=== PATIENT | female | born 1990 | race Caucasian/White ===

== ENCOUNTER → 2017-06-25 11:15 | Outpatient (CLI) | payer MEDICAID, SELFPAY ==
[2017-06-25 20:11] LABS: Chlamydia Trachomatis by PCR Negative (Negative); Neisserai gonorrhoeae by PCR Negative (Negative); Probe Check PASS; Sample Adequacy Control PASS; Specimen Processing Control PASS
[2017-06-26 20:08] LABS: HCV Quant. RNA PCR HCV Not Detected IU/mL (.)
[2017-06-27 08:38] LABS: HEPATITIS B SURFACE AG Negative (Negative); HSV 1 IgG 1.38 index (0.00-0.90)
[2017-06-28 01:09] LABS: Rapid Plasmin Reagin (RPR) NONREACTIVE (NONREACTIVE)
[2017-06-28 11:34] LABS: HPV APTIMA, High Risk Negative (Negative)
== END ==
PROVIDERS: Visit Provider Nurse Practitioner Women's Health
DX: Z12.4 Encounter for screening for malignant neoplasm of cervix (principal); Z11.3 Encounter for screening for infections with a predominantly sexual mode of transmission; N89.8 Other specified noninflammatory disorders of vagina
CPT/HCPCS: 36415; 86592; 86695; 86696; 87340; 87491; 87522; 87591; 88175; G0145

== ENCOUNTER 2017-08-26 00:37 | Emergency (ER) | payer SELFPAY ==
[2017-08-26 00:38] VITALS: BP 110/64; PULSE 86; RESP 16; TEMP 36.7; O2SAT 97; BMI 27.5
[2017-08-26 01:18] VITALS: BP 97/56; PULSE 78; O2SAT 95
--- NOTE | 2017-08-26 01:20 | ED.DCSUM_ITS ---
- ER Visit Summary Date of Service: 08/26/17 Chief Complaint: Abscess History of Present Illness: The patient is a 26 F with an abscess in her left gluteal region. No fever or systemic symptoms. Physical Examination: Superficial 1 cm abscess in the left gluteal region near the cleft. Does not involve the labia or deep structures. 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 Anesthetized with lidocaine. 1 cm linear incision made. Pus expressed. Will treat with clindamycin and naproxen. Follow-up with primary care for recheck. Soaks advised. Treatment Plan: As above Disposition: Discharged Impression: 1. Left gluteal abscess 1 cm This note was generated with [employer] dictation software. It may contain incorrect words, spelling, and punctuation that were not noted in review of the chart prior to signing ED Disposition - Plan for ED Patient: Chief Complaint: Abscess Referrals: Care Physician,No Primary [Primary Care Provider] -
--- NOTE | 2017-08-26 01:20 | ED.DEP ---
ED Disposition - Plan for ED Patient: Chief Complaint: Abscess Instructions: ED Abscess IandD Prescriptions: Naproxen [Naprosyn] 500 mg PO BID PRN #20 tab Clindamycin [Cleocin] 300 mg PO 4X/DAY #80 cap Referrals: Care Physician,No Primary [Primary Care Provider] -
== END 2017-08-26 01:34 | disposition home or self-care (01) ==
PROVIDERS: Emergency Provider Emergency Medicine
DX: L02.31 Cutaneous abscess of buttock (principal)
CPT/HCPCS: 10060; 99282

== ENCOUNTER 2017-08-29 06:13 | Emergency (ER) | payer SELFPAY ==
[2017-08-29] VITALS (33 sets, daily range): BP systolic 93–124; BP diastolic 51–85; PULSE 67–113; RESP 12–19; TEMP -17.7–0; O2SAT 90–99; BMI 27.3
--- NOTE | 2017-08-29 06:27 | EKG12_ITS ---
Test Reason : UNRESPONSIVE Blood Pressure : / mmHG Vent. Rate : 087 BPM Atrial Rate : 087 BPM P-R Int : 154 ms QRS Dur : 094 ms QT Int : 370 ms P-R-T Axes : 080 069 060 degrees QTc Int : 445 ms Normal sinus rhythm Normal ECG Confirmed by KUSHAL CHRISTIAN, ADDIS ([id number]), advertising editor DAR GAR ([id number]) on 09/06/2017 3:02:04 PM Referred By: SONU Confirmed By:ADDIS FATIMA MD
[2017-08-29 06:41] LABS: Absolute Lymphocyte Count 1.63 X10^3/ul (0.83-4.51); Absolute Neutrophil Count 3.9 X10^3/uL (2.0-7.7); Basophil# 0.02 X10^3/uL; Basophil% 0.3 % (0-1); Eosinophil# 0.09 X10^3/uL; Eosinophils% 1.4 % (0-5); Hemoglobin 15.6 g/dl (12.0-15.0); Lymphocyte # 1.63 X10^3/ul (4.0); Mean Corp Hgb Conc 33.2 g/gl (32-36); Mean Corpuscular Hgb 30.2 pg (27.0-32.0); Mean Corpuscular Volume 91.1 fL (81-99); Mean Platelet Vol. 11.9 fl (6.2-12.0); Monocyte% 9.6 % (0-10); Neutrophil # 3.91 X10^3/uL (2.7-7.7); Neutrophil % 62.5 % (47-70); Platelet Count 151 K/mm3 (150-450); RBC Distribution Width CV 13.6 % (11.6-14.6); RBC Distribution Width SD 45.2 fl (35.1-43.9); Red Blood Count 5.16 M/mm3 (4.2-5.4); White Blood Count 6.3 K/mm3 (4.4-11.0)
[2017-08-29 06:42] LABS: POSITIVE COUNT NO; POSITIVE DIFFERENTIAL NO; POSITIVE MORPHOLOGY NO
--- NOTE | 2017-08-29 06:47 | ED.RN ---
PT IN [facility], COMBATIVE, OUT OF CONTROL, SCREAMING. PULLED HER IV OUT W HER TEETH, MONITOR AND BP CUFF PULLED OFF W HER TEETH. VIKTORDON GIVEN IM.
--- NOTE | 2017-08-29 06:51 | ED.VISSUMM ---
- ER Visit Summary Date of Service: 08/29/17 Chief Complaint: Unresponsive History of Present Illness: The patient is a 26 F who was called out to EMS as a drug overdose. The person that called this in the left prior to their arrival. Upon their arrival the patient was unresponsive. They gave a dose of Narcan and she then vomited. Aniya reports that she stopped breathing on the way in and she arrives to the emergency department being bagged. Aniya brought the empty medicine bottles that were by her bed. These include: Seroquel 100 mg. 60 pills filled July 17. She is to take 2 nightly. This bottle is empty. Trend Telex 10 mg filled July 17, 1929 pills 1 daily. This is empty. Prazosin 1 mg. She was supposed to take 1 p.o. nightly. This was filled May 30 and July 17. There are 58 of these pills. Zoloft 100 mg. 30 pills filled July 17 1 p.o. daily. This is empty. BuSpar 10 mg. 90 pills filled July 17. 1 p.o. 3 times daily. There are 88 of these pills. Physical Examination: Vitals: 124/80, 88, 18, 100% on room air which is not hypoxic. General: Well-nourished and well-developed. Head: Normocephalic atraumatic. Neck: Supple, no lymphadenopathy. No JVD. Nontender. Cardiovascular: Regular rate and rhythm. No murmurs. Respiratory: No respiratory distress. Clear to auscultation bilaterally. Abdominal: Soft, nontender, nondistended, normal bowel sounds. No guarding, rebound, or peritoneal signs. Back: Nontender. Extremities: Nontender, no edema. Skin: Normal color, no rash. Neurologic: Alert and moves all extremities well.. Psych: Agitated and combative. Will not answer any questions. Test Results: CBC is remarkable for a hemoglobin of 15.6. test is negative. Chem-7 is remarkable for a chloride of 108, BUN of 5, and glucose of 108. LFTs are normal. Emergency Department Course and Treatment: Shortly after arrival in the emergency department the patient became very agitated and combative. She is awake and alert without receiving medications that would have done this. She was placed in restraints for her own and staff safety. She was given Geodon IM with little effect. She was then given Benadryl and Ativan IM. Treatment Plan: When the patient awakes and is more compliant she will require consultation from the counseling center to determine what happened this morning. Disposition: Pending Impression: 1. Depression. 2. Polysubstance overdose. This note was generated with [employer] dictation software. It may contain incorrect words, spelling, and punctuation that were not noted in review of the chart prior to signing ED Disposition - Plan for ED Patient: Chief Complaint: Overdose Referrals: Angela Chawla [Primary Care Provider] -
[2017-08-29] MEDS: Ziprasidone IM 20 MG/ML VIAL IM (06:52)
[2017-08-29 06:53] LABS: Pregnancy, Serum, hCG Quali. NEGATIVE Negative (0-9 Nonpreg)
[2017-08-29] MEDS: 0.9% Normal Saline 1,000 ML 1000 ML IV (06:53)
[2017-08-29 07:03] LABS: AST(SGOT) 21 U/L (15-37); Alanine Aminotransfer ALT/SGPT 24 U/L (13-56); Albumin, Serum 3.8 g/dL (3.2-5.0); Alkaline Phosphatase 81 U/L (45-117); Anion Gap 9 (5-15); BUN 5 mg/dL (7-18); Calcium,Total 8.9 mg/dL (8.5-10.1); Chloride 108 mmol/L (98-107); Creatinine, Serum 0.83 mg/dL (0.55-1.02); EST Glomerular Filtration Rate 87 mL/min (>60); Est Glom Filt Rate - Afr Amer 106 mL/min (>60); Globulin 3.7 g/dL (2.2-4.2); Glucose 108 mg/dL (74-106); Potassium 3.6 mmol/L (3.5-5.1); Protein, Total 7.5 g/dL (6.4-8.2); Sodium Level 140 mmol/L (136-145)
[2017-08-29] MEDS: LORazepam 2 MG/ML Syringe 1 MG IM (07:08)
[2017-08-29] MEDS: DiphenhydrAMINE 50 MG/ML Syringe 25 MG IM (07:09)
[2017-08-29 08:25] LABS: Acetaminophen (Tylenol) Level < 2.0 ug/mL (10.0-30.0)
[2017-08-29 08:30] LABS: Amphetamine Urine VISTA POSITIVE (<1000 ng/mL); Barbiturate Urine VISTA NEGATIVE (< 200 ng/mL); Benzodiazepine Urine VISTA NEGATIVE (< 200 ng/mL); Cocaine Urine VISTA NEGATIVE (< 300 ng/mL); Ecstacy Urine VISTA NEGATIVE (< 500 ng/mL); Methadone Urine VISTA NEGATIVE (< 300 ng/mL); PCP Urine VISTA NEGATIVE (< 25 ng/mL); THC Urine VISTA POSITIVE (< 50 ng/mL); Vista UDS pH Range 6
--- NOTE | 2017-08-29 08:47 | ED.RN ---
CONTACTED CRISIS; FARRAH WILL BE CALLING BACK SHORTLY
--- NOTE | 2017-08-29 08:50 | RAD_ITS ---
STUDY: X-RAY CHEST REASON FOR EXAM: Female, 26 years old. Overdose. TECHNIQUE: Single AP portable view of the chest. COMPARISON: None. FINDINGS: EKG electrodes are seen. The lungs are clear and expanded. There is no demonstrated pleural abnormality. Normal size heart. Normal mediastinum and ruben. Normal visualized pulmonary arteries. Normal visualized aortic arch and descending thoracic aorta. Normal visualized thoracic spine. Normal visualized ribs, clavicles, and shoulders. There is no demonstrated abnormality of the visualized soft tissue structures of the upper abdomen. RAD/Chest 1 View (Portable) IMPRESSION: Normal x-ray examination of the chest. Electronically Signed: Osmel Conde MD at 9:23 EDT Tel [phone], Service support ,
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
--- NOTE | 2017-08-29 08:54 | ED.RN ---
FARRAH FROM [facility] WILL BE IN TO EVALUATE PT
--- NOTE | 2017-08-29 09:07 | ED.RN ---
ATTEMPTED TO CALL PT FRIEND PAMELA. NO ANSWER. CALL GOES TO VOICEMAIL
--- NOTE | 2017-08-29 09:24 | ED.RN ---
PT FRIEND PAMELA AT BEDSIDE. PT SLEEPING
--- NOTE | 2017-08-29 11:18 | ED.RN ---
[facility]
--- NOTE | 2017-08-29 15:41 | ED.RN ---
PER AMANDA WITH [facility]; PT WILL HAVE TO GO TO [facility] BECAUSE OF NO INSURANCE; FAXED ALL INFORMATION TO THEM AND ARE WAITING ON A RESPONSE
[2017-08-29 19:04] LABS: Alcohol, Blood (Medical)-Serum < 3.0 mg/dL
--- NOTE | 2017-08-29 22:18 | ED.RN ---
night time medication ordered at this time
[2017-08-29] MEDS: QUEtiapine 100 MG Tablet PO (22:45)
[2017-08-29] MEDS: busPIRone 5 MG Tablet 10 MG PO (22:45)
[2017-08-30] VITALS (21 sets, daily range): BP systolic 99–122; BP diastolic 55–90; PULSE 64–106; RESP 14–20; TEMP 36.6; O2SAT 91–100
[2017-08-30] MEDS: busPIRone 5 MG Tablet 10 MG PO ×2 (06:42→14:36)
[2017-08-30] MEDS: Doxazosin 1 MG Tablet PO (06:48)
--- NOTE | 2017-08-30 09:17 | NURSING ---
NADIA, CRISIS, HERE FOR PATIENT
[2017-08-30] MEDS: Sertraline 100 MG Tablet 200 MG PO (10:25)
--- NOTE | 2017-08-30 13:47 | NURSING ---
COURTNEY SERVICES IN ROOM WITH PATIENT
--- NOTE | 2017-08-30 17:20 | NURSING ---
FAXED CURRENT VITALS TO [facility]
--- NOTE | 2017-08-30 17:50 | NURSING ---
at 1730 Kulwinder from [facility] called and spoke with this RN, Kulwinder asked questions regarding patients finger nails and if we knew the exact reason the patient was unresponsive on arrival and that narcan did not work. Explained that patient had broken acrylic nail broken off and we use that finger for pulse ox and it is normal at 98%. It was accidently taken on a finger with an acrylic nail on and did not give an accurate pulse ox. Kulwinder states he is going to talk to his physician and call back. at 173 Kulwinder from [facility] called back and stated he needed a written statement from our physician that states patient's diagnosis, that you followed guidelines for that diagnosis, that the patient is medically cleared to go to a free standing physiatric facility. Kulwinder states their physician needs this before accepting and getting a room. Dr. Ward notified of [facility]'s request. Dr. Ward chose to call [facility] specifically at 1740. Dr. Ward spoke with facilities charge nurse/supervisor bonding and then he spoke with their physician. Dr. Ward wrote the statement, we then faxed it to [facility] and are now awaiting their call back.
--- NOTE | 2017-08-30 18:29 | NURSING ---
John from [facility] called at 1810 to say they received the written statement and that they were ready to get nurse report. This RN was transferred to [facility] and gave nurse to nurse report, they state they are ready for pt.
--- NOTE | 2017-08-30 18:35 | NURSING ---
Called and spoke with Zac mejia at [facility]. Gave ETA for patient's arrival around [id number]
--- NOTE | 2017-08-30 20:46 | ED.RN ---
patients medications were left here during transport. Attempted to make contact with patient at this time. No phone number listed. No emergency contact listed either at this time. unable to make any contact at this time with anyone to mixing picker tender patients medications
== END 2017-08-30 20:09 ==
PROVIDERS: Emergency Medicine; Emergency Provider Emergency Medicine; PCP Psychiatry & Neurology Psychiatry
DX: T65.91XA Toxic effect of unspecified substance, accidental (unintentional), initial encounter (principal); R40.20 Unspecified coma; Y92.9 Unspecified place or not applicable; F32.9 Major depressive disorder, single episode, unspecified
CPT/HCPCS: 71045; 80053; 80307; 80320; 80329; 84703; 85025; 93005; 96360; 96372; 99285; J7030; A4216; G0480; J3486

== ENCOUNTER 2017-09-17 18:57 | Emergency (ER) | payer SELFPAY ==
[2017-09-17 18:58] VITALS: BP 127/86; PULSE 81; RESP 16; TEMP 37.1; O2SAT 99; BMI 27.6
--- NOTE | 2017-09-17 20:47 | ED.DCSUM_ITS ---
- ER Visit Summary Date of Service: 09/17/17 Chief Complaint: Depression History of Present Illness: The patient is a 26 F who saw a soda worker today and is an appointment with a counselor tomorrow. She told a friend that she was done, fed up, and can do it. The friend was concerned the patient was suicidal and called the police. Patient reports that she is upset because she has not seen her kids in the past 3-4 weeks. She was at [facility] earlier this month and was released just last week. She denies any suicidal ideation or plan. She denies any homicidal ideation or auditory hallucinations.. Physical Examination: Vitals: Stable. Afebrile. General: Well-nourished and well-developed. Head: Normocephalic atraumatic. Neck: Supple, no lymphadenopathy. No JVD. Nontender. Cardiovascular: Regular rate and rhythm. No murmurs. Respiratory: No respiratory distress. Clear to auscultation bilaterally. Abdominal: Soft, nontender, nondistended, normal bowel sounds. No guarding, rebound, or peritoneal signs. Back: Nontender. Extremities: Nontender, no edema. Skin: Normal color, no rash. Neurologic: Alert and oriented ?3. Cranial nerves II through XII are intact. Normal strength and sensation. Mental status exam: Patient appears their stated age. Good posture and grooming. Good eye contact. Normal rate, volume, and latency of speech. No suicidal or homicidal ideation. No auditory or visual hallucinations. Flow of thought is logical. Insight and judgment is fair. Emergency Department Course and Treatment: Patient was seen by the counseling center in the emergency department. She is able to contract for safety. She has an appointment to be seen tomorrow already. Treatment Plan: Patient discharged instructions to keep her appointment. Return to the emergency department for any thoughts of harming herself. Disposition: To home in improved and stable condition. Impression: 1. Depression. This note was generated with [employer] dictation software. It may contain incorrect words, spelling, and punctuation that were not noted in review of the chart prior to signing ED Disposition - Plan for ED Patient: Disposition: Home or Assisted Living Chief Complaint: Mental Health Instructions: ED Depression Referrals: Counseling,Center [GROUP OF PHYSICIANS] - 1 Day
[2017-09-17 20:53] VITALS: RESP 16
--- NOTE | 2017-09-17 20:54 | ED.RN ---
pt has information on scheduled appt tomorrow with crisis. pt denies questions at this time.
== END 2017-09-17 21:00 | disposition home or self-care (01) ==
PROVIDERS: Emergency Provider Emergency Medicine
DX: F31.9 Bipolar disorder, unspecified (principal); F43.10 Post-traumatic stress disorder, unspecified; Z72.0 Tobacco use
CPT/HCPCS: 99285

== ENCOUNTER 2017-11-27 16:57 | Emergency (ER) | payer MEDICAID, SELFPAY ==
[2017-11-27 17:01] VITALS: BP 118/85; PULSE 77; RESP 78; TEMP 37.2; O2SAT 98; BMI 26.5
[2017-11-27 17:51] LABS: Absolute Lymphocyte Count 1.64 X10^3/ul (0.83-4.51); Absolute Neutrophil Count 5.9 X10^3/uL (2.0-7.7); Eosinophil# 0.11 X10^3/uL; Eosinophils% 1.3 % (0-5); Hematocrit 41.8 % (37-47); Hemoglobin 13.7 g/dl (12.0-15.0); Lymphocyte # 1.64 X10^3/ul (4.0); Lymphocyte % 19.8 % (19-41); Mean Corp Hgb Conc 32.8 g/gl (32-36); Mean Corpuscular Hgb 29.6 pg (27.0-32.0); Mean Corpuscular Volume 90.3 fL (81-99); Mean Platelet Vol. 11.3 fl (6.2-12.0); Monocyte# 0.63 X10^3/uL; Monocyte% 7.6 % (0-10); Neutrophil # 5.89 X10^3/uL (2.7-7.7); Neutrophil % 71.3 % (47-70); Platelet Count 239 K/mm3 (150-450); RBC Distribution Width CV 13.8 % (11.6-14.6); RBC Distribution Width SD 45.5 fl (35.1-43.9); Red Blood Count 4.63 M/mm3 (4.2-5.4); White Blood Count 8.3 K/mm3 (4.4-11.0)
[2017-11-27 17:52] LABS: POSITIVE COUNT NO; POSITIVE DIFFERENTIAL NO; POSITIVE MORPHOLOGY NO
[2017-11-27 18:17] LABS: Alcohol, Blood (Medical)-Serum < 3.0 mg/dL
[2017-11-27 18:19] LABS: Anion Gap 7 (5-15); BUN 8 mg/dL (7-18); BUN/Creat Ratio 9.9 RATIO (10-20); Calcium,Total 9.1 mg/dL (8.5-10.1); Chloride 108 mmol/L (98-107); Creatinine, Serum 0.81 mg/dL (0.55-1.02); EST Glomerular Filtration Rate 90 mL/min (>60); Est Glom Filt Rate - Afr Amer 109 mL/min (>60); Estimated Creatinine Clearance 93.88 ml/min; Glucose 88 mg/dL (74-106); Potassium 3.9 mmol/L (3.5-5.1); Sodium Level 143 mmol/L (136-145)
[2017-11-27 18:25] LABS: Pregnancy, Serum, hCG Quali. NEGATIVE Negative (0-9 Nonpreg)
[2017-11-27 18:28] LABS: Amphetamine Urine VISTA NEGATIVE (<1000 ng/mL); Barbiturate Urine VISTA NEGATIVE (< 200 ng/mL); Benzodiazepine Urine VISTA NEGATIVE (< 200 ng/mL); Cocaine Urine VISTA NEGATIVE (< 300 ng/mL); Ecstacy Urine VISTA NEGATIVE (< 500 ng/mL); Methadone Urine VISTA NEGATIVE (< 300 ng/mL); PCP Urine VISTA NEGATIVE (< 25 ng/mL); THC Urine VISTA POSITIVE (< 50 ng/mL); Vista UDS pH Range 6
--- NOTE | 2017-11-27 21:09 | ED.DCSUM_ITS ---
- ER Visit Summary Date of Service: 11/27/17 Chief Complaint: Suicidal ideation History of Present Illness: The patient is a 26 F presents with suicidal ideation. She has a history of depression and significant prior suicide attempt. She has been increasingly depressed since her committed suicide in front of their children a proximally 1 year ago. She lost custody of her children and she has a 1 day a week supervised visit. She was having her visit today and apparently sent text messages and left voicemails to her friends stating that she was going to kill herself and her friend called police. She also called crisis recently and said that she is going to commit suicide. Physical Examination: Vitals within normal limits. She is not in distress. Neck is supple. Heart tones are regular and without murmur. Lungs are clear bilaterally. Diminished soft and nontender. Affect is flat. Thought content is normal. She admits to suicidal thoughts but denies a specific plan Test Results: Medical clearance labs are unremarkable Emergency Department Course and Treatment: Medical clearance labs are unremarkable. I consulted crisis. They have voicemails and audio recordings from her friend stating that she is going to complete suicide and apparently she became belligerent with the police today and said that she is going to give her children away so that she can commit suicide. The crisis mental health professional feel strongly that she would benefit from inpatient psychiatric treatment and that she is at high risk for completing suicide. She was medically cleared and she will be transferred to an inpatient psychiatric facility. Treatment Plan: Transfer to psychiatric facility Disposition: Transfer stable condition Impression: Initial encounter suicidal ideation and suicidal gesture This note was generated with [employer] dictation software. It may contain incorrect words, spelling, and punctuation that were not noted in review of the chart prior to signing ED Disposition - Plan for ED Patient: Chief Complaint: Suicidal Referrals: Care Physician,No Primary [Primary Care Provider] -
[2017-11-27] MEDS: Ziprasidone IM 20 MG/ML VIAL IM (22:01)
[2017-11-27 22:08] VITALS: BP 119/68; PULSE 62; RESP 18; O2SAT 98
[2017-11-27] MEDS: LORazepam 1 MG Tablet 2 MG PO (23:02)
[2017-11-28 00:15] LABS: AST(SGOT) 15 U/L (15-37); Alanine Aminotransfer ALT/SGPT 19 U/L (13-56); Albumin, Serum 3.9 g/dL (3.2-5.0); Alkaline Phosphatase 86 U/L (45-117); Bilirubin, Direct 0.11 mg/dL (0.00-0.30); Globulin 3.6 g/dL (2.2-4.2); Protein, Total 7.5 g/dL (6.4-8.2)
[2017-11-28 01:18] VITALS: BP 82/59; RESP 18
[2017-11-28 02:31] VITALS: PULSE 57; RESP 18; O2SAT 98
[2017-11-28 02:36] VITALS: PULSE 57; RESP 18
== END 2017-11-28 02:53 ==
PROVIDERS: Emergency Provider Emergency Medicine
DX: R45.851 Suicidal ideations (principal); F32.9 Major depressive disorder, single episode, unspecified; Z91.5 Personal history of self-harm; G40.909 Epilepsy, unspecified, not intractable, without status epilepticus; G43.909 Migraine, unspecified, not intractable, without status migrainosus; Z79.899 Other long term (current) drug therapy; Z72.0 Tobacco use
CPT/HCPCS: 80048; 80076; 80307; 80320; 84703; 85025; 93005; 96372; 99285; G0480; J3486

== ENCOUNTER → 2017-12-09 17:06 | Outpatient (CLI) | payer MEDICAID, SELFPAY ==
[2017-12-09 18:48] LABS: Chlamydia Trachomatis by PCR Negative (Negative); Neisserai gonorrhoeae by PCR Negative (Negative); Probe Check PASS; Sample Adequacy Control PASS; Specimen Processing Control PASS
== END ==
PROVIDERS: Visit Provider Nurse Practitioner Women's Health
DX: Z11.3 Encounter for screening for infections with a predominantly sexual mode of transmission (principal)
CPT/HCPCS: 87491; 87591

== ENCOUNTER → 2018-01-10 16:08 | Outpatient (CLI) | payer MEDICAID, SELFPAY ==
[2018-01-10 18:24] LABS: HIV - WCH Non-Reactive (Nonreactive); Progesterone Level 3.91 ng/mL (See Comment)
[2018-01-13 18:43] LABS: HCV Quant. RNA PCR HCV Not Detected IU/mL (.)
[2018-01-14 11:17] LABS: HEPATITIS B SURFACE AG Negative (Negative)
[2018-01-17 01:16] LABS: Rapid Plasmin Reagin (RPR) NONREACTIVE (NONREACTIVE)
== END ==
PROVIDERS: Nurse Practitioner Women's Health; Visit Provider Obstetrics & Gynecology
DX: Z11.3 Encounter for screening for infections with a predominantly sexual mode of transmission (principal); N92.6 Irregular menstruation, unspecified
CPT/HCPCS: 36415; 84144; 86592; 86703; 87340; 87522

== ENCOUNTER 2018-02-18 14:43 | Emergency (ER) | payer MEDICAID, SELFPAY ==
[2018-02-18 14:43] VITALS: BP 134/83; PULSE 89; RESP 16; TEMP 36.8; O2SAT 97; BMI 28.1
[2018-02-18 14:48] VITALS: BP 134/83; PULSE 90; RESP 16; O2SAT 98
--- NOTE | 2018-02-18 14:48 | CT_ITS ---
STUDY: CT BRAIN WITHOUT CONTRAST REASON FOR EXAM: Female, 27 years old. Severe headaches. Visual changes. RADIATION DOSAGE (If Supplied By Facility): CTDIvol = ( 44.99 ) mGy, DLP = ( 818.61 ) mGycm TECHNIQUE: Transaxial CT imaging of the brain was performed without administration of intravenous contrast material. Individualized dose optimization techniques were used for this CT. COMPARISON: Comparison is made with prior study dated August 08, 2015. FINDINGS: Normal soft tissue structures. Normal calvarium. Normal size ventricles and extra-axial spaces for the patient's age. Normal white matter tracts of the cerebral hemispheres. Normal basal ganglia and thalami. Normal brainstem. Normal cerebellum. There is no intracranial hemorrhage. There are no findings of an acute ischemic infarction. Normal visualized paranasal sinuses. CT/Brain/Head without Contrast IMPRESSION: Normal unenhanced CT scan of the brain. N.B. : The above information has been verbally conveyed by Osmel Conde MD to Dr Mamadou MD, on 02/18/2018 15:29:52 (ET). Electronically Signed: Osmel Conde MD at 15:18 EDT Tel [phone], Service support ,
--- NOTE | 2018-02-18 14:48 | CT_ITS ---
STUDY: CTA NECK WITH CONTRAST REASON FOR EXAM: Female, 27 years old. Severe headaches. Right orbital issues. RADIATION DOSAGE (If Supplied By Facility): CTDIvol = ( 29.34 ) mGy, DLP = ( 1504.17 ) mGycm TECHNIQUE: CT angiography with multi-detector data acquisition was performed from the aortic arch to the skull base following intravenous administration of 100 ml of Isovue 370 contrast. MIP images were reconstructed from the axial data set. Post-processing of the angiographic images was performed, with multiplanar reformation and 3D reconstruction. Individualized dose optimization techniques were used for this CT. COMPARISON: None. FINDINGS: AORTIC ARCH: Normal visualized aortic arch. Normal origins of the brachiocephalic, left common carotid, and left subclavian arteries. RIGHT CAROTID ARTERIES: Normal right common carotid artery (CCA). Normal right common carotid bulb. Normal origin of the right internal carotid (ICA) artery without a hemodynamically significant stenosis. Normal visualized cervical portion of the right internal carotid artery. Normal origin of the right external carotid artery (ECA). LEFT CAROTID ARTERIES: Normal left common carotid artery (CCA). Normal left common carotid bulb. Normal origin of the left internal carotid (ICA) artery without a hemodynamically significant stenosis. Normal visualized cervical portion of the left internal carotid artery. Normal origin of the left external carotid artery (ECA). VERTEBRAL ARTERIES: Normal bilateral vertebral arteries. CT/CTA Neck W/WO Contrast IMPRESSION: Normal bilateral cervical carotid and vertebral arteries. N.B. : The above information has been verbally conveyed by Osmel Conde MD to Clark Cedillo on 02/18/2018 15:29:08 (ET). Electronically Signed: Osmel Conde MD at 15:29 EDT Tel [phone], Service support ,
--- NOTE | 2018-02-18 14:48 | EKG12_ITS ---
Test Reason : NEURO S/SX Blood Pressure : / mmHG Vent. Rate : 086 BPM Atrial Rate : 086 BPM P-R Int : 150 ms QRS Dur : 094 ms QT Int : 360 ms P-R-T Axes : 077 066 061 degrees QTc Int : 430 ms Normal sinus rhythm Normal ECG Confirmed by KUSHAL CHRISTIAN, ADDIS ([id number]), news assignment editor DAR GAR ([id number]) on 02/26/2018 1:33:43 PM Referred By: KAYLIE Confirmed By:ADDIS FATIMA MD
--- NOTE | 2018-02-18 14:48 | CT_ITS ---
STUDY: CTA OF THE BRAIN REASON FOR EXAM: Female, 27 years old. Right-sided weakness. Severe headaches. RADIATION DOSAGE (If Supplied By Facility): CTDIvol = ( 29.34 ) mGy, DLP = ( 1504.17 ) mGycm TECHNIQUE: CT angiography was performed with a multi-detector CT scanner. Data acquisition was obtained from the skull base through the vertex following intravenous administration of 100 ml of Isovue-370. MIP images were reconstructed from the axial data set. Post-processing of the angiographic images was performed, with multiplanar reformation and 3D reconstruction. Individualized dose optimization techniques were used for this CT. COMPARISON: None. FINDINGS: Normal bilateral petrous carotid arteries. Normal right cavernous carotid artery with a normal supraclinoid bifurcation. Normal left cavernous carotid artery with a normal supraclinoid bifurcation. Normal right A1 segments of the anterior cerebral artery. Normal left A1 segments of the anterior cerebral artery. Normal intact anterior communicating artery (ACOM). Normal bilateral A2 segments of the anterior cerebral arteries. Normal right M1 and M2 segments of the middle cerebral arteries, with a normal M1 bifurcation. Normal left M1 and M2 segments of the middle cerebral arteries, with a normal M1 bifurcation. Normal right posterior communicating artery (PCOM). Normal left posterior communicating artery (PCOM). Normal bilateral vertebral arteries. Normal basilar artery with a normal basilar bifurcation. The visualized bilateral superior cerebellar (SCA) arteries are normal. Normal bilateral P1, P2 and visualized P3 segments of the posterior cerebral arteries. There is no demonstrated aneurysm of the [place]. There is no demonstrated abnormality of the visualized brain. CT/CTA Head W/WO Contrast IMPRESSION: Normal [place] without a demonstrated aneurysm or hemodynamically significant stenosis. N.B. : The above information has been verbally conveyed by Osmel Conde MD to Dr Mamadou MD, on 02/18/2018 15:26:53 (ET). Electronically Signed: Osmel Conde MD at 15:26 EDT Tel [phone], Service support ,
--- NOTE | 2018-02-18 14:52 | NURSING ---
STROKE ALERT CALLED.
[2018-02-18 14:54] VITALS: O2SAT 96
[2018-02-18 14:56] LABS: Bedside Glucose 104 mg/dL (70-110)
[2018-02-18 15:11] LABS: Absolute Neutrophil Count 6.5 X10^3/uL (2.0-7.7); Basophil# 0.01 X10^3/uL; Basophil% 0.1 % (0-1); Eosinophil# 0.07 X10^3/uL; Eosinophils% 0.8 % (0-5); Hemoglobin 14.2 g/dl (12.0-15.0); Lymphocyte % 18.1 % (19-41); Mean Corpuscular Hgb 29.9 pg (27.0-32.0); Mean Corpuscular Volume 90.5 fL (81-99); Mean Platelet Vol. 11.6 fl (6.2-12.0); Monocyte# 0.64 X10^3/uL; Monocyte% 7.3 % (0-10); Neutrophil # 6.48 X10^3/uL (2.7-7.7); Neutrophil % 73.5 % (47-70); Platelet Count 254 K/mm3 (150-450); RBC Distribution Width CV 14.8 % (11.6-14.6); RBC Distribution Width SD 48.3 fl (35.1-43.9); Red Blood Count 4.75 M/mm3 (4.2-5.4); White Blood Count 8.8 K/mm3 (4.4-11.0)
[2018-02-18 15:12] LABS: Prothrombin Time (Protime)PT. 13.5 SECONDS (11.7-14.9)
[2018-02-18 15:13] LABS: Anion Gap 8 (5-15); BUN 8 mg/dL (7-18); BUN/Creat Ratio 9.9 RATIO (10-20); Calcium,Total 8.9 mg/dL (8.5-10.1); Chloride 106 mmol/L (98-107); Creatinine, Serum 0.81 mg/dL (0.55-1.02); EST Glomerular Filtration Rate 90 mL/min (>60); Est Glom Filt Rate - Afr Amer 109 mL/min (>60); Estimated Creatinine Clearance 93.05 ml/min; Glucose 98 mg/dL (74-106); Partial Thromboplast Time 29.5 Seconds (24.1-36.2); Sodium Level 140 mmol/L (136-145)
[2018-02-18 15:14] LABS: POSITIVE COUNT NO; POSITIVE DIFFERENTIAL NO; POSITIVE MORPHOLOGY NO
[2018-02-18 16:02] VITALS: BP 135/85; PULSE 80; RESP 20; O2SAT 97
[2018-02-18 16:03] VITALS: BP 135/85; PULSE 80; RESP 15; O2SAT 99
[2018-02-18] MEDS: DiphenhydrAMINE 25 MG Capsule PO (16:11)
[2018-02-18] MEDS: Metoclopramide 10 MG/2 ML Vial IV (16:11)
[2018-02-18] MEDS: Ketorolac 30 MG/ML Syringe IV (16:11)
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
--- NOTE | 2018-02-18 16:28 | ED.DCSUM_ITS ---
- ER Visit Summary Date of Service: 02/18/18 Chief Complaint: Severe headache with blurred vision right eye and numbness right upper and lower extremity. History of Present Illness: The patient is a 27 F who was driving her vehicle when she developed blurred vision right eye with numbness tingling right upper and lower extremity. This was followed by headache and apparent weakness of the right lower leg. She does have history of traumatic brain injury and migraine headaches. There is no family history of subarachnoid hemorrhage or aneurysms of the brain. She denies photophobia, neck pain or neck stiffness. She denies cardiac or respiratory symptoms. She does report nausea without vomiting diar zari. She denies urologic or gynecologic symptoms. Physical Examination: Vital signs noted and blood pressure is elevated 135/85. Head is atraumatic normocephalic. Pupils are equal round reactive. Extraocular muscles are intact. Funduscopic exam reveals normal cup-to-disc ratio with no papilledema. TMs are pearly white with landmarks noted. Nares patent with no drainage. Posterior pharynx without erythema or exudate. Uvula is midline. There is no dysphonia or dysphasia. Trachea is midline. There is no stridor with auscultation of the neck. Neck is supple with no meningeal findings. Heart is regular without murmur, gallop or rub. S1 and S2 are normal. Lungs are clear to auscultation with good movement of air bilaterally. Abdomen soft nontender. Patient is alert and oriented ?3. Motor is 5 over 5. Sensory is intact. DTRs are symmetric with no clonus or Babinski sign. Cranial 2 through 12 are intact. Cerebellar testing is normal. Test Results: CT of the head and neck with contrast reveals no aneurysm, hemorrhage or stroke. EKG sinus rhythm rate 86 with normal ND interval and QRS duration. QT is normal. [place] is normal. CBC and basic metabolic panel unremarkable. Troponin is unremarkable. Emergency Department Course and Treatment: With severe headache this may represent a migraine versus subarachnoid hemorrhage versus intraparenchymal hemorrhage versus CVA. Treatment Plan: Since workup is negative she was treated for migraine headache with 25 mg of Benadryl p.o. since there is a hospital shortage of IV Benadryl and 10 mg of Reglan and 30 mg of Toradol IV push. Patient was assessed at 1630. Her vision is slightly blurred otherwise the paresthesia and weakness have resolved. Headache is improving. Disposition: Discharge to home and follow-up with her primary care doctor assigned to her by her insurance carrier care source. Impression: Ocular/left hemiparetic migraine This note was generated with [employer] dictation software. It may contain incorrect words, spelling, and punctuation that were not noted in review of the chart prior to signing ED Disposition - Plan for ED Patient: Chief Complaint: Neuro S/Sx Instructions: ED Headache Migraine Referrals: Care Physician,No Primary [Primary Care Provider] - Additional Instructions: Follow-up with your primary care provider assigned to you by your insurance carrier, [facility]
[2018-02-18 16:36] VITALS: BP 119/64; PULSE 81; RESP 12
--- NOTE | 2018-02-18 16:54 | PCM.CONS.GEN ---
Reason for Consult Date of Consultation: 02/18/18 Reason for Consultation: Stroke team History of Present Illness: The patient is a 27 year old F with a past medical history of apparently stroke, pseudoseizure, possible blood clots, was driving to work today at about 145 and noted the onset of abnormal vision on the right. She also has a headache. Stroke team was called and I met the patient in the CAT scanner and reviewed the CAT scan concurrently with its [place]'s. CTA was also performed all of which appeared normal to me. Patient denied any triggers. She was not clear about her medications she does believe that in the past she had been on a blood thinner. She said Coumadin sounded familiar. There is no history of blood clots but she has had 6 pregnancies and 3 live births. She says she is also been diagnosed with nonepileptic seizures in the past but does not appear to be on any anticonvulsants. She does admit to increased stress recently. Past Medical History Medical History: Medical History (Last Reviewed 02/18/18 @ 16:56 by Adilson Narvaez MD) Abnormal Pap smear of cervix R87.619 Depression F32.9 Allergies hydrocodone bitartrate [From Vicodin] Allergy (Verified 12/09/17 11:27) Unknown Penicillins Allergy (Verified 12/09/17 11:27) Rash Home Medications: Ambulatory Orders Medication Instructions Recorded Quetiapine Fumarate [Seroquel Xr] 400 mg PO QHS 08/29/17 Minipress 09/17/17 Lamotrigine [Lamictal] 50 mg PO DAILY 11/27/17 Sertraline HCl [Zoloft] 100 mg PO DAILY 11/27/17 Surgical History: Surgical History (Last Reviewed 02/18/18 @ 16:56 by Adilson Narvaez MD) delivery delivered O82 H/O LEEP Z98.890 H/O dilation and curettage Z98.890 Smoking Status: Current every day smoker Review of Systems Neurological: Reports: Blurred vision Psychiatric: Reports: Depression Objective: On physical examination, visual bradley are intact in the left eye but in the right eye only the right dual field is impaired. Cranial nerves are otherwise intact. Pupils are equal. Speech and language is normal. Strength is 5/5 There is no drift. There is increased muscle tone and physiologic tremor in her right upper and right lower extremity. Deep tendon reflexes are 2+ Toes are downgoing - Physical Exam Vital Signs Temp Pulse Resp BP Pulse Ox 36.8 C 81 12 119/64 99 02/18/18 14:43 02/18/18 16:36 02/18/18 16:36 02/18/18 16:36 02/18/18 16:03 Oxygen Delivery Method Room Air Weight: 76.8 kg Body Mass Index (BMI) 28.1 Finger Stick Blood Glucose 104 Laboratory Tests Past 24 Hrs 02/18/18 02/18/18 02/18/18 14:48 14:48 14:48 WBC 8.8 RBC 4.75 Hgb 14.2 Hct 43.0 MCV 90.5 MCH 29.9 MCHC 33.0 RDW 14.8 H RDW Differential 48.3 H Plt Count 254 MPV 11.6 Immature Gran % (Auto) 0.200 Neut % (Auto) 73.5 H Lymph % (Auto) 18.1 L [place] % (Auto) 7.3 Eos % (Auto) 0.8 Baso % (Auto) 0.1 Absolute Neuts (auto) 6.5 Absolute Lymphs (auto) 1.60 Total Counted Not Reportable PT 13.5 INR 1.0 APTT 29.5 Sodium 140 Potassium 4.0 Chloride 106 Carbon Dioxide 26.0 Anion Gap 8 BUN 8 Creatinine 0.81 Estim Creat Clear Calc 93.05 Est GFR (MDRD) Af Amer 109 Est GFR (MDRD) Non-Af 90 BUN/Creatinine Ratio 9.9 L Glucose 98 Calcium 8.9 Troponin I < 0.015 POC Glucose 02/18/18 14:[address] and CTA were reviewed both of which appeared normal. Current Home Med List Medication Instructions Recorded Confirmed Type Quetiapine Fumarate [Seroquel Xr] 400 mg PO QHS 08/29/17 12/09/17 History Minipress 09/17/17 12/09/17 History Lamotrigine [Lamictal] 50 mg PO DAILY 11/27/17 12/09/17 History Sertraline HCl [Zoloft] 100 mg PO DAILY 11/27/17 12/09/17 History Assessment/Plan Symptoms appear to be consistent with ocular migraine. This was discussed with the patient. Patient follow-up is reasonable with further assessment for potential migraine medicines if needed. Is also recommended that stress issues be managed more aggressively. Inpatient evaluation is not unreasonable if desired to complete the evaluation with MRI.
== END 2018-02-18 16:37 | disposition home or self-care (01) ==
PROVIDERS: Emergency Provider Emergency Medicine
DX: G43.909 Migraine, unspecified, not intractable, without status migrainosus (principal); F32.9 Major depressive disorder, single episode, unspecified; F17.200 Nicotine dependence, unspecified, uncomplicated; Z87.820 Personal history of traumatic brain injury
CPT/HCPCS: 70450; 70496; 70498; 80048; 82962; 84484; 85025; 85610; 85730; 93005; 96374; 96375; 99285; J7030; Q9967

== ENCOUNTER 2018-05-10 09:45 | Emergency (ER) | payer MEDICAID, SELFPAY ==
[2018-05-10 09:46] VITALS: BP 113/72; PULSE 76; RESP 16; TEMP 36.4; O2SAT 98; BMI 26.9
--- NOTE | 2018-05-10 09:56 | ED.VISSUMM ---
- ER Visit Summary Date of Service: 05/10/18 Chief Complaint: [] Left lower tooth pain for a few days History of Present Illness: The patient is a 27 F [] left lower tooth pain for a few days no fever no cough history of same has been able to see a dentist Physical Examination: [] Afebrile Wire dental extractions, the left lower tooth may be a second molar is obviously chronically decayed there is no gingival gumline swelling no discharge no airway compromise floor the mouth is soft neck is supple the rest exam is entirely unremarkable Test Results: [] Emergency Department Course and Treatment: [] Treatment Plan: [] Is allergic to penicillin she will be started on clindamycin Naprosyn follow-up with a dentist of her choice as of explained that tooth requires extraction Disposition: [] Impression: [] Dental decay with pain This note was generated with [employer] dictation software. It may contain incorrect words, spelling, and punctuation that were not noted in review of the chart prior to signing ED Disposition - Plan for ED Patient: Chief Complaint: Dental Referrals: Care Physician,No Primary [Primary Care Provider] -
--- NOTE | 2018-05-10 10:01 | ED.DEP ---
ED Disposition - Plan for ED Patient: Chief Complaint: Dental Instructions: ED Cavity Dental Prescriptions: Naproxen [Naprosyn] 500 mg PO BID PRN #20 tab Clindamycin HCl [Cleocin] 300 mg PO Q6H #40 cap Referrals: Care Physician,No Primary [Primary Care Provider] -
--- OUTSIDE RECORDS SUMMARY | 2018-07-14 09:58 | XMS RPT_ITS ---
:1990 Demographics Address [address] [place] [address] Work Phone . Preferred Language eng-US Marital Status Unknown Jainism Affiliation Unknown Race Ethnic Group Unknown Author Organization OH[facility] Care Team Providers Name Role Phone PHYSICIAN, NONE Primary Care Unavailable LIZZIE SANTOS MD Attending Unavailable MONSE BOWMAN (HOLLOW HANDLE KNIFE ASSEMBLER) Attending Unavailable Primay Care Physicia, No Primary Care Unavailable Karen Mcgraw Attending Unavailable Sutherlin, Deloris Attending Unavailable Primay Care Physicia, No Referring Unavailable Primay Care Physicia, No Primary Care Unavailable Luisito, Deloris Attending Unavailable Primay Care Physicia, No Primary Care Unavailable Luisito, Deloris Attending Unavailable Sutherlin, Deloris Referring Unavailable Primay Care Physicia, No Primary Care Unavailable Luisito, Deloris Attending Unavailable Primay Care Physicia, No Referring Unavailable Primay Care Physicia, No Primary Care Unavailable Primay Care Physicia, No Primary Care Unavailable Migue Grimaldo Attending Unavailable Jarad, Ben Attending Unavailable Jarad, Ben Attending Unavailable Primay Care Physicia, No Primary Care Unavailable Primay Care Physicia, No Primary Care Unavailable Dussel, Neftalyopher Attending Unavailable Luisito, Deloris Attending Unavailable Primay Care Physicia, No Referring Unavailable Primay Care Physicia, No Primary Care Unavailable Sutherlin, Deloris Attending Unavailable Primay Care Physicia, No Primary Care Unavailable Luisito, Deloris Referring Unavailable Marcanthony, Anjelica Attending Unavailable Marcanthony, Anjelica Referring Unavailable Cedillo, Clark Attending Unavailable Primay Care Physicia, No Primary Care Unavailable PROBLEMS PROBLEMS DATE TYPE CONDITION / CODE ATTENDING STATUS SOURCE 12/10/2017 Unknown Z11.3 - Encounter for Deloris Jorge Active [place] screening for Community infections with a Hospital predominantly sexual Repository mode of transmission / Z11.3(ICD-10) 09/30/2017 Unknown L02.31 - Cutaneous Migue Grimaldo Active [place] abscess of buttock / Community L02.31(ICD-10) Hospital Repository 06/25/2017 Unknown Z12.4 - Encounter for Luisito Deloris Active [place] screening for Community malignant neoplasm of Hospital cervix / Repository Z12.4(ICD-10) 06/25/2017 Unknown N89.8 - Other SutherlinDeloris spivey Active [place] specified Community noninflammatory Hospital disorders of vagina / Repository N89.8(ICD-10) 06/25/2017 Unknown Z01.411 - Encounter Luisito Deloris Active [place] for gynecological Community examination (general) Hospital (routine) with Repository abnormal findings / Z01.411(ICD-10) 06/25/2017 Unknown Z30.44 - Encounter LuisitoDeloris spivey Active [place] for surveillance of Community vaginal ring hormonal Hospital contraceptive device Repository / Z30.44(ICD-10) 06/25/2017 Unknown F41.9 - Anxiety Sutherlin, Deloris Active [place] disorder, unspecified Community / F41.9(ICD-10) Hospital Repository 06/25/2017 Unknown Z65.8 - Other Sutherlin, Deloris Active [place] specified problems Community related to Hospital psychosocial Repository circumstances / Z65.8(ICD-10) PROCEDURES PROCEDURES No Procedure Records FoundRESULTS RESULTS EMERGENCY DEPARTMENT Observed: 05/10/2018 Status: F Source: [place] SUMMARY 2:47 PM [facility] REPOSITORY [facility] Medical Records Department [address] [place] [address] Emergency Department Summary 05/10/18 0956 MR#: [id number] Acct: [id number] Name: TUAN DOLL Rep #: [id number] : 1990 27 From: Karen Mcgraw MD PCP: Care Physician, No Primary Status: DEP ER - ER Visit Summary Date of Service: 05/10/18 Chief Complaint: [] Left lower tooth pain for a few days History of Present Illness: The patient is a 27 F [] left lower tooth pain for a few days no fever no cough history of same has been able to see a dentist Physical Examination: [] Afebrile Wire dental extractions, the left lower tooth may be a second molar is obviously chronically decayed there is no gingival gumline swelling no discharge no airway compromise floor the mouth is soft neck is supple the rest exam is entirely unremarkable Test Results: [] Emergency Department Course and Treatment: [] Treatment Plan: [] Is allergic to penicillin she will be started on clindamycin Naprosyn follow-up with a dentist of her choice as of explained that tooth requires extraction Disposition: [] Impression: [] Dental decay with pain This note was generated with [employer]apter dictation software. It may contain incorrect words, spelling, and punctuation that were not noted in review of the chart prior to signing ED Disposition - Plan for ED Patient: Chief Complaint: Dental Referrals: Care Physician,No Primary [Primary Care Provider] - What to do if you have Problems For any increased pain, shortness of breath, bleeding, nausea or vomiting, chest pain, or any unexpected problems, contact your Primary Care Provider. Call [facility] ([phone]) or report to the closest Emergency Room. Call 911 if necessary. 05/10/18 1447 <Electronically signed by Karen Mcgraw MD> Date Karen Mcgraw MD Cosigner Signature (If Indicated): Date ____ CC: No Primary Care Physician DISCHARGE INSTRUCTION Observed: 05/10/2018 Status: F Source: [place] 10:03 AM [facility] REPOSITORY [facility] Medical Records Department [address] [place] [address] Discharge Instruction 05/10/18 1001 MR#: [id number] Acct: [id number] Name: TUAN DOLL Rep #: [id number] : 1990 27 From: Karen Mcgraw MD PCP: Care Physician, No Primary Status: PRE ER ED Disposition - Plan for ED Patient: Chief Complaint: Dental Instructions: ED Cavity Dental Prescriptions: Naproxen [Naprosyn] 500 mg PO BID PRN #20 tab Clindamycin HCl [Cleocin] 300 mg PO Q6H #40 cap Referrals: Care Physician,No Primary [Primary Care Provider] - What to do if you have Problems For any increased pain, shortness of breath, bleeding, nausea or vomiting, chest pain, or any unexpected problems, contact your Primary Care Provider. Call [facility] ([phone]) or report to the closest Emergency Room. Call 911 if necessary. 05/10/18 1003 <Electronically signed by Karen Mcgraw MD> Date Karen Mcgraw MD Cosigner Signature (If Indicated): Date CC: No Primary Care Physician SENIOR UI DESIGNER OFFICE VISIT Observed: 04/02/2018 Status: F Source: [place] REPORT 2:11 PM [facility] REPOSITORY [facility] [address] [place] [address] OFFICE VISIT Date of Service: 06/25/17 MR#: [id number] Acct: [id number] Name: TUAN DOLL Rep #: [id number] : 1990 Provider: KAMILA Jorge Age/Sex: 26/F Location: [facility] Status: Signed with Addenda ADDENDUM by KAMILA Jorge on 04/02/18 at 1411 Addendum entered and electronically signed by GLORY Houser 04/02/18 14:11: Rectal exam was deferred. No masses palpated Assessment AND Plan Problems 1. Encounter for gynecological examination with abnormal finding Z01.411 2. Pap smear for cervical cancer screening Z12.4 3. Encounter for surveillance of vaginal ring hormonal contraceptive device Z30.44 4. Screen for STD (sexually transmitted disease) Z11.3 5. Vaginal odor N89.8 6. Anxiety F41.9 7. Social discord Z65.8 Plan - GLORY Houser Completed breast and pelvic exam Reviewed diet and exercise Pap thin prep pap collected Contraception refill nuvaring. Insert today, condoms this cycle and always to decrease STD risks STD screen and call results Discussed counseling [facility], [facility], and [facility] health. She has seen counselor at [facility] in past and will call today. I offered to call for her and declines. [facility] will call her later today, written information on [facility] given. 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 PUBLICATIONS EDITOR) Chief Complaint: est annual Weatherization Technician Required: No Is patient in pain?: Yes Allergies hydrocodone bitartrate [From Vicodin] Allergy (Verified 06/25/17 10:24) Unknown Penicillins Allergy (Verified 06/25/17 10:24) Rash Medications etonogestrel-ethinyl estradiol 0.12 mg -0.015 mg/24 hr vaginal ring 1 vag ring VAGINAL Q3W #3 ea 06/25/17 [Rx Confirmed 06/25/17] Is last menstrual period known: Yes Last Menstral Period: 06/20/17 Post menopausal: No Patient : No : No PFSH Medical History Abnormal Pap smear of cervix (Acute) Depression (Acute) Surgical History delivery delivered (Acute) H/O LEEP (Acute) H/O dilation and curettage (Acute) Family History Grandmother Cancer pancreatic Grandfather Colon cancer Social History Smoking Status: Current every day smoker alcohol intake: current details: social substance use type: does not use caffeine: Yes what type of physical activity do you participate in: none seatbelt use: always do you feel safe at home: Yes additional social history: - Patient works at [employer] and [employer] Pregancy History 4 Elective abortions Hx Para 3 Spontaneous abortions Past Pregnancies Del. DateName GA/Weeks Outcome Route Bth WeighInfant GeLabor LgtAnesthesiDel LocatProvider FOB t n h a n HPI Annual (SCIENTIFIC PUBLICATIONS EDITOR): Details: TUAN MCDONNELL is a 26 year old who presents for annual exam. in October 2016 heroin overdose. States knows he was Hep C positive and she was never tested. She denies any drug use other then marijuana. She has 3 children, working 2 jobs and not much support from family or friends. States trying to be a good mom but feels overwhelmed. Having difficulty paying bills, heat, etc. Her mom was helping but hit one of the children and children services were called so she can't take them there. She admits making stupid choices with several men and wants STD testing. She is using Nuvaring for contraception and wishes to continue. She is having some lower pelvic pain with vaginal odor. Last PAP: 2 years History of abnormal PAP: yes Female Reproductive History Last Menstral Period: 06/20/17 Cycle Length: 21-35 Bleeding Duration: 5 Control Method: nuvaring Questions: Metorrhagia: No, Sexually active: Yes, Dyspareunia: No, PCB: No ROS Const Constitutional: Denies fatigue, weight gain or weight loss Cardio Card: Denies chest pain Resp Resp: Denies cough or shortness of breath with activity GI GI: Denies abdominal pain, constipation, change in stools, vomiting or bloating : Reports as per HPI and pelvic pain; denies urinary frequency, urinary urgency, vaginal discharge, vaginal itching, urinary incontinence or difficulty urinating Exam Const General: cooperative, healthy appearing, no acute distress, well developed Orientation: alert, oriented to person, oriented to place HENMT Head: normal to inspection Neck Neck: normal visual inspection Thyroid: thyroid normal Lymphatic: no lymphadenopathy noted Chest Breast inspection: normal inspection of the breasts, normal inspection of the axillae Breast palpation: normal palpation of the breasts, normal palpation of the axillae, no axillary lymphadenopathy Resp Effort AND Inspection: normal respiratory effort Auscultation: clear to auscultation bilaterally Cardio Rate: regular rate Rhythm: regular rhythm GI Palpation: soft, nontender, no masses Rectal Exam: mass, deferred External Female Exam: normal external appearance, normal appearance of the urethra Urethra: normal appearance of the urethra, normal palpation Speculum Exam - Vagina: normal appearance of the vagina, abnormal vaginal discharge malodorous and bloody, vaginal erythema Speculum Exam - Cervix: normal appearance of the cervix, other (pap, GCC, BV, trich and comp culture collected) Bimanual Exam- Vagina AND Uterus: uterine size normal, uterine shape normal, uterus tender Bimanual Exam- Adnexa, other: no adnexal masses, pelvic support normal, adnexae non-tender Pelvic Support: normal Neuro General: alert, oriented x3 Psych Affect: normal affect Assessment AND Plan Problems 1. Encounter for gynecological examination with abnormal finding Z01.411 2. Pap smear for cervical cancer screening Z12.4 3. Encounter for surveillance of vaginal ring hormonal contraceptive device Z30.44 4. Screen for STD (sexually transmitted disease) Z11.3 5. Vaginal odor N89.8 6. Anxiety F41.9 7. Social discord Z65.8 Plan Completed breast and pelvic exam Reviewed diet and exercise Pap thin prep pap collected Contraception refill nuvaring. Insert today, condoms this cycle and always to decrease STD risks STD screen and call results Discussed counseling [facility], [facility], and [facility]. She has seen counselor at [facility] in past and will call today. I offered to call for her and declines. [facility] will call her later today, written information on 180 given. RTO 1 year, prn with problems Deloris Jorge HOLLOW HANDLE KNIFE ASSEMBLER Orders Orders: Medications New: Coding Level of Care Code Off vis,est,prev 18-39yrs Diagnoses Encounter for gynecological examination with abnormal finding Z01.411 Gynecological examination findings: abnormal findings PRESENT Pap smear for cervical cancer screening Z12.4 Encounter for surveillance of vaginal ring hormonal contraceptive device Z30.44 Contraceptive encounter type: surveillance Contraceptive type: vaginal ring Screen for STD (sexually transmitted disease) Z11.3 Vaginal odor N89.8 Anxiety F41.9 Social discord Z65.8 03 1111 <Electronically signed by Deloris HOLDER> Date Deloris BAUMC Cosigner Signature: Date (if applicable) CC: GC/CHLAMYDIA AMPLIF Collected: 02/28/2018 Status: F Source: [place] 2:40 PM [facility] REPOS[facility] TYPE CODE TESTS RESULT OUT OF REFERENCE UNITS RANGE LAB GCCTSR GC/Chlam Amp Cervix Source LAB GCAMPL GC Negative Amplification for Neisseria gonorrhoeae by amplification. LAB CLAMPL Chlamydia Negative Amplif for Chlamydia trachomatis by amplification. Performed By: #### GCCT #### [facility] [address] [place] [address] CYTOLOGY Observed: 02/28/2018 Status: F Source: [place] 2:[address] [facility] [place] REPOSITORY ---Abnormal Pap Test - Epithelial Cell Abnormality--- Specimen originated from [facility] Specimen #: [id number] Submitting Physician: MONSE BOWMAN SPECIMEN SUBMITTED A: CERVICAL, SCREENING, FLUID FINAL DIAGNOSIS A. CERVICAL, SCREENING, FLUID Satisfactory for interpretation. Epithelial cell abnormality. Low grade squamous intraepithelial lesion (LSIL). Fungal organisms consistent with Anahi species. This specimen has been analyzed by the ThinPrep Imaging System, an automated imaging and review system, which assists the laboratory in evaluating cells on ThinPrep Pap tests. Following automated imaging, selected bradley from every slide are reviewed by a electrolog operator. Shaun Rebollar M.D. (Electronic Signature) CLINICAL DATA ROUTINE EXAM, HPV Testing: Yes, Reflex HPV for ASCUS Date of Last Menstrual Period: 12/23/2017 STAINS A: CERVICAL, SCREENING, FLUID THIN PREP SCIENTIFIC PUBLICATIONS EDITOR Date of Report: 03/11/2018 Date of Procedure: 02/28/2018 Date of Receipt: 03/03/2018 Submitted by: MONSE BOWMAN Location: [facility] Diagnostic interpretation performed at [facility], [address] [place] [address]. The Pap Smear is a screening test for cervical cancer. False negative results occur with all screening tests, emphasizing the need for rescreening at recommended intervals, and clinical correlation. PROGRESS Observed: 02/28/2018 Status: COMPLETED Source: [place] 2:26 PM [facility] REPOSITORY HNO ID: [id number] Author: Monse Bowman Service: (none) Author Type: Nurse Practitioner Type: Progress Notes Filed: 02/28/2018 2:52 PM Note Text: Customer Marketing Assistant offered: Patient declines. Tuan Doll is a 27 year old who presents for her annual gynecologic exam with complaints, irregular bleeding. Menses: cycles every irregular and 4-5 days of flow. 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 - Dysthymic disorder Depression (non-psychotic) - Migraine without aura, without mention of intractable migraine without mention of status migrainosus - PMH - PAST MEDICAL HISTORY OF ABCESSED TOOTH - Pyelonephritis, unspecified 1997 hospitalized - Seizure (HCC) - Trauma - Wheezing likely asthma PAST SURGICAL HISTORY Procedure Laterality Date - CERVIX UTERI CONIZA LP ELCTRO EXCI 02/03/08,2009 LEEP - DELIVERY ONLY - COLPOSCOPY (VAGINOSCOPY) 07/29/2006 Colposcopy - COLPOSCOPY (VAGINOSCOPY) 11/06/2007 - INSERT INTRAUTERINE DEVICE 04/16/07 Mirena - PAST SURGICAL HISTORY OF Bladder surgery at age 7 FAMILY HISTORY Problem Relation Age of Onset - other (lupus) Mother - Cancer Paternal Grandfather LUNG CANCER - Colon Cancer Paternal Grandfather age 50's - Arthritis Maternal Grandmother - Cancer Maternal Grandmother pancreatic CA - age 72 - Asthma Brother - Cancer Maternal Uncle SOCIAL HISTORY Social History Substance Use Topics - Smoking status: Current Every Day Smoker Packs/day: 0.50 Years: 12.00 Types: Cigarettes - Smokeless tobacco: Never Used - Alcohol use Yes Comment: only on occassion,NOT WHILE REVIEW OF SYSTEMS Abdomen: No abdominal pain, nausea, vomiting, diarrhea, or constipation. No bloating, early satiety, indigestion, or increased flatulence. Bladder: No dysuria, gross hematuria, urinary frequency, urinary urgency, or incontinence. Breast: No breast lumps, nipple d/c, overlying skin changes, redness or skin retraction. Allergies and current medication updated:Yes EXAM: Ht 5' 5 (1.65m) Wt 161 lb (73.0kg) LMP 12/23/2017 BMI 26.79 kg/(m2). GENERAL: pleasant, female in no apparent distress HEENT: Normocephalic, atraumatic, mucus membranes moist and no lesions NECK: Supple, full range of motion, no adenopathy and thyroid normal DERMATOLOGY: Normal, without lesions, non-icteric and non-hirsute BREAST: soft, non-tender, symmetric, no dominant mass, normal nipple-areolar complex, no lymphadenopathy and no nipple discharge CHEST: Normal inspiratory effort ABDOMEN: soft, non-tender and no masses PELVIC: external genitalia normal, normal Bartholin's glands, urethra, [place]'s glands, no vulvar lesions, no cervical lesions, good vaginal support, physiologic discharge present, normal appearing perineal body and perianal region, well estrogenized BIMANUAL: uterus normal size, shape and consistency, no adnexal masses, non-tender and no cervical motion tenderness RECTOVAGINAL: deferred. NEURO: alert and oriented x3,exam grossly non-focal EXTREMITIES: normal ASSESSMENT/PLAN: 1) Health maintenance: Pap done with reflex HPV. Mammogram starting age 40. Nutrition, exercise and routine health maintenance exams reviewed. Calcium/Vitamin D supplementation information provided. HPV vaccine: completed series 2) Contraception: Nuva Ring- Rx sent. Contraceptive options reviewed and information provided. 3) STD screening: Accepted STD check for Gonorrhea and Chlamydia. 4) Follow up one year or sooner as needed Monse Bowman APRN.MONA CNOV Observed: 02/28/2018 Status: COMPLETED Source: [place] 2:15 PM [facility] REPOSITORY Office Visit (WOOB) TUAN DOLL ([id number]) 1990 F Date Time Provider Department 02/28/18 2:15 PM MONSE BOWMAN (MONA) WOOB During your visit today, we recorded the following information about you: Blood pressure Weight Height Last Period 108/70 73 kg 1.651 m 12/23/17 Monse Bowman APRN.CNP 02/28/2018 2:52 PM Signed Customer Marketing Assistant offered: Patient declines. Tuan Doll is a 27 year old who presents for her annual gynecologic exam with complaints, irregular bleeding. Menses: cycles every irregular and 4-5 days of flow. 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 - Dysthymic disorder Depression (non-psychotic) - Migraine without aura, without mention of intractable migraine without mention of status migrainosus - PMH - PAST MEDICAL HISTORY OF ABCESSED TOOTH - Pyelonephritis, unspecified 1997 hospitalized - Seizure (HCC) - Trauma - Wheezing likely asthma PAST SURGICAL HISTORY Procedure Laterality Date - CERVIX UTERI CONIZA LP ELCTRO EXCI 02/03/08,2009 LEEP - DELIVERY ONLY - COLPOSCOPY (VAGINOSCOPY) 07/29/2006 Colposcopy - COLPOSCOPY (VAGINOSCOPY) 11/06/2007 - INSERT INTRAUTERINE DEVICE 04/16/07 Mirena - PAST SURGICAL HISTORY OF Bladder surgery at age 7 FAMILY HISTORY Problem Relation Age of Onset - other (lupus) Mother - Cancer Paternal Grandfather LUNG CANCER - Colon Cancer Paternal Grandfather age 50's - Arthritis Maternal Grandmother - Cancer Maternal Grandmother pancreatic CA - age 72 - Asthma Brother - Cancer Maternal Uncle SOCIAL HISTORY Social History Substance Use Topics - Smoking status: Current Every Day Smoker Packs/day: 0.50 Years: 12.00 Types: Cigarettes - Smokeless tobacco: Never Used - Alcohol use Yes Comment: only on occassion,NOT WHILE REVIEW OF SYSTEMS Abdomen: No abdominal pain, nausea, vomiting, diarrhea, or constipation. No bloating, early satiety, indigestion, or increased flatulence. Bladder: No dysuria, gross hematuria, urinary frequency, urinary urgency, or incontinence. Breast: No breast lumps, nipple d/c, overlying skin changes, redness or skin retraction. Allergies and current medication updated:Yes EXAM: Ht 5' 5 (1.65m) Wt 161 lb (73.0kg) LMP 12/23/2017 BMI 26.79 kg/(m2). GENERAL: pleasant, female in no apparent distress HEENT: Normocephalic, atraumatic, mucus membranes moist and no lesions NECK: Supple, full range of motion, no adenopathy and thyroid normal DERMATOLOGY: Normal, without lesions, non-icteric and non-hirsute BREAST: soft, non-tender, symmetric, no dominant mass, normal nipple-areolar complex, no lymphadenopathy and no nipple discharge CHEST: Normal inspiratory effort ABDOMEN: soft, non-tender and no masses PELVIC: external genitalia normal, normal Bartholin's glands, urethra, [place]'s glands, no vulvar lesions, no cervical lesions, good vaginal support, physiologic discharge present, normal appearing perineal body and perianal region, well estrogenized BIMANUAL: uterus normal size, shape and consistency, no adnexal masses, non-tender and no cervical motion tenderness RECTOVAGINAL: deferred. NEURO: alert and oriented x3,exam grossly non-focal EXTREMITIES: normal ASSESSMENT/PLAN: 1) Health maintenance: Pap done with reflex HPV. Mammogram starting age 40. Nutrition, exercise and routine health maintenance exams reviewed. Calcium/Vitamin D supplementation information provided. HPV vaccine: completed series 2) Contraception: Nuva Ring- Rx sent. Contraceptive options reviewed and information provided. 3) STD screening: Accepted STD check for Gonorrhea and Chlamydia. 4) Follow up one year or sooner as needed Monse Bowman APRN.MONA Bowman APRN.CNP 02/28/2018 2:56 PM Signed Addended by: MONSE BOWMAN on: 02/28/2018 02:56 PM Modules accepted: Orders, SmartSet Referring Provider: SELF [[id number]] Allergies As of Date: 02/28/2018 Noted Allergy Reaction NICOTINE 03/16/2008 Comments: patches caused myalgias PENICILLINS 09/07/2008 9 - Itching PINEAPPLE 12/22/2004 11 - Vomiting Comments: the food VICODIN (HYDROCODONE-ACETAMINOPHE*12/06/2008 9 - Itching Date Reviewed: 02/28/2018 Reviewed by: Monse Bowman - Fully Assessed Reason for Visit: Yearly Exam [187] Primary Visit Diagnosis:Encounter for gynecological examination (general) (routine) without abnormal findings [Z01.419] Other Visit Diagnoses:Encounter for screening for malignant neoplasm of cervix [Z12.4] Special screening examination for human papillomavirus (HPV) [Z11.51] Irregular periods [N92.6] Screen for sexually transmitted diseases [Z11.3] Order(s):HCG QUAL UR B/O [4181114] Order #: [id number] PAP FLUID CERVICAL SCREENING [[id number]] Order #: [id number] Etonogestrel-Ethinyl Estradiol (NUVARING) 0.12-0.015 mg/24 hr vaginal ringUse 1 Each vaginally as directed. INSERT ONE(1) RING VAGINALLY AND LEAVE IN PLACE FOR THREE WEEKS, THEN REMOVE FOR 1 WEEK.Disp: 3 EachRfl: 4 GC/CHLAMYDIA DNA DET [SQGCCAMP] Order #: [id number] Prescriptions as of 02/28/2018 Sig: ETONOGESTREL-ETHINYL ESTRADIO* Use 1 Each vaginally as direc* TRAMADOL 50 MG TABLET Take 1 tablet by mouth every * BUSPIRONE 10 MG TABLET CLONAZEPAM 1 MG TABLET Take 1 mg by mouth twice victoria* DICYCLOMINE 10 MG CAPSULE Take 1 capsule by mouth befor* LEVETIRACETAM 500 MG TABLET Take 500 mg by mouth twice da* Problem List As Of Date 02/28/2018 Noted Resolved SUPERVIS OTHER NORMAL PREG [Z34.80] INVALID FOR*01/29/2007 Other specified viral warts [B07.8] INVALID FOR*05/28/2011 PAP SMEAR OF CERVIX W ASCUS [R87.610] INVALID FOR*05/22/2007 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 Pyelonephritis, unspecified [N12] 05/28/2011 More... MIGRAINE [G43.009] Wheezing [R06.2] 05/28/2011 More... Tobacco use disorder [F17.200] INVALID FOR* More... Onychia and paronychia of toe [L03.039] INVALID FOR*05/28/2011 Other acne [L70.8] INVALID FOR*05/28/2011 Supervision of other high-risk [O09.8*INVALID FOR*05/28/2011 Abnormal RBC morphology [R71.8] INVALID FOR*05/28/2011 SUPRF HIGH RISK NEC [V23.89] [O09.899]INVALID FOR*08/02/2014 Previous delivery affecting *INVALID FOR*08/02/2014 Lumbago [M54.5] INVALID FOR* S/P LEEP of cervix [Z98.890] INVALID FOR* CINDI II (cervical intraepithelial neoplasia II) *INVALID FOR* Smoking addiction [F17.200] INVALID FOR* Syncopal episodes [R55] INVALID FOR* More... Seizure (HCC) [R56.9] INVALID FOR* More... Depression [F32.9] INVALID FOR* More... PTSD (post-traumatic stress disorder) [F43.10] INVALID FOR* More... Supervision of high risk in first tri*INVALID FOR*12/07/2014 Previous section complicating pregnanc*INVALID FOR*01/10/2015 More... H/O trichomonal vaginitis [Z86.19] INVALID FOR* H/O chlamydia infection [Z86.19] INVALID FOR* Missed [O02.1] INVALID FOR* Prescriptions ordered this encounter Disp Refills Start End ETONOGESTREL-ETHINYL ESTRADIOL 0.12 * 3 Ea* 4 02/28/2018 Route: VAGINAL Sig: Use 1 Each vaginally as directed. INSERT ONE(1) RING VAGINALLY AND LEAVE IN PLACE FOR THREE WEEKS, THEN REMOVE FOR 1 WEEK. Disposition: Return in 1 year (on 02/28/2019) for Annual Exam. Follow-up and Disposition History Recorded Encounter Status:Closed by MONSE BOWMAN on 02/28/18 12 LEAD ELECTROCARDIOGRAM Observed: 02/26/2018 Status: F Source: [place] 1:34 PM [facility] REPOSITORY [facility] Cardiovascular Services [address] [place] [address] 12 Lead EKG 02/18/18 1511 MR#: [id number] Acct: [id number] Name: TUAN DOLL Rep #: [id number] : 1990 27 From: Colin Rodríguez MD Attending Dr: Status: DEP ER Ordering Dr: Clark Cedillo MD Date: 02/18/18 Location: ED Sex: F C Admitted: Test Reason : NEURO S/SX Blood Pressure : / mmHG Vent. Rate : 086 BPM Atrial Rate : 086 BPM P-R Int : 150 ms QRS Dur : 094 ms QT Int : 360 ms P-R-T Axes : 077 066 061 degrees QTc Int : 430 ms Normal sinus rhythm Normal ECG Confirmed by KUSHAL CHRISTIAN, COLIN ([id number]), production editor DAR GAR ([id number]) on 02/26/2018 1:33:43 PM Referred By: KAYLIE Confirmed By:COLIN RODRÍGUEZ MD 02/26/18 1333 Date Colin Rodríguez MD CC: No Primary Care Physician; Clark Cedillo MD Signed CONSULTATION Observed: 02/19/2018 Status: F Source: [place] 9:28 AM [facility] Medical Records Department [address] [place] [id number] Consultation 02/18/18 1654 MR#: [id number] Acct: [id number] Name: TUAN DOLL Rep #: [id number] : 1990 27 From: Adilson Narvaez MD PCP: Care Physician, No Primary Status: DEP ER Y Location: ED Reason for Consult Date of Consultation: 02/18/18 Reason for Consultation: Stroke team History of Present Illness: The patient is a 27 year old F with a past medical history of apparently stroke, pseudoseizure, possible blood clots, was driving to work today at about 145 and noted the onset of abnormal vision on the right. She also has a headache. Stroke team was called and I met the patient in the CAT scanner and reviewed the CAT scan concurrently with its [place]'s. CTA was also performed all of which appeared normal to me. Patient denied any triggers. She was not clear about her medications she does believe that in the past she had been on a blood thinner. She said Coumadin sounded familiar. There is no history of blood clots but she has had 6 pregnancies and 3 live births. She says she is also been diagnosed with nonepileptic seizures in the past but does not appear to be on any anticonvulsants. She does admit to increased stress recently. Past Medical History Medical History: Medical History (Last Reviewed 02/18/18 @ 16:56 by Adilson Narvaez MD) Abnormal Pap smear of cervix R87.619 Depression F32.9 Allergies hydrocodone bitartrate [From Vicodin] Allergy (Verified 12/09/17 11:27) Unknown Penicillins Allergy (Verified 12/09/17 11:27) Rash Home Medications: Ambulatory Orders Medication Instructions Recorded Surgical History: Surgical History (Last Reviewed 02/18/18 @ 16:56 by Adilson Narvaez MD) delivery delivered O82 H/O LEEP Z98.890 H/O dilation and curettage Z98.890 Smoking Status: Current every day smoker Review of Systems Neurological: Reports: Blurred vision Psychiatric: Reports: Depression Objective: On physical examination, visual bradley are intact in the left eye but in the right eye only the right dual field is impaired. Cranial nerves are otherwise intact. Pupils are equal. Speech and language is normal. Strength is 5/5 There is no drift. There is increased muscle tone and physiologic tremor in her right upper and right lower extremity. Deep tendon reflexes are 2+ Toes are downgoing - Physical Exam Vital Signs Temp Pulse Resp BP Pulse Ox 36.8 C 81 12 119/64 99 02/18/18 14:43 02/18/18 16:36 02/18/18 16:36 02/18/18 16:36 02/18/18 16:03 Oxygen Delivery Method Room Air Weight: 76.8 kg Body Mass Index (BMI) 28.1 Finger Stick Blood Glucose 104 Laboratory Tests Past 24 Hrs POC Glucose POC Glucose 104 CT and CTA were reviewed both of which appeared normal. Current Home Med List Medication Instructions Recorded Confirmed Type Quetiapine Fumarate [Seroquel Xr] 400 mg PO QHS 08/29/17 12/09/17 History Assessment/Plan Symptoms appear to be consistent with ocular migraine. This was discussed with the patient. Patient follow-up is reasonable with further assessment for potential migraine medicines if needed. Is also recommended that stress issues be managed more aggressively. Inpatient evaluation is not unreasonable if desired to complete the evaluation with MRI. 02/19/18 0928 <Electronically signed by Adilson Narvaez MD> Date Adilson Narvaez MD Cosigner Signature (if applicable): Date CC: No Primary Care Physician Signed EMERGENCY DEPARTMENT Observed: 02/18/2018 Status: F Source: [place] SUMMARY 4:29 PM [facility] REPOSITORY [facility] Medical Records Department [address] [place] [address] Emergency Department Summary 02/18/18 1623 MR#: [id number] Acct: [id number] Name: TUAN DOLL Rep #: [id number] : 1990 27 From: Clark Cedillo MD PCP: Care Physician, No Primary Status: REG ER - ER Visit Summary Date of Service: 02/18/18 Chief Complaint: Severe headache with blurred vision right eye and numbness right upper and lower extremity. History of Present Illness: The patient is a 27 F who was driving her vehicle when she developed blurred vision right eye with numbness tingling right upper and lower extremity. This was followed by headache and apparent weakness of the right lower leg. She does have history of traumatic brain injury and migraine headaches. There is no family history of subarachnoid hemorrhage or aneurysms of the brain. She denies photophobia, neck pain or neck stiffness. She denies cardiac or respiratory symptoms. She does report nausea without vomiting diarrhea. She denies urologic or gynecologic symptoms. Physical Examination: Vital signs noted and blood pressure is elevated 135/85. Head is atraumatic normocephalic. Pupils are equal round reactive. Extraocular muscles are intact. Funduscopic exam reveals normal cup-to-disc ratio with no papilledema. TMs are pearly white with landmarks noted. Nares patent with no drainage. Posterior pharynx without erythema or exudate. Uvula is midline. There is no dysphonia or dysphasia. Trachea is midline. There is no stridor with auscultation of the neck. Neck is supple with no meningeal findings. Heart is regular without murmur, gallop or rub. S1 and S2 are normal. Lungs are clear to auscultation with good movement of air bilaterally. Abdomen soft nontender. Patient is alert and oriented 3. Motor is 5 over 5. Sensory is intact. DTRs are symmetric with no clonus or Babinski sign. Cranial 2 through 12 are intact. Cerebellar testing is normal. Test Results: CT of the head and neck with contrast reveals no aneurysm, hemorrhage or stroke. EKG sinus rhythm rate [address] interval and QRS duration. QT is normal. [place] is normal. CBC and basic metabolic panel unremarkable. Troponin is unremarkable. Emergency Department Course and Treatment: With severe headache this may represent a migraine versus subarachnoid hemorrhage versus intraparenchymal hemorrhage versus CVA. Treatment Plan: Since workup is negative she was treated for migraine headache with 25 mg of Benadryl p.o. since there is a hospital shortage of IV Benadryl and 10 mg of Reglan and 30 mg of Toradol IV push. Patient was assessed at 1630. Her vision is slightly blurred otherwise the paresthesia and weakness have resolved. Headache is improving. Disposition: Discharge to home and follow-up with her primary care doctor assigned to her by her insurance carrier care source. Impression: Ocular/left hemiparetic migraine This note was generated with Bio[employer] dictation software. It may contain incorrect words, spelling, and punctuation that were not noted in review of the chart prior to signing ED Disposition - Plan for ED Patient: Chief Complaint: Neuro S/Sx Instructions: ED Headache Migraine Referrals: Care Physician,No Primary [Primary Care Provider] - Additional Instructions: Follow-up with your primary care provider assigned to you by your insurance carrier, [email or web address] What to do if you have Problems For any increased pain, shortness of breath, bleeding, nausea or vomiting, chest pain, or any unexpected problems, contact your Primary Care Provider. Call [facility] ([phone]) or report to the closest Emergency Room. Call 911 if necessary. 02/18/18 3456 <Electronically signed by Clark Cedillo MD> Date Clark Cedillo MD Cosigner Signature (If Indicated): Date CC: No Primary Care Physician BEDSIDE GLUCOSE Collected: 02/18/2018 Status: F Source: [place] 2:51 PM [facility] REPOSITORY TYPE CODE TESTS RESULT OUT OF RANGE REFERENCE UNITS LAB L501.080 70-110 mg/dL Normal BEDSIDE GLU 104 Result Comment: MANAGEMENT OF PATIENT CARE PER NURSING PROTOCOL Performed By: #### L501.080 #### [facility] Point of Care [address] [place] [address] CTA HEAD W/WO Observed: 02/18/2018 Status: F Source: [place] CONTRAST 2:51 PM [facility] REPOSITORY [facility] Imaging Services [address] [place] [address] CTA Head W/WO Contrast MR#: [id number] Acct: [id number] Name: TUAN DOLL Ching Rep #: [id number] : 1990 F 27 From: Osmel Conde MD PCP: Care Physician, No Primary Status: REG ER Study: CTA Head W/WO Contrast Date of Exam: 02/18/18 Exam# [id number] Ordering Dr: Clark Cedillo MD STUDY: CTA OF THE BRAIN REASON FOR EXAM: Female, 27 years old. Right-sided weakness. Severe headaches. RADIATION DOSAGE (If Supplied By Facility): CTDIvol = ( 29.34 ) mGy, DLP = ( 1504.17 ) mGycm TECHNIQUE: CT angiography was performed with a multi-detector CT scanner. Data acquisition was obtained from the skull base through the vertex following intravenous administration of 100 ml of Isovue-370. MIP images were reconstructed from the axial data set. Post-processing of the angiographic images was performed, with multiplanar reformation and 3D reconstruction. Individualized dose optimization techniques were used for this CT. COMPARISON: None. FINDINGS: Normal bilateral petrous carotid arteries. Normal right cavernous carotid artery with a normal supraclinoid bifurcation. Normal left cavernous carotid artery with a normal supraclinoid bifurcation. Normal right A1 segments of the anterior cerebral artery. Normal left A1 segments of the anterior cerebral artery. Normal intact anterior communicating artery (ACOM). Normal bilateral A2 segments of the anterior cerebral arteries. Normal right M1 and M2 segments of the middle cerebral arteries, with a normal M1 bifurcation. Normal left M1 and M2 segments of the middle cerebral arteries, with a normal M1 bifurcation. Normal right posterior communicating artery (PCOM). Normal left posterior communicating artery (PCOM). Normal bilateral vertebral arteries. Normal basilar artery with a normal basilar bifurcation. The visualized bilateral superior cerebellar (SCA) arteries are normal. Normal bilateral P1, P2 and visualized P3 segments of the posterior cerebral arteries. There is no demonstrated aneurysm of the [place]. There is no demonstrated abnormality of the visualized brain. CT/CTA Head W/WO Contrast IMPRESSION: Normal [place] without a demonstrated aneurysm or hemodynamically significant stenosis. N.B. : The above information has been verbally conveyed by Osmel Conde MD to Dr Kaylie MD, on 02/18/2018 15:26:53 (ET). Electronically Signed: Osmel Conde MD at 15:26 EDT Tel [phone], Service support , CC: No Primary Care Physician; Clark Cedillo MD Cloth Mercerizing Supervisor: Signed CTA NECK W/WO Observed: 02/18/2018 Status: F Source: [place] CONTRAST 2:51 PM [facility] REPOSITORY [facility] Imaging Services [address] [place] [address] CTA Neck W/WO Contrast MR#: [id number] Acct: [id number] Name: TUAN DOLL Rep #: [id number] : 1990 F 27 From: Osmel Conde MD PCP: Care Physician, No Primary Status: REG ER Study: CTA Neck W/WO Contrast Date of Exam: 02/18/18 Exam# [id number] Ordering Dr: Clark Cedillo MD STUDY: CTA NECK WITH CONTRAST REASON FOR EXAM: Female, 27 years old. Severe headaches. Right orbital issues. RADIATION DOSAGE (If Supplied By Facility): CTDIvol = ( 29.34 ) mGy, DLP = ( 1504.17 ) mGycm TECHNIQUE: CT angiography with multi-detector data acquisition was performed from the aortic arch to the skull base following intravenous administration of 100 ml of Isovue 370 contrast. MIP images were reconstructed from the axial data set. Post-processing of the angiographic images was performed, with multiplanar reformation and 3D reconstruction. Individualized dose optimization techniques were used for this CT. COMPARISON: None. FINDINGS: AORTIC ARCH: Normal visualized aortic arch. Normal origins of the brachiocephalic, left common carotid, and left subclavian arteries. RIGHT CAROTID ARTERIES: Normal right common carotid artery (CCA). Normal right common carotid bulb. Normal origin of the right internal carotid (ICA) artery without a hemodynamically significant stenosis. Normal visualized cervical portion of the right internal carotid artery. Normal origin of the right external carotid artery (ECA). LEFT CAROTID ARTERIES: Normal left common carotid artery (CCA). Normal left common carotid bulb. Normal origin of the left internal carotid (ICA) artery without a hemodynamically significant stenosis. Normal visualized cervical portion of the left internal carotid artery. Normal origin of the left external carotid artery (ECA). VERTEBRAL ARTERIES: Normal bilateral vertebral arteries. CT/CTA Neck W/WO Contrast IMPRESSION: Normal bilateral cervical carotid and vertebral arteries. N.B. : The above information has been verbally conveyed by Osmel Conde MD to Clark Cedillo on 02/18/2018 15:29:08 (ET). Electronically Signed: Osmel Conde MD at 15:29 EDT Tel [phone], Service support , CC: No Primary Care Physician; Clark Cedillo MD Cloth Mercerizing Supervisor: Signed BRAIN/HEAD WITHOUT Observed: 02/18/2018 Status: F Source: [place] CONTRAST 2:51 PM [facility] REPOSITORY [facility] Imaging Services [address] [place] [address] Brain/Head without Contrast MR#: [id number] Acct: [id number] Name: TUAN DOLL Rep #: [id number] : 1990 F 27 From: Osmel Conde MD PCP: Care Physician, No Primary Status: REG ER Study: Brain/Head without Contrast Date of Exam: 02/18/18 Exam# [id number] Ordering Dr: Clark Cedillo MD STUDY: CT BRAIN WITHOUT CONTRAST REASON FOR EXAM: Female, 27 years old. Severe headaches. Visual changes. RADIATION DOSAGE (If Supplied By Facility): CTDIvol = ( 44.99 ) mGy, DLP = ( 818.61 ) mGycm TECHNIQUE: Transaxial CT imaging of the brain was performed without administration of intravenous contrast material. Individualized dose optimization techniques were used for this CT. COMPARISON: Comparison is made with prior study dated August 08, 2015. FINDINGS: Normal soft tissue structures. Normal calvarium. Normal size ventricles and extra-axial spaces for the patient's age. Normal white matter tracts of the cerebral hemispheres. Normal basal ganglia and thalami. Normal brainstem. Normal cerebellum. There is no intracranial hemorrhage. There are no findings of an acute ischemic infarction. Normal visualized paranasal sinuses. CT/Brain/Head without Contrast IMPRESSION: Normal unenhanced CT scan of the brain. N.B. : The above information has been verbally conveyed by Osmel Conde MD to Dr Kaylie MD, on 02/18/2018 15:29:52 (ET). Electronically Signed: Osmel Conde MD at 15:18 EDT Tel [phone], Service support , CC: No Primary Care Physician; Clark Cedillo MD Cloth Mercerizing Supervisor: Signed BASIC METABOLIC Collected: 02/18/2018 Status: F Source: [place] PROFILE (BMP) 2:48 PM [facility] REPOSITORY TYPE CODE TESTS RESULT OUT OF RANGE REFERENCE UNITS LAB L501.0100 74-106 mg/dL Normal GLU 98 Result Comment: Please note revised GLUCOSE reference range effective 2017. LAB L501.1000 7-18 mg/dL Normal BUN 8 LAB L501.1100 0.55-1.02 mg/dL Normal CREAT,SERUM 0.81 Result Comment: The validity of the calculated GFR AND GFRAA in patients over 70 years has not been determined. Clinical correlation is essential. LAB L501.1110 >60 mL/min Normal EST GFR 90 Result Comment: Non- GFR Calc LAB L501.1115 >60 mL/min Normal EST GFR - AA 109 Result Comment: GFR Calc LAB L501.1255 ml/min Normal Estimated CRCL 93.05 LAB L501.1300 10-20 RATIO Low BUN/CRE 9.9 LAB L501.2200 8.5-10 mg/dL Normal .1 CA 8.9 LAB L501.5300 136-14 mmol/L Normal 5 NA 140 LAB L501.5600 3.5-5. mmol/L Normal 1 K 4.0 LAB L501.5900 98-107 mmol/L Normal CL 106 LAB L501.6100 21.0-3 mmol/L Normal 2.0 CO2 26.0 LAB L501.6200 5-15 Normal GAP 8 Performed By: #### L500.2500, L501.4010 #### [facility] [address] [place], [address] TROPONIN-I Collected: 02/18/2018 Status: F Source: [place] 2:48 PM [facility] REPOSITORY TYPE CODE TESTS RESULT OUT OF RANGE REFERENCE UNITS LAB L501.4010 <0.045 ng/mL Normal < 0.015 TROPONIN-I Result Comment: TROPONIN-I EXPECTED VALUES <0.045 Negative 0.045 - 0.590 Consistent with Cardiac Damage > OR = 0.600 Critical Value Not every elevated troponin is indicative of WI. These values should be used with clinical judgement in examining the patient's clinical picture for diagnosis. To establish a diagnosis of WI versus myocardial injury, there must be a demonstrated rise and/or fall in the troponin values, in addition to ischemic symptoms, EKG changes, new regional wall motion abnormality, and/or angiographical evidence. PLEASE NOTE: REFERENCE RANGES EDITED 17 Performed By: #### L500.2500, L501.4010 #### [facility] [address] [place], [address] CBC W/DIFF, AUTOMATED Collected: 02/18/2018 Status: F Source: [place] 2:48 PM [facility] REPOSITORY TYPE CODE TESTS RESULT OUT OF RANGE REFERENCE UNITS LAB L100.1000 4.4-11.0 K/mm3 Normal WBC 8.8 LAB L100.1200 4.2-5.4 M/mm3 Normal RBC 4.75 LAB L100.1300 12.0-15.0 g/dl Normal HGB 14.2 LAB L100.1400 37-47 % Normal HCT 43.0 LAB L100.1500 81-99 fL Normal MCV 90.5 LAB L100.1600 27.0-32.0 pg Normal MCH 29.9 LAB L100.1700 32-36 g/gl Normal MCHC 33.0 LAB L100.1810 11.6-14.6 % High RDW CV 14.8 LAB L100.1820 35.1-43.9 fl High RDW SD 48.3 LAB L100.1900 150-450 K/mm3 Normal PLT 254 LAB L100.2000 6.2-12.0 fl Normal MPV 11.6 LAB L100.2100 47-70 % High NEUT% 73.5 LAB L100.2200 19-41 % Low LY% 18.1 LAB L100.2300 0-10 % Normal MONO% 7.3 LAB L100.2400 0-5 % Normal EO% 0.8 LAB L100.2500 0-1 % Normal BASO% 0.1 LAB L100.2550 0.0-0.9 % Normal IM GRAN % 0.200 Result Comment: IG% - Immature Granulocytes (promyelocytes, myelocytes and metamyelocytes) > 1% indicates that a LEFT SHIFT is Present. LAB L100.2620 2.0-7.7 X10 3/uL Normal Absolute Neut 6.5 LAB L100.2720 0.83-4.51 X10 3/ul Normal Absolute Lymph 1.60 Performed By: #### L100.0100 #### [facility] [address] [place], [address] PROTHROMBIN TIME W/INR Collected: 02/18/2018 Status: F Source: [place] 2:48 PM [facility] REPOSITORY TYPE CODE TESTS RESULT OUT OF RANGE REFERENCE UNITS LAB L300.4150 11.7-14.9 SECONDS Normal PROTIME 13.5 LAB L300.4200 Normal INR 1.0 Performed By: #### L300.3900, L300.4310 #### [facility] [address] [place], [address] PARTIAL THROMBOPLAST Collected: 02/18/2018 Status: F Source: [place] TIME 2:48 PM [facility] REPOSITORY TYPE CODE TESTS RESULT OUT OF RANGE REFERENCE UNITS LAB L300.4310 24.1-36.2 Seconds Normal PTT 29.5 Performed By: #### L300.3900, L300.4310 #### [facility] [address] [place], [address] PROGESTERONE LEVEL Collected: 01/10/2018 Status: F Source: [place] 4:12 PM [facility] REPOSITORY TYPE CODE TESTS RESULT OUT OF REFERENCE UNITS RANGE LAB L509.4001 See Comment ng/mL Progesterone Normal 3.91 Result Comment: Progesterone Reference Table: UNITS Female: Follicular 0.15 - 1.40 ng/mL Luteal 3.34 - 25.56 ng/mL Mid-luteal 4.44 - 28.03 ng/mL Postmenopausal 0.0 - 0.73 ng/mL : 1st Trimester 11.22 - 90.00 ng/mL 2nd Trimester 25.55 - 89.40 ng/mL 3rd Trimester 48.40 -422.50 ng/mL Performed By: #### L509.4001, L3890.6005, L700.5000 #### [facility] [address] [place], [place], [address] HIV - H Collected: 01/10/2018 Status: F Source: [place] 4:12 PM [facility] REPOSITORY TYPE CODE TESTS RESULT OUT OF RANGE REFERENCE UNITS LAB L3890.6005 Nonreactive Normal HIV - [facility] Non-Reactive Performed By: #### L509.4001, L3890.6005, L700.5000 #### [facility] [address] [place], [place], [address] RAPID PLASMIN REAGIN Collected: 01/10/2018 Status: F Source: [place] (RPR) 4:12 PM [facility] REPOSITORY TYPE CODE TESTS RESULT OUT OF REFERENCE UNITS RANGE LAB L700.5000 NONREACTIVE NONREACTIVE Normal RPR Performed By: #### L509.4001, L3890.6005, L700.5000 #### [facility] [facility] [place], [place], [address] HEPATITIS B SURFACE Collected: 01/10/2018 Status: F Source: DANDRE AG 4:12 PM [facility] REPOSITORY TYPE CODE TESTS RESULT OUT OF RANGE REFERENCE UNITS LAB L3100.0400 Negative Normal HB Negative SURF AG Result Comment: Performed at: [facility] Lab[address] [id number] Paleology Professor: Tanner Barry MD, Phone: [phone] Performed at: [address] [id number] Paleology Professor: Zia Mendez PhD, Phone: [phone] Performed By: #### L3100.0390, L7000.7000 #### [facility] (refer to report for specific site) refer to report for address and phone number HEPATITIS C,RNA PCR Collected: 01/10/2018 Status: F Source: DANDRE VIRAL LOAD 4:12 PM [facility] REPOSITORY TYPE CODE TESTS RESULT OUT OF RANGE REFERENCE UNITS LAB L7000.7100 . IU/mL HCV Normal HCV Not Detected QT PCR LAB L7000.7350 . Test Normal HCV not performed log 10 LAB L7000.7500 . Normal TEST Comment INFO: Result Comment: The quantitative range of this assay is 15 IU/mL to 100 million IU/mL. Performed By: #### L3100.0390, L7000.7000 #### [facility] (refer to report for specific site) refer to report for address and phone number CT/NG [facility] BY PCR Collected: 12/09/2017 Status: F Source: [place] 5:08 PM [facility] REPOSITORY TYPE CODE TESTS RESULT OUT OF RANGE REFERENCE UNITS LAB L8200.2100 Negative Normal Chlam Negative Trac PCR LAB L8200.2200 Negative Normal NG by Negative PCR Performed By: #### L8200.1999 #### [facility] [address] 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 [place] [address] OFFICE VISIT Date of Service: 12/09/17 MR#: [id number] Acct: [id number] Name: TUAN DOLL Ching Rep #: [id number] : 1990 Provider: KAMILA Jorge Age/Sex: 26/F Location: [facility] Status: Signed Intake Vital Signs12/09/17 Height 5 ft 5 in 12/09/17 Weight: 154 lb 12/09/17 Body Mass Index (BMI) 25.6 12/09/17 Blood Pressure 110/68 Intake Visit Reasons: VAGINAL LUMP Chief Complaint: Noticed a lump for about a month but got bigger Weatherization Technician Required: No Is patient in pain?: Yes Pain scale (1-10): 5 Allergies acetaminophen [From Vicodin] Allergy (Verified 12/09/17 11:27) Rash hydrocodone [From Vicodin] Allergy (Verified 12/09/17 11:27) Rash hydrocodone bitartrate [From Vicodin] Allergy (Verified 12/09/17 11:27) Unknown Penicillins Allergy (Verified 12/09/17 11:27) Rash Medications Quetiapine Fumarate [Seroquel Xr] 400 mg PO QHS 08/29/17 [History Confirmed 12/09/17] Minipress 09/17/17 [History Confirmed 12/09/17] Lamotrigine [Lamictal] 50 mg PO DAILY 11/27/17 [History Confirmed 12/09/17] Sertraline HCl [Zoloft] 100 mg PO DAILY 11/27/17 [History Confirmed 12/09/17] sulfamethoxazole 800 mg-trimethoprim 160 mg tablet 1 tab PO BID 5 Days #10 tab 12/09/17 [Rx Confirmed 12/09/17] Is last menstrual period known: Yes Last Menstral Period: 11/25/17 Post menopausal: No Patient : No : No PFSH Medical History Abnormal Pap smear of cervix (Acute) Depression (Acute) Surgical History delivery delivered (Acute) H/O LEEP (Acute) H/O dilation and curettage (Acute) Family History Grandmother Cancer pancreatic Grandfather Colon cancer Social History Smoking Status: Current every day smoker alcohol intake: current details: social substance use type: does not use caffeine: Yes what type of physical activity do you participate in: none seatbelt use: always do you feel safe at home: Yes additional social history: - Patient works at [employer] and [employer] HPI VAGINAL LUMP: Details: TUAN DOLL is a 26 year old who presents for painful lump near labia. Wants STD screen although denies symptoms. Has been hospitalized for depression twice in last 4 months. Wants with new partner. Was also seen in ER in [facility] 1 week ago for I AND D abscess near rectum. She did take all of antibiotic from that. Female Reproductive History Last Menstral Period: 11/25/17 Cycle Length: 21-35 Questions: Metorrhagia: No, Sexually active: Yes, Dyspareunia: No, PCB: No Pregancy History 4 Elective abortions Hx Para 3 Spontaneous abortions Past Pregnancies Del. DateName GA/Weeks Outcome Route Bth WeighInfant GeLabor LgtAnesthesiDel LocatProvider FOB t n h a n Exam Const General: cooperative Orientation: oriented x3 External Female Exam: other (1 X 1cm indurated mass outer right labia consistent with hydradenitis) Speculum Exam - Vagina: abnormal vaginal discharge clear and malodorous Speculum Exam - Cervix: normal appearance of the cervix Bimanual Exam- Vagina AND Uterus: normal bimanual exam, uterus non-tender, uterine shape normal Bimanual Exam- Adnexa, other: normal adnexae, adnexae non-tender Results POCTRICVAG Office Trichomonas vaginalis Negative Last Edit by Leslie Chan on 12/09/17 12:06 POCBVBLUE Office BVBlue Test Positive Last Edit by Leslie Chan on 12/09/17 12:06 Assessment AND Plan Problems 1. Hydradenitis L73.2 2. Irregular menstrual cycle N92.6 3. Screen for STD (sexually transmitted disease) Z11.3 Plan HANNAH BV, trich, GCC and serum STD labs Bactrim Rx, warm compresses etc Day 21 progesterone next cycle. Orders Orders: Medications New: Coding Level of Care Code Off vis,est,level 3 Diagnoses Hydradenitis L73.2 Irregular menstrual cycle N92.6 Screen for STD (sexually transmitted disease) Z11.3 12/09/17 1218 <Electronically signed by Deloris HOLDER> Date Deloris BAUMC Cosigner Signature: Date (if applicable) CC: 12 LEAD ELECTROCARDIOGRAM Observed: 12/02/2017 Status: F Source: [place] 3:03 PM [facility] REPOSITORY [facility] Cardiovascular Services [address] [place] [address] 12 Lead EKG 11/27/17 9108 MR#: [id number] Acct: [id number] Name: TUAN DOLL Rep #: [id number] : 1990 26 From: Colin Rodríguez MD Attending Dr: Status: DEP ER Ordering Dr: Chalino Mukherjee MD Date: 11/27/17 Location: ED Sex: F C Admitted: Test Reason : MHC Blood Pressure : / mmHG Vent. Rate : 056 BPM Atrial Rate : 056 BPM P-R Int : 168 ms QRS Dur : 096 ms QT Int : 394 ms P-R-T Axes : 070 081 066 degrees QTc Int : 380 ms Sinus bradycardia with sinus arrhythmia Otherwise normal ECG Confirmed by COLIN RODRÍGUEZ MD ([id number]), production editor DAR GAR ([id number]) on 12/02/2017 3:02:52 PM Referred By: FRANCO Confirmed By:COLIN RODRÍGUEZ MD 12/02/17 1502 Date Coiln Rodríguez MD CC: No Primary Care Physician; Karthik Mukherjee MD Signed Observed: 11/30/2017 Status: F Source: [place] [facility] 12:38 PM [facility] REPOSITORY . MICRO - Microbiology PROCEDURE: Blood Culture (bacterial) [*1] SOURCE: Blood BODY SITE: COLLECTED DATE/TIME: 11/30/2017 12:38 EDT RECEIVED DATE/TIME: 11/30/2017 13:00 EDT START DATE/TIME: 11/30/2017 13:01 EDT FREE TEXT SOURCE: FINAL REPORTS Final Report [] Verified Date/Time/Personnel: 12/05/2017 13:59 EDT Blood Culture: No Growth at 5 days. PRELIMINARY REPORTS Preliminary Report [] Verified Date/Time/Personnel: 11/30/2017 14:00 EDT Culture has been received in lab and is no growth to date. Routine cultures are held for 5 days. Performing Locations *1: This test was performed at: [facility], [address] [place] [address], [facility]- , [facility] Performed By: #### CBL #### [address] [address] Observed: 11/30/2017 Status: F Source: [facility] 12:38 [facility] REPOSITORY . MICRO - Microbiology PROCEDURE: Blood Culture (bacterial) [*1] SOURCE: Blood BODY SITE: COLLECTED DATE/TIME: 11/30/2017 12:38 EDT RECEIVED DATE/TIME: 11/30/2017 13:00 EDT START DATE/TIME: 11/30/2017 13:01 EDT FREE TEXT SOURCE: FINAL REPORTS Final Report [] Verified Date/Time/Personnel: 12/05/2017 13:59 EDT Blood Culture: No Growth at 5 days. PRELIMINARY REPORTS Preliminary Report [] Verified Date/Time/Personnel: 11/30/2017 14:00 EDT Culture has been received in lab and is no growth to date. Routine cultures are held for 5 days. Performing Locations *1: This test was performed at: [address] Performed By: #### CBL #### [place] [address] Observed: 11/30/2017 Status: F Source: [facility] 12:18 [facility] REPOSITORY . MICRO - Microbiology PROCEDURE: Culture Wound Aerobic with Gram Stain [*1] SOURCE: Abscess BODY SITE: Buttock COLLECTED DATE/TIME: 11/30/2017 12:18 EDT RECEIVED DATE/TIME: 11/30/2017 13:00 EDT START DATE/TIME: 11/30/2017 13:01 EDT FREE TEXT SOURCE: FINAL REPORTS Final Report [] Verified Date/Time/Personnel: 12/02/2017 07:33 EDT Few Normal amalia present PRELIMINARY REPORTS Preliminary Report [] Verified Date/Time/Personnel: 12/01/2017 10:20 EDT Culture results pending. STAINS GS [] Verified Date/Time/Personnel: 11/30/2017 15:15 EDT No organisms seen. Performing Locations *1: This test was performed at: [address] Performed By: #### CWD #### [place] [address] CBC Collected: 11/30/2017 Status: F Source: [facility] 12:08 PM [facility] REPOSITORY TYPE CODE TESTS RESULT OUT OF REFERENCE UNITS RANGE LAB WBC(LOINC) 4.50-10.80 10 3/mcL WBC 8.40 LAB RBCCT(LOINC 4.10-5.30 10 6/mcL ) RBC 4.68 LAB HGB(LOINC) 12.0-16.0 G/dL Hgb 14.1 LAB HCT(LOINC) 34.0-46.0 % Hct 42.1 LAB MCV(LOINC) 80.0-99.0 fL MCV 89.9 LAB MCH(LOINC) 27.0-33.0 pg MCH 30.1 LAB MCHC(LOINC) 32.0-36.0 G/dL MCHC 33.4 LAB RDW(LOINC) 11.5-15.5 % RDW 14.5 LAB PLT(LOINC) 150-450 10 3/mcL Platelet 191 LAB MPV(LOINC) 6.6-10.5 fL MPV 9.3 Performed By: #### CBC, ADIFF, ANEU, BMP, MG, GFR #### [place] [address] .AUTO DIFF Collected: 11/30/2017 Status: F Source: [facility] 12:08 [facility] REPOSITORY TYPE CODE TESTS RESULT OUT OF REFERENCE UNITS RANGE LAB BRIAN(LOINC) 50.0-75.0 % High Neutrophil % 85.4 LAB LYM(LOINC) 20.0-40.0 % Low Lymphocyte % 4.9 LAB MON(LOINC) 2.0-13.0 % Monocyte % 8.8 LAB EO(LOINC) 0.0-6.0 % Eosinophil % 0.8 LAB BAS(LOINC) 0.0-2.5 % Basophil % 0.1 LAB ABLYM(LOIN 0.90-4.32 10 3/mcL C) Low Lymphocyte, 0.40 Absolute LAB ANAID(LOINC 0.09-1.40 10 3/mcL ) Monocyte, 0.70 Absolute LAB AEOS(LOINC 0.00-0.65 10 3/mcL ) Eosinophil, 0.10 Absolute LAB ABAS(LOINC 0.00-0.27 10 3/mcL ) Basophil, 0.00 Absolute Performed By: #### CBC, ADIFF, ANEU, BMP, MG, GFR #### [address] [address] .NEUABS Collected: 11/30/2017 Status: F Source: [facility] 12:08 [facility] REPOSITORY TYPE CODE TESTS RESULT OUT OF REFERENCE UNITS RANGE LAB ANEU(LOINC) 2.25-8.10 10 3/mcL Neutrophil, 7.20 Absolute Performed By: #### CBC, ADIFF, ANEU, BMP, MG, GFR #### [place] [address] BMP Collected: 11/30/2017 Status: F Source: [facility] 12:08 [facility] REPOSITORY TYPE CODE TESTS RESULT OUT OF REFERENCE UNITS RANGE LAB GLU(LOINC) 70-110 mg/dL Glucose Level 101 LAB NA(LOINC) 136-145 mEq/L Sodium Level 139 LAB K(LOINC) 3.5-5.0 mEq/L Potassium Level 4.1 LAB CL(LOINC) 98-110 mEq/L Chloride 104 LAB CO2(LOINC) 22-32 mEq/L CO2 28 LAB EBAL(LOINC 4.0-15.0 mEq/L ) Electrolyte Balance 7.0 LAB BUN(LOINC) 8.0-22.0 mg/dL BUN 13.0 LAB CRE(LOINC) 0.50-1.20 mg/dL Creatinine Lvl (s) 0.90 LAB BC(LOINC) 10.0-22.0 ratio BUN/Creatinine 14.4 Ratio LAB CA(LOINC) 8.4-10.1 mg/dL Calcium Lvl 8.7 Performed By: #### CBC, ADIFF, ANEU, BMP, MG, GFR #### [place] [address] MG Collected: 11/30/2017 Status: F Source: [facility] 12:08 [facility] REPOSITORY TYPE CODE TESTS RESULT OUT OF REFERENCE UNITS RANGE LAB MG(LOINC) 1.6-2.4 mg/dL Magnesium Lvl 2.0 Performed By: #### CBC, ADIFF, ANEU, BMP, MG, GFR #### [place] [address] .GFR Collected: 11/30/2017 Status: F Source: [facility] 12:08 [facility] REPOSITORY TYPE CODE TESTS RESULT OUT OF REFERENCE UNITS RANGE LAB GFRAA(LOINC ml/min/1.73 ) sqm GFR >60 Icelandic Result Comment: GFR Population mean for , Non- Americans Ages 20-29 = 116 mL/min/1.73 sq.m. Ages 30-39 = 107 mL/min/1.73 sq.m. Ages 40-49 = 99 mL/min/1.73 sq.m. Ages 50-59 = 93 mL/min/1.73 sq.m. Ages 60-69 = 85 mL/min/1.73 sq.m. Ages 70+ = 75 mL/min/1.73 sq.m. Chronic Kidney Disease: Less than 60 mL/min/1.73 square meters End Stage Renal Disease: Less than 15 mL/min/1.73 square meters LAB GFRNO(LOINC) ml/min/1.73sqm GFR Non- >60 Result Comment: GFR Population mean for , Non- Americans Ages 20-29 = 116 mL/min/1.73 sq.m. Ages 30-39 = 107 mL/min/1.73 sq.m. Ages 40-49 = 99 mL/min/1.73 sq.m. Ages 50-59 = 93 mL/min/1.73 sq.m. Ages 60-69 = 85 mL/min/1.73 sq.m. Ages 70+ = 75 mL/min/1.73 sq.m. Chronic Kidney Disease: Less than 60 mL/min/1.73 square meters End Stage Renal Disease: Less than 15 mL/min/1.73 square meters Performed By: #### CBC, ADIFF, ANEU, BMP, MG, GFR #### [place] [address] EMERGENCY DEPARTMENT Observed: 11/27/2017 Status: F Source: [place] SUMMARY 9:10 PM [facility] REPOSITORY [facility] Medical Records Department [address] [place] [address] Emergency Department Summary 11/27/17 2105 MR#: [id number] Acct: [id number] Name: TUAN DOLL Ching Rep #: [id number] : 1990 26 From: Chalino Mukherjee MD PCP: Care Physician, No Primary Status: REG ER - ER Visit Summary Date of Service: 11/27/17 Chief Complaint: Suicidal ideation History of Present Illness: The patient is a 26 F presents with suicidal ideation. She has a history of depression and significant prior suicide attempt. She has been increasingly depressed since her committed suicide in front of their children a proximally 1 year ago. She lost custody of her children and she has a 1 day a week supervised visit. She was having her visit today and apparently sent text messages and left voicemails to her friends stating that she was going to kill herself and her friend called police. She also called crisis recently and said that she is going to commit suicide. Physical Examination: Vitals within normal limits. She is not in distress. Neck is supple. Heart tones are regular and without murmur. Lungs are clear bilaterally. Diminished soft and nontender. Affect is flat. Thought content is normal. She admits to suicidal thoughts but denies a specific plan Test Results: Medical clearance labs are unremarkable Emergency Department Course and Treatment: Medical clearance labs are unremarkable. I consulted crisis. They have voicemails and audio recordings from her friend stating that she is going to complete suicide and apparently she became belligerent with the police today and said that she is going to give her children away so that she can commit suicide. The crisis mental health professional feel strongly that she would benefit from inpatient psychiatric treatment and that she is at high risk for completing suicide. She was medically cleared and she will be transferred to an inpatient psychiatric facility. Treatment Plan: Transfer to psychiatric facility Disposition: Transfer stable condition Impression: Initial encounter suicidal ideation and suicidal gesture This note was generated with Bioapter dictation software. It may contain incorrect words, spelling, and punctuation that were not noted in review of the chart prior to signing ED Disposition - Plan for ED Patient: Chief Complaint: Suicidal Referrals: Care Physician,No Primary [Primary Care Provider] - What to do if you have Problems For any increased pain, shortness of breath, bleeding, nausea or vomiting, chest pain, or any unexpected problems, contact your Primary Care Provider. Call [facility] ([phone]) or report to the closest Emergency Room. Call 911 if necessary. 11/27/172109 <Electronically signed by Chalino Mukherjee MD> Date Chalino Hernandez Signature (If Indicated): Date CC: No Primary Care Physician URINE DRUG SCREEN Collected: 11/27/2017 Status: F Source: DANDRE (VISTA) 5:50 PM [facility] REPOSITORY TYPE CODE TESTS RESULT OUT OF RANGE REFERENCE UNITS LAB L505.0075 TO BE Normal CONFIRMED Result Comment: CONFIRMATORY TESTING FOR ALL POSITIVE URINE DRUG SCREEN RESULTS WILL ONLY BE SENT OUT UPON PHYSICIAN ORDER. VISTA Urine Drug Screen methods provide only preliminary analytical test results. A more specific alternate chemical method must be used in order to obtain a confirmed analytical result. Gas chromatography/mass spectrometery (GC/MS) is the preferred confirmatory method. Clinical consideration and professional judgement should be applied to any drug of abuse test result, particularly when preliminary positive results are used. URINE TCA TESTING MUST BE ORDERED SEPARATELY. USE TEST MNEMONIC: [facility] LAB L505.5005 VISTA UDS PH 6 Normal LAB L505.5015 <1000 ng/mL AMPHETAMINES Normal NEGATIVE LAB L505.5025 < 200 ng/mL BARBITIURATES Normal NEGATIVE LAB L505.5035 < 200 ng/mL BENZODIAZIPINE Normal NEGATIVE LAB L505.5045 < 300 ng/mL COCAINE Normal NEGATIVE LAB L505.5055 < 500 ng/mL ECSTACY Normal NEGATIVE LAB L505.5065 < 300 ng/mL METHADONE Normal NEGATIVE LAB L505.5075 < 300 ng/mL OPIATES Normal NEGATIVE LAB L505.5085 < 25 ng/mL PCP Normal NEGATIVE LAB L505.5095 < 50 High ng/mL THC POSITIVE Performed By: #### L505.5000 #### [facility] [address] [place], [address] LIVER PROFILE Collected: 11/27/2017 Status: F Source: [place] 5:45 PM [facility] REPOSITORY TYPE CODE TESTS RESULT OUT OF RANGE REFERENCE UNITS LAB L501.1500 6.4-8.2 g/dL Normal T PROT 7.5 LAB L501.1800 3.2-5.0 g/dL Normal ALB 3.9 LAB L501.1950 2.2-4.2 g/dL Normal GLOB 3.6 LAB L501.4100 15-37 U/L Normal AST 15 LAB L501.4305 45-117 U/L Normal ALK P 86 LAB L501.4405 13-56 U/L Normal ALT 19 LAB L501.4600 0.20-1.00 mg/dL Normal T BILI 0.40 LAB L501.4700 0.00-0.30 mg/dL Normal D BILI 0.11 Performed By: #### L500.3400 #### [facility] [address] [place], [place], [id number] CBC W/DIFF, AUTOMATED Collected: 11/27/2017 Status: F Source: [place] 5:40 PM [facility] REPOSITORY TYPE CODE TESTS RESULT OUT OF RANGE REFERENCE UNITS LAB L100.1000 4.4-11.0 K/mm3 Normal WBC 8.3 LAB L100.1200 4.2-5.4 M/mm3 Normal RBC 4.63 LAB L100.1300 12.0-15.0 g/dl Normal HGB 13.7 LAB L100.1400 37-47 % Normal HCT 41.8 LAB L100.1500 81-99 fL Normal MCV 90.3 LAB L100.1600 27.0-32.0 pg Normal MCH 29.6 LAB L100.1700 32-36 g/gl Normal MCHC 32.8 LAB L100.1810 11.6-14.6 % Normal RDW CV 13.8 LAB L100.1820 35.1-43.9 fl High RDW SD 45.5 LAB L100.1900 150-450 K/mm3 Normal PLT 239 LAB L100.2000 6.2-12.0 fl Normal MPV 11.3 LAB L100.2100 47-70 % High NEUT% 71.3 LAB L100.2200 19-41 % Normal LY% 19.8 LAB L100.2300 0-10 % Normal MONO% 7.6 LAB L100.2400 0-5 % Normal EO% 1.3 LAB L100.2500 0-1 % Normal BASO% 0.0 LAB L100.2550 0.0-0.9 % Normal IM GRAN % 0.000 Result Comment: IG% - Immature Granulocytes (promyelocytes, myelocytes and metamyelocytes) > 1% indicates that a LEFT SHIFT is Present. LAB L100.2620 2.0-7.7 X10 3/uL Normal Absolute Neut 5.9 LAB L100.2720 0.83-4.51 X10 3/ul Normal Absolute Lymph 1.64 Performed By: #### L100.0100 #### [facility] [address] [place], [place], [address] ALCOHOL, BLOOD Collected: 11/27/2017 Status: F Source: [place] (MEDICAL)-SERUM 5:40 PM [facility] REPOSITORY TYPE CODE TESTS RESULT OUT OF RANGE REFERENCE UNITS LAB L501.9100 mg/dL Normal SERUM < 3.0 ETOH Result Comment: The serum:whole blood ethanol ratio is approximately 1.14 and varies slightly with hematocrit. Medical Alcohol reference interval and critical value in non-tolerant individuals; 50 - 100 Impairment 100 Intoxication 100 - 250 Severe Poisoning 250 - 400 Deep/possible fatal coma Performed By: #### L501.9100 #### [facility] [address] [place], [place], [address] BASIC METABOLIC Collected: 11/27/2017 Status: F Source: [place] PROFILE (BMP) 5:40 PM [facility] REPOSITORY TYPE CODE TESTS RESULT OUT OF RANGE REFERENCE UNITS LAB L501.0100 74-106 mg/dL Normal GLU 88 Result Comment: Please note revised GLUCOSE reference range effective 2017. LAB L501.1000 7-18 mg/dL Normal BUN 8 LAB L501.1100 0.55-1.02 mg/dL Normal CREAT,SERUM 0.81 Result Comment: The validity of the calculated GFR AND GFRAA in patients over 70 years has not been determined. Clinical correlation is essential. LAB L501.1110 >60 mL/min Normal EST GFR 90 Result Comment: Non- GFR Calc LAB L501.1115 >60 mL/min Normal EST GFR - AA 109 Result Comment: GFR Calc LAB L501.1255 ml/min Normal Estimated CRCL 93.88 LAB L501.1300 10-20 RATIO Low BUN/CRE 9.9 LAB L501.2200 8.5-10 mg/dL Normal .1 CA 9.1 LAB L501.5300 136-14 mmol/L Normal 5 NA 143 LAB L501.5600 3.5-5. mmol/L Normal 1 K 3.9 LAB L501.5900 98-107 mmol/L High CL 108 LAB L501.6100 21.0-3 mmol/L Normal 2.0 CO2 28.0 LAB L501.6200 5-15 Normal GAP 7 Performed By: #### L500.2500 #### [facility] [address] [facility] [place], [address] ,SERUM,HCG QUALI. Collected: Status: F Source: [place] 11/27/2017 5:40 PM [facility] REPOSITORY TYPE CODE TESTS RESULT OUT OF REFERENCE UNITS RANGE LAB L700.6700 =>Qualitative mIU/mL Normal HCG Qual < 1 triggr LAB L700.7000 0-9 Nonpreg Negative Normal HCGSQUAL NEGATIVE Performed By: #### L700.6800 #### [facility] [address] [place], [address] EMERGENCY DEPARTMENT Observed: 09/18/2017 Status: F Source: [place] SUMMARY 12:59 AM [facility] REPOSITORY [facility] Medical Records Department [address] [place] [address] Emergency Department Summary 09/17/176 MR#: [id number] Acct: [id number] Name: TUAN DOLL Rep #: [id number] : 1990 26 From: Ben Abraham MD PCP: Care Physician, No Primary Status: DEP ER - ER Visit Summary Date of Service: 09/17/17 Chief Complaint: Depression History of Present Illness: The patient is a 26 F who saw a plant operations worker today and is an appointment with a counselor tomorrow. She told a friend that she was done, fed up, and can do it. The friend was concerned the patient was suicidal and called the police. Patient reports that she is upset because she has not seen her kids in the past 3-4 weeks. She was at [facility] earlier this month and was released just last week. She denies any suicidal ideation or plan. She denies any homicidal ideation or auditory hallucinations.. Physical Examination: Vitals: Stable. Afebrile. General: Well-nourished and well-developed. Head: Normocephalic atraumatic. Neck: Supple, no lymphadenopathy. No JVD. Nontender. Cardiovascular: Regular rate and rhythm. No murmurs. Respiratory: No respiratory distress. Clear to auscultation bilaterally. Abdominal: Soft, nontender, nondistended, normal bowel sounds. No guarding, rebound, or peritoneal signs. Back: Nontender. Extremities: Nontender, no edema. Skin: Normal color, no rash. Neurologic: Alert and oriented 3. Cranial nerves II through XII are intact. Normal strength and sensation. Mental status exam: Patient appears their stated age. Good posture and grooming. Good eye contact. Normal rate, volume, and latency of speech. No suicidal or homicidal ideation. No auditory or visual hallucinations. Flow of thought is logical. Insight and judgment is fair. Emergency Department Course and Treatment: Patient was seen by the counseling center in the emergency department. She is able to contract for safety. She has an appointment to be seen tomorrow already. Treatment Plan: Patient discharged instructions to keep her appointment. Return to the emergency department for any thoughts of harming herself. Disposition: To home in improved and stable condition. Impression: 1. Depression. This note was generated with Bioapter dictation software. It may contain incorrect words, spelling, and punctuation that were not noted in review of the chart prior to signing ED Disposition - Plan for ED Patient: Disposition: Home or Assisted Living Chief Complaint: Mental Health Instructions: ED Depression Referrals: Counseling,Center [GROUP OF PHYSICIANS] - 1 Day What to do if you have Problems For any increased pain, shortness of breath, bleeding, nausea or vomiting, chest pain, or any unexpected problems, contact your Primary Care Provider. Call [facility] ([phone]) or report to the closest Emergency Room. Call 911 if necessary. 09/18/17 0059 <Electronically signed by Ben Abraham MD> Date Ben Abraham MD Cosigner Signature (If Indicated): Date CC: No Primary Care Physician 12 LEAD ELECTROCARDIOGRAM Observed: 09/06/2017 Status: F Source: DANDRE 3:02 PM [facility] Cardiovascular Services [address] [place] [address] 12 Lead EKG 08/29/1715 MR#: [id number] Acct: [id number] Name: TUAN DOLL Rep #: [id number] : 1990 From: Colin Rodríguez MD Attending Dr: Status: DEP ER Ordering Dr: Ben Abraham MD Date: 08/29/17 Location: ED Sex: F C Admitted: Test Reason : UNRESPONSIVE Blood Pressure : / mmHG Vent. Rate : 087 BPM Atrial Rate : 087 BPM P-R Int : 154 ms QRS Dur : 094 ms QT Int : 370 ms P-R-T Axes : 080 069 060 degrees QTc Int : 445 ms Normal sinus rhythm Normal ECG Confirmed by KUSHAL CHRISTIAN, COLIN ([id number]), production editor DAR GAR ([id number]) on 09/06/2017 3:02:04 PM Referred By: JARAD Confirmed By:COLIN RODRÍGUEZ MD 09/06/17 1502 Date Colin Rodríguez MD CC: Angela Chawla; Ben Abraham MD Signed EMERGENCY DEPARTMENT Observed: 08/30/2017 Status: F Source: DANDRE SUMMARY 12:43 AM [facility] Medical Records Department [address] [place] [address] Emergency Department Summary 08/29/17 0651 MR#: [id number] Acct: [id number] Name: TUAN DOLL Rep #: [id number] : 1990 From: Ben Abraham MD PCP: Angela Chawla Status: REG ER - ER Visit Summary Date of Service: 08/29/17 Chief Complaint: Unresponsive History of Present Illness: The patient is a 26 F who was called out to EMS as a drug overdose. The person that called this in the left prior to their arrival. Upon their arrival the patient was unresponsive. They gave a dose of Narcan and she then vomited. Aniya reports that she stopped breathing on the way in and she arrives to the emergency department being bagged. Aniya brought the empty medicine bottles that were by her bed. These include: Seroquel 100 mg. 60 pills filled July 17. She is to take 2 nightly. This bottle is empty. Trend Telex 10 mg filled July 17, 1929 pills 1 daily. This is empty. Prazosin 1 mg. She was supposed to take 1 p.o. nightly. This was filled May 30 and July 17. There are 58 of these pills. Zoloft 100 mg. 30 pills filled July 17 1 p.o. daily. This is empty. BuSpar 10 mg. 90 pills filled July 17. 1 p.o. 3 times daily. There are 88 of these pills. Physical Examination: Vitals: 124/80, 88, 18, 100% on room air which is not hypoxic. General: Well-nourished and well-developed. Head: Normocephalic atraumatic. Neck: Supple, no lymphadenopathy. No JVD. Nontender. Cardiovascular: Regular rate and rhythm. No murmurs. Respiratory: No respiratory distress. Clear to auscultation bilaterally. Abdominal: Soft, nontender, nondistended, normal bowel sounds. No guarding, rebound, or peritoneal signs. Back: Nontender. Extremities: Nontender, no edema. Skin: Normal color, no rash. Neurologic: Alert and moves all extremities well.. Psych: Agitated and combative. Will not answer any questions. Test Results: CBC is remarkable for a hemoglobin of 15.6. test is negative. Chem-7 is remarkable for a chloride of 108, BUN of 5, and glucose of 108. LFTs are normal. Emergency Department Course and Treatment: Shortly after arrival in the emergency department the patient became very agitated and combative. She is awake and alert without receiving medications that would have done this. She was placed in restraints for her own and staff safety. She was given Geodon IM with little effect. She was then given Benadryl and Ativan IM. Treatment Plan: When the patient awakes and is more compliant she will require consultation from the counseling center to determine what happened this morning. Disposition: Pending Impression: 1. Depression. 2. Polysubstance overdose. This note was generated with Zimoryation software. It may contain incorrect words, spelling, and punctuation that were not noted in review of the chart prior to signing ED Disposition - Plan for ED Patient: Chief Complaint: Overdose Referrals: Angela Chawla [Primary Care Provider] - What to do if you have Problems For any increased pain, shortness of breath, bleeding, nausea or vomiting, chest pain, or any unexpected problems, contact your Primary Care Provider. Call [facility] ([phone]) or report to the closest Emergency Room. Call 911 if necessary. 08/30/17 0043 <Electronically signed by Ben Abraham MD> Date Ben Abraham MD Cosigner Signature (If Indicated): Date CC: Angela Chawla ALCOHOL, BLOOD Collected: 08/29/2017 Status: F Source: DANDRE (MEDICAL)-SERUM 6:33 PM [facility] REPOSITORY Order Comment: Order Date: 08/29/17 TYPE CODE TESTS RESULT OUT OF RANGE REFERENCE UNITS LAB L501.9100 mg/dL Normal SERUM < 3.0 ETOH Result Comment: The serum:whole blood ethanol ratio is approximately 1.14 and varies slightly with hematocrit. Medical Alcohol reference interval and critical value in non-tolerant individuals; 50 - 100 Impairment 100 Intoxication 100 - 250 Severe Poisoning 250 - 400 Deep/possible fatal coma Performed By: #### L501.9100 #### [facility] [address] [place], [address] URINE DRUG SCREEN Collected: 08/29/2017 Status: F Source: DANDRE (VISTA) 8:10 AM [facility] REPOSITORY TYPE CODE TESTS RESULT OUT OF RANGE REFERENCE UNITS LAB L505.0075 TO BE Normal CONFIRMED Result Comment: CONFIRMATORY TESTING FOR ALL POSITIVE URINE DRUG SCREEN RESULTS WILL ONLY BE SENT OUT UPON PHYSICIAN ORDER. VISTA Urine Drug Screen methods provide only preliminary analytical test results. A more specific alternate chemical method must be used in order to obtain a confirmed analytical result. Gas chromatography/mass spectrometery (GC/MS) is the preferred confirmatory method. Clinical consideration and professional judgement should be applied to any drug of abuse test result, particularly when preliminary positive results are used. URINE TCA TESTING MUST BE ORDERED SEPARATELY. USE TEST MNEMONIC: [facility] LAB L505.5005 VISTA UDS PH 6 Normal LAB L505.5015 <1000 High ng/mL AMPHETAMINES POSITIVE LAB L505.5025 < 200 ng/mL BARBITIURATES Normal NEGATIVE LAB L505.5035 < 200 ng/mL BENZODIAZIPINE Normal NEGATIVE LAB L505.5045 < 300 ng/mL COCAINE Normal NEGATIVE LAB L505.5055 < 500 ng/mL ECSTACY Normal NEGATIVE LAB L505.5065 < 300 ng/mL METHADONE Normal NEGATIVE LAB L505.5075 < 300 ng/mL OPIATES Normal NEGATIVE LAB L505.5085 < 25 ng/mL PCP Normal NEGATIVE LAB L505.5095 < 50 High ng/mL THC POSITIVE Performed By: #### L505.5000 #### [facility] [address] [place], [place], [address] SALICYLATE Collected: 08/29/2017 Status: F Source: [place] 7:45 AM [facility] REPOSITORY TYPE CODE TESTS RESULT OUT OF RANGE REFERENCE UNITS LAB L501.8300 2.8-20.0 mg/dL Normal SALICYLATE 4.0 Performed By: #### L501.8300, L501.8400, L501.9100 #### [facility] [address] [place], [place], [address] ACETAMINOPHEN (TYLENOL) Collected: 08/29/2017 Status: F Source: [facility] 7:45 AM [facility] REPOSITORY TYPE CODE TESTS RESULT OUT OF REFERENCE UNITS RANGE LAB L501.8400 10.0-30.0 ug/mL ACETAMINOPHEN Low < 2.0 Performed By: #### L501.8300, L501.8400, L501.9100 #### [facility] [address] [place], [address] ALCOHOL, BLOOD Collected: 08/29/2017 Status: F Source: [place] (MEDICAL)-SERUM 7:45 AM [facility] REPOSITORY TYPE CODE TESTS RESULT OUT OF RANGE REFERENCE UNITS LAB L501.9100 mg/dL Normal SERUM 10.0 ETOH Result Comment: The serum:whole blood ethanol ratio is approximately 1.14 and varies slightly with hematocrit. Medical Alcohol reference interval and critical value in non-tolerant individuals; 50 - 100 Impairment 100 Intoxication 100 - 250 Severe Poisoning 250 - 400 Deep/possible fatal coma Performed By: #### L501.8300, L501.8400, L501.9100 #### [facility] [address] [facility] [place], [address] CHEST 1 VIEW Observed: 08/29/2017 Status: F Source: [place] (PORTABLE) 6:28 AM [facility] REPOSITORY [facility] Imaging Services [address] [place] [address] Chest 1 View (Portable) MR#: [id number] Acct: [id number] Name: TUAN DOLL Rep #: [id number] : 1990 F 26 From: Osmel Conde MD PCP: Angela Chawla Status: REG ER Study: Chest 1 View (Portable) Date of Exam: 08/29/17 Exam# [id number] Ordering Dr: Ben Abraham MD STUDY: X-RAY CHEST REASON FOR EXAM: Female, 26 years old. Overdose. TECHNIQUE: Single AP portable view of the chest. COMPARISON: None. FINDINGS: EKG electrodes are seen. The lungs are clear and expanded. There is no demonstrated pleural abnormality. Normal size heart. Normal mediastinum and ruben. Normal visualized pulmonary arteries. Normal visualized aortic arch and descending thoracic aorta. Normal visualized thoracic spine. Normal visualized ribs, clavicles, and shoulders. There is no demonstrated abnormality of the visualized soft tissue structures of the upper abdomen. RAD/Chest 1 View (Portable) IMPRESSION: Normal x-ray examination of the chest. Electronically Signed: Osmel Conde MD at 9:23 EDT Tel [phone], Service support , CC: Angela Chawla; Ben Abraham MD Cloth Mercerizing Supervisor: Signed CBC W/DIFF, AUTOMATED Collected: 08/29/2017 Status: F Source: [place] 6:20 AM [facility] REPOSITORY TYPE CODE TESTS RESULT OUT OF RANGE REFERENCE UNITS LAB L100.1000 4.4-11.0 K/mm3 Normal WBC 6.3 LAB L100.1200 4.2-5.4 M/mm3 Normal RBC 5.16 LAB L100.1300 12.0-15.0 g/dl High HGB 15.6 LAB L100.1400 37-47 % Normal HCT 47.0 LAB L100.1500 81-99 fL Normal MCV 91.1 LAB L100.1600 27.0-32.0 pg Normal MCH 30.2 LAB L100.1700 32-36 g/gl Normal MCHC 33.2 LAB L100.1810 11.6-14.6 % Normal RDW CV 13.6 LAB L100.1820 35.1-43.9 fl High RDW SD 45.2 LAB L100.1900 150-450 K/mm3 Normal PLT 151 LAB L100.2000 6.2-12.0 fl Normal MPV 11.9 LAB L100.2100 47-70 % Normal NEUT% 62.5 LAB L100.2200 19-41 % Normal LY% 26.0 LAB L100.2300 0-10 % Normal MONO% 9.6 LAB L100.2400 0-5 % Normal EO% 1.4 LAB L100.2500 0-1 % Normal BASO% 0.3 LAB L100.2550 0.0-0.9 % Normal IM GRAN % 0.200 Result Comment: IG% - Immature Granulocytes (promyelocytes, myelocytes and metamyelocytes) > 1% indicates that a LEFT SHIFT is Present. LAB L100.2620 2.0-7.7 X10 3/uL Normal Absolute Neut 3.9 LAB L100.2720 0.83-4.51 X10 3/ul Normal Absolute Lymph 1.63 Performed By: #### L100.0100 #### [facility] [address] [place], [address] ,SERUM,HCG QUALI. Collected: Status: F Source: [place] 08/29/2017 6:20 AM [facility] REPOSITORY TYPE CODE TESTS RESULT OUT OF REFERENCE UNITS RANGE LAB L700.6700 =>Qualitative mIU/mL Normal HCG Qual < 1 triggr LAB L700.7000 0-9 Nonpreg Negative Normal HCGSQUAL NEGATIVE Performed By: #### L700.6800 #### [facility] [address] [place], [address] COMPREHENSIVE METABOLIC Collected: 08/29/2017 Status: F Source: [facility] 6:20 AM [facility] REPOSITORY TYPE CODE TESTS RESULT OUT OF RANGE REFERENCE UNITS LAB L501.0100 74-106 mg/dL High GLU 108 Result Comment: Fasting Glucose result from 100 to 125 mg/dL suggests IMPAIRED HOMEOSTASIS per A.D.A. criteria. Please note revised GLUCOSE reference range effective 2017. LAB L501.1000 7-18 mg/dL Low BUN 5 LAB L501.1100 0.55-1.02 mg/dL Normal CREAT,SERUM 0.83 Result Comment: The validity of the calculated GFR AND GFRAA in patients over 70 years has not been determined. Clinical correlation is essential. LAB L501.1110 >60 mL/min Normal EST GFR 87 Result Comment: Non- GFR Calc LAB L501.1115 >60 mL/min Normal EST GFR - AA 106 Result Comment: GFR Calc LAB L501.1255 ml/min Normal Estimated CRCL 102.70 LAB L501.1300 10-20 RATIO Low BUN/CRE 6.0 LAB L501.1500 6.4-8. g/dL 2 T PROT Normal 7.5 LAB L501.1800 3.2-5. g/dL 0 ALB Normal 3.8 LAB L501.1950 2.2-4. g/dL 2 GLOB Normal 3.7 LAB L501.2000 0.9-2. RATIO 4 A/G Normal 1.0 LAB L501.2200 8.5-10 mg/dL .1 CA Normal 8.9 LAB L501.4100 15-37 U/L AST Normal 21 Result Comment: Slight Hemolysis, Result may be falsely increased. LAB L501.4305 45-117 U/L Normal ALK P 81 LAB L501.4405 13-56 U/L Normal ALT 24 LAB L501.4600 0.20-1.00 mg/dL Normal T BILI 0.40 LAB L501.5300 136-145 mmol/L Normal NA 140 LAB L501.5600 3.5-5.1 mmol/L Normal K 3.6 Result Comment: Slight Hemolysis, Result may be falsely increased. LAB L501.5900 98-107 mmol/L High CL 108 LAB L501.6100 21.0-32.0 mmol/L Normal CO2 23.0 LAB L501.6200 5-15 Normal 9 GAP Performed By: #### L500.4050 #### [facility] [address] [place], [address] EMERGENCY DEPARTMENT Observed: 08/26/2017 Status: F Source: [place] SUMMARY 7:32 AM [facility] REPOSITORY [facility] Medical Records Department [address] [place] [address] Emergency Department Summary 08/26/17 0119 MR#: [id number] Acct: [id number] Name: TUAN DOLL Rep #: [id number] : 1990 26 From: Migue Grimaldo MD PCP: Care Physician, No Primary Status: DEP ER - ER Visit Summary Date of Service: 08/26/17 Chief Complaint: Abscess History of Present Illness: The patient is a 26 F with an abscess in her left gluteal region. No fever or systemic symptoms. Physical Examination: Superficial 1 cm abscess in the left gluteal region near the cleft. Does not involve the labia or deep structures. Test Results: None indicated Emergency Department Course and Treatment: Nurse ultrasound sonographer exam and I and D. Anesthetized with lidocaine. 1 cm linear incision made. Pus expressed. Will treat with clindamycin and naproxen. Follow-up with primary care for recheck. Soaks advised. Treatment Plan: As above Disposition: Discharged Impression: 1. Left gluteal abscess 1 cm This note was generated with Bioapter dictation software. It may contain incorrect words, spelling, and punctuation that were not noted in review of the chart prior to signing ED Disposition - Plan for ED Patient: Chief Complaint: Abscess Referrals: Care Physician,No Primary [Primary Care Provider] - What to do if you have Problems For any increased pain, shortness of breath, bleeding, nausea or vomiting, chest pain, or any unexpected problems, contact your Primary Care Provider. Call [facility] ([phone]) or report to the closest Emergency Room. Call 911 if necessary. 08/26/17731 <Electronically signed by Migue Grimaldo MD> Date Migue Grimaldo MD Cosigner Signature (If Indicated): Date CC: No Primary Care Physician DISCHARGE INSTRUCTION Observed: 08/26/2017 Status: F Source: [place]RE 7:32 AM [facility] REPOSITORY [facility] Medical Records Department [address] [place] [address] Discharge Instruction 08/26/17 0120 MR#: [id number] Acct: [id number] Name: TUAN DOLL Rep #: [id number] : 1990 26 From: Migue Grimaldo MD PCP: Care Physician, No Primary Status: [facility] ER ED Disposition - Plan for ED Patient: Chief Complaint: Abscess Instructions: ED Abscess IandD Prescriptions: Naproxen [Naprosyn] 500 mg PO BID PRN #20 tab Clindamycin [Cleocin] 300 mg PO 4X/DAY #80 cap Referrals: Care Physician,No Primary [Primary Care Provider] - What to do if you have Problems For any increased pain, shortness of breath, bleeding, nausea or vomiting, chest pain, or any unexpected problems, contact your Primary Care Provider. Call [facility] ([phone]) or report to the closest Emergency Room. Call 911 if necessary. 08/26/17 0732 <Electronically signed by Migue Grimaldo MD> Date Migue Grimaldo MD Cosigner Signature (If Indicated): Date CC: No Primary Care Physician SENIOR UI DESIGNER OFFICE VISIT Observed: 07/11/2017 Status: F Source: DANDRE REPORT 4:38 PM [facility] [address] [place] [address]. [address] [place] [address] OFFICE VISIT Date of Service: 07/11/17 MR#: [id number] Acct: [id number] Name: TUAN DOLL Rep #: [id number] : 1990 Provider: KAMILA Jorge Age/Sex: 26/F Location: [facility] Status: Signed Intake Vital Signs07/11/17 Height 5 ft 5 in 07/11/17 Weight: 178 lb 07/11/17 Body Mass Index (BMI) 29.6 07/11/17 Blood Pressure 110/72 Intake Visit Reasons: ? herpes outbreak Allergies hydrocodone bitartrate [From Vicodin] Allergy (Verified 07/11/17 14:37) Unknown Penicillins Allergy (Verified 07/11/17 14:37) Rash Medications etonogestrel-ethinyl estradiol 0.12 mg -0.015 mg/24 hr vaginal ring 1 vag ring VAGINAL Q3W #3 ea 06/25/17 [Rx Confirmed 07/11/17] metronidazole 500 mg tablet 1 g PO Q12H #4 tab 06/25/17 [Rx Confirmed 07/11/17] doxycycline monohydrate 100 mg capsule 100 mg PO BID 10 Days #20 cap 07/11/17 [Rx Confirmed 07/11/17] Post menopausal: No Patient : No : No [facility] Medical History Abnormal Pap smear of cervix (Acute) Depression (Acute) Surgical History delivery delivered (Acute) H/O LEEP (Acute) H/O dilation and curettage (Acute) Family History Grandmother Cancer pancreatic Grandfather Colon cancer Social History Smoking Status: Current every day smoker alcohol intake: current details: social substance use type: does not use caffeine: Yes what type of physical activity do you participate in: none seatbelt use: always do you feel safe at home: Yes additional social history: - Patient works at [employer] and [employer] ? herpes outbreak: Details: TUAN DOLL is a 26 year old who presents for concern for herpes outbreak. She recently found out she was positive HSV IGG 1 and 2. Has never had an outbreak. She has at sore area on mons pubis X 2 weeks and wants to confirm not HSV lesion Pregancy History 4 Elective abortions Hx Para 3 Spontaneous abortions Past Pregnancies Del. DateName GA/Weeks Outcome Route Bth WeighInfant GeLabor LgtAnesthesiDel LocatProvider FOB t n h a n Exam External Female Exam: external lesions (1cm raised, erythematous area consistant with hidradenitis) mons pubis: nodule Speculum Exam - Vagina: normal appearance of the vagina Assessment AND Plan Problems 1. Hidradenitis L73.2 Plan Do not manipulate. Warm soaks. Rx antibiotic Discussed latency, outbreak symptoms and transmission of genital herpes RTO prn Medications New: Coding Level of Care Code Off vis,est,level 3 Diagnoses Hidradenitis L73.2 07/11/17 8418 <Electronically signed by Deloris HOLDER> Date Deloris HOLDER Cosigner Signature: Date (if applicable) CC: CT/NG W[facility] BY PCR Collected: 06/25/2017 Status: F Source: [place]ANDRE 2:00 PM [facility] REPOSITORY TYPE CODE TESTS RESULT OUT OF RANGE REFERENCE UNITS LAB L8200.2100 Negative Normal Chlam Negative Trac PCR LAB L8200.2200 Negative Normal NG by Negative PCR Performed By: #### L8200.1999 #### [facility] [address] [place], [address] CT/NG WCH BY PCR Collected: 06/25/2017 Status: F Source: DANDRE 2:00 PM [facility] REPOSITORY TYPE CODE TESTS RESULT OUT OF RANGE REFERENCE UNITS LAB L8200.2100 Negative Normal Chlam Negative Trac PCR LAB L8200.2200 Negative Normal NG by Negative PCR Performed By: #### L8200.1999 #### [facility] [address] [place], [address] PAP IG HPV HR Collected: 06/25/2017 Status: F Source: DANDRE APTIMA 2:00 PM [facility] REPOSITORY Order Comment: Specimen Comment: No. of containers..01 ThinPrep Vial TYPE CODE TESTS RESULT OUT OF RANGE REFERENCE UNITS LAB L7400.0800 . Normal DIAGN Comment Result Comment: NEGATIVE FOR INTRAEPITHELIAL LESION AND MALIGNANCY. LAB L7400.0900 . Normal ADEQ Comment Result Comment: Satisfactory for evaluation. Endocervical and/or squamous metaplastic cells (endocervical component) are present. LAB L7400.1400 . Normal PERFORM Comment Result Comment: Gretta Bazzi, Oceanic Sciences Professor (ASCP) LAB L7400.2575 . Normal TEST METHOD Comment Result Comment: This liquid based ThinPrep(R) pap test was screened with the use of an image guided system. LAB L7400.2600 . Normal . COMM LAB L7400.2700 . Normal PAPSMR Comment Result Comment: The Pap smear is a screening test designed to aid in the detection of premalignant and malignant conditions of the uterine cervix. It is not a diagnostic procedure and should not be used as the sole means of detecting cervical cancer. Both false-positive and false-negative reports do occur. LAB L7400.2760 Negative Normal HPV APTIMA, Negative HR Result Comment: This test detects fourteen high-risk HPV types (16/18/31/33/35/39/45/ 51/52/56/58/59/66/68) without differentiation. Performed at: - [facility] [id number] Paleology Professor: Amber Salinas MD, Phone: [phone] Performed at: G - [facility] [id number] Paleology Professor: Amber Salinas MD, Phone: [phone] Performed By: #### L7400.0377 #### [facility] (refer to report for specific site) refer to report for address and phone number HEPATITIS B SURFACE Collected: 06/25/2017 Status: F Source: DANDRE AG 11:18 AM [facility] REPOSITORY TYPE CODE TESTS RESULT OUT OF RANGE REFERENCE UNITS LAB L3100.0400 Negative Normal HB Negative SURF AG Result Comment: Performed at: - [facility] [id number] Paleology Professor: Tanner Barry MD, Phone: [phone] Performed at: - [facility] [id number] Paleology Professor: Zia Mendez PhD, Phone: [phone] Performed By: #### L3100.0390, L3400.1610, L7038.7740 #### [facility] (refer to report for specific site) refer to report for address and phone number HSV 1 AND 2 IGG Collected: 06/25/2017 Status: F Source: [place] 11:18 AM [facility] REPOSITORY TYPE CODE TESTS RESULT OUT OF RANGE REFERENCE UNITS LAB L3400.1620 0.00-0.90 index High HSV 1 IgG 1.38 Result Comment: Negative <0.91 Equivocal 0.91 - 1.09 Positive >1.09 Note: Negative indicates no antibodies detected to HSV-1. Equivocal may suggest early infection. If clinically appropriate, retest at later date. Positive indicates antibodies detected to HSV-1. LAB L3400.1630 0.00-0.90 index High 13.40 HSV 2 IgG Result Comment: Negative <0.91 Equivocal 0.91 - 1.09 Positive >1.09 Note: Negative indicates no antibodies detected to HSV-2. Equivocal may suggest early infection. If clinically appropriate, retest at later date. Positive indicates antibodies detected to HSV-2. Performed By: #### L3100.0390, L3400.1610, L7000.7000 #### [facility] (refer to report for specific site) refer to report for address and phone number HEPATITIS C,RNA PCR Collected: 06/25/2017 Status: F Source: DANDRE VIRAL LOAD 11:18 AM [facility] REPOSITORY TYPE CODE TESTS RESULT OUT OF RANGE REFERENCE UNITS LAB L7000.7100 . IU/mL HCV Normal HCV Not Detected QT PCR LAB L7000.7350 . Test Normal HCV not performed log 10 LAB L7000.7500 . Normal TEST Comment INFO: Result Comment: The quantitative range of this assay is 15 IU/mL to 100 million IU/mL. Performed By: #### L3100.0390, L3400.1610, L7000.7000 #### [facility] (refer to report for specific site) refer to report for address and phone number RAPID PLASMIN REAGIN Collected: 06/25/2017 Status: F Source: DANDRE (RPR) 11:18 AM [facility] REPOSITORY TYPE CODE TESTS RESULT OUT OF REFERENCE UNITS RANGE LAB L700.5000 NONREACTIVE NONREACTIVE Normal RPR Performed By: #### L700.5000 #### [facility] [address] [place], [address] ALLERGIES ALLERGIES DATE TYPE / CODE NAME / CODE REACTION SEVERITY SOURCE 05/10/2018 Drug hydrocodone Unknown Unknown [place] Allergy/416 bitartrate/[id number] [facility] [id number]([place] [address](RXNORM) [facility] ED CT) Repository 05/10/2018 Drug Penicillins/[id number] Rash Unknown [place] Allergy/416 0476(RXNORM) [facility] [id number]([facility] ED CT) Repository 12/09/2017 Drug hydrocodone/[id number] Rash Unknown [place] Allergy/416 1554(RXNORM) [facility] 358401([facility] ED CT) Repository 12/09/2017 Drug acetaminophen/F006 Rash Unknown [place] Allergy/416 461408(RXNORM) [facility] 740158([facility] ED CT) Repository 12/06/2008 DRUG/905201 HYDROCODONE-ACETAM ITCHING [facility] 003(SNOMED INOPHEN [place]) Repository 09/07/2008 Drug PENICILLINS ITCHING [facility] Class/24705 [place] 1003(SNOMED Repository CT) 03/16/2008 DRUG NICOTINE [facility] INGREDI/419 [facility] 125762(SNOM Repository ED CT) 12/22/2004 DRUG PINEAPPLE Vomiting [facility] INGREDI/419 [facility] 351353(SNOM Repository ED CT) ENCOUNTERS ENCOUNTERS ADMIT/DISCHARGE ACCOUNT NUMBER ADMITTING ENCOUNTER LOCATION SOURCE CLASS 05/10/2018/05/10/19 [id number] Emergency [address] ding:ED Repository 02/28/2018/03/24/20 [id number] Ambulatory [address] Repository 02/18/2018/02/19/20 [id number] Emergency [address] ding:ED Repository 01/10/2018 [id number] Ambulatory [facility] ding:LAB Repository 12/09/2017 [id number] Ambulatory [facility] ding:LABSPEC Repository 12/09/2017/12/10/19 [id number] Ambulatory BMSBuilding: [place] 18 BMS.[facility] Repository 11/30/2017/12/01/19 [id number] Emergency ABuilding:ER [address] Repository 11/27/2017/11/29/19 [id number] Emergency [address] ding:ED Repository 09/17/2017/09/18/19 [id number] Emergency [address] ding:ED Repository 08/29/2017/08/31/19 [id number] Emergency [address] ding:ED Repository 08/26/2017/08/27/19 [id number] Emergency [address] ding:ED Repository 07/11/2017/07/12/19 [id number] Ambulatory BMSBuilding: [place] 18 BMS.[facility] Repository 06/25/2017 [id number] Ambulatory [facility] ding:LABSPEC Repository 06/25/2017 [id number] Ambulatory Dandre [facility] ding:POLAB3 Repository 06/25/2017/06/26/19 [id number] Ambulatory BMSBuilding: [place] 18 BMS.[facility] Repository PAYERS PAYERS ENCOUNTER GUARANTOR PAYER SUBSCRIBER SOURCE 05/10/2018 TUAN Flower Primary TUAN Amos [id number] Insurance:CARESOURCEP LANDACREDOB: [facility] isma LOWERY Number: [id number] 295[address]Zeb: [id number] Repository Date:2018-05-10P O (HP) [address]ATTN: [place] [address]HY: 05/10/2018 Secondary NOT GIVENUNK [place] Insurance:SELF PAY [facility] Number: Effective Repository Date:2018-05-10 02/18/2018 TUAN Flower Primary TUAN Amos [id number] 12 Insurance:CARESOURCEP [facility]CREDOB[facility]ZALES Number: [id number] Medical [facility] [address]Ipw: [id number] Repository Date:2018-02-18P O () [address]ATTN: [place] [address]JO: 02/18/2018 Secondary NOT GIVENUNK [place] Insurance:SELF PAY [facility] Number: Effective Repository Date:2018-02-18 01/10/2018 TUAN Flower Primary TUAN Amos [id number] 1/2 Insurance:CARESOURCEP LANDACREDOB[facility] G[facility]ZAL[facility] Number: [id number] Medical Center [address]Yka: [id number] Repository Date:2018-01-10P O (HP) [address]ATTN: [place] [address]RF: 01/10/2018 Secondary NOT GIVENUNK [place] Insurance:SELF PAY [facility] Number: Effective Repository Date:2018-01-10 12/09/2017 TUAN Flower Primary TUAN Amos [id number] Insurance:CARESOURCEP LANDACREDOB: [facility]ZALES Number: [id number] Medical Center [address]Jdv: [id number] Repository Date:2017-12-09P O () [address]ATTN: [place] [address]ZV: 12/09/2017 Secondary NOT GIVENUNK [place] Insurance:SELF PAY [facility] Number: Effective Repository Date:2017-12-09 12/09/2017 TUAN Flower Primary TUAN Amos [id number] 12 Insurance:CARESOURCEP LANDACREDOB: [facility] Number: [id number] Medical Center [address]Dhr: [id number] Repository Date:2017-12-09P O () [address]ATTN: [place] [address]GY: 12/09/2017 Secondary NOT GIVENUNK [place] Insurance:SELF PAY [facility] Number: Effective Repository Date:2017-12-09 11/30/2017 TUAN Flower Primary TUAN Flower [facility] LANDACREDOB: Insurance:CARESOURCE LANDACREDOB: [facility] [id number] Repository [address] Number: [address], [place] [id number] [place] [address]Aos: ([phone]) Date:2017-11-30 99282Ole: () [id number] Name:CHRISTIANEO Carlita ()Tel: [phone] [place], [place] [phone] () [address]SD: 11/27/2017 TUAN [id number] Primary NOT GIVENUNK [place] [address] Insurance:SELF PAY [facility] [address]Rfw: ([phone]) Number: Effective Repository [phone] () Date:2017-11-27 09/17/2017 TUAN [id number] Primary NOT GIVENUNK [place] [address] Insurance:SELF PAY [facility] [address]Mfa: . () Number: Effective Repository Date:2017-09-17 08/29/2017 TUAN [id number] Primary NOT GIVENUNK [place] [address] Insurance:SELF PAY [place] [address]Tel: . () Number: Effective Repository Date:2017-08-29 08/26/2017 TUAN [id number] Primary NOT GIVENUNK [place] [address] Insurance:SELF PAY [place] [address]Tel: . () Number: Effective Repository Date:2017-08-26 07/11/2017 TUAN [id number] Primary TUAN [place] [address] Insurance:CARESOURCEP LANDACREDOB: [facility] Number: [id number] [facility] [address]Vua: 330 [id number] Repository [phone] () Date:2017-07-10 [address]ATTN: [place] [address]AN: 07/11/2017 Secondary NOT GIVENUNK [place] Insurance:SELF PAY [facility] Number: Effective Repository Date:2017-07-11 06/25/2017 TUAN [id number] Primary TUAN [place] [address] Insurance:CARESOURCEP LANDACREDOB: [facility] Number: [id number] Hospital [address]Fia: ([phone] [id number] Repository 6969 () Date:2017-06-25[address]ATTN: [place] [address]KE: 06/25/2017 Secondary NOT GIVENUNK [place] Insurance:SELF [facility]Y [facility] Number: Effective Repository Date:2017-06-25 06/25/2017 TUAN [id number] Primary TUAN [place] [address] Insurance:CARESOURCEP LANDACREDOB: [facility] Number: [id number] Hospital [address]Gvz: 330 [id number] Repository [phone] () Date:2017-06-25P [address]ATTN: [place] [address]WF: 06/25/2017 Secondary NOT GIVENUNK [place] Insurance:SELF PAY [facility] Number: Effective Repository Date:2017-06-25 06/25/2017 TUAN [id number] Primary TUAN [place] [address] Insurance:CARESOURCEP [facility] Number: [id number] Hospital [address]Byc: [phone] [id number] Repository [phone] () Date:2017-05-15P [address]ATTN: [place] [address]WS: 06/25/2017 Secondary NOT GIVENUNK D[place] Insurance:SELF PAY [facility] Number: Effective Repository Date:2017-05-15
== END 2018-05-10 10:07 | disposition home or self-care (01) ==
LOC: ED 10:06
PROVIDERS: Emergency Provider Emergency Medicine
DX: K02.9 Dental caries, unspecified (principal)
CPT/HCPCS: 99282

== ENCOUNTER → 2018-07-10 15:45 | Outpatient (CLI) | payer MEDICAID, SELFPAY ==
[2018-07-10 13:45] VITALS: BMI 26.9
[2018-07-10 18:04] LABS: Chlamydia Trachomatis by PCR Negative (Negative); Neisserai gonorrhoeae by PCR Negative (Negative); Probe Check PASS; Sample Adequacy Control PASS; Specimen Processing Control PASS
== END ==
PROVIDERS: Referring Provider Nurse Practitioner Women's Health; Visit Provider Nurse Practitioner Women's Health
DX: Z11.3 Encounter for screening for infections with a predominantly sexual mode of transmission (principal)
CPT/HCPCS: 87491; 87591

== ENCOUNTER → 2018-07-22 10:35 | Outpatient (CLI) | payer MEDICAID, SELFPAY ==
[2018-07-10 13:45] VITALS: BMI 26.9
== END ==
DX: Z79.899 Other long term (current) drug therapy (principal); F19.10 Other psychoactive substance abuse, uncomplicated; R53.83 Other fatigue
CPT/HCPCS: 36415; 80178

== ENCOUNTER → 2018-08-24 15:47 | Outpatient (CLI) | payer MEDICAID, SELFPAY ==
[2018-07-10 13:45] VITALS: BMI 26.9
[2018-08-25 09:45] LABS: Progesterone Level 10.96 ng/mL (See Comment)
== END ==
PROVIDERS: Visit Provider Obstetrics & Gynecology
DX: N97.9 Female infertility, unspecified (principal)
CPT/HCPCS: 36415; 84144

== ENCOUNTER 2018-08-24 16:15 | Emergency (ER) | payer MEDICAID, SELFPAY ==
[2018-07-10 13:45] VITALS: BMI 26.9
[2018-08-24 16:16] VITALS: BP 111/61; PULSE 73; RESP 39; TEMP 36.5; O2SAT 100; BMI 26.8
--- NOTE | 2018-08-24 16:27 | ED.DCSUM_ITS ---
- ER Visit Summary Date of Service: 08/24/18 Chief Complaint: [Syncope] History of Present Illness: The patient is a 27 F [presents to the emergency department after a syncopal episode. 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 Patient began feeling very hot and lightheaded and eventually passed out. Patient had short episode of twitching. Patient did not lose control of bowel or bladder. Patient has had remote history of seizures but has not had any seizures for years. Patient currently just feels somewhat hot and little bit tingly. She denies any chest pain or shortness of breath. Patient was feeling perfectly normal before the blood draw. She has not been ill recently.] Physical Examination: [HEENT-PERRLA, EOMI. Cranial nerves II through XII senia sly intact. TMs clear. Mucous membranes moist. No adenopathy. Cardiovascular-regular rate and rhythm without murmur or ectopy Lungs-clear to auscultation, chest wall stable without crepitus or subcu emphysema Abdomen-normoactive bowel sounds, soft, nontender, no rebound or rigidity, no peritoneal signs. Extremities-intact ?4, normal range of motion, normal pulses, atraumatic] Test Results: [None indicated] Emergency Department Course and Treatment: [I feel patient likely had a vasovagal episode related to the blood drawn I do not feel any further work-up is indicated. Patient is comfortable with this. Patient will be observed for short time in the emergency department.] Treatment Plan: [Patient to follow-up with primary care physician as needed] Disposition: [Discharged home in stable condition] Impression: [Vasovagal syncope] This note was generated with [employer] dictation software. It may contain incorrect words, spelling, and punctuation that were not noted in review of the chart prior to signing ED Disposition - Plan for ED Patient: Referrals: Care Physician,No Primary [Primary Care Provider] -
--- NOTE | 2018-08-24 16:27 | ED.DEP ---
ED Disposition - Plan for ED Patient: Instructions: ED Syncope Vasovagal Referrals: Care Physician,No Primary [Primary Care Provider] - Steve Horan DO [STAFF PHYSICIAN] - As Needed
[2018-08-24 17:16] VITALS: BP 103/63
== END 2018-08-24 17:16 | disposition home or self-care (01) ==
LOC: ED 16:43
PROVIDERS: Emergency Provider Emergency Medicine
DX: R55 Syncope and collapse (principal); N97.9 Female infertility, unspecified; G40.909 Epilepsy, unspecified, not intractable, without status epilepticus; F12.90 Cannabis use, unspecified, uncomplicated; Z72.0 Tobacco use
CPT/HCPCS: 36415; 84144; 99282

== ENCOUNTER 2019-01-13 04:15 | Emergency (ER) | payer MEDICAID, SELFPAY ==
[2019-01-13 04:16] VITALS: BP 118/76; PULSE 70; RESP 16; TEMP 35.6; O2SAT 100; BMI 29.1
--- NOTE | 2019-01-13 04:30 | EKG12_ITS ---
Test Reason : Blood Pressure : / mmHG Vent. Rate : 057 BPM Atrial Rate : 057 BPM P-R Int : 192 ms QRS Dur : 104 ms QT Int : 456 ms P-R-T Axes : 048 061 049 degrees QTc Int : 443 ms Sinus bradycardia with sinus arrhythmia Incomplete right bundle branch block Borderline ECG Confirmed by DOMINIC ALMENDAREZ ([id number]), electronic news gathering editor HILARY CHERRY ([id number]) on 01/20/2019 1:28:47 PM Referred By: ELBA Confirmed By:DOMINIC ALMENDAREZ
--- NOTE | 2019-01-13 04:30 | RAD_ITS ---
STUDY: X-RAY CHEST REASON FOR EXAM: Female, 28 years old. After vomiting, patient became short of breath with chest pain. 4.5 month . TECHNIQUE: PA and lateral views of the chest. COMPARISON: 01/04/2016. FINDINGS: There is no demonstrated pneumothorax. There is no focal parenchymal abnormality. There is no demonstrated pleural abnormality. Normal size heart. Normal mediastinum and ruben. Normal visualized pulmonary arteries. Normal visualized aortic arch and descending thoracic aorta. Normal visualized thoracic spine. Normal visualized ribs, clavicles, and shoulders. There is no demonstrated abnormality of the visualized soft tissue structures of the upper abdomen. RAD/Chest PA and Lateral IMPRESSION: No acute cardiopulmonary disease. No significant interval change. Electronically Signed: Josselyn Fermin MD at 5:18 EDT , Service support ,
--- NOTE | 2019-01-13 04:32 | ED.VIS.GEN ---
History of Present Illness Chief Complaint: Shortness of Breath Narrative: This patient is a 28-year-old female who presents with multiple complaints. She is 19 weeks . She was well yesterday. She woke up vomiting this morning. When asked how many episodes she states a lot. When asked about pain she states she has pain everywhere. She then specifically states chest pain and abdominal pain. Chest pain is the center of her chest. Abdominal pain is centered of the abdomen. She also complains of feeling short of breath. No fevers congestion rhinorrhea cough. No vaginal bleeding or loss of fluids. No urinary symptoms. She does have a history of PTSD. Although in prior records she had mentioned a possible history of clots patient denies any history of DVT or pulmonary embolism. Past Medical History - Allergies and Home Meds Allergies/Adverse Reactions: Allergies hydrocodone bitartrate [From Vicodin] Allergy (Verified 08/24/18 16:16) Unknown Penicillins Allergy (Verified 08/24/18 16:16) Rash Primary Care Physician: Care Physician,No Primary [Primary Care Provider] - Past Medical History: - - PTSD Smoking Status: Current every day smoker Review of Systems All systems negative except as indicated General: Denies: Fever ENT: Denies: Rhinorrhea Cardiovascular: Reports: Chest pain Respiratory: Reports: Dyspnea. Denies: Cough Gastrointestinal: Reports: Abdominal pain, Nausea, Vomiting. Denies: Diarrhea Physical Exam Vital Signs/Narrative: Vital Signs Temp Pulse Resp BP Pulse Ox 01/13/19 04:16 96.1 F L 70 16 118/76 100 Inital Vital Signs reviewed: Yes General: Well nourished, - - No acute distress, drowsy but answers all questions appropriately Head: Normocephalic Eyes: EOMI ENT: Moist mucous membranes Neck: Supple Cardiovascular: Regular rate, Regular rhythm Respiratory: No distress, CTA bilaterally Abdomen: Soft, Nontender, Nondistended Skin: Normal color Neurological: - - Drowsy but no focal or lateralizing neurological deficits, answers all questions appropriately Psychological: Normal affect Diagnostic/Tx/Re-eval Impressions Chest X-Ray 01/13/19 04:30 IMPRESSION: No acute cardiopulmonary disease. No significant interval change. Electronically Signed: Josselyn Fermin MD at 5:18 EDT , Service support , Chest CTA 01/13/19 05:27 IMPRESSION: Normal CTA chest examination, without a demonstrated pulmonary embolism or arterial dissection. Hiatal hernia and wall thickening of the esophagus which may be due to an inflammatory/infectious process and can be further assessed if needed with endoscopy/upper GI. Electronically Signed: Josselyn Fermin MD at 6:27 EDT , Service support , 01/13/19 04:30 Chest PA and Lateral [RAD] Stat 01/13/19 05:27 CTA Chest W/WO Contrast [CT] Stat Laboratory Results 01/13/19 01/13/19 01/13/19 04:20 04:20 04:20 WBC 12.3 H RBC 4.55 Hgb 13.9 Hct 40.9 MCV 89.9 MCH 30.5 MCHC 34.0 RDW Std Deviation 44.8 H RDW Coeff of Kelly 13.5 Plt Count 200 MPV 12.1 H Immature Gran % (Auto) 0.700 Neut % (Auto) 78.4 H Lymph % (Auto) 13.6 L Jasper % (Auto) 6.2 Eos % (Auto) 1.0 Baso % (Auto) 0.1 Absolute Neuts (auto) 9.7 H Absolute Lymphs (auto) 1.68 Nucleated RBC % 0 PT 12.2 INR 0.9 Sodium 140 Potassium 3.2 L Chloride 107 Carbon Dioxide 21.0 Anion Gap 12 BUN 6 L Creatinine 0.67 Estim Creat Clear Calc 111.48 Est GFR (MDRD) Af Amer 134 Est GFR (MDRD) Non-Af 111 BUN/Creatinine Ratio 9.0 L Glucose 109 H Calcium 8.8 Total Bilirubin 0.30 AST 13 L ALT 18 Alkaline Phosphatase 79 Troponin I < 0.015 Total Protein 7.2 Albumin 3.3 Globulin 3.9 Albumin/Globulin Ratio 0.8 L Lipase 84 Urine Color Urine Clarity Urine pH Ur Specific Benton Urine Protein Urine Glucose (UA) Urine Ketones Urine Occult Blood Urine Nitrite Urine Bilirubin Urine Urobilinogen Ur Leukocyte Esterase Urine RBC Urine WBC Ur Squamous Epith Cells Amorphous Sediment Urine Bacteria Fine Granular Casts Urine Mucus Urine Opiates Screen Urine Methadone Screen Ur Barbiturates Screen Ur Phencyclidine Scrn Ur Amphetamines Screen U Methamphetamin-MDMA U Benzodiazepines Scrn Urine Cocaine Screen U Cannabinoids Screen Ur Drug Screen Comment 01/13/19 01/13/19 06:15 06:15 WBC RBC Hgb Hct MCV MCH MCHC RDW Std Deviation RDW Coeff of Kelly Plt Count MPV Immature Gran % (Auto) Neut % (Auto) Lymph % (Auto) Jasper % (Auto) Eos % (Auto) Baso % (Auto) Absolute Neuts (auto) Absolute Lymphs (auto) Nucleated RBC % PT INR Sodium Potassium Chloride Carbon Dioxide Anion Gap BUN Creatinine Estim Creat Clear Calc Est GFR (MDRD) Af Amer Est GFR (MDRD) Non-Af BUN/Creatinine Ratio Glucose Calcium Total Bilirubin AST ALT Alkaline Phosphatase Troponin I Total Protein Albumin Globulin Albumin/Globulin Ratio Lipase Urine Color Yellow Urine Clarity Clear Urine pH 8.0 Ur Specific Benton 1.015 Urine Protein Negative Urine Glucose (UA) Normal Urine Ketones 50 H Urine Occult Blood Negative Urine Nitrite Negative Urine Bilirubin Negative Urine Urobilinogen Normal Ur Leukocyte Esterase Negative Urine RBC 0 SEEN Urine WBC 0 SEEN Ur Squamous Epith Cells 5-10 SEEN Amorphous Sediment 2+ Urine Bacteria 0 SEEN Fine Granular Casts 0-5 SEEN Urine Mucus 0 SEEN Urine Opiates Screen NEGATIVE Urine Methadone Screen NEGATIVE Ur Barbiturates Screen NEGATIVE Ur Phencyclidine Scrn NEGATIVE Ur Amphetamines Screen NEGATIVE U Methamphetamin-MDMA NEGATIVE U Benzodiazepines Scrn NEGATIVE Urine Cocaine Screen NEGATIVE U Cannabinoids Screen POSITIVE H Ur Drug Screen Comment - Medical Decision Making EKG shows sinus bradycardia at a rate of 57, no acute ischemic changes. Normal ST segments. Laboratory studies and imaging as above notable for slight leukocytosis. I initially just obtain chest x-ray and laboratory studies which were normal. Given no clear explanation for chest pain shortness of breath and a patient type was concern for pulmonary embolism. We discussed risks and benefits of obtaining CTA including radiation risk. She vocalized understanding and is agreeable to the CTA. CTA shows no pulmonary embolism but does show a hiatal hernia and distal esophageal thickening. Her symptoms are likely related to reflux and esophagitis. We will start her on Pepcid. She was also given a prescription for Phenergan for nausea. She was advised to contact her OB for follow-up and to call them today for an appointment. Patient understands to return for new or worsening symptoms and was discharged home. ED Disposition - Plan for ED Patient: Disposition: Home or Assisted Living Diagnosis: Hiatal hernia, Esophagitis Instructions: Esophagitis Prescriptions: Famotidine [Pepcid] 20 mg PO BID #60 tab Prescription Printed proMETHazine tablet [Phenergan] 25 mg PO Q6H PRN PRN #10 tab PRN Reason: Nausea Prescription Printed Referrals: Care Physician,No Primary [Primary Care Provider] - Additional Instructions: Follow-up with your director of spa and guest experience as soon as possible.
[2019-01-13] MEDS: 0.9% Normal Saline 1,000 ML 1000 ML IV (04:40)
[2019-01-13] MEDS: Ondansetron 4 MG/2 ML Vial IV (04:40)
[2019-01-13 04:46] LABS: Absolute Lymphocyte Count 1.68 X10^3/uL (0.83-4.51); Absolute Neutrophil Count 9.7 X10^3/uL (2.0-7.7); Basophil# 0.01 X10^3/uL; Basophil% 0.1 % (0-1); Eosinophil# 0.12 X10^3/uL; Hematocrit 40.9 % (37-47); Hemoglobin 13.9 g/dL (12.0-15.0); Lymphocyte # 1.68 X10^3/ul (4.0); Lymphocyte % 13.6 % (19-41); Mean Corpuscular Hgb 30.5 pg (27.0-32.0); Mean Corpuscular Volume 89.9 fL (81-99); Mean Platelet Vol. 12.1 fl (6.2-12.0); Monocyte# 0.77 X10^3/uL; Monocyte% 6.2 % (0-10); NRBC Flagged by Analyzer 0 % (0-5); Neutrophil # 9.67 X10^3/uL (2.7-7.7); Neutrophil % 78.4 % (47-70); Platelet Count 200 K/mm3 (150-450); RBC Distribution Width CV 13.5 % (11.6-14.6); RBC Distribution Width SD 44.8 fl (35.1-43.9); Red Blood Count 4.55 M/mm3 (4.2-5.4); White Blood Count 12.3 K/mm3 (4.4-11.0)
[2019-01-13 04:51] LABS: International Normalized Ratio 0.9; Prothrombin Time (Protime)PT. 12.2 SECONDS (11.7-14.9)
[2019-01-13 04:59] LABS: ALB/GLOB Ratio 0.8 RATIO (0.9-2.4); AST(SGOT) 13 U/L (15-37); Alanine Aminotransfer ALT/SGPT 18 U/L (13-56); Albumin, Serum 3.3 g/dL (3.2-5.0); Alkaline Phosphatase 79 U/L (45-117); Anion Gap 12 (5-15); BUN 6 mg/dL (7-18); Calcium,Total 8.8 mg/dL (8.5-10.1); Chloride 107 mmol/L (98-107); Creatinine, Serum 0.67 mg/dL (0.55-1.02); EST Glomerular Filtration Rate 111 mL/min (>60); Est Glom Filt Rate - Afr Amer 134 mL/min (>60); Estimated Creatinine Clearance 111.48 ml/min; Globulin 3.9 g/dL (2.2-4.2); Glucose 109 mg/dL (74-106); Lipase 84 U/L (73-393); Potassium 3.2 mmol/L (3.5-5.1); Protein, Total 7.2 g/dL (6.4-8.2); Sodium Level 140 mmol/L (136-145)
--- NOTE | 2019-01-13 05:27 | CT_ITS ---
STUDY: CTA CHEST REASON FOR EXAM: Female, 28 years old. Short of breath and vomiting this a.m., 19 weeks . History of TIA, seizure, asthma, GERD, smokes marijuana daily for PTSD. RADIATION DOSAGE (If Supplied By Facility): CTDIvol = ( 10.62 ) mGy, DLP = ( 761.39 ) mGycm TECHNIQUE: The examination was performed with the intravenous administration of IV 75mL Isovue-370 150ML. Post-processing of the angiographic images was performed, with multiplanar reformation and 3D reconstruction. Individualized dose optimization techniques were used for this CT. COMPARISON: Chest x-ray 01/13/2019. 01/04/2016. FINDINGS: Normal enhancement of the main pulmonary artery and right and left pulmonary arteries. Normal enhancement of the bilateral peripheral pulmonary arteries. There is no demonstrated pulmonary embolism. Normal thoracic aorta and visualized great vessels. There is no demonstrated aortic dissection. Normal heart and pericardium. Normal mediastinum. Normal hilar regions. Normal visualized trachea and bronchi. The lungs are well expanded. Normal pulmonary parenchyma. Normal pleura. Normal chest wall structures. Normal osseous structures. T12 vertebral body hemangioma as an incidental finding. There is a small hiatal hernia. Probably wall thickening of the esophagus. CT/CTA Chest W/WO Contrast IMPRESSION: Normal CTA chest examination, without a demonstrated pulmonary embolism or arterial dissection. Hiatal hernia and wall thickening of the esophagus which may be due to an inflammatory/infectious process and can be further assessed if needed with endoscopy/upper GI. Electronically Signed: Josselyn Fermin MD at 6:27 EDT , Service support ,
[2019-01-13] MEDS: proMETHazine 25 MG/ML Syringe 12.5 MG IV (06:20)
[2019-01-13 06:22] VITALS: BP 110/60; PULSE 61; RESP 18; O2SAT 100
[2019-01-13 06:27] LABS: Bacteria 0 SEEN /hpf (None Seen); Mucous, Urine 0 SEEN /hpf (<or=2+); Red Blood Cells-Urine 0 SEEN /hpf (0-5); White Blood Cells 0 SEEN /hpf (0-5)
[2019-01-13 06:30] LABS: Glucose, Dipstick Normal (Normal); Ketone-Dipstick 50 mg/dl (Negative); Leukocyte Esterase-Dipstick Negative /ul (Negative); Nitrite-Dipstick Negative (Negative); Occult Blood-Urine Negative /ul (Negative); Protein-Dipstick Negative (Negative); Specific Gravity, Urine 1.015 (1.002-1.030); Urine Bilirubin Dipstick Negative (Negative); Urine Urobilinogen Normal (Normal)
[2019-01-13 06:33] LABS: Color, Urine Yellow (Yellow); Urine Clarity Clear (Clear)
[2019-01-13 06:39] LABS: Amorphous Sediment 2+; Fine Granular Cast- Urine 0-5 SEEN /lpf (0-5); Squamous Epithelial Cells - UA 5-10 SEEN /hpf (5-10)
[2019-01-13 06:42] LABS: Amphetamine Urine VISTA NEGATIVE (<1000 ng/mL); Barbiturate Urine VISTA NEGATIVE (< 200 ng/mL); Benzodiazepine Urine VISTA NEGATIVE (< 200 ng/mL); Cocaine Urine VISTA NEGATIVE (< 300 ng/mL); Ecstacy Urine VISTA NEGATIVE (< 500 ng/mL); Methadone Urine VISTA NEGATIVE (< 300 ng/mL); PCP Urine VISTA NEGATIVE (< 25 ng/mL); THC Urine VISTA POSITIVE (< 50 ng/mL); Vista UDS pH Range 7
[2019-01-13 06:47] VITALS: BP 128/83; PULSE 76; RESP 21; O2SAT 99
== END 2019-01-13 07:41 | disposition home or self-care (01) ==
PROVIDERS: Emergency Provider Emergency Medicine
DX: O99.612 Diseases of the digestive system complicating pregnancy, second trimester (principal); K20.9 Esophagitis, unspecified; K44.9 Diaphragmatic hernia without obstruction or gangrene; O99.332 Smoking (tobacco) complicating pregnancy, second trimester; F17.200 Nicotine dependence, unspecified, uncomplicated; O99.342 Other mental disorders complicating pregnancy, second trimester; F43.10 Post-traumatic stress disorder, unspecified; Z3A.19 19 weeks gestation of pregnancy
CPT/HCPCS: 71046; 71275; 80053; 80307; 81001; 83690; 84484; 85025; 85610; 93005; 96361; 96374; 96375; 99285; Q9967; A4216; J2405

== ENCOUNTER 2019-03-17 09:30 | Outpatient (CLI) | payer MEDICAID, SELFPAY ==
[2019-03-17] MEDS: Lactated Ringers 1,000 ML 150 ML IV (09:45)
--- NOTE | 2019-03-17 09:56 | US_ITS ---
STUDY: SECOND AND THIRD TRIMESTER OBSTETRICAL ULTRASOUND - LIMITED REASON FOR EXAM: Female, 28 years old. growth LMP: Unknown. PRIOR ULTRASOUND: None. TECHNIQUE: Transabdominal ultrasound evaluation was performed. FINDINGS: There is a single intrauterine fetus. The fetus is in a breech presentation. There is demonstrated cardiac activity with a heart rate of 158 bpm. There is a normal amniotic fluid volume. The largest amniotic fluid pocket measures 5.43 cm. The placenta is posterior in location and is not low lying. There are Grade 1 placental changes. The cervix measures 3.34 cm in length. BIOMETRY: BPD: 7.02 cm: 28 weeks, 2 days HC: 26.37: 20 weeks, 5 days AC: 23.73 cm: 28 weeks, 1 days FL: 5.18 cm: 27 weeks, 5 days Age by LMP: 28 weeks, 0 days. PAULINE by LMP: 06/09/2019. age by current US: 28 weeks, 2 days. PAULINE by current US: 06/07/2019. Estimated weight: 1156 grams, +/- 169 grams, 36 percentile. US/OB Limited With Biometrics IMPRESSION: Single live intrauterine gestation at approximately 28 weeks and 2 days based on the current ultrasound. Electronically Signed: Ministerio Bennett, at 16:03 EST Tel , Service support ,
[2019-03-17 10:19] LABS: Hematocrit 35.3 % (37-47); Hemoglobin 11.8 g/dL (12.0-15.0); Mean Corp Hgb Conc 33.4 g/dL (32-36); Mean Corpuscular Volume 92.7 fL (81-99); Mean Platelet Vol. 11.7 fl (6.2-12.0); Platelet Count 219 K/mm3 (150-450); RBC Distribution Width CV 13.3 % (11.6-14.6); RBC Distribution Width SD 45.6 fl (35.1-43.9); Red Blood Count 3.81 M/mm3 (4.2-5.4)
[2019-03-17 10:20] LABS: Color, Urine Yellow (Yellow); Glucose, Dipstick Normal (Normal); Ketone-Dipstick 5 mg/dl (Negative); Leukocyte Esterase-Dipstick 500 /ul (Negative); Nitrite-Dipstick Negative (Negative); Occult Blood-Urine Negative /ul (Negative); Protein-Dipstick 30 mg/dl (Negative); Specific Gravity, Urine 1.015 (1.002-1.030); Urine Bilirubin Dipstick Negative (Negative); Urine Clarity Sl. Cloudy (Clear); Urine Urobilinogen 1 mg/dl (Normal)
[2019-03-17 10:27] VITALS: BMI 30.1
[2019-03-17 10:30] LABS: Prothrombin Time (Protime)PT. 13.2 SECONDS (11.7-14.9)
[2019-03-17 10:31] LABS: Partial Thromboplast Time 28.6 Seconds (24.1-36.2)
[2019-03-17 10:40] LABS: AST(SGOT) 13 U/L (15-37); Alanine Aminotransfer ALT/SGPT 17 U/L (13-56); Creatinine, Serum 0.57 mg/dL (0.55-1.02); EST Glomerular Filtration Rate 134 mL/min (>60); Est Glom Filt Rate - Afr Amer 162 mL/min (>60); Estimated Creatinine Clearance 131.04 ml/min; Uric Acid 4.2 mg/dL (2.6-6.0)
[2019-03-17 10:41] LABS: Amphetamine Urine VISTA NEGATIVE (<1000 ng/mL); Barbiturate Urine VISTA NEGATIVE (< 200 ng/mL); Benzodiazepine Urine VISTA NEGATIVE (< 200 ng/mL); Cocaine Urine VISTA NEGATIVE (< 300 ng/mL); Ecstacy Urine VISTA NEGATIVE (< 500 ng/mL); Methadone Urine VISTA NEGATIVE (< 300 ng/mL); PCP Urine VISTA NEGATIVE (< 25 ng/mL); THC Urine VISTA POSITIVE (< 50 ng/mL); Vista UDS pH Range 8
[2019-03-17 10:48] LABS: Protein, Urine (Random) 44.8 mg/dL (<11.9); Protein:Creat Ratio 267 mg/g CRE (0-200)
--- NOTE | 2019-03-17 12:16 | PCM.WORK.EX ---
Work/School Excuse Work/School Excuse for:: Caregiver/Parent/Family Please excuse this person from:: Work From: 03/17/19 - off work d/t hospital visit through: 03/17/19
[2019-03-17] MEDS: Famotidine 20 MG Tablet PO (13:07)
[2019-03-17] MEDS: Acetaminophen 500 MG Tablet 1000 MG PO (13:07)
--- NOTE | 2019-03-23 08:21 | OB.TRI.HP_ITS ---
History of Present Illness Date of Service: 03/17/19 Was patient seen by the physician?: Yes Reason For Visit: RULE OUT LABOR Date of Service: 03/17/19 Final PAULINE: 06/09/19 Final PAULINE Source: US <20 weeks Gestational age: 28 Weeks and 0 Days History of Present Illness: 28 yo female at 28 wk EA presents to with [facility] here for evaluation of abdominal and back pain described as 9/10 on pain scales starting at 2330 the day prior to her presentation. States pain is constatnt and lower abdommen radiating to her legs. She also noted some scant dark red spotting in the morning. Also states hx of severe nausea, heartburn and states Tums, Rolaids, milk not helping. PAST OB: all term deliveries. Frist baby by C section, then two VBACs. Children are 7,9, and 12 yr old. CARE: 13 wk care. Unable to read any of the outside faxed records due to font and blurring. 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 Denies STDs Family History: Unknown Social Smoke 1 ppd Using medical marijuana. (advised not recommended in , plans to continue this as on multiple psychiatric meds when not ) Denies any street drugs. Gets her marijuana only from a dispensary Denies Alcohol. MEDS: medical marijuana PNV Allergies hydrocodone bitartrate [From Vicodin] Allergy (Verified 03/17/19 10:25) Rash Penicillins Allergy (Verified 03/17/19 10:25) Rash - Pertinent Past Medical History Medical History: Past Medical History (Last Reviewed 07/10/18 @ 13:30 by Paty Weaver) Abnormal Pap smear of cervix Depression Surgical History: Past Surgical History (Last Reviewed 07/10/18 @ 13:30 by Paty Weaver) delivery delivered H/O LEEP H/O dilation and curettage Laboratory Studies: Laboratory Tests 03/17/19 03/17/19 03/17/19 Range/Units 10:05 10:05 10:05 WBC (4.4-11.0) K/mm3 RBC (4.2-5.4) M/mm3 Hgb (12.0-15.0) g/dL Hct (37-47) % MCV (81-99) fL MCH (27.0-32.0) pg MCHC (32-36) g/dL RDW Std Deviation (35.1-43.9) fl RDW Coeff of Kelly (11.6-14.6) % Plt Count (150-450) K/mm3 MPV (6.2-12.0) fl PT (11.7-14.9) SECONDS INR APTT (24.1-36.2) Seconds Creatinine (0.55-1.02) mg/dL Estim Creat Clear Calc ml/min Est GFR (MDRD) Af Amer (>60) mL/min Est GFR (MDRD) Non-Af (>60) mL/min Uric Acid (2.6-6.0) mg/dL AST (15-37) U/L ALT (13-56) U/L Urine Color Yellow (Yellow) Urine Clarity Sl. Cloudy (Clear) Urine pH 8.0 (5.0 - 8.0) Ur Specific [place] 1.015 (1.002-1.030) Urine Protein 30 H (Negative) mg/dl Urine Glucose (UA) Normal (Normal) mg/dl Urine Ketones 5 H (Negative) mg/dl Urine Occult Blood Negative (Negative) /ul Urine Nitrite Negative (Negative) Urine Bilirubin Negative (Negative) mg/dL Urine Urobilinogen 1 H (Normal) mg/dl Ur Leukocyte Esterase 500 H (Negative) /ul U Random Total Protein 44.8 H (<11.9) mg/dL Urine Creatinine 168.00 (NO RANGE EST.) mg/dL Protein/Creatinin Ratio 267 H (0-200) mg/g CRE Urine Opiates Screen NEGATIVE (< 300 ng/mL) Urine Methadone Screen NEGATIVE (< 300 ng/mL) Ur Barbiturates Screen NEGATIVE (< 200 ng/mL) Ur Phencyclidine Scrn NEGATIVE (< 25 ng/mL) Ur Amphetamines Screen NEGATIVE (<1000 ng/mL) U Methamphetamin-MDMA NEGATIVE (< 500 ng/mL) U Benzodiazepines Scrn NEGATIVE (< 200 ng/mL) Urine Cocaine Screen NEGATIVE (< 300 ng/mL) U Cannabinoids Screen POSITIVE H (< 50 ng/mL) Ur Drug Screen Comment 03/17/19 03/17/19 03/17/19 Range/Units 09:45 09:45 09:45 WBC 13.0 H (4.4-11.0) K/mm3 RBC 3.81 L (4.2-5.4) M/mm3 Hgb 11.8 L (12.0-15.0) g/dL Hct 35.3 L (37-47) % MCV 92.7 (81-99) fL MCH 31.0 (27.0-32.0) pg MCHC 33.4 (32-36) g/dL RDW Std Deviation 45.6 H (35.1-43.9) fl RDW Coeff of Kelly 13.3 (11.6-14.6) % Plt Count 219 (150-450) K/mm3 MPV 11.7 (6.2-12.0) fl PT 13.2 (11.7-14.9) SECONDS INR 1.0 APTT 28.6 (24.1-36.2) Seconds Creatinine 0.57 (0.55-1.02) mg/dL Estim Creat Clear Calc 131.04 ml/min Est GFR (MDRD) Af Amer 162 (>60) mL/min Est GFR (MDRD) Non-Af 134 (>60) mL/min Uric Acid 4.2 (2.6-6.0) mg/dL AST 13 L (15-37) U/L ALT 17 (13-56) U/L Urine Color (Yellow) Urine Clarity (Clear) Urine pH (5.0 - 8.0) Ur Specific [place] (1.002-1.030) Urine Protein (Negative) mg/dl Urine Glucose (UA) (Normal) mg/dl Urine Ketones (Negative) mg/dl Urine Occult Blood (Negative) /ul Urine Nitrite (Negative) Urine Bilirubin (Negative) mg/dL Urine Urobilinogen (Normal) mg/dl Ur Leukocyte Esterase (Negative) /ul U Random Total Protein (<11.9) mg/dL Urine Creatinine (NO RANGE EST.) mg/dL Protein/Creatinin Ratio (0-200) mg/g CRE Urine Opiates Screen (< 300 ng/mL) Urine Methadone Screen (< 300 ng/mL) Ur Barbiturates Screen (< 200 ng/mL) Ur Phencyclidine Scrn (< 25 ng/mL) Ur Amphetamines Screen (<1000 ng/mL) U Methamphetamin-MDMA (< 500 ng/mL) U Benzodiazepines Scrn (< 200 ng/mL) Urine Cocaine Screen (< 300 ng/mL) U Cannabinoids Screen (< 50 ng/mL) Ur Drug Screen Comment NST - FHR Rate Baby A Baseline: 140-150s avg accels to 170s Variability:: Moderate Accelerations:: 15 x 15 Decelerations:: Variable NST Reactive:: Yes, Appropriate for gestational age FHR Category:: Category I Uterine Activity:: rare UC noted. Impression/Plan 28 wk with hx of term deliveries. 1.) FALSE LABOR Musculoskeletal pain False labor Comfort measures reviewed. Maternity support belt Tylenol, Warm bath/ heating pad to back. rest more, stop lifting 2.) Pseudoseizure -- no fecal or urinary incontinence, short episode and no loss of memory. [facility] labs NEG. (clean catch pro/cr ratio is not accurate and explained this to pt and support persons in room) UA-- LE positive Nit NEG. on clean catch. PIH labs WNL. 3.) Nausea, heartburn Pepcid bid sent in for her to try 4.) POSITIVE TOX SCREEN pt regularly smoking marijuana States intent to continue his throughout . Recommend follow up with usual MD in 1-2 wks To hospital of delivery if suspects labor.
== END 2019-03-17 16:30 | disposition home or self-care (01) ==
LOC: WPOUT 09:47 → WP 09:48
PROVIDERS: Referring Provider Obstetrics & Gynecology; Visit Provider Obstetrics & Gynecology
DX: O47.03 False labor before 37 completed weeks of gestation, third trimester (principal); O21.9 Vomiting of pregnancy, unspecified; O26.893 Other specified pregnancy related conditions, third trimester; R12 Heartburn; O99.353 Diseases of the nervous system complicating pregnancy, third trimester; G40.909 Epilepsy, unspecified, not intractable, without status epilepticus; O99.323 Drug use complicating pregnancy, third trimester; F12.90 Cannabis use, unspecified, uncomplicated; Z3A.28 28 weeks gestation of pregnancy
CPT/HCPCS: 96360; 96361 ×2; 36415; 59025; 59050; 76816; 80307; 81002; 82565; 82570; 84156; 84450; 84460; 84550; 85027; 85610; 85730; 99218; J7120; G0378

== ENCOUNTER 2020-09-16 13:11 | Emergency (ER) | payer MEDICAID, SELFPAY ==
[2020-09-16 13:12] VITALS: BP 111/65; PULSE 87; RESP 16; TEMP 35.6; O2SAT 97; BMI 23.3
[2020-09-16] MEDS: Naproxen 500 MG Tablet PO (13:28)
--- NOTE | 2020-09-16 13:28 | EDS_ITS ---
HPI History of Present Illness Chief Complaint: Upper Extremity Injury Informant: patient and spouse/S.O. Onset/Context/Timing Onset: Yesterday Context: Sudden Onset Timing: Continuous Quality of Pain: Dull and Aching Current Severity: Mild Maximum Severity: Severe Worsened by: Movement of right upper extremity at the shoulder joint Relieved by: Rest Associated Symptoms Associated Symptoms: Positive for Loss of Funtion; Negative for Parasthesia and Weakness Narrative Narrative: Patient is a 29-year-old female whose last normal menstrual was 3 we eks ago without signs or symptoms who presents with atraumatic right shoulder pain. She localized pain to the shoulder joint. She states she is getting out of bed when she had abrupt onset of pain. Pain rated back to her scapula and down her right upper extremity to the elbow. She denies loss of grasp or use of digits. She denies paresthesia or anesthesia. She denies cardiac respiratory symptoms. There is no history of trauma. There is no constitutional symptoms. Prior similar symptoms: No Recent Illness/Hospitalization: No PFSH PFSH Medical History Abnormal Pap smear of cervix Depression Seizures Home Medications Medical Marijuana 1 inhaler INHALATION PRN PRN 08/24/18 [History Last Taken 03/16/19 08:00] famotidine 20 mg PO BID #60 tab 01/13/19 [Rx Last Taken Unknown] famotidine 20 mg PO BID #60 tab 03/17/19 [Rx Last Taken Unknown] vit [id number] 1 ea PO DAILY 03/17/19 [History Last Taken 03/15/19 08:00] naproxen 500 mg PO BID #14 tab 09/16/20 [Rx Last Taken Unknown] Allergy/AdvReac Type Severity Reaction Status Date / Time hydrocodone bitartrate Allergy Rash Verified 09/16/20 13:14 [From Vicodin] Penicillins Allergy Rash Verified 09/16/20 13:14 Family History Grandmother Cancer pancreatic Grandfather Colon cancer Surgical History delivery delivered H/O dilation and curettage H/O LEEP Social History household members: family number of children: 3 Smoking Status: Current every day smoker tobacco type: cigarettes second hand exposure: Yes alcohol intake: current details: social substance use type: marijuana caffeine: Yes what type of physical activity do you participate in: none seatbelt use: always do you feel safe at home: Yes additional social history: - Patient works at [employer] ROS ROS ED Constitutional Constitutional ED: Denies chills, frequent falls or subjective Eyes Eyes: Denies blurry vision, change in vision or diplopia ENT ENT ED: Denies ear pain, rhinorrhea or sore throat Cardiovascular Cardiovascular: Denies chest pain or palpitations Respiratory/Chest Respiratory/Chest: Denies cough, dyspnea or dyspnea on exertion Gastrointestinal Gastrointestinal: Denies nausea or vomiting Musculoskeletal Musculoskeletal: Denies back pain or neck pain Integumentary Denies rash Neurologic Neurologic: Denies paresthesias or weakness Hematologic/Lymphatic Hematologic/Lymphatic: Denies easy bleeding or easy bruising EXAM Physical Exam Const Vital Signs: 09/16/20 13:12 Temperature 96.1 F L Temperature Source Temporal Pulse Rate 87 Respiratory Rate 16 Blood Pressure 111/65 Blood Pressure Mean 80 Pulse Ox 97 Oxygen Delivery Method Room Air Positive well nourished and well developed General Appearance ED: well developed HEENT normocephalic and atraumatic Eyes PERRL and EOMs intact bilaterally Neck full ROM and supple General: Negative for tenderness Chest Wall inspection of chest normal Resp normal respiratory effort and clear to auscultation bilaterally Cardio regular rate, regular rhythm, S1 normal heart sound, S2 normal heart sound and no murmurs Extremity normal to inspection and full ROM Extremity Narrative: Axillary, median, radial and ulnar function intact. Radial pulses palpable. There is pedal patient over the bicipital groove. Having patient flex against resistance causes her discomfort. There is no pain to palpation over the clavicle or AC joint. There is no pain the patient of the trapezius region. General Extremety ED: Negative for edema General Extremity: Negative for edema Neuro oriented x3 and CN's II-XII intact bilaterally Sensorium / Orientation: alert Motor Exam: strength 5/5 throughout Psych mental status grossly normal Skin Lesions: no lesions Rashes: no rashes MDM MDM MDM Narrative Medical decision making narrative: Patient has findings suggestive of bicipital tendinitis. Will treat with NSAIDs since was no contraindication. X-ray was obtained to determine there is calcification of the bicipital tendon. Radiography Diagnostic Testin view x-ray of the right shoulder was interpreted by me at 1354 as normal. There is no calcification of the bicipital tendon or the supraspinatus tendon. There is no arthritic changes. There is no evidence of acute or healing fracture. Treatment and Re-Evaluation Comments:: Treatment is NSAID for bicipital tendinitis. Discharge Plan Triage Chief Complaint: Upper Extremity Injury ED Provider: Clark Cedillo Dx/Rx/DC Orders Clinical Impression: Biceps tendinitis of right shoulder Instructions: ED Tendonitis Prescriptions: New naproxen 500 MG tablet 500 mg PO BID Qty: 14 RF: 0 No Action Medical Marijuana 1 inhaler inhalation PRN PRN (Reason: Anxiety) RF: 0 famotidine 20 MG tablet 20 mg PO BID Qty: 60 RF: 0 vit no.[id number] 1 EACH tablet 1 ea PO DAILY RF: 0 famotidine 20 MG tablet 20 mg PO BID Qty: 60 RF: 2 Primary Care Provider: Care Physician,No Primary Referrals: Tracy Long [NON-STAFF] - 1 Week if not improving Care Physician,No Primary [Primary Care Provider] - Disposition Disposition: Home, self care
--- NOTE | 2020-09-16 13:30 | RAD_ITS ---
STUDY: X-RAY - RIGHT SHOULDER REASON FOR EXAM: Right shoulder pain, patient woke up with right shoulder pain. TECHNIQUE: 4 view(s) of the shoulder. COMPARISON: None. FINDINGS: Normal glenohumeral articulation. Normal acromioclavicular joint. Normal acromion. There is a remote healed fracture of the clavicular shaft. Normal humeral head and visualized proximal humerus. The soft tissue structures are unremarkable. Normal visualized pulmonary apex. RAD/Shoulder min 2 Views IMPRESSION: Remote healed clavicle fracture. Otherwise, unremarkable x-ray examination of the right shoulder. Electronically Signed: Ede Rosales MD at 13:57 EDT Tel , Service support ,
[2020-09-16 14:03] VITALS: RESP 18
== END 2020-09-16 14:05 | disposition home or self-care (01) ==
PROVIDERS: Emergency Provider Emergency Medicine
DX: M75.21 Bicipital tendinitis, right shoulder (principal); F17.210 Nicotine dependence, cigarettes, uncomplicated
CPT/HCPCS: 73030; 99283

== ENCOUNTER 2021-02-10 16:33 | Emergency (ER) | payer MEDICAID, SELFPAY ==
[2021-02-10 16:33] VITALS: BP 113/62; PULSE 102; RESP 16; TEMP 36.4; O2SAT 98; BMI 22.9
--- NOTE | 2021-02-10 16:50 | EDS_ITS ---
HPI HPI - Female History of Present Illness Chief Complaint: Vag Bld, Preg Informant: patient Narrative Narrative: G8, P4 6-week and 3-day gestation by ultrasound presents with bleeding when she used the restroom today. No clots. Denies pelvic cramping. Denies urinary symptoms. States found out with home 2 days ago, she went to care center yesterday had an ultrasound performed. Noted to 6 weeks 2 days by ultrasound with intrauterine gestation. She has an OB appointment on the fifth of next month. She called the office and was told to go to the ED. Tobacco history however states cutting down. Denies alcohol or any recreational drug use. Denies trauma. She thinks her blood type is O+. Reports had miscarriages previously at 8 weeks and another at 12 weeks. Prior similar symptoms: Yes PFSH PFSH Medical History Abnormal Pap smear of cervix Depression Seizures Home Medications Medical Marijuana 1 inhaler INHALATION PRN PRN 08/24/18 [History Last Taken 03/16/19 08:00] famotidine 20 mg PO BID #60 tab 01/13/19 [Rx Last Taken Unknown] vit [id number] 1 ea PO DAILY 03/17/19 [History Last Taken 03/15/19 08:00] naproxen 500 mg PO BID #14 tab 09/16/20 [Rx Last Taken Unknown] nitrofurantoin monohyd/m-cryst [Macrobid] 100 mg PO Q12H 5 Days #10 cap 02/10/21 [Rx Last Taken Unknown] Allergy/AdvReac Type Severity Reaction Status Date / Time hydrocodone bitartrate Allergy Rash Verified 09/16/20 13:14 [From Vicodin] Penicillins Allergy Rash Verified 09/16/20 13:14 Family History Grandmother Cancer pancreatic Grandfather Colon cancer Surgical History delivery delivered H/O dilation and curettage H/O LEEP Social History household members: family number of children: 3 Smoking Status: Current every day smoker tobacco type: cigarettes second hand exposure: Yes alcohol intake: current details: social substance use type: marijuana caffeine: Yes what type of physical activity do you participate in: none seatbelt use: always do you feel safe at home: Yes additional social history: - Patient works at [employer] ROS ROS ED Constitutional Constitutional ED: Denies chills, fever(s) or sweats Eyes Eyes: Denies change in vision ENT ENT ED: Denies dysphagia or sore throat Cardiovascular Cardiovascular: Denies chest pain, leg edema, palpitations or racing heartbeat Respiratory/Chest Respiratory/Chest: Denies cough, dyspnea or dyspnea on exertion Gastrointestinal Gastrointestinal: Denies abdominal pain, diarrhea, nausea or vomiting Genitourinary Genitourinary ED: Reports other Details: Vaginal bleeding ; Denies dysuria, hematuria or urinary frequency Musculoskeletal Musculoskeletal: Denies back pain, extremity pain or neck pain Integumentary Denies rash or wounds Neurologic Neurologic: Denies headache(s), paresthesias or weakness EXAM Physical Exam Const Vital Signs: 02/10/21 16:33 Temperature 97.5 F L Temperature Source Temporal Pulse Rate 102 H Respiratory Rate 16 Blood Pressure 113/62 Blood Pressure Mean 79 Pulse Ox 98 Oxygen Delivery Method Room Air Positive well nourished and well developed General Appearance ED: well developed and NAD HEENT Reports moist mucous membranes normocephalic and atraumatic Eyes PERRL, EOMs intact bilaterally and conjunctivae normal General Eye ED: Yes normal appearance of both eyes Neck no lymphadenopathy and supple General: Negative for tenderness Chest Wall Chest: Negative for tenderness Resp normal respiratory effort and normal air movement Effort and Inspection: symmetric chest movement; Negative for respiratory distress Cardio regular rate, regular rhythm and no murmurs Peripheral Pulses: pulses 2+ throughout GI normal to inspection, nondistended, normoactive bowel sounds and non-tender Palpation: Negative for guarding or rebound tenderness present Back/Spine no CVA tenderness and no thoracic nor lumbar tenderness Extremity normal to inspection General Extremety ED: Negative for edema or tenderness General Extremity: Negative for edema Neuro oriented x3 and no sensory deficits noted Sensorium / Orientation: awake and alert Skin no rashes or lesions noted and no wounds MDM MDM MDM Narrative Medical decision making narrative: Patient mild blood no clots no cramping. hCG obtained baseline today forty-five sixty-four. She is O+. Urine check noted nitrites leukocytes and bacteria. Culture sent. With her threatened miscarriage concerns will start antibiotics. First dose given in the ED. Patient will monitor her bleeding. She will follow-up with her OB. All questions were answered. Lab Data Attestation: I reviewed the patient's lab results. Labs: Laboratory Results - last 24 hr 02/10/21 02/10/21 02/10/21 16:54 16:54 16:54 HCG, Quant 4564 H Urine Color Urine Clarity Urine pH Ur Specific [place] Urine Protein Urine Glucose (UA) Urine Ketones Urine Occult Blood Urine Nitrite Urine Bilirubin Urine Urobilinogen Ur Leukocyte Esterase Urine RBC Urine WBC Ur Squamous Epith Cells Ur Transition Epith Cell Urine Bacteria Urine Mucus Blood Type TNP O POSITIVE 02/10/21 17:31 HCG, Quant Urine Color Yellow Urine Clarity Clear Urine pH 6.0 Ur Specific [place] 1.020 Urine Protein 15 H Urine Glucose (UA) Normal Urine Ketones Negative Urine Occult Blood 50 H Urine Nitrite Positive H Urine Bilirubin Negative Urine Urobilinogen Normal Ur Leukocyte Esterase 25 H Urine RBC 0 SEEN Urine WBC 5-10 SEEN Ur Squamous Epith Cells 0-5 SEEN Ur Transition Epith Cell 0 SEEN Urine Bacteria 2+ Urine Mucus 0 SEEN Blood Type Discharge Plan Triage Chief Complaint: Vag Bld, Preg ED Provider: Main Bautista Dx/Rx/DC Orders Clinical Impression: Threatened miscarriage, First trimester , UTI in Instructions: ED Possible Miscarriage ... Prescriptions: New nitrofurantoin monohyd/m-cryst [Macrobid] 100 mg capsule 100 mg PO Q12H 5 Days Qty: 10 RF: 0 No Action Medical Marijuana 1 inhaler inhalation PRN PRN (Reason: Anxiety) RF: 0 famotidine 20 MG tablet 20 mg PO BID Qty: 60 RF: 0 vit [id number] 1 EACH tablet 1 ea PO DAILY RF: 0 naproxen 500 MG tablet 500 mg PO BID Qty: 14 RF: 0 Primary Care Provider: Care Physician,No Primary Referrals: Care Physician,No Primary [Primary Care Provider] - Activity Restrictions/Additional Instructions: hCG today 4564, O+ blood type. Call your OB for close follow-up. Disposition Disposition: Home, Self Care
[2021-02-10 17:39] LABS: Mucous, Urine 0 SEEN /hpf (<or=2+); Red Blood Cells-Urine 0 SEEN /hpf (0-5)
[2021-02-10 17:48] LABS: Color, Urine Yellow (Yellow); Glucose, Dipstick Normal (Normal); Ketone-Dipstick Negative (Negative); Leukocyte Esterase-Dipstick 25 /ul (Negative); Nitrite-Dipstick Positive (Negative); Occult Blood-Urine 50 /ul (Negative); Protein-Dipstick 15 mg/dl (Negative); Urine Bilirubin Dipstick Negative (Negative); Urine Clarity Clear (Clear); Urine Urobilinogen Normal (Normal)
[2021-02-10 18:00] LABS: hCG Titer Quant., Serum 4564 mIU/mL (1-3)
[2021-02-10 18:17] LABS: Bacteria 2+ /hpf (None Seen); Squamous Epithelial Cells - UA 0-5 SEEN /hpf (5-10); Transitional Epithelial - Ur 0 SEEN /hpf (0-5); White Blood Cells 5-10 SEEN /hpf (0-5)
[2021-02-10] MEDS: Nitrofurantoin Macrocrystals 100 MG Capsule PO (18:24)
--- NOTE | 2021-02-10 18:28 | ED.RN ---
verified dr palumbo sent macrobid rx [facility]
== END 2021-02-10 18:29 | disposition home or self-care (01) ==
PROVIDERS: Emergency Provider Emergency Medicine
DX: O20.0 Threatened abortion (principal); O99.321 Drug use complicating pregnancy, first trimester; O99.331 Smoking (tobacco) complicating pregnancy, first trimester; O23.41 Unspecified infection of urinary tract in pregnancy, first trimester; F12.10 Cannabis abuse, uncomplicated; F17.210 Nicotine dependence, cigarettes, uncomplicated; N39.0 Urinary tract infection, site not specified; Z79.899 Other long term (current) drug therapy; Z3A.01 Less than 8 weeks gestation of pregnancy
CPT/HCPCS: 81001; 84702; 86900; 86901; 87077; 87086; 87088; 87186; 99283

== ENCOUNTER 2021-10-31 19:15 | Emergency (ER) | payer MEDICAID, SELFPAY ==
[2021-10-31 19:16] VITALS: BP 123/93; PULSE 107; RESP 12; TEMP 36.8; O2SAT 98; BMI 25.7
--- NOTE | 2021-10-31 19:36 | RAD_ITS ---
STUDY: X-RAY - RIGHT FOOT CLINICAL: Female, 30 years old. fall TECHNIQUE: 3 view(s) of the foot. COMPARISON: None. FINDINGS: Normal talus, calcaneus, and tarsal bones. Normal visualized subtalar, talonavicular, calcaneocuboid, tarsal and tarsometatarsal articulations. Normal metatarsi. Normal metatarsophalangeal joint of the great toe. Normal tibial and fibular sesamoid bones. Normal interphalangeal joint of the great toe. Normal phalanges of the great toe. Normal second through fifth metatarsophalangeal joints. Normal interphalangeal joints and phalanges of the lesser toes. The soft tissue structures are unremarkable. RAD/Foot min 3 Views IMPRESSION: Normal x-ray examination of the foot. Electronically Signed: Quinn Hannah MD at 21:03 EDT ,
--- NOTE | 2021-10-31 19:36 | RAD_ITS ---
STUDY: X-RAY - RIGHT KNEE REASON FOR EXAM: Female, 30 years old. trauma TECHNIQUE: 4 view(s) of the knee. COMPARISON: None. FINDINGS: Normal visualized distal femur. Normal visualized proximal tibia and fibula. Normal proximal tibiofibular articulation. Normal medial femorotibial compartment. Normal lateral femorotibial compartment. Normal patellofemoral articulation. The soft tissue structures are unremarkable. RAD/Knee 4 or More Views IMPRESSION: Normal x-ray examination of the knee. Electronically Signed: Quinn Hannah MD at 21:05 EDT ,
--- NOTE | 2021-10-31 19:37 | EDS_ITS ---
HPI History of Present Illness Chief Complaint: Lower Extremity Injury Detail of Chief Complaint: Fell down 5 steps Informant: patient Onset/Context/Timing Onset: Today and Hours Context: Sudden Onset Timing: Continuous Current Severity: Mild Maximum Severity: Moderate Narrative Narrative: 30-year-old female history of seizure disorder not on seizure medications. Was walking down her steps at home at 3 AM this morning tripped and missed a step and fell down about 5 steps. Complaining of pain to her right knee, right ankle and right foot. Also her left foot. Denies any LOC. No head or neck injury. No chest or abdominal pain. Prior similar symptoms: No Recent Illness/Hospitalization: No PFSH PFSH Medical History Abnormal Pap smear of cervix Depression Seizures Smoker Home Medications Medical Marijuana 1 inhaler inhalation PRN PRN Anxiety 08/24/18 [History Last Taken 03/16/19 08:00] Allergy/AdvReac Type Severity Reaction Status Date / Time hydrocodone bitartrate Allergy Rash Verified 10/31/21 19:19 [From Vicodin] Penicillins Allergy Rash Verified 10/31/21 19:19 Family History Grandmother Cancer pancreatic Grandfather Colon cancer Surgical History delivery delivered H/O dilation and curettage H/O LEEP Social History household members: family number of children: 3 Smoking Status: Current every day smoker tobacco type: cigarettes second hand exposure: Yes alcohol intake: current details: social substance use type: marijuana caffeine: Yes what type of physical activity do you participate in: none seatbelt use: always do you feel safe at home: Yes additional social history: - Patient works at [employer] ROS ROS ED ROS Narrative Denies recent illness. Review of Systems ROS Unobtainable: Denies due to encephalopathy Constitutional Constitutional ED: Denies chills Eyes Eyes: Denies blurry vision ENT ENT ED: Denies ear pain Cardiovascular Cardiovascular: Denies chest pain Respiratory/Chest Respiratory/Chest: Denies cough Gastrointestinal Gastrointestinal: Denies abdominal pain Genitourinary Genitourinary ED: Denies dysuria Musculoskeletal Musculoskeletal: Denies arthralgias Integumentary Denies abscess Neurologic Neurologic: Denies headache(s) Psychiatric Psychiatric: Denies anxiety Endocrine Endocrinology: Denies cold intolerance Hematologic/Lymphatic Hematologic/Lymphatic: Reports none Allergic/Immunologic Allergic/Immunologic ED: Denies mouth swelling EXAM Physical Exam Narrative Exam Narrative: 30-year-old female no distress. Vital signs stable afebrile. H EENT exam pupils are reactive light. No facial trauma. No scalp tenderness or trauma. C-spine nontender. Trachea midline. Lungs clear to auscultation. Heart regular rhythm no murmur. Rate about 100. Chest were nontender. Abdomen soft nontender. Pelvic girdle intact. Both upper extremities are nontender with 5-5 shellfish weigher strength and normal range of motion. No deformity. Hips are nontender. Right knee has a laceration is not actively bleeding. He has its not deep does not need to be sewn. She has tenderness to the knee. Is able do flexion extension. Ligaments appear to be intact. There is no effusion. Guarding deformity. Both hips and left knee nontender. Left ankle nontender. Left mattress filling machine tender primarily at the fourth toe. Right ankle and foot are tender right ankle is swollen on the lateral malleolus. Neurologically she is awake and alert with no focal motor deficits. Back no signs of trauma. No significant tenderness or bony deformity. No bruising. Const Vital Signs: 10/31/21 19:16 Temperature 98.2 F Temperature Source Temporal Pulse Rate 107 H Respiratory Rate 12 Blood Pressure 123/93 H Blood Pressure Mean 103 Pulse Ox 98 Oxygen Delivery Method Room Air Positive well nourished and well developed; Negative for obese, cachectic, contractures or unkempt General Appearance ED: well developed; Negative for unkempt, cachectic or contractures Nutritional Appearance: Negative for cachectic or obese HEENT Reports moist mucous membranes; Denies dry mucous membranes Negative for trauma or tenderness Mouth ED: No dry mucous membranes Mouth: No dry mucous membranes Eyes PERRL and EOMs intact bilaterally General Eye ED: Negative for pale conjunctiva or scleral icterus Neck no lymphadenopathy, supple and no JVD General: Negative for tenderness Chest Wall inspection of chest normal and palpation of chest normal Resp normal respiratory effort and clear to auscultation bilaterally Effort and Inspection: Negative for retractions Auscultation: Negative for rales, rhonchi or wheezes Cardio regular rate, regular rhythm, S1 normal heart sound, S2 normal heart sound and no murmurs GI normal to inspection, nondistended, normoactive bowel sounds, non-tender, non- distended and no masses Inspection: Negative for abdominal distention Auscultation: normoactive bowel sounds Palpation: soft; Negative for tender or guarding Back/Spine no CVA tenderness General Back: Negative for CVA tenderness Cervical Spine: Negative for cervical spine tenderness Thoracic Spine / Upper Back: Negative for thoracic spinal tenderness or paraspinal muscle tenderness Lumbar Spine / Lower Back: Negative for lumbar spinal tenderness Extremity Extremity Narrative: Tenderness, right knee with the laceration does not need to be sewn. No effusion. Ligaments intact. Tenderness right lateral ankle with swelling. Tenderness right foot and left foot. Mild no deformity. General Extremety ED: Yes edema and tenderness General Extremity: edema Neuro oriented x3 Sensorium / Orientation: alert; Negative for orientation impaired, lethargic or stuporous Motor Exam: strength 5/5 throughout Psych Appearance: Negative for unkempt Skin no rashes or lesions noted and No no wounds Wounds: wounds noted MDM MDM MDM Narrative Medical decision making narrative: 30-year-old fell down about 5 steps. X-rays being obtained of both lower extremities. Motrin for pain. Repeat exam patient is doing fine at 8:45 PM. We went over x-ray results all of which were read as negative. Treated his contusions. Right ankle sprain. Right knee sprain. Aircast of the right ankle. Crutches as needed. Ice and elevate. Motrin and Tylenol for pain. Follow-up if not improving. Radiography Diagnostic Testing: Right knee x-ray, interpreted by myself, shows no acute abnormality. 3 views. No fracture. No dislocation. Right ankle x-ray interpreted by myself, shows no acute abnormality. 3 views. Right foot x-ray, interpreted by myself, shows no acute abnormality. 3 views. No fracture. Left foot x-ray, interpreted by myself, shows no acute abnormality. No fracture dislocations. I discussed all x-ray results with patient. Discharge Plan Triage Chief Complaint: Lower Extremity Injury ED Provider: Emanuel Ward Dx/Rx/DC Orders Clinical Impression: Fall down steps, Right knee sprain, Moderate right ankle sprain, Contusion of foot Instructions: ED Foot Contusion, ED Knee Sprain, ED Ankle Sprain (Adult) Prescriptions: No Action Medical Marijuana 1 inhaler inhalation PRN PRN (Reason: Anxiety) Primary Care Provider: Care Physician,No Primary Referrals: Ernst Ruelas MD [STAFF PHYSICIAN] - 1 Week if not improving Care Physician,No Primary [Primary Care Provider] - Activity Restrictions/Additional Instructions: Ice all sore areas including your right knee, ankle and both feet. Motrin for pain and swelling Tylenol for pain. No broken bones or dislocations noted on the x-ray. Follow-up with your doctor if not improving. Disposition Disposition: Home, Self Care
--- NOTE | 2021-10-31 19:37 | RAD_ITS ---
STUDY: X-RAY - LEFT FOOT CLINICAL: Female, 30 years old. fall TECHNIQUE: 3 view(s) of the foot. COMPARISON: None. FINDINGS: Normal talus, calcaneus, and tarsal bones. Normal visualized subtalar, talonavicular, calcaneocuboid, tarsal and tarsometatarsal articulations. Normal metatarsi. Normal metatarsophalangeal joint of the great toe. Normal tibial and fibular sesamoid bones. Normal interphalangeal joint of the great toe. Normal phalanges of the great toe. Normal second through fifth metatarsophalangeal joints. Normal interphalangeal joints and phalanges of the lesser toes. The soft tissue structures are unremarkable. RAD/Foot min 3 Views IMPRESSION: Normal x-ray examination of the foot. Electronically Signed: Quinn Hannah MD at 21:02 EDT ,
[2021-10-31] MEDS: Ibuprofen 400 MG Tablet 800 MG PO (19:42)
--- NOTE | 2021-10-31 20:15 | RAD_ITS ---
STUDY: X-RAY - RIGHT ANKLE REASON FOR EXAM: Female, 30 years old. fall TECHNIQUE: 3 view(s) of the ankle. COMPARISON: None. FINDINGS: Normal visualized distal tibia and fibula. Normal medial and lateral malleoli. Normal tibiotalar articulation and ankle mortise. Normal visualized calcaneus. There is subchondral lucency of the medial talar dome which may be consistent with osteochondral fracture. MRI would be helpful for confirmation The visualized subtalar, talonavicular, calcaneocuboid and tarsal articulations are normal. Mild bimalleolar soft tissue swelling.. RAD/Ankle min 3 Views IMPRESSION: Findings consistent with osteochondral fracture of the medial talar dome Bimalleolar sprain. Electronically Signed: Quinn Hannah MD at 21:05 EDT ,
== END 2021-10-31 21:06 | disposition home or self-care (01) ==
PROVIDERS: Emergency Provider Emergency Medicine; Visit Provider Emergency Medicine
DX: S83.91XA Sprain of unspecified site of right knee, initial encounter (principal); S93.401A Sprain of unspecified ligament of right ankle, initial encounter; S90.31XA Contusion of right foot, initial encounter; F12.90 Cannabis use, unspecified, uncomplicated; F17.210 Nicotine dependence, cigarettes, uncomplicated; W10.9XXA Fall (on) (from) unspecified stairs and steps, initial encounter
CPT/HCPCS: 73564; 73610; 73630; 99283

== ENCOUNTER 2021-11-27 15:54 | Emergency (ER) | payer MEDICAID, SELFPAY ==
[2021-11-27 15:55] VITALS: BP 102/62; PULSE 109; RESP 18; TEMP 37; O2SAT 98; BMI 25.9
--- NOTE | 2021-11-27 16:22 | ED.RN ---
Pt reports feeling lightheaded. Placed in wheelchair and brought into Triage 2 for closer observation. 112/69, HR 92.
--- NOTE | 2021-11-27 16:45 | EKG12_ITS ---
Test Reason : cp Blood Pressure : / mmHG Vent. Rate : 082 BPM Atrial Rate : 082 BPM P-R Int : 146 ms QRS Dur : 094 ms QT Int : 360 ms P-R-T Axes : 057 056 045 degrees QTc Int : 420 ms Normal sinus rhythm Normal ECG Confirmed by XOCHILT CHRISTIAN, DINA ([id number]), research editor HILARY CHERRY ([id number]) on 11/29/2021 12:45:09 PM Referred By: Tommy Confirmed By:DINA LEMON MD
--- NOTE | 2021-11-27 16:46 | ED.VIS.CHEST ---
HPI History of Present Illness Chief Complaint: Chest Pain Narrative Narrative: 30-year-old female with no specific medical history presenting with a fever that started earlier today. It has been about 6 to 7 hours. She states her T-max is 102.5. She has been experiencing some sharp stabbing chest pain with this. She has mild shortness of breath. She has fevers, chills, body aches. She was sent home from work today because of this. She came to the ER because she is having chest pain. She did not test her cell for COVID at home. 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 Patient did take Tylenol earlier today. She now developed rash on her arms and her chest. She does not believe she is coming to anything she is allergic to. No new soaps, dyes, detergents, linens, creams etc. PFSH PFSH Medical History Abnormal Pap smear of cervix Depression Seizures Smoker Home Medications Medical Marijuana 1 inhaler inhalation PRN PRN Anxiety 08/24/18 [History Last Taken 03/16/19 08:00] Allergy/AdvReac Type Severity Reaction Status Date / Time hydrocodone bitartrate Allergy Rash Verified 11/27/21 15:55 [From Vicodin] Penicillins Allergy Rash Verified 11/27/21 15:55 Family History Grandmother Cancer pancreatic Grandfather Colon cancer Surgical History delivery delivered H/O dilation and curettage H/O LEEP Social History household members: family number of children: 3 Smoking Status: Current every day smoker tobacco type: cigarettes second hand exposure: Yes alcohol intake: current details: social substance use type: marijuana caffeine: Yes what type of physical activity do you participate in: none seatbelt use: always do you feel safe at home: Yes additional social history: - Patient works at [employer] ROS ED Constitutional Constitutional ED: Reports chills and fever(s) Eyes Eyes: Denies blurry vision or change in vision ENT ENT ED: Denies rhinorrhea or sore throat Cardiovascular Cardiovascular: Reports chest pain Respiratory/Chest Respiratory/Chest: Reports dyspnea; Denies cough Gastrointestinal Gastrointestinal: Denies abdominal pain, constipation, diarrhea or melena Genitourinary Genitourinary ED: Denies dysuria or hematuria Musculoskeletal Musculoskeletal: Reports myalgias; Denies arthralgias or back pain Integumentary Denies abscess or Abrasions Neurologic Neurologic: Reports headache(s); Denies paresthesias EXAM Physical Exam Const Vital Signs: 11/27/21 15:55 11/27/21 16:51 11/27/21 16:57 Temperature 98.6 F Temperature Source Temporal Pulse Rate 109 H 91 Respiratory Rate 18 32 H Blood Pressure 102/62 126/67 H Blood Pressure Mean 75 86 Pulse Ox 98 99 Oxygen Delivery Method Room Air Room Air Room Air 11/27/21 19:00 11/27/21 20:09 Temperature Temperature Source Pulse Rate 98 87 Respiratory Rate 14 15 Blood Pressure 106/58 L Blood Pressure Mean 74 Pulse Ox 98 99 Oxygen Delivery Method Room Air Positive well nourished General Appearance ED: NAD HEENT Reports TM's clear and moist mucous membranes normocephalic Tympanic Membrane ED: Yes TM's clear Eyes PERRL and EOMs intact bilaterally Resp normal respiratory effort and clear to auscultation bilaterally Auscultation: Negative for rales, rhonchi or wheezes Cardio regular rhythm Rate: tachycardic GI normal to inspection, nondistended, normoactive bowel sounds Neuro oriented x3 and CN's II-XII intact bilaterally Sensorium / Orientation: awake and alert Motor Exam: strength 5/5 throughout Psych mental status grossly normal Skin Skin Narrative: Urticarial rash on the arms and on the upper chest wall. There is also noted urticarial rash on the lower abdomen. Heart Score History: Slightly/Non-Suspicious ECG: Normal Age: </= 45 years Risk Factors: No Risk Factors Troponin: </= Normal Limit Score: 0 MDM MDM MDM Narrative Medical decision making narrative: Patient given a liter of IV fluids, Solu-Medrol, Pepcid, Benadryl for her rash. She was given Zofran for nausea. Since she is having chest pain I did obtain an EKG and my interpretation there is a normal sinus rhythm with a ventricular rate of 82 bpm without sign of ischemic change or dysrhythmia. Chest x-ray on my interpretation shows no acute cardiopulmonary process and the radiologist does agree. CBC does not show leukocytosis and in fact her white blood cell count is 5.8. She is lymphopenic. Renal function electrolytes are normal. High-sensitivity troponin is less than 3 and since she reports to me she has had chest pain all morning I do not believe she needs a delta troponin. She does not have any other cardiac risk factors. D-dimer was elevated at 1.91 and she did have a CTA of the chest which does not show any PE or dissection. There is no infiltrate noted either. Patient reevaluated at 8 PM and her rash is improved significantly. She feels improved. She is no longer nauseous. I counseled her that her COVID test did come back negative but she is started having symptoms today. I did do a COVID PCR but I do not think she needs to stay to wait for the results of this. Patient counseled on treating viral symptoms. Return precautions were discussed. After the patient left her PCR did return and she was positive for COVID-19. I called her and she is doing well. I counseled her again pelvic Tylenol and ibuprofen for pain and fever. She has been plenty fluids. Return precautions again discussed Impression: 1. COVID-19 2. Chest pain 3. Nausea 4. Allergic reaction Lab Data Attestation: I reviewed the patient's lab results. Labs: Laboratory Results - last 24 hr 11/27/21 11/27/21 11/27/21 16:53 16:53 16:53 WBC 5.8 RBC 5.02 Hgb 14.8 Hct 44.4 MCV 88.4 MCH 29.5 MCHC 33.3 RDW Std Deviation 46.2 H RDW Coeff of Kelly 14.4 Plt Count 208 MPV 11.3 Immature Gran % (Auto) 0.500 Neut % (Auto) 75.6 H Lymph % (Auto) 7.9 L Florence % (Auto) 15.6 H Eos % (Auto) 0.2 Baso % (Auto) 0.2 Absolute Neuts (auto) 4.4 Absolute Lymphs (auto) 0.46 L Nucleated RBC % 0 Differential Comment SCANNED D-Dimer Quant (PE/DVT) 1.91 H* Sodium 137 Potassium 3.7 Chloride 108 H Carbon Dioxide 22.0 Anion Gap 7 BUN 7 Creatinine 0.74 Estim Creat Clear Calc 99.12 Est GFR (MDRD) Af Amer 116 Est GFR (MDRD) Non-Af 96 BUN/Creatinine Ratio 9.4 L Glucose 103 Calcium 8.8 Troponin I High Sens COVID-19 ([facility]) 11/27/21 11/27/21 17:48 18:27 WBC RBC Hgb Hct MCV MCH MCHC RDW Std Deviation RDW Coeff of Kelly Plt Count MPV Immature Gran % (Auto) Neut % (Auto) Lymph % (Auto) Florence % (Auto) Eos % (Auto) Baso % (Auto) Absolute Neuts (auto) Absolute Lymphs (auto) Nucleated RBC % Differential Comment D-Dimer Quant (PE/DVT) Sodium Potassium Chloride Carbon Dioxide Anion Gap BUN Creatinine Estim Creat Clear Calc Est GFR (MDRD) Af Amer Est GFR (MDRD) Non-Af BUN/Creatinine Ratio Glucose Calcium Troponin I High Sens < 3 L COVID-19 ([facility]) Detected Radiography Diagnostic Testing: Clinical Impression(s) from Imaging Studies Chest X-Ray 11/27/21 17:00 IMPRESSION: Normal x-ray examination of the chest. Electronically Signed: Bo Bloom MD at 17:17 EDT , Chest CTA 11/27/21 18:10 IMPRESSION: Negative CTA chest. Electronically Signed: Danica Parker MD at 18:58 EDT , Discharge Plan Triage Chief Complaint: Chest Pain Other Complaint: Fever Itching ED Provider: Tapan Garcia Dx/Rx/DC Orders Instructions: ED General Allergic Reactions, ED Chest Pain, Noncardiac, ED Viral Syndrome (Adult) Prescriptions: No Action Medical Marijuana 1 inhaler inhalation PRN PRN (Reason: Anxiety) Primary Care Provider: Care Physician,No Primary Referrals: [facility] [Outside] - 3-5 Days Care Physician,No Primary [Primary Care Provider] - Disposition Disposition: Home, Self Care Discharge Date/Time: 11/27/21 20:10
[2021-11-27 16:57] VITALS: BP 126/67; PULSE 91; RESP 32; O2SAT 99
--- NOTE | 2021-11-27 17:00 | RAD_ITS ---
STUDY: X-RAY CHEST REASON FOR EXAM: Female, 30 years old. chest pain TECHNIQUE: Single AP portable view of the chest. COMPARISON: 01/13/2019 FINDINGS: The lungs are clear and expanded. There is no demonstrated pleural abnormality. Normal size heart. Normal mediastinum and ruben. Normal visualized pulmonary arteries. Normal visualized aortic arch and descending thoracic aorta. Normal visualized thoracic spine. Normal visualized ribs, clavicles, and shoulders. There is no demonstrated abnormality of the visualized soft tissue structures of the upper abdomen. RAD/Chest 1 View (Portable) IMPRESSION: Normal x-ray examination of the chest. Electronically Signed: Bo Bloom MD at 17:17 EDT ,
[2021-11-27] MEDS: 0.9% Normal Saline 1,000 ML 1000 ML IV (17:02)
[2021-11-27] MEDS: Ondansetron 4 MG/2 ML Vial IV (17:03)
[2021-11-27] MEDS: Famotidine 200 MG/20 ML MDV 20 MG in 0.9% Normal Saline (Pres. free 8 ML 300 MG IV (17:03)
[2021-11-27] MEDS: MethylPREDNISolone 125 MG/2 ML Vial IV (17:03)
[2021-11-27] MEDS: DiphenhydrAMINE 50 MG/ML Syringe 25 MG IV (17:03)
[2021-11-27 17:05] LABS: Absolute Lymphocyte Count 0.46 X10^3/uL (0.83-4.51); Absolute Neutrophil Count 4.4 X10^3/uL (2.0-7.7); Basophil# 0.01 X10^3/uL; Basophil% 0.2 % (0-1); Eosinophil# 0.01 X10^3/uL; Eosinophils% 0.2 % (0-5); Hematocrit 44.4 % (37-47); Hemoglobin 14.8 g/dL (12.0-15.0); Lymphocyte # 0.46 X10^3/ul (0.83-4.51); Lymphocyte % 7.9 % (19-41); Mean Corp Hgb Conc 33.3 g/dL (32-36); Mean Corpuscular Hgb 29.5 pg (27.0-32.0); Mean Corpuscular Volume 88.4 fL (81-99); Mean Platelet Vol. 11.3 fl (6.2-12.0); Monocyte# 0.91 X10^3/uL; Monocyte% 15.6 % (0-10); NRBC Flagged by Analyzer 0 % (0-5); Neutrophil # 4.42 X10^3/uL (2.7-7.7); Neutrophil % 75.6 % (47-70); POSITIVE DIFFERENTIAL YES; Platelet Count 208 K/mm3 (150-450); RBC Distribution Width CV 14.4 % (11.6-14.6); RBC Distribution Width SD 46.2 fl (35.1-43.9); Red Blood Count 5.02 M/mm3 (4.2-5.4); White Blood Count 5.8 K/mm3 (4.4-11.0)
[2021-11-27 17:06] LABS: Differential Indicated SCAN CRITERIA MET
[2021-11-27 17:23] LABS: Anion Gap 7 (5-15); BUN 7 mg/dL (7-18); BUN/Creat Ratio 9.4 RATIO (10-20); Calcium,Total 8.8 mg/dL (8.5-10.1); Chloride 108 mmol/L (98-107); Creatinine, Serum 0.74 mg/dL (0.55-1.02); D-Dimer Quantitative (DVT/PE) 1.91 FEU/ug/m (0.27-0.49); EST Glomerular Filtration Rate 96 mL/min (>60); Est Glom Filt Rate - Afr Amer 116 mL/min (>60); Estimated Creatinine Clearance 99.12 ml/min; Glucose 103 mg/dL (74-106); Potassium 3.7 mmol/L (3.5-5.1); Sodium Level 137 mmol/L (136-145)
[2021-11-27 17:32] LABS: Differential Comment SCANNED
--- NOTE | 2021-11-27 18:10 | CT_ITS ---
EXAM: CT ANGIOGRAPHY CHEST WITHOUT AND WITH INTRAVENOUS CONTRAST CLINICAL INDICATION: chest pain TECHNIQUE: Helically acquired angiography images were obtained of the chest without and with intravenous contrast. This CT exam was performed using one or more of the following dose reduction techniques: automated exposure control, adjustment of the mA and/or kV according to patient size, and/or use of iterative reconstruction technique. This report was created using [employer] report generation technology. MIP reconstructed images were created and reviewed. CONTRAST: IV 100mL [id number] COMPARISON: None. FINDINGS: PULMONARY ARTERIES: Unremarkable. Normal in caliber. No evidence of pulmonary embolism. AORTA: Unremarkable. Normal in caliber. No evidence of dissection. GREAT VESSELS OF AORTIC ARCH: Unremarkable. Normal in caliber. No evidence of dissection. LUNGS AND PLEURAL SPACES: Unremarkable. No mass. No consolidation or edema. No pleural effusion or thickening. No pneumothorax. HEART: Unremarkable. Heart size is normal. No pericardial effusion. No signs of right heart strain, ratio of right ventricle to left ventricle measures less than 1. MEDIASTINUM: Unremarkable. No mediastinal or hilar adenopathy. Esophagus is unremarkable. No hiatal hernia. THYROID: Unremarkable. No thyroid lesions. BONES/JOINTS: Unremarkable. No suspicious lytic or blastic abnormality. CT/CTA Chest W/WO Contrast IMPRESSION: Negative CTA chest. Electronically Signed: Danica Parker MD at 18:58 EDT Reading Location ID and State: [id number] / Tel , Service support ,
[2021-11-27 18:55] LABS: Troponin-I HS < 3 pg/mL (3.0-54.0)
[2021-11-27 19:00] VITALS: BP 106/58; PULSE 98; RESP 14; O2SAT 98
[2021-11-27 20:09] VITALS: PULSE 87; RESP 15; O2SAT 99
== END 2021-11-27 20:10 | disposition home or self-care (01) ==
PROVIDERS: Emergency Provider Student in an Organized Health Care Education/Training Program; Visit Provider Student in an Organized Health Care Education/Training Program
DX: U07.1 COVID-19 (principal); T78.40XA Allergy, unspecified, initial encounter; R07.9 Chest pain, unspecified; R11.0 Nausea; F12.90 Cannabis use, unspecified, uncomplicated; F17.210 Nicotine dependence, cigarettes, uncomplicated; X58.XXXA Exposure to other specified factors, initial encounter
CPT/HCPCS: 71045; 71275; 80048; 84484; 85025; 85379; 87635; 87811; 93005; 96361; 96374; 96375; 99284; J7030; Q9967; A4216; J2405; J3490; U0003; U0005

== ENCOUNTER 2022-02-14 12:40 | Emergency (ER) | payer MEDICAID, SELFPAY ==
[2022-02-14 12:41] VITALS: BP 110/83; PULSE 67; RESP 18; TEMP 36.1; O2SAT 100; BMI 24.1
[2022-02-14 13:25] VITALS: O2SAT 98
[2022-02-14 13:27] LABS: Absolute Lymphocyte Count 1.98 X10^3/uL (0.83-4.51); Absolute Neutrophil Count 10.1 X10^3/uL (2.0-7.7); Basophil# 0.02 X10^3/uL; Basophil% 0.2 % (0-1); Eosinophil# 0.12 X10^3/uL; Eosinophils% 0.9 % (0-5); Hematocrit 46.3 % (37-47); Hemoglobin 15.2 g/dL (12.0-15.0); Lymphocyte # 1.98 X10^3/ul (0.83-4.51); Lymphocyte % 14.9 % (19-41); Mean Corp Hgb Conc 32.8 g/dL (32-36); Mean Corpuscular Hgb 29.3 pg (27.0-32.0); Mean Corpuscular Volume 89.2 fL (81-99); Mean Platelet Vol. 11.3 fl (6.2-12.0); Monocyte# 0.99 X10^3/uL; Monocyte% 7.5 % (0-10); NRBC Flagged by Analyzer 0 % (0-5); Neutrophil % 76.1 % (47-70); Platelet Count 287 K/mm3 (150-450); RBC Distribution Width CV 15.3 % (11.6-14.6); RBC Distribution Width SD 49.9 fl (35.1-43.9); Red Blood Count 5.19 M/mm3 (4.2-5.4); White Blood Count 13.3 K/mm3 (4.4-11.0)
--- NOTE | 2022-02-14 13:30 | ED.RN ---
PT YELLING SCREAMING FOR STAFF. STATES THAT HER MACHINE IS BEEPING. EDUCATED PT. ON KEEPING TELE, AND O2 SENSOR ON FINGER AND IT WILL NOT BEEP. PT FRUSTRATED HAS NOT BEEN IN YET.
[2022-02-14 13:36] LABS: Internal QC Validated? YES +Cl - CLEAR BKGD; Pregnancy, Serum, hCG Quali. NEGATIVE Negative
[2022-02-14 13:39] LABS: Anion Gap 3 (5-15); BUN 7 mg/dL (7-18); BUN/Creat Ratio 8.3 RATIO (10-20); Calcium,Total 9.2 mg/dL (8.5-10.1); Chloride 111 mmol/L (98-107); Creatinine, Serum 0.84 mg/dL (0.55-1.02); EST Glomerular Filtration Rate 83 mL/min (>60); Est Glom Filt Rate - Afr Amer 101 mL/min (>60); Estimated Creatinine Clearance 86.52 ml/min; Glucose 103 mg/dL (74-106); Sodium Level 140 mmol/L (136-145)
--- NOTE | 2022-02-14 14:00 | ED.RN ---
Patient heard yelling for help. Upon walking into patients room, patient has removed heart monitor, blood pressure cuff and SPo2 monitor. Patient sitting at edge of bed hyperventilating. Patient instructed to breath in through her nose and out through her mouth. Patient states it is hard for her to do. RN stated it is ok but to do her best. Heart monitor, blood pressure cuff and SpO2 has been placed back on patient. Patients RN informed and will continue to monitor.
[2022-02-14 14:40] VITALS: BP 124/78; PULSE 88; RESP 26; O2SAT 100
--- NOTE | 2022-02-14 14:44 | ED.RN ---
PT CALLING OUT SCREAMING EDUCATED PRODUCT DEVELOPMENT LIGHT. AND THE WAIT.
--- NOTE | 2022-02-14 14:45 | ED.RN ---
pt was yelling, this rn went to speak with pt. pt states she can not breathe as she is yelling and thrashing around in bed. pt's hands appeared to be contracted d/t what appeared to be hyperventilating. this rn attempted to assist pt with breathing in through her nose and out of her mouth, instructed pt to slow breathing down. pt continued to yell stating I'M TRYING.
--- NOTE | 2022-02-14 14:52 | ED.RN ---
PT STARTS FORCIBLY, AND EXAGGERATED THROWING UP NOISES FROM PT.S ROOM. 3 RNS TO BED SIDE PT THROWING UP CLEAR FLUIDS FORCEFULLY. EDUCATED THAT PT CAN HURT HER THROAT BY DOING THAT.
--- NOTE | 2022-02-14 15:14 | CM.ED ---
Social Work Consult: No PCP Referral source: Self referral due to above This director of social media marketing met with patient in room. Introduced self and director of social media marketing role. Patient agreeable to speak with this director of social media marketing. This director of social media marketing broached topic of primary care physician for patient. Patient states I don't like men and there are no women doctors around. This director of social media marketing going over list of in-network providers that are local to [place] and are females. This director of social media marketing encouraged patient to reach out to one of the female providers. Patient voiced understanding and then asked this director of social media marketing when the ED doctor would be in to see patient. This director of social media marketing reported to be not sure, then the ED doctor entered the room. The ED doctor started to completed assessment with patient. This director of social media marketing left list of providers with patient. Elton DOHERTY, MARIVEL
--- NOTE | 2022-02-14 15:17 | EKG12_ITS ---
Test Reason : Blood Pressure : / mmHG Vent. Rate : 058 BPM Atrial Rate : 058 BPM P-R Int : 176 ms QRS Dur : 102 ms QT Int : 462 ms P-R-T Axes : 038 068 048 degrees QTc Int : 453 ms Sinus bradycardia with sinus arrhythmia Otherwise normal ECG Confirmed by FREDDY CHRISTIAN, GREG ([id number]), continuity editor HILARY CHERRY ([id number]) on 02/16/2022 2:07:41 P M Referred By: MALLIKA/FRANKLYN Confirmed By:ROLANDO HAYES MD
--- NOTE | 2022-02-14 15:17 | US_ITS ---
STUDY: ULTRASOUND OF THE FEMALE PELVIS - COMPLETE REASON FOR EXAM: Female, 31 years old. pain, bleeding, and quot;not menstrual time and quot; LMP: TECHNIQUE: Transabdominal TECHNICAL QUALITY: Adequate. COMPARISON: None. FINDINGS: The uterus is anteverted and is in a midline position. The uterus measures 9.6 x 5.9 x 4.6 cm. Normal uterine cervix. The endometrium measures 4.7 mm in thickness, and is hyperechoic. There is no demonstrated endometrial mass. There are tiny echogenic foci within the endometrial possibly calcification There is no demonstrated myometrial mass. I.U.D. - The patient does not have an I.U.D. The right ovary is visualized. The right ovary measures 3.5 x 2.4 x 2.4 cm. There is a cyst measuring 1.8 x 1.7 x 2.1 cm There is no visualized right adnexal mass or complex lesion. There is normal arterial and normal venous vascularity. The left ovary is visualized. The left ovary measures 2.5 x 1.7 x 1.8 cm. There is no left ovarian cyst or ovarian mass. There is no visualized left adnexal mass or complex lesion. There is normal arterial and normal venous vascularity. There is no fluid in the cul-de-sac. The pre void volume of the bladder was 88.76 ml. US/Pelvic (Non ) IMPRESSION: Small right ovarian cyst measuring approximately 1.8 x 1.7 x 2.1 cm Electronically Signed: Quinn Hannah MD at 18:06 EDT ,
--- NOTE | 2022-02-14 15:20 | EDS_ITS ---
HPI History of Present Illness Chief Complaint: Shortness of Breath Informant: patient Onset/Context/Timing Onset: Today Context: - (upon waking uup this AM; about 7-8 hrs) Timing: Continuous Narrative Narrative: Patient states that since this morning she has been having nausea, vomiting, shortness of breath at all seem to start together. She feels like she is very restless all over. Started developing vaginal bleeding and abdominal pain that is diffuse. The bleeding is not heavy, she states her last cycle was 1-2 weeks ago, she usually is regular, not that she knows of. Does not feel like she is having menstrual pains as far as abdominal pain. Does not radiate into her chest or back, which are not hurting. Denies any fevers. States she has a rare cough but nothing major. Her son has a fever and cough but he has not been to the doctor yet. States that she feels very anxious like she may be having a panic attack, she has a history of those as well, but she does not think that is causing all of this. PFSH PFSH Medical History Abnormal Pap smear of cervix Depression Seizures Smoker Home Medications Medical Marijuana 1 inhaler inhalation PRN PRN Anxiety 08/24/18 [History Last Taken 03/16/19 08:00] dicyclomine 10 mg capsule 20 mg PO Q6H PRN PRN abdominal discomfort #20 CAPSULES 02/14/22 [Rx Last Taken Unknown] promethazine 25 mg tablet 25 mg PO Q6H PRN PRN Nausea #15 TABLETS 02/14/22 [Rx Last Taken Unknown] Allergy/AdvReac Type Severity Reaction Status Date / Time hydrocodone bitartrate Allergy Rash Verified 02/14/22 12:41 [From Vicodin] Penicillins Allergy Rash Verified 02/14/22 12:41 Family History Grandmother Cancer pancreatic Grandfather Colon cancer Surgical History delivery delivered H/O dilation and curettage H/O LEEP Social History household members: family number of children: 3 Smoking Status: Current every day smoker tobacco type: cigarettes second hand exposure: Yes alcohol intake: current details: social substance use type: marijuana caffeine: Yes what type of physical activity do you participate in: none seatbelt use: always do you feel safe at home: Yes additional social history: - Patient works at [employer] and [email or web address] ROS ED Constitutional Constitutional ED: Reports other Details: Feeling hot and cold flashes, unsure if she had a fever but did not check ; Denies chills or fever(s) Eyes Eyes: Denies change in vision or diplopia ENT ENT ED: Denies ear pain, rhinorrhea or sore throat Cardiovascular Cardiovascular: Denies chest pain or palpitations Respiratory/Chest Respiratory/Chest: Reports cough and dyspnea Gastrointestinal Gastrointestinal: Reports abdominal pain, nausea and vomiting; Denies diarrhea Genitourinary Genitourinary ED: Denies dysuria or hematuria Musculoskeletal Musculoskeletal: Denies back pain or neck pain Integumentary Denies abscess or rash Neurologic Neurologic: Denies headache(s), paresthesias or weakness Psychiatric Psychiatric: Denies anxiety or suicidal thoughts EXAM Physical Exam Const Vital Signs: 02/14/22 12:41 02/14/22 13:25 02/14/22 14:40 Temperature 97.0 F L Temperature Source Temporal Pulse Rate 67 88 Respiratory Rate 18 26 H Respiratory Effort Short of Breath Respiratory Depth Normal Respiratory Pattern Normal Blood Pressure 110/83 H 124/78 H Blood Pressure Mean 92 93 Pulse Ox 100 100 Oxygen Delivery Method Room Air Room Air 02/14/22 16:00 Temperature Temperature Source Pulse Rate 66 Respiratory Rate 18 Respiratory Effort Respiratory Depth Respiratory Pattern Blood Pressure 135/78 H Blood Pressure Mean 97 Pulse Ox 98 Oxygen Delivery Method Room Air Positive well nourished and well developed General Appearance ED: well developed and NAD HEENT Reports moist mucous membranes normocephalic and atraumatic Eyes PERRL and EOMs intact bilaterally Neck full ROM and supple Resp normal respiratory effort and clear to auscultation bilaterally Cardio regular rate, regular rhythm and no murmurs GI non-distended GI Narrative: Diffusely tender no guarding or rebound. No palpable masses. Auscultation: normoactive bowel sounds Palpation: soft Back/Spine no CVA tenderness General Back: other FROM Extremity normal to inspection General Extremety ED: Negative for edema, pulses abnormal or tenderness General Extremity: Negative for edema or pulses abnormal Neuro oriented x3, CN's II-XII intact bilaterally and no sensory deficits noted Sensorium / Orientation: awake and alert Motor Exam: strength 5/5 throughout Psych Psych Narrative: Anxious and fidgety Skin no rashes or lesions noted and no wounds MDM MDM MDM Narrative Medical decision making narrative: Patient has a mild leukocytosis, her is negative. I sent her for an ultrasound of the pelvis, she has a small ovarian cyst on the right but good fl ow bilaterally and nothing else acute. Etiology of her bleeding is unknown, but I suspect her pain is related to it. She was treated with lorazepam in addition to morphine and Zofran, after offering it to her for her anxiety and accepting it. This made her feel a lot better, her dyspnea went away, she did feel like it was her anxiety. Her chest x-ray 1 view on my interpretation is normal radio logy in agreement. Her EKG unremarkable. Her pain was better after the treatment, she still felt nauseated so she was treated with Reglan, since we are unable to give parenteral promethazine here. Will prescribe her promethazine and advised close outpatient follow-up if her symptoms do not self-resolved. She is comfortable with that plan. Lab Data Attestation: I reviewed the patient's lab results. Labs: Laboratory Results - last 24 hr 02/14/22 02/14/22 02/14/22 13:10 13:10 13:10 WBC 13.3 H RBC 5.19 Hgb 15.2 H Hct 46.3 MCV 89.2 MCH 29.3 MCHC 32.8 RDW Std Deviation 49.9 H RDW Coeff of Kelly 15.3 H Plt Count 287 MPV 11.3 Immature Gran % (Auto) 0.400 Neut % (Auto) 76.1 H Lymph % (Auto) 14.9 L Pratt % (Auto) 7.5 Eos % (Auto) 0.9 Baso % (Auto) 0.2 Absolute Neuts (auto) 10.1 H Absolute Lymphs (auto) 1.98 Nucleated RBC % 0 Sodium 140 Potassium 4.0 Chloride 111 H Carbon Dioxide 26.0 Anion Gap 3 L BUN 7 Creatinine 0.84 Estim Creat Clear Calc 86.52 Est GFR (MDRD) Af Amer 101 Est GFR (MDRD) Non-Af 83 BUN/Creatinine Ratio 8.3 L Glucose 103 Calcium 9.2 Total Bilirubin Direct Bilirubin AST ALT Alkaline Phosphatase Total Protein Albumin Globulin Lipase Serum , Qual NEGATIVE 02/14/22 02/14/22 13:10 13:10 WBC RBC Hgb Hct MCV MCH MCHC RDW Std Deviation RDW Coeff of Kelly Plt Count MPV Immature Gran % (Auto) Neut % (Auto) Lymph % (Auto) Pratt % (Auto) Eos % (Auto) Baso % (Auto) Absolute Neuts (auto) Absolute Lymphs (auto) Nucleated RBC % Sodium Potassium Chloride Carbon Dioxide Anion Gap BUN Creatinine Estim Creat Clear Calc Est GFR (MDRD) Af Amer Est GFR (MDRD) Non-Af BUN/Creatinine Ratio Glucose Calcium Total Bilirubin 0.30 Direct Bilirubin 0.10 AST 15 ALT 18 Alkaline Phosphatase 105 Total Protein 8.0 Albumin 4.0 Globulin 4.0 Lipase 66 L Serum , Qual Radiography Diagnostic Testing: Clinical Impression(s) from Imaging Studies Pelvis Ultrasound 02/14/22 15:17 IMPRESSION: Small right ovarian cyst measuring approximately 1.8 x 1.7 x 2.1 cm Electronically Signed: Quinn Hannah MD at 18:06 EDT , Chest X-Ray 02/14/22 15:30 IMPRESSION: Normal x-ray examination of the chest. Electronically Signed: Quinn Hannah MD at 16:47 EDT , Rhythm Strip Rhythm Strip: Sinus Rhythm Rate: 65 Ectopy: None EKG Initial EKG: Attestation: I personally reviewed and interpreted this EKG as follows: Interpretation: Sinus Rhythm and No Acute Injury Pattern Discharge Plan Triage Chief Complaint: Shortness of Breath ED Provider: Sanford Crabtree Dx/Rx/DC Orders Clinical Impression: Diffuse abdominal pain, Nausea and vomiting, Abnormal vaginal bleeding, Anxiety Instructions: ED Dysfunctional Uterine Bleeding, ED Vomiting (Adult) Prescriptions: New dicyclomine 10 mg capsule 20 mg PO Q6H PRN PRN (Reason: abdominal discomfort) Qty: 20 0RF promethazine [promethazine] 25 mg tablet 25 mg PO Q6H PRN PRN (Reason: Nausea) Qty: 15 0RF No Action Medical Marijuana 1 inhaler inhalation PRN PRN (Reason: Anxiety) Primary Care Provider: Care Physician,No Primary Referrals: Griselda Maurer MD [Med Staff - Active Staff] - 3-5 Days if not improving (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
[2022-02-14] MEDS: LORazepam 2 MG/ML Syringe 1 MG IV (15:25)
[2022-02-14] MEDS: Ondansetron 4 MG/2 ML Vial IV (15:25)
[2022-02-14] MEDS: Morphine 4 MG/ML Syringe IV (15:25)
--- NOTE | 2022-02-14 15:30 | RAD_ITS ---
STUDY: X-RAY CHEST REASON FOR EXAM: Female, 31 years old. sob TECHNIQUE: AP portable COMPARISON: 11/27/2021 FINDINGS: The lungs are clear and expanded. There is no demonstrated pleural abnormality. Normal size heart. Normal mediastinum and ruben. Normal visualized pulmonary arteries. Normal visualized aortic arch and descending thoracic aorta. Normal visualized thoracic spine. Normal visualized ribs, clavicles, and shoulders. There is no demonstrated abnormality of the visualized soft tissue structures of the upper abdomen. RAD/Chest 1 View (Portable) IMPRESSION: Normal x-ray examination of the chest. Electronically Signed: Qunin Hannah MD at 16:47 EDT ,
[2022-02-14 15:46] LABS: Lipase 66 U/L (73-393)
[2022-02-14 15:56] LABS: AST(SGOT) 15 U/L (15-37); Alanine Aminotransfer ALT/SGPT 18 U/L (13-56); Alkaline Phosphatase 105 U/L (45-117)
[2022-02-14 16:00] VITALS: BP 135/78; PULSE 66; RESP 18; O2SAT 98
[2022-02-14 18:50] VITALS: BP 134/78; PULSE 78; RESP 16; TEMP 36.9; O2SAT 99
[2022-02-14] MEDS: Metoclopramide 10 MG/2 ML Vial 5 MG IV (18:53)
== END 2022-02-14 18:57 | disposition home or self-care (01) ==
PROVIDERS: Emergency Provider Emergency Medicine; Visit Provider Emergency Medicine
DX: R10.84 Generalized abdominal pain (principal); R11.2 Nausea with vomiting, unspecified; N93.9 Abnormal uterine and vaginal bleeding, unspecified; F41.9 Anxiety disorder, unspecified; F12.90 Cannabis use, unspecified, uncomplicated; F17.210 Nicotine dependence, cigarettes, uncomplicated
CPT/HCPCS: 71045; 76856; 80048; 80076; 83690; 84703; 85025; 87811; 93005; 96374; 96375; 99283; J7030; A4216; J2405

== ENCOUNTER 2022-11-20 01:26 | Emergency (ER) | payer MEDICAID, SELFPAY ==
[2022-11-20 01:27] VITALS: BP 131/91; PULSE 127; RESP 16; TEMP 36.1; O2SAT 97; BMI 24.3
[2022-11-20 02:19] LABS: Absolute Lymphocyte Count 1.46 X10^3/uL (0.83-4.51); Basophil# 0.04 X10^3/uL; Basophil% 0.2 % (0-1); Eosinophil# 0.04 X10^3/uL; Eosinophils% 0.2 % (0-5); Hematocrit 44.3 % (37-47); Hemoglobin 14.8 g/dL (12.0-15.0); Lymphocyte # 1.46 X10^3/ul (0.83-4.51); Mean Corp Hgb Conc 33.4 g/dL (32-36); Mean Corpuscular Hgb 31.6 pg (27.0-32.0); Mean Corpuscular Volume 94.5 fL (81-99); Mean Platelet Vol. 10.8 fl (6.2-12.0); Monocyte# 2.66 X10^3/uL; Monocyte% 14.5 % (0-10); NRBC Flagged by Analyzer 0 % (0-5); Neutrophil # 14.04 X10^3/uL (2.7-7.7); Neutrophil % 76.6 % (47-70); POSITIVE DIFFERENTIAL YES; POSITIVE MORPHOLOGY YES; Platelet Count 300 K/mm3 (150-450); RBC Distribution Width CV 14.9 % (11.6-14.6); RBC Distribution Width SD 51.8 fl (35.1-43.9); Red Blood Count 4.69 M/mm3 (4.2-5.4); White Blood Count 18.3 K/mm3 (4.4-11.0)
[2022-11-20 02:34] LABS: Differential Indicated SCAN CRITERIA MET
[2022-11-20 02:41] LABS: AST(SGOT) 7 U/L (15-37); Alanine Aminotransfer ALT/SGPT 11 U/L (13-56); Alkaline Phosphatase 113 U/L (45-117); Anion Gap 3 (5-15); BUN 4 mg/dL (7-18); Bilirubin, Direct 0.19 mg/dL (0.00-0.30); Calcium,Total 8.9 mg/dL (8.5-10.1); Chloride 101 mmol/L (98-107); Creatinine, Serum 0.81 mg/dL (0.55-1.02); EST Glomerular Filtration Rate 87 mL/min (>60); Est Glom Filt Rate - Afr Amer 105 mL/min (>60); Estimated Creatinine Clearance 89.72 ml/min; Globulin 4.5 g/dL (2.2-4.2); Glucose 121 mg/dL (74-106); Lipase 13 U/L (13-75); Potassium 4.8 mmol/L (3.5-5.1); Protein, Total 7.5 g/dL (6.4-8.2); Sodium Level 132 mmol/L (136-145)
[2022-11-20 02:52] LABS: Mucous, Urine 0 SEEN /hpf (<or=2+)
[2022-11-20 02:58] LABS: Color, Urine Yellow (Yellow); Glucose, Dipstick Normal (Normal); Ketone-Dipstick Negative (Negative); Leukocyte Esterase-Dipstick 500 /ul (Negative); Nitrite-Dipstick Positive (Negative); Occult Blood-Urine 25 /ul (Negative); Protein-Dipstick 30 mg/dl (Negative); Urine Bilirubin Dipstick Negative (Negative); Urine Clarity Clear (Clear); Urine Urobilinogen Normal (Normal)
[2022-11-20 03:02] LABS: Internal QC Validated? YES +Cl - CLEAR BKGD; Pregnancy, Urine Negative Negative
[2022-11-20 03:04] LABS: Bacteria 3+ /hpf (None Seen); Red Blood Cells-Urine 0-5 SEEN /hpf (0-5); Squamous Epithelial Cells - UA 0-5 SEEN /hpf (5-10); White Blood Cells 25-50 SEEN /hpf (0-5)
[2022-11-20 03:13] LABS: Differential Comment SCANNED
--- NOTE | 2022-11-20 03:35 | CT_ITS ---
INDICATION: flank pain EXAMINATION: CT ABDOMEN AND PELVIS WITHOUT CONTRAST - CT Abdomen And Pelvis W/O Contrast Injection TECHNIQUE: Helically acquired images were obtained of the abdomen and pelvis without oral or IV contrast. A radiation dose optimization technique was used for this scan. IV Contrast dosage and agent: None. Oral contrast: None. RADIATION DOSAGE (If Supplied By Facility): CTDIvol = ( 6.11 ) mGy, DLP = ( 299.13 ) mGycm COMPARISON: FINDINGS: LOWER CHEST: Lung bases are clear. No cardiomegaly or pericardial effusion. LIVER: Homogeneous. No focal mass. GALLBLADDER AND BILIARY TREE: No calcified gallstones. No gallbladder distension or wall edema. No intra- or extrahepatic biliary ductal dilation. PANCREAS: No focal cystic or solid mass. SPLEEN: Normal size without focal cystic or solid mass. ADRENAL GLANDS: No nodules. KIDNEYS AND URETERS: There is perinephric fat stranding on the right suggesting pyelonephritis or recently passed stone. No hydronephrosis. PERITONEUM: No ascites or free air. No other fluid collection. BOWEL: No evidence of acute appendicitis. No stomach or bowel distension. No focal inflammatory change. LYMPH NODES: No enlarged mesenteric or retroperitoneal lymph nodes. VESSELS: Aorta is non-dilated. URINARY BLADDER: Unremarkable. REPRODUCTIVE ORGANS: No pelvic masses. ABDOMINAL WALL: No discrete abdominal or pelvic wall hernia. BONES: No lytic or blastic abnormality. CT/Abdomen/Pelvis without Cont IMPRESSION: There is perinephric fat stranding on the right suggesting pyelonephritis or recently passed stone. Electronically Signed: Darron Pacheco MD at 4:51 EDT ,
[2022-11-20] MEDS: Ketorolac 30 MG/ML Syringe IV (03:46)
[2022-11-20] MEDS: Ceftriaxone 1 GM/50 ML BAG IV (03:46)
[2022-11-20 03:48] VITALS: BP 128/74; PULSE 98; RESP 18; O2SAT 99
--- NOTE | 2022-11-20 05:20 | EDS_ITS ---
HPI History of Present Illness Chief Complaint: General Illness Informant: patient Narrative Narrative: Patient is a 31-year-old female with past medical history of seizures who states she controls this with medical marijuana. She states that over the past 3 days or so she has been having increasing right-sided abdominal/flank pain. She reports with this she has had intermittent blood in her urine and reports that she has had a fever at home. She states that she is concerned that she is developed a kidney infection based on her symptoms and is concerned she may be going into kidney failure because of remote history of surgery on her kidneys when she was younger reportedly. Secondary to this she comes in for evaluation [facility] Medical History Abnormal Pap smear of cervix Depression Seizures Smoker Home Medications Medical Marijuana 1 inhaler inhalation PRN PRN Anxiety 08/24/18 [History Last Taken 03/16/19 08:00] dicyclomine 10 mg capsule 20 mg (2 x 10 mg) PO Q6H PRN PRN abdominal discomfort #20 CAPSULES 02/14/22 [Rx Last Taken Unknown] promethazine 25 mg tablet 25 mg PO Q6H PRN PRN Nausea #15 TABLETS 02/14/22 [Rx Last Taken Unknown] ciprofloxacin HCl 500 mg tablet (Cipro) 500 mg PO BID 10 days #20 tabs 11/20/22 [Rx Last Taken Unknown] oxycodone-acetaminophen 5 mg-325 mg tablet (Percocet) 1 tab PO Q6H PRN pain 3 days #12 tabs 11/20/22 [Rx Last Taken Unknown] Allergy/AdvReac Type Severity Reaction Status Date / Time hydrocodone bitartrate Allergy Rash Verified 02/14/22 12:41 [From Vicodin] Penicillins Allergy Rash Verified 02/14/22 12:41 Family History Grandmother Cancer pancreatic Grandfather Colon cancer Surgical History delivery delivered H/O dilation and curettage H/O LEEP Social History household members: family number of children: 3 Smoking Status: Current every day smoker tobacco type: cigarettes second hand exposure: Yes alcohol intake: current details: social substance use type: marijuana caffeine: Yes what type of physical activity do you participate in: none seatbelt use: always do you feel safe at home: Yes additional social history: - Patient works at [employer] and [employer] ROS ROS ED Constitutional Constitutional ED: Reports fever(s) and subjective; Denies chills ENT ENT ED: Denies sore throat Cardiovascular Cardiovascular: Denies chest pain Respiratory/Chest Respiratory/Chest: Denies cough or dyspnea Gastrointestinal Gastrointestinal: Reports abdominal pain and nausea; Denies diarrhea or vomiting Genitourinary Genitourinary ED: Reports dysuria Musculoskeletal Musculoskeletal: Reports back pain; Denies myalgias Integumentary Denies rash Neurologic Neurologic: Denies headache(s) Hematologic/Lymphatic Hematologic/Lymphatic: Denies easy bleeding or easy bruising EXAM Physical Exam Const Vital Signs: 11/20/22 01:27 11/20/22 01:31 11/20/22 03:48 Temperature 97 F L Temperature Source Temporal Pulse Rate 127 H 98 Respiratory Rate 16 18 Respiratory Effort Normal Non-Labored Respiratory Pattern Normal Blood Pressure 131/91 H 128/74 H Blood Pressure Mean 104 92 Pulse Ox 97 99 Oxygen Delivery Method Room Air Positive well nourished and well developed General Appearance ED: well developed HEENT HEENT Narrative: Normocephalic atraumatic Eyes PERRL and EOMs intact bilaterally General Eye ED: Negative for scleral icterus Neck supple Neck Narrative: No nuchal rigidity or meningeal signs Resp normal respiratory effort and clear to auscultation bilaterally Cardio regular rhythm Rate: tachycardic and other Other Details: Radial pulses are plus 2 out of 4 bilaterally are equal and symmetric GI non-distended GI Narrative: Abdomen is soft and nondistended with pain with palpation in the right upper quadrant region without voluntary guarding or rigidity. Negative Menchaca sign. No pulsatile mass or fluid wave Auscultation: hypoactive bowel sounds Palpation: soft Back/Spine Back/Spine Narrative: Positive right CVA pain noted Extremity normal to inspection Extremity Narrative: No asymmetric edema no pitting edema negative Homans' sign bilaterally Neuro oriented x3 and CN's II-XII intact bilaterally Sensorium / Orientation: alert Psych mental status grossly normal Skin no rashes or lesions noted Skin Narrative: No overlying soft tissue skin changes to suggest trauma or infection General Skin Exam: Negative for jaundice MDM MDM MDM Narrative Medical decision making narrative: Patient arrived to the ER afebrile but stated that she took Tylenol prior to coming in. With pain along the right flank/right upper quadrant differential diagnosis is kidney stone with renal colic versus biliary colic versus pancreatitis versus pyelonephritis. Basic blood work was obtained and shows a white count elevated at 18.3 but otherwise no signs of acute kidney injury or electrolyte derangement. With potential patient could be having a impacted/obstructed kidney stone causing her pyelonephritis and noncontrast CT was then obtained. This showed inflammatory changes consistent with Naresh but no retained stone. The patient has remained hemodynamically stable with improvement to her blood pressure and heart rate after pain control and antibiotics in the ER. The patient voiced concerns about heading home secondary to her infection and therefore I discussed the case with medicine/hospitalist. He evaluated the patient in the ER and feels at this time that with her vitals being normal as the patient does not appear in any acute distress and her only true lab abnormality is her elevated white count that she can be tried on oral outpatient antibiotics with follow-up. Therefore patient will be placed on antibiotics secondary to her pyelonephritis but is otherwise safe for discharge History & Record Review Discussion w/independent historian: Patient Lab Data Attestation: I reviewed the patient's lab results. Labs: Laboratory Results - last 24 hr 11/20/22 11/20/22 02:13 02:45 WBC 18.3 H RBC 4.69 Hgb 14.8 Hct 44.3 MCV 94.5 MCH 31.6 MCHC 33.4 RDW Std Deviation 51.8 H RDW Coeff of Kelly 14.9 H Plt Count 300 MPV 10.8 Immature Gran % (Auto) 0.500 Neut % (Auto) 76.6 H Lymph % (Auto) 8.0 L Glasscock % (Auto) 14.5 H Eos % (Auto) 0.2 Baso % (Auto) 0.2 Absolute Neuts (auto) 14.0 H Absolute Lymphs (auto) 1.46 Nucleated RBC % 0 Differential Comment SCANNED Diff Path Review May foll Sodium 132 L Potassium 4.8 Chloride 101 Carbon Dioxide 28.0 Anion Gap 3 L BUN 4 L Creatinine 0.81 Estim Creat Clear Calc 89.72 Est GFR (MDRD) Af Amer 105 Est GFR (MDRD) Non-Af 87 BUN/Creatinine Ratio 5.0 L Glucose 121 H Calcium 8.9 Total Bilirubin 0.50 Direct Bilirubin 0.19 AST 7 L ALT 11 L Alkaline Phosphatase 113 Total Protein 7.5 Albumin 3.0 L Globulin 4.5 H Lipase 13 Urine Color Yellow Urine Clarity Clear Urine pH 8.0 Ur Specific Merkel 1.010 Urine Protein 30 H Urine Glucose (UA) Normal Urine Ketones Negative Urine Occult Blood 25 H Urine Nitrite Positive H Urine Bilirubin Negative Urine Urobilinogen Normal Ur Leukocyte Esterase 500 H Urine RBC 0-5 SEEN Urine WBC 25-50 SEEN Ur Squamous Epith Cells 0-5 SEEN Urine Bacteria 3+ Urine Mucus 0 SEEN Urine Test Negative Radiography Diagnostic Testing: Clinical Impression(s) from Imaging Studies Abdomen/Pelvis CT 11/20/22 03:35 IMPRESSION: There is perinephric fat stranding on the right suggesting pyelonephritis or recently passed stone. Electronically Signed: Darron Pacheco MD at 4:51 EDT Reading Location ID and State: [facility] / [place] Tel , Service support , Management Discussion w/another healthcare provider: Hospitalist Discharge Plan Triage Chief Complaint: General Illness ED Provider: Robert Omalley Dx/Rx/DC Orders Clinical Impression: Pyelonephritis, Depression Instructions: ED Pyelonephritis, Female (Adult) Prescriptions: New ciprofloxacin HCl [Cipro] 500 mg tablet 500 mg PO BID 10 Days Qty: 20 0RF oxycodone-acetaminophen [Percocet] 5-325 mg tablet 1 tab PO Q6H PRN (Reason: pain) 3 Days Qty: 12 0RF No Action Medical Marijuana 1 inhaler inhalation PRN PRN (Reason: Anxiety) dicyclomine 10 mg capsule 20 mg PO Q6H PRN PRN (Reason: abdominal discomfort) Qty: 20 0RF promethazine [promethazine] 25 mg tablet 25 mg PO Q6H PRN PRN (Reason: Nausea) Qty: 15 0RF Primary Care Provider: Care Physician,No Primary Referrals: Marc Bedoya MD [Med Staff - Order Takers Supervisor] - Care Physician,No Primary [Primary Care Provider] - Activity Restrictions/Additional Instructions: Take your antibiotic as directed to help resolve your infection and return to the ER if you have worsening symptoms or any further concerns Disposition Disposition: Home, Self Care
[2022-11-20 05:51] VITALS: BP 121/74; PULSE 81; RESP 16; O2SAT 99
[2022-11-20 15:44] LABS: Pathologist Review Reviewed
== END 2022-11-20 05:51 | disposition home or self-care (01) ==
PROVIDERS: Emergency Provider Emergency Medicine; Visit Provider Emergency Medicine
DX: N12 Tubulo-interstitial nephritis, not specified as acute or chronic (principal); G40.909 Epilepsy, unspecified, not intractable, without status epilepticus; F32.A Depression, unspecified; F17.210 Nicotine dependence, cigarettes, uncomplicated; Z79.899 Other long term (current) drug therapy
CPT/HCPCS: 74176; 80048; 80076; 81001; 81025; 83690; 85025; 87086; 87088; 87186; 96365; 96375; 99284; J7030; A4216

== ENCOUNTER 2022-12-08 01:25 | Emergency (ER) | payer MEDICAID, SELFPAY ==
[2022-12-08 01:29] VITALS: BP 121/86; PULSE 75; RESP 14; TEMP 37.2; O2SAT 100; BMI 24.9
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
[2022-12-08 02:34] LABS: Absolute Lymphocyte Count 2.54 X10^3/uL (0.83-4.51); Absolute Neutrophil Count 4.2 X10^3/uL (2.0-7.7); Basophil# 0.03 X10^3/uL; Basophil% 0.4 % (0-1); Eosinophil# 0.12 X10^3/uL; Eosinophils% 1.6 % (0-5); Hematocrit 43.6 % (37-47); Hemoglobin 13.8 g/dL (12.0-15.0); Lymphocyte # 2.54 X10^3/ul (0.83-4.51); Lymphocyte % 33.7 % (19-41); Mean Corp Hgb Conc 31.7 g/dL (32-36); Mean Corpuscular Hgb 31.1 pg (27.0-32.0); Mean Corpuscular Volume 98.2 fL (81-99); Mean Platelet Vol. 10.4 fl (6.2-12.0); NRBC Flagged by Analyzer 0 % (0-5); Neutrophil # 4.21 X10^3/uL (2.7-7.7); Neutrophil % 55.8 % (47-70); Platelet Count 265 K/mm3 (150-450); RBC Distribution Width CV 15.5 % (11.6-14.6); RBC Distribution Width SD 55.6 fl (35.1-43.9); Red Blood Count 4.44 M/mm3 (4.2-5.4); White Blood Count 7.5 K/mm3 (4.4-11.0)
[2022-12-08 02:47] LABS: Anion Gap 5 (5-15); BUN 5 mg/dL (7-18); Calcium,Total 8.4 mg/dL (8.5-10.1); Chloride 111 mmol/L (98-107); Creatinine, Serum 0.72 mg/dL (0.55-1.02); EST Glomerular Filtration Rate 100 mL/min (>60); Est Glom Filt Rate - Afr Amer 121 mL/min (>60); Estimated Creatinine Clearance 100.94 ml/min; Glucose 96 mg/dL (74-106); Potassium 4.1 mmol/L (3.5-5.1); Sodium Level 141 mmol/L (136-145)
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
== END 2022-12-08 03:43 | disposition home or self-care (01) ==
PROVIDERS: Emergency Provider Student in an Organized Health Care Education/Training Program; Visit Provider Student in an Organized Health Care Education/Training Program
DX: R56.9 Unspecified convulsions (principal); R10.9 Unspecified abdominal pain; F12.90 Cannabis use, unspecified, uncomplicated; F17.210 Nicotine dependence, cigarettes, uncomplicated
CPT/HCPCS: 80048; 85025; 99283

== ENCOUNTER 2022-12-08 19:31 | Emergency (ER) | payer MEDICAID, SELFPAY ==
[2022-12-08 19:32] VITALS: BP 134/90; PULSE 109; RESP 18; TEMP 36; O2SAT 94; BMI 24.9
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
[2022-12-08 20:14] LABS: Bacteria 0 SEEN /hpf (None Seen); Mucous, Urine 0 SEEN /hpf (<or=2+); Red Blood Cells-Urine 0 SEEN /hpf (0-5)
[2022-12-08 20:25] LABS: Color, Urine Yellow (Yellow); Glucose, Dipstick Normal (Normal); Ketone-Dipstick 5 mg/dl (Negative); Leukocyte Esterase-Dipstick 25 /ul (Negative); Nitrite-Dipstick Negative (Negative); Occult Blood-Urine Negative /ul (Negative); Protein-Dipstick Negative (Negative); Specific Gravity, Urine 1.015 (1.002-1.030); Urine Bilirubin Dipstick Negative (Negative); Urine Clarity Clear (Clear); Urine Urobilinogen 1 mg/dl (Normal)
[2022-12-08 20:33] LABS: Squamous Epithelial Cells - UA 0-5 SEEN /hpf (5-10); White Blood Cells 0-5 SEEN /hpf (0-5)
[2022-12-08 21:20] VITALS: BP 112/84; PULSE 86; RESP 24; O2SAT 99
--- NOTE | 2022-12-08 21:21 | NURSING ---
MD in room to go over discharge plan with patient. While MD talking, patient became defensive stating 'nothing is wrong, nothing ever is.' This RN attempted to review paper work with patient and she raised voice stating 'they just give medications for seizures that I don't have, I am the one dealing with the pain and seizures but nothing helps.' Patient also stating that we have her clothes. All that is located on the chair is a bra. Another RN stated they saw the significant other take it. Patient is giving pushback for leaving stating she doesn't have a ride. Told pt she can go to waiting room and call for a ride. Pt continues yelling at staff about taking clothes and not having a ride. Pt's significant other present and security at bedside.
--- NOTE | 2022-12-08 21:28 | RAD.NOTE ---
Pt left d/c paperwork and script in room
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
== END 2022-12-08 21:28 | disposition home or self-care (01) ==
PROVIDERS: Emergency Provider Emergency Medicine; Visit Provider Emergency Medicine
DX: G40.909 Epilepsy, unspecified, not intractable, without status epilepticus (principal); R10.9 Unspecified abdominal pain; F12.90 Cannabis use, unspecified, uncomplicated; F17.210 Nicotine dependence, cigarettes, uncomplicated
CPT/HCPCS: 80048; 81001; 85025; 96365; 99283; 99285; A4216

== ENCOUNTER 2023-01-18 20:48 | Emergency (ER) | payer MEDICAID, SELFPAY ==
[2023-01-18 20:49] VITALS: BP 118/79; PULSE 130; RESP 22; TEMP 36.3; O2SAT 98; BMI 25.3
--- NOTE | 2023-01-18 20:54 | CT_ITS ---
STUDY: CT BRAIN WITHOUT CONTRAST REASON FOR EXAM: Female, 32 years old. Change in Mental Status RADIATION DOSAGE (If Supplied By Facility): CTDIvol = ( 44.99 ) mGy, DLP = ( 812.98 ) mGycm TECHNIQUE: Transaxial CT imaging of the brain was performed without administration of intravenous contrast material. Individualized dose optimization techniques were used for this CT. COMPARISON: February 18, 2018 FINDINGS: Normal soft tissue structures. Normal calvarium. Normal size ventricles and extra-axial spaces for the patient''s age. Normal white matter tracts of the cerebral hemispheres. Normal basal ganglia and thalami. Normal brainstem. Normal cerebellum. There is no intracranial hemorrhage. There are no findings of an acute ischemic infarction. Normal visualized paranasal sinuses. CT/Brain/Head without Contrast IMPRESSION: Normal unenhanced CT scan of the brain. Electronically Signed: Jose Ramon Kahn DO at 21:50 EDT ,
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
--- NOTE | 2023-01-18 20:58 | EDS_ITS ---
HPI History of Present Illness Chief Complaint: Alt LOC Narrative Narrative: 32-year-old female presenting via [employer] for minimal responsiveness at home. Patient admits to drinking tonight but states she only had 2 shots of pink L[place]. She is slurring her speech and appears intoxicated. She was given Narcan because she was initially unresponsive but she did wake up. She states she feels nauseous like she got a vomit. She states she has not eaten anything. Apparently when the patient was being transported she started to have some abnormal posturing but was not having tonic-clonic seizures she was given said out of concern for a seizure. PFSH [facility] Medical History Abnormal Pap smear of cervix Depression Seizures Smoker Home Medications Medical Marijuana 1 inhaler inhalation PRN PRN Anxiety 08/24/18 [History Last Taken 03/16/19 08:00] phenytoin sodium extended 100 mg capsule (Dilantin Extended) 100 mg PO TID #90 caps 12/08/22 [Rx Last Taken Unknown] Allergy/AdvReac Type Severity Reaction Status Date / Time hydrocodone bitartrate Allergy Rash Verified 12/08/22 01:28 [From Vicodin] Penicillins Allergy Rash Verified 12/08/22 01:28 Family History Grandmother Cancer pancreatic Grandfather Colon cancer Surgical History delivery delivered H/O dilation and curettage H/O LEEP Social History household members: family number of children: 3 Smoking Status: Current every day smoker tobacco type: cigarettes second hand exposure: Yes alcohol intake: current details: social substance use type: marijuana caffeine: Yes what type of physical activity do you participate in: none seatbelt use: always do you feel safe at home: Yes additional social history: - Patient works at [employer] and [employer] Medical ROS ROS ED Constitutional Constitutional ED: Denies chills, fever(s) or sweats Eyes Eyes: Denies blurry vision or change in vision ENT ENT ED: Denies ear pain or sore throat Cardiovascular Cardiovascular: Denies chest pain, palpitations or racing heartbeat Respiratory/Chest Respiratory/Chest: Denies cough, dyspnea or sputum Gastrointestinal Gastrointestinal: Denies abdominal pain, constipation, diarrhea, nausea or vomiting Genitourinary Genitourinary ED: Denies dysuria, hematuria or urinary frequency Musculoskeletal Musculoskeletal: Denies arthralgias, myalgias or neck pain Integumentary Denies abscess, Abrasions or rash Neurologic Neurologic: Denies headache(s), paresthesias or weakness Psychiatric Psychiatric: Denies anxiety, depression, suicidal ideation or suicidal thoughts Endocrine Endocrinology: Denies polydipsia or polyuria EXAM Physical Exam Narrative Exam Narrative: Smells of alcohol Const Vital Signs: 01/18/23 20:49 Temperature 97.3 F L Temperature Source Temporal Pulse Rate 130 H Respiratory Rate 22 H Blood Pressure 118/79 Blood Pressure Mean 92 Pulse Ox 98 Oxygen Delivery Method Room Air Positive well nourished and unkempt General Appearance ED: unkempt and NAD HEENT Reports TM's clear atraumatic Tympanic Membrane ED: Yes TM's clear Eyes PERRL and EOMs intact bilaterally Chest Wall inspection of chest normal Resp normal respiratory effort and clear to auscultation bilaterally Cardio regular rhythm Rate: tachycardic GI normal to inspection, nondistended, normoactive bowel sounds Extremity normal to inspection Neuro CN's II-XII intact bilaterally, moves all extremities, no focal motor deficits and no sensory deficits noted Sensorium / Orientation: alert Motor Exam: strength 5/5 throughout Psych mental status grossly normal and thought process normal Appearance: unkempt Skin no rashes or lesions noted MDM MDM MDM Narrative Medical decision making narrative: 79-year-old female presenting intoxicated. There was concern she had done some opioids because she is a history of drug abuse and she was given Narcan however given her odd posturing she was given Versed right after this. She is doing this in the room and it does not appear to be seizure-like activity. She is telling me she is nauseous and is doing his posturing and making a gagging sound. Patient was found unresponsive differential includes intracranial hemorrhage, drug overdose, EtOH intoxication, dehydration, electrolyte normalities. Patient is significantly tachycardic so we will obtain EKG and cardiac enzymes. She was given Phenergan IM. CBC shows a normal white blood cell count 8.4. Hemoglobin hematocrit are stable. Platelets are normal. Renal function and electrolytes within normal limits. EKG shows a sinus rhythm at a rate 85 bpm without sign of ischemic change or ectopy on my interpretation. Chest x-ray on my interpretation shows no acute process. CT brain was obtained due to altered mental status and being found down and this was negative for acute intracranial findings. hCG negative. EtOH 16. Drug screen positive for cannabinoids and cocaine. At this point patient has a friend in the room who states that she is like a sister to her. She states that the patient lost 2 kids yesterday and 2 kids today to children's services. The patient's girlfriend told her friend that she wanted to kill herself. The patient confirms this in the room. Given this we will have to repeat her alcohol level and we will have crisis see her when she is sober. She is put in suicide precautions. Impression: 1. EtOH intoxication 2. Cocaine abuse 3. Suicidal ideation Lab Data Attestation: I reviewed the patient's lab results. Labs: Laboratory Results - last 24 hr 01/18/23 01/18/23 21:01 21:20 WBC 8.4 RBC 4.34 Hgb 13.8 Hct 42.0 MCV 96.8 MCH 31.8 MCHC 32.9 RDW Std Deviation 57.4 H RDW Coeff of Kelly 16.1 H Plt Count 311 MPV 10.1 Immature Gran % (Auto) 0.500 Neut % (Auto) 49.0 Lymph % (Auto) 39.9 [place] % (Auto) 8.5 Eos % (Auto) 1.7 Baso % (Auto) 0.4 Absolute Neuts (auto) 4.1 Absolute Lymphs (auto) 3.34 Nucleated RBC % 0 Sodium 145 Potassium 3.5 Chloride 114 H Carbon Dioxide 26.0 Anion Gap 5 BUN 6 L Creatinine 0.78 Estim Creat Clear Calc 92.31 Est GFR (MDRD) Af Amer 110 Est GFR (MDRD) Non-Af 91 BUN/Creatinine Ratio 7.7 L Glucose 87 Calcium 8.4 L Total Bilirubin 0.30 AST 16 ALT 22 Alkaline Phosphatase 113 Total Protein 6.9 Albumin 3.3 Globulin 3.6 Albumin/Globulin Ratio 0.9 Serum , Qual NEGATIVE Urine Color Yellow Urine Clarity Clear Urine pH 6.0 Ur Specific [place] 1.010 Urine Protein Negative Urine Glucose (UA) Normal Urine Ketones Negative Urine Occult Blood Negative Urine Nitrite Negative Urine Bilirubin Negative Urine Urobilinogen Normal Ur Leukocyte Esterase Negative Urine RBC 0 SEEN Urine WBC 0 SEEN Ur Squamous Epith Cells 0 SEEN Urine Bacteria 0 SEEN Urine Mucus 0 SEEN Urine Opiates Screen NEGATIVE Urine Methadone Screen NEGATIVE Ur Barbiturates Screen NEGATIVE Ur Phencyclidine Scrn NEGATIVE Ur Amphetamines Screen NEGATIVE MDMA (Ecstasy) Screen NEGATIVE U Benzodiazepines Scrn NEGATIVE Urine Cocaine Screen POSITIVE H U Cannabinoids Screen POSITIVE H Ur Drug Screen Comment Ethyl Alcohol 216.0 Radiography Diagnostic Testing: Clinical Impression(s) from Imaging Studies Brain CT 01/18/23 20:54 IMPRESSION: Normal unenhanced CT scan of the brain. Electronically Signed: Jose Ramon Kahn DO at 21:50 EDT , Chest X-Ray 01/18/23 20:54 IMPRESSION: No radiographic evidence of acute cardiopulmonary disease. Electronically Signed: Jose Ramon Kahn DO at 22:01 EDT , Discharge Plan Triage Chief Complaint: Alt LOC ED Provider: Tapan Garcia Dx/Rx/DC Orders Prescriptions: No Action Medical Marijuana 1 inhaler inhalation PRN PRN (Reason: Anxiety) phenytoin sodium extended [Dilantin Extended] 100 mg capsule 100 mg PO TID Qty: 90 0RF Primary Care Provider: Care Physician,No Primary Referrals: Care Physician,No Primary [Primary Care Provider] -
[2023-01-18 21:11] LABS: Absolute Lymphocyte Count 3.34 X10^3/uL (0.83-4.51); Absolute Neutrophil Count 4.1 X10^3/uL (2.0-7.7); Basophil# 0.03 X10^3/uL; Basophil% 0.4 % (0-1); Eosinophil# 0.14 X10^3/uL; Eosinophils% 1.7 % (0-5); Hemoglobin 13.8 g/dL (12.0-15.0); Lymphocyte # 3.34 X10^3/ul (0.83-4.51); Lymphocyte % 39.9 % (19-41); Mean Corp Hgb Conc 32.9 g/dL (32-36); Mean Corpuscular Hgb 31.8 pg (27.0-32.0); Mean Corpuscular Volume 96.8 fL (81-99); Mean Platelet Vol. 10.1 fl (6.2-12.0); Monocyte# 0.71 X10^3/uL; Monocyte% 8.5 % (0-10); NRBC Flagged by Analyzer 0 % (0-5); Neutrophil # 4.12 X10^3/uL (2.7-7.7); Platelet Count 311 K/mm3 (150-450); RBC Distribution Width CV 16.1 % (11.6-14.6); RBC Distribution Width SD 57.4 fl (35.1-43.9); Red Blood Count 4.34 M/mm3 (4.2-5.4); White Blood Count 8.4 K/mm3 (4.4-11.0)
[2023-01-18] MEDS: proMETHazine 25 MG/ML Syringe 12.5 MG IM (21:16)
[2023-01-18] MEDS: 0.9% Normal Saline (1000mL) 1,000 ML 999 ML IV (21:16)
[2023-01-18 21:28] LABS: Internal QC Validated? YES +Cl - CLEAR BKGD; Pregnancy, Serum, hCG Quali. NEGATIVE Negative
[2023-01-18 21:28] LABS: Bacteria 0 SEEN /hpf (None Seen); Mucous, Urine 0 SEEN /hpf (<or=2+); Red Blood Cells-Urine 0 SEEN /hpf (0-5); Squamous Epithelial Cells - UA 0 SEEN /hpf (5-10); White Blood Cells 0 SEEN /hpf (0-5)
[2023-01-18 21:33] LABS: Color, Urine Yellow (Yellow); Glucose, Dipstick Normal (Normal); Ketone-Dipstick Negative (Negative); Leukocyte Esterase-Dipstick Negative /ul (Negative); Nitrite-Dipstick Negative (Negative); Occult Blood-Urine Negative /ul (Negative); Protein-Dipstick Negative (Negative); Urine Bilirubin Dipstick Negative (Negative); Urine Clarity Clear (Clear); Urine Urobilinogen Normal (Normal)
[2023-01-18 21:35] LABS: ALB/GLOB Ratio 0.9 RATIO (0.9-2.4); AST(SGOT) 16 U/L (15-37); Alanine Aminotransfer ALT/SGPT 22 U/L (13-56); Albumin, Serum 3.3 g/dL (3.2-5.0); Alkaline Phosphatase 113 U/L (45-117); Anion Gap 5 (5-15); BUN 6 mg/dL (7-18); BUN/Creat Ratio 7.7 RATIO (10-20); Calcium,Total 8.4 mg/dL (8.5-10.1); Chloride 114 mmol/L (98-107); Creatinine, Serum 0.78 mg/dL (0.55-1.02); EST Glomerular Filtration Rate 91 mL/min (>60); Est Glom Filt Rate - Afr Amer 110 mL/min (>60); Estimated Creatinine Clearance 92.31 ml/min; Globulin 3.6 g/dL (2.2-4.2); Glucose 87 mg/dL (74-106); Potassium 3.5 mmol/L (3.5-5.1); Protein, Total 6.9 g/dL (6.4-8.2); Sodium Level 145 mmol/L (136-145)
[2023-01-18 21:48] VITALS: RESP 16
[2023-01-18 22:19] LABS: Amphetamine Urine VISTA NEGATIVE (<1000 ng/mL); Barbiturate Urine VISTA NEGATIVE (< 200 ng/mL); Benzodiazepine Urine VISTA NEGATIVE (< 200 ng/mL); Cocaine Urine VISTA POSITIVE (< 300 ng/mL); Ecstacy Urine VISTA NEGATIVE (< 500 ng/mL); Methadone Urine VISTA NEGATIVE (< 300 ng/mL); PCP Urine VISTA NEGATIVE (< 25 ng/mL); THC Urine VISTA POSITIVE (< 50 ng/mL); Vista UDS pH Range 5
[2023-01-18 22:48] VITALS: RESP 16
[2023-01-18 23:00] VITALS: RESP 16
[2023-01-18 23:56] LABS: Troponin-I HS 4 pg/mL (3.0-54.0)
[2023-01-19] VITALS: BP 96/58; PULSE 81; RESP 16; O2SAT 96
[2023-01-19 02:48] VITALS: BP 90/54; PULSE 83; RESP 18; O2SAT 95
[2023-01-19 05:21] VITALS: BP 99/53; PULSE 78; RESP 18; O2SAT 99
== END 2023-01-19 05:30 | disposition home or self-care (01) ==
PROVIDERS: Emergency Provider Student in an Organized Health Care Education/Training Program; Visit Provider Student in an Organized Health Care Education/Training Program
DX: F10.129 Alcohol abuse with intoxication, unspecified (principal); F14.10 Cocaine abuse, uncomplicated; F12.90 Cannabis use, unspecified, uncomplicated; R45.851 Suicidal ideations
CPT/HCPCS: 51702; 70450; 71045; 80053; 80307; 81001; 82077; 84484; 84703; 85025; 93005; 96372; 99285; J7030; A4216

== ENCOUNTER → 2023-05-29 | Outpatient (CLI) | payer MEDICAID, SELFPAY ==
[2023-05-29 16:59] LABS: Absolute Lymphocyte Count 2.07 X10^3/uL (0.83-4.51); Basophil# 0.03 X10^3/uL; Basophil% 0.5 % (0-1); Eosinophil# 0.09 X10^3/uL; Eosinophils% 1.6 % (0-5); Hematocrit 40.9 % (37-47); Hemoglobin 13.5 g/dL (12.0-15.0); Lymphocyte # 2.07 X10^3/ul (0.83-4.51); Mean Corpuscular Hgb 30.8 pg (27.0-32.0); Mean Corpuscular Volume 93.4 fL (81-99); Mean Platelet Vol. 10.8 fl (6.2-12.0); Monocyte# 0.54 X10^3/uL; Monocyte% 9.4 % (0-10); NRBC Flagged by Analyzer 0 % (0-5); Neutrophil % 52.2 % (47-70); Platelet Count 307 K/mm3 (150-450); RBC Distribution Width CV 15.9 % (11.6-14.6); RBC Distribution Width SD 54.3 fl (35.1-43.9); Red Blood Count 4.38 M/mm3 (4.2-5.4); White Blood Count 5.8 K/mm3 (4.4-11.0)
[2023-05-29 17:30] LABS: ALB/GLOB Ratio 0.9 RATIO (0.9-2.4); AST(SGOT) 18 U/L (15-37); Alanine Aminotransfer ALT/SGPT 24 U/L (13-56); Albumin, Serum 3.6 g/dL (3.2-5.0); Alkaline Phosphatase 115 U/L (45-117); Anion Gap 2 (5-15); BUN 9 mg/dL (7-18); BUN/Creat Ratio 11.6 RATIO (10-20); Chloride 111 mmol/L (98-107); Creatinine, Serum 0.78 mg/dL (0.55-1.02); EST Glomerular Filtration Rate 91 mL/min (>60); Est Glom Filt Rate - Afr Amer 110 mL/min (>60); Globulin 3.9 g/dL (2.2-4.2); Glucose 87 mg/dL (74-106); Potassium 4.2 mmol/L (3.5-5.1); Protein, Total 7.5 g/dL (6.4-8.2); Sodium Level 140 mmol/L (136-145); Thyroid Stim Hormone (TSH) 1.62 uIU/mL (0.358-3.74)
== END | disposition home or self-care (01) ==
LOC: BIMLAB 16:11
PROVIDERS: PCP Internal Medicine; Referring Provider Internal Medicine; Visit Provider Internal Medicine
DX: Z00.00 Encounter for general adult medical examination without abnormal findings (principal)
CPT/HCPCS: 36415; 80053; 84443; 85025

== ENCOUNTER → 2023-06-14 | Outpatient (CLI) | payer MEDICAID, SELFPAY ==
--- NOTE | 2023-06-14 15:41 | US_ITS ---
STUDY: THYROID ULTRASOUND REASON FOR EXAM: Female, 32 years old. nodule TECHNIQUE: Ultrasound evaluation of the thyroid was performed with real-time and static becker-scale imaging. COMPARISON: None. FINDINGS: RIGHT LOBE: The right lobe of the thyroid gland measures 5 x 1.7 cm. There is a homogeneous echotexture. There are no demonstrated solid, cystic or complex lesions. LEFT LOBE: The left lobe of the thyroid gland measures 4.9 x 1.5 cm. There is a homogeneous echotexture. There are no demonstrated solid, cystic or complex lesions. ISTHMUS: The isthmus measures 3.6 mm. US/Thyroid IMPRESSION: There are no acute findings on this ultrasound examination of the thyroid. Electronically Signed: Sen Persaud MD at 15:18 EST ,
[2023-06-14 16:04] LABS: Mucous, Urine 0 SEEN /hpf (<or=2+); Red Blood Cells-Urine 0 SEEN /hpf (0-5)
[2023-06-14 17:14] LABS: Color, Urine Yellow (Yellow); Glucose, Dipstick Normal (Normal); Ketone-Dipstick 5 mg/dl (Negative); Leukocyte Esterase-Dipstick 100 /ul (Negative); Nitrite-Dipstick Positive (Negative); Occult Blood-Urine 10 /ul (Negative); Protein-Dipstick 15 mg/dl (Negative); Urine Bilirubin Dipstick Negative (Negative); Urine Clarity Clear (Clear); Urine Urobilinogen Normal (Normal)
[2023-06-14 17:36] LABS: Bacteria 4+ /hpf (None Seen); Squamous Epithelial Cells - UA 0-5 SEEN /hpf (5-10); White Blood Cells 5-10 SEEN /hpf (0-5)
== END | disposition home or self-care (01) ==
PROVIDERS: PCP Internal Medicine; Referring Provider Internal Medicine; Visit Provider Internal Medicine
DX: Z00.00 Encounter for general adult medical examination without abnormal findings (principal); R10.84 Generalized abdominal pain; E04.1 Nontoxic single thyroid nodule
CPT/HCPCS: 36415; 76536; 81001

== ENCOUNTER 2023-06-24 06:00 | Emergency (ER) | payer MEDICAID, SELFPAY ==
[2023-06-24 06:01] VITALS: BP 109/80; PULSE 103; RESP 16; TEMP 36.1; O2SAT 99; BMI 26.4
--- NOTE | 2023-06-24 06:19 | EX.ED.DYSGE1 ---
HPI History of Present Illness Chief Complaint: Seizure Informant: patient and spouse/S.O. Onset/Context/Timing Onset: Days (3) Context: Sudden Onset Timing: Intermittent Quality: Tonic-clonic activity Location: Generalized Worsened by: Nothing Relieved by: Nothing Narrative Narrative: Patient presents with seizure that occurred today. Patient has had seizures over the past 3 days. Significant other reports that today was the worst 1 that he is ever seen. He describes it as shaking all over and then stiffening up. He states that this lasted for approximately 20 minutes today. He states the patient was unresponsive after this. Patient states that she does not remember any of the events around the seizure. Patient states she is ordered medical marijuana for her seizures. Patient states she does not have $300 to obtain the medical marijuana. Patient states she is not on any other antiepileptics currently. Patient states she has been on Keppra in the past but did not tolerate that well. Patient states she was taken off the Keppra and put on medical marijuana for her seizures. PFSH PFS Medical History Abnormal Pap smear of cervix Biceps tendinitis of right shoulder Depression Seizures Smoker Home Medications Medical Marijuana 1 inhaler inhalation PRN PRN Anxiety 08/24/18 [History Last Taken 03/16/19 08:00] Allergy/AdvReac Type Severity Reaction Status Date / Time hydrocodone bitartrate Allergy Rash Verified 06/24/23 06:06 [From Vicodin] Penicillins Allergy Rash Verified 06/24/23 06:06 Family History (Updated 05/29/23 @ 15:[address] Joan Santiago MD) Grandmother Cancer pancreatic Grandfather Colon cancer Mother Lupus Surgical History delivery delivered H/O dilation and curettage H/O LEEP History of surgical procedure Social History household members: none number of children: 3 current occupational status: unemployed Smoking Status: Current every day smoker tobacco type: cigarettes Electronic Cigarette Use: not used second hand exposure: Yes alcohol intake: current alcohol intake frequency: a few times a week substance use type: former substance user Date of last use: 2022 and marijuana caffeine: Yes what type of physical activity do you participate in: none seatbelt use: always do you feel safe at home: No additional social history: - Patient works at [employer] and [email or web address] ROS ROS ED Constitutional Constitutional ED: Denies chills or fever(s) Eyes Eyes: Denies blurry vision or change in vision ENT ENT ED: Denies rhinorrhea or sore throat Cardiovascular Cardiovascular: Denies chest pain or palpitations Respiratory/Chest Respiratory/Chest: Reports cough; Denies dyspnea Gastrointestinal Gastrointestinal: Denies nausea or vomiting Genitourinary Genitourinary ED: Denies dysuria or hematuria Musculoskeletal Musculoskeletal: Reports neck pain; Denies back pain Integumentary Denies abscess or rash Neurologic Neurologic: Reports headache(s); Denies weakness Allergic/Immunologic Allergic/Immunologic ED: Denies mouth swelling or urticaria EXAM Physical Exam Const Vital Signs: 06/24/23 06:01 Temperature 97 F L Temperature Source Temporal Pulse Rate 103 H Respiratory Rate 16 Blood Pressure 109/80 Blood Pressure Mean 89 Pulse Ox 99 Oxygen Delivery Method Room Air Positive well nourished and well developed General Appearance ED: well developed and NAD HEENT Reports moist mucous membranes HEENT Narrative: There is no evidence of biting her tongue or cheek Neck supple and no JVD Resp normal respiratory effort and clear to auscultation bilaterally Cardio regular rate and regular rhythm GI non-tender and non-distended Palpation: soft Extremity normal to inspection General Extremety ED: Negative for edema or tenderness General Extremity: Negative for edema Neuro oriented x3, CN's II-XII intact bilaterally and no sensory deficits noted Sensorium / Orientation: alert Motor Exam: strength 5/5 throughout MDM MDM MDM Narrative Medical decision making narrative: Differential diagnosis includes medication noncompliance, breakthrough seizure, electrolyte abnormality, and infection. CBC will be obtained to assess for leukocytosis and anemia. Basic metabolic profile will be obtained to assess for electrolyte abnormality and renal function. Urinalysis will be obtained to assess for urinary tract infection. Lab Data Attestation: I reviewed the patient's lab results. Lab results narrative: CBC was reviewed and was within normal limits. Basic metabolic profile was reviewed and was within normal limits. Labs: Laboratory Results - last 24 hr 06/24/23 07:04 WBC 7.2 RBC 4.40 Hgb 13.2 Hct 41.1 MCV 93.4 MCH 30.0 MCHC 32.1 RDW Std Deviation 53.5 H RDW Coeff of Kelly 15.4 H Plt Count 306 MPV 10.5 Immature Gran % (Auto) 0.300 Neut % (Auto) 62.4 Lymph % (Auto) 26.2 [place] % (Auto) 9.3 Eos % (Auto) 1.5 Baso % (Auto) 0.3 Absolute Neuts (auto) 4.5 Absolute Lymphs (auto) 1.89 Nucleated RBC % 0 Sodium 140 Potassium 4.2 Chloride 112 H Carbon Dioxide 25.0 Anion Gap 3 L BUN 9 Creatinine 0.82 Estim Creat Clear Calc 97.11 Est GFR (MDRD) Af Amer 104 Est GFR (MDRD) Non-Af 86 BUN/Creatinine Ratio 11.0 Glucose 125 H Calcium 8.5 Treatment and Re-Evaluation :: Seizure precautions were maintained. Patient was given IV fluids. Patient was sleeping on reevaluation. Patient was advised of her findings. Patient was unable to produce a urine specimen here. Because of this, urinalysis will be canceled. Patient will be instructed to follow-up with her primary care physician in 5 to 7 days. Patient understood and was agreeable with the plan. All questions were answered. Discharge Plan Triage Chief Complaint: Seizure ED Provider: Richard Ochoa Dx/Rx/DC Orders Clinical Impression: Breakthrough seizure, Seizure disorder Instructions: ED Seizure, Recurrent (Adult) Prescriptions: No Action Medical Marijuana 1 inhaler inhalation PRN PRN (Reason: Anxiety) Primary Care Provider: Joan Santiago Referrals: Joan Santiago MD [Primary Care Provider] - 3-5 Days Disposition Disposition: Home, Self Care
--- OUTSIDE RECORDS SUMMARY | 2023-06-24 06:51 | XMS RPT_ITS | CCD ---
Author Name Unknown Address [address] [place] [address] Organization [facility] Care Team Providers Care Fisher Swordfish Name Role Phone Unavailable Primary Care Provider Yvette Walden MD, Richard Gupta Unavailable [phone] Richard Walden MD Unavailable PAMELA FLORES Referring Unavailable PAMELA FLORES Attending Unavailable PAMELA FLORES Referring Unavailable PAMELA FLORES Attending Unavailable Allergies Allergy Classification Reported Allergen(s) Allergy Type Date of Onset Reaction(s) Facility (16 sources) Acetaminophen / HYDROcodone; Translations: [HYDROCODONE-ACET AMINOPHEN] Drug Allergy 9 Nausea And Vomiting, Rash, Itching [place], [place] (2 sources) Penicillins; Translations: [PENICILLINS] Propensity to adverse reactions to drug 9 Rash [place], [place] (15 sources) Nicotine; Translations: [NICOTINE] Drug Allergy 8 [facility] Work Phone: (6 sources) Penicillins Propensity to adverse reactions 9 Itching [facility] Work Phone: (15 sources) Pineapple; Translations: [PINEAPPLE] Propensity to adverse reactions 5 Vomiting [facility] Work Phone: (8 sources) Penicillins Propensity to adverse reactions 9 Itching [facility] Work Phone: Medications Current Medications Medication Drug Class(es) Dates Sig (Normalized) Sig (Original) acetaminophen 500 mg oral tablet (2 sources) Start: 06-14-2019 take 1 tablet by mouth four times daily as needed for pain acetaminophen (TYLENOL) 500 MG tablet Take 1 tablet by mouth 4 times daily as needed for Pain 60 tablet 0 06/14/2019 Active Completed/Discontinued Medications Medication Drug Class(es) Dates Sig (Normalized) Sig (Original) clindamycin 300 mg oral capsule (13 sources) Lincosamide Antibacterial Start: 07-09-2020 End: 11-06-2022 take 1 capsule by mouth four times daily clindamycin (CLEOCIN) 300 mg capsule Take 1 capsule by mouth four times daily. 40 capsule 0 07/09/2020 11/06/2022 Discontinued Problems Active Problems Problem Classification Problem Date Documented Date Episodic/Chronic Anxiety disorders (14 sources) Posttraumatic stress disorder; Translations: [Post-traumatic stress disorder, unspecified] Onset: 08-11-2014 04-17-2021 Chronic Bacterial infection; unspecified site (1 source) Chlamydial infection; Translations: [Chlamydial infection, unspecified] Episodic Contraceptive and procreative management (6 sources) Patient encounter status; Translations: [Encounter for prescription of emergency contraception] Episodic Disorders of teeth and jaw (2 sources) Dental abscess; Translations: [Tooth abscess] Onset: 06-14-2019 06-14-2019 Episodic E Codes: Fall (1 source) Fall; Translations: [Unspecified fall, initial encounter] Episodic Headache; including migraine (14 sources) Migraine without aura; Translations: [Migraine without aura, not intractable, without status migrainosus] 03-16-2008 Chronic Immunizations and screening for infectious disease (1 source) Encounter for screening for infections with a predominantly sexual mode of transmission; Translations: [Screen for STD (sexually transmitted disease)] Onset: 06-14-2023 Episodic Mood disorders (14 sources) Depressive disorder; Translations: [Depression] Onset: 08-11-2014 04-17-2021 Chronic Other complications of ; puerperium affecting management of mother (2 sources) Indication for care AND/OR intervention in labor AND/OR delivery; Translations: [Indication for care in labor or delivery] Onset: 06-12-2019 Resolved: 06-12-2019 06-12-2019 Episodic Other connective tissue disease (1 source) Pain in left foot; Translations: [Pain in left foot] Episodic Other connective tissue disease (2 sources) Pain in right foot; Translations: [Pain in right foot] Episodic Other female genital disorders (2 sources) Vaginal discharge; Translations: [Other specified noninflammatory disorders of vagina] Episodic Other non-traumatic joint disorders (1 source) Acute ankle pain; Translations: [Pain in left ankle and joints of left foot] Episodic Other screening for suspected conditions (not mental disorders or infectious disease) (1 source) Cancer cervix screening status; Translations: [Encounter for screening for malignant neoplasm of cervix] 11-05-2022 Episodic Other skin disorders (2 sources) Localized swelling of right foot; Translations: [Localized swelling, mass and lump, right lower limb] Episodic Other skin disorders (3 sources) Mass of foot; Translations: [Localized swelling, mass and lump, right lower limb] Episodic Previous (2 sources) Vaginal delivery following previous section; Translations: [Vaginal after ] Onset: 06-12-2019 06-12-2019 Episodic Residual codes; unclassified (4 sources) Unprotected sexual intercourse; Translations: [High risk heterosexual behavior] Episodic Residual codes; unclassified (1 source) Uses contraception; Translations: [Other specified health status] Episodic Residual codes; unclassified (1 source) Pain; Translations: [Pain, unspecified] Episodic Substance-related disorders (20 sources) Tobacco user; Translations: [Nicotine dependence, unspecified, uncomplicated] Onset: 03-16-2008 04-17-2021 Chronic Past or Other Problems Problem Classification Problem Date Documented Date Episodic/Chronic Cancer of cervix (1 source) Atypical squamous cells of undetermined significance on cervical Papanicolaou smear; Translations: [Atypical squamous cells of undetermined significance on cytologic smear of cervix (ASC-US)] Onset: 11-15-2022 11-15-2022 Episodic Epilepsy; convulsions (14 sources) Seizure; Translations: [Unspecified convulsions] Onset: 08-11-2014 04-17-2021 Episodic Other complications of (14 sources) Missed miscarriage; Translations: [Missed ] Onset: 12-07-2014 12-07-2014 Episodic Other female genital disorders (14 sources) Cervical intraepithelial neoplasia grade 2; Translations: [Moderate cervical dysplasia] Onset: 01-31-2012 01-31-2012 Episodic Other infections; including parasitic (14 sources) History of gynecological disorder; Translations: [Personal history of other infectious and parasitic diseases] Onset: 11-12-2014 11-12-2014 Episodic Other infections; including parasitic (14 sources) History of chlamydial infection; Translations: [Personal history of other infectious and parasitic diseases] Onset: 11-12-2014 11-12-2014 Episodic Residual codes; unclassified (6 sources) History of uterine cervix surgery; Translations: [Other specified postprocedural states] Onset: 01-31-2012 01-31-2012 Episodic Residual codes; unclassified (8 sources) History of loop electrosurgical excision procedure; Translations: [Other specified postprocedural states] Onset: 01-31-2012 01-31-2012 Episodic Spondylosis; intervertebral disc disorders; other back problems (14 sources) Low back pain; Translations: [Lumbago] Onset: 06-06-2011 06-06-2011 Episodic Syncope (14 sources) Syncope; Translations: [Syncope and collapse] Onset: 08-11-2014 04-17-2021 Episodic Results Test Name Value Interpretation Reference Range Facil ity Vital Signs Date Time Vital Sign Value Performing Clinician Facility 11-05-2022 13:13-0400 Body height 165.1 cm Pamela Flores MD Work Phone: [facility] 11-05-2022 13:13-0400 Body weight 66.5 kg Pamela Flores MD Work Phone: [facility] 11-05-2022 13:13-0400 Diastolic blood pressure 72 mm[Hg] Pamela Flores MD Work Phone: [facility] 11-05-2022 13:13-0400 Systolic blood pressure 118 mm[Hg] Pamela Flores MD Work Phone: [facility] 10-03-2021 09:24-0400 Body temperature 97.59 [degF] Gretta Looney PETROLEUM GEOLOGIST.HOUSE WORKER Work Phone: [facility] 10-03-2021 09:240400 Body weight 69.67 kg Gretta Looney PETROLEUM GEOLOGIST.HOUSE WORKER Work Phone: [facility] 10-03-2021 09:24-0400 Diastolic blood pressure 68 mm[Hg] Gretta Looney PETROLEUM GEOLOGIST.HOUSE WORKER Work Phone: [facility] 10-03-2021 09:24-0400 Heart rate 90 /min Gretta Looney PETROLEUM GEOLOGIST.HOUSE WORKER Work Phone: [facility] 10-03-2021 09:24-0400 Respiratory rate 18 /min Gretta Looney PETROLEUM GEOLOGIST.HOUSE WORKER Work Phone: [facility] 10-03-2021 09:24-0400 SaO2% (BldA) [Mass fraction] 98 % Gretta Looney PETROLEUM GEOLOGIST.HOUSE WORKER Work Phone: [facility] 10-03-2021 09:24-0400 Systolic blood pressure 118 mm[Hg] Gretta Looney PETROLEUM GEOLOGIST.HOUSE WORKER Work Phone: [facility] 08-30-2021 15:34-0400 Body weight 73.21 kg Paemla Flores MD Work Phone: [facility] 08-30-2021 15:34-0400 Diastolic blood pressure 68 mm[Hg] Pamela Flores MD Work Phone: [facility] 08-30-2021 15:34-0400 Systolic blood pressure 102 mm[Hg] Pamela Flores MD Work Phone: [facility] 08-02-2021 15:47-0400 Body weight 74.39 kg Pamela Flores MD Work Phone: [facility] 08-02-2021 15:47-0400 Diastolic blood pressure 64 mm[Hg] Pamela Flores MD Work Phone: [facility] 08-02-2021 15:47-0400 Systolic blood pressure 100 mm[Hg] Pamela Flores MD Work Phone: [facility] 07-30-2021 15:04-0400 Body temperature 98.71 [degF] Gretta Looney PETROLEUM GEOLOGIST.HOUSE WORKER Work Phone: [facility] 07-30-2021 15:04-0400 Body weight 76.11 kg Gretta Looney PETROLEUM GEOLOGIST.HOUSE WORKER Work Phone: [facility] 07-30-2021 15:04-0400 Diastolic blood pressure 68 mm[Hg] Gretta Looney PETROLEUM GEOLOGIST.HOUSE WORKER Work Phone: [facility] 07-30-2021 15:04-0400 Heart rate 65 /min Gretta Looney PETROLEUM GEOLOGIST.HOUSE WORKER Work Phone: [facility] 07-30-2021 15:04-0400 Respiratory rate 21 /min Gretta Looney PETROLEUM GEOLOGIST.HOUSE WORKER Work Phone: [facility] 07-30-2021 15:04-0400 SaO2% (BldA) [Mass fraction] 98 % Gretta Looney PETROLEUM GEOLOGIST.HOUSE WORKER Work Phone: [facility] 07-30-2021 15:04-0400 Systolic blood pressure 118 mm[Hg] Gretta Looney PETROLEUM GEOLOGIST.HOUSE WORKER Work Phone: [facility] 07-26-2021 14:06-0400 Body weight 74.66 kg Pamela Flores MD Work Phone: [facility] 07-26-2021 14:06-0400 Diastolic blood pressure 72 mm[Hg] Pamela Flores MD Work Phone: [facility] 07-26-2021 14:06-0400 Systolic blood pressure 118 mm[Hg] Pamela Flores MD Work Phone: [facility] 06-14-2019 10:32-0500 Body Temperature 98.01 [degF] [facility] [place] 06-14-2019 10:32-0500 BP Diastolic 80 mm[Hg] Gifty [employer] [facility] , [place] 06-14-2019 10:32-0500 BP Systolic 112 mm[Hg] [facility]ifty [employer] [facility] , [place] 06-14-2019 10:32-0500 Pulse (Heart Rate) 80 /min [employer] [employer] [facility], [place] 06-14-2019 10:32-0500 Pulse Oximetry 98 % [facility] , [place] 06-14-2019 10:32-0500 Respiratory Rate 20 /min [facility] [place] 06-12-2019 17:09-0500 BMI (Body Mass Index) 31.28 kg/m2 [facility] [place] 06-12-2019 17:090500 Body weight 85.28 kg Gifty Vieira [place], [place] 06-12-2019 17:09-0500 Height 165.1 cm Gifty Vieira [place] Encounters Encounter Date Encounter Type Care Provider Facility Start: 06-14-2023 End: 06-15-2023 ambulatory [facility] Facility:[facility] Start: 06-13-2023 End: 06-13-2023 ambulatory [facility] Facility:[facility] Start: 06-11-2023 Telephone encounter Monse Nneka elias APRN.CNP Work Phone: OB/Gynecology Procedures Date Procedure Procedure Detail Performing Clinician Start: 11-05-2022 BACTERIAL VAGINOSIS NAAT Pamela Flores MD Work Phone: Start: 11-05-2022 Iadna trichomonas vaginalis amplified probe tech Pamela Flores MD Work Phone: Start: 11-05-2022 Urine test visual color cmprsn allan Flores MD Work Phone: Start: 02-02-2022 Mri lower extrem oth /thn jt w/o & w/contr matr Gerardo Sadners Work Phone: Start: 01-11-2022 End: 01-11-2022 Radex ankle complete minimum 3 views Gerardo Sanders Work Phone: Start: 08-30-2021 Urine test visual color cmprsn allan Flores MD Work Phone: Start: 06-12-2019 Iadna multiple organ isms direct probe tq Gifty Vieira Work Phone: Start: 06-12-2019 MEDICATION ASSISTED TREATMENT PANEL Vy Chiu Work Phone: Start: 06-12-2019 Blood typing serologic abo Priti De La Rosa Work Phone: Start: 06-12-2019 Blood count complete automated Bita Pacheco Work Phone: Plan of Treatment Date Care Activity Detail Author Start: 06-14-2029 DTaP/Tdap/Td vaccine (2 - Td) DTaP/Tdap/Td vaccine (2 - Td) [place], [place] Start: 06-14-2029 Urine microalbumin profile DTaP,Tdap,Td Vaccine (3 - Td or Tdap) [facility] Start: 11-06-2027 Screening for malignant neoplasm of cervix [facility] Start: 05-24-2026 HPV TESTING HPV TESTING [facility] Start: 05-24-2026 PAP TESTING PAP TESTING [facility] Start: 12-21-2022 Influenza vaccination [facility] Start: 12-21-2021 Influenza vaccination [facility] Start: 07-15-2019 End: 07-15-2019 Visit 07/15/2019 Visit Obstetrics and Gynecology Vy Chiu MD [address] [place] [address] [address] [place] [address] [facility] Start: 08-12-2015 PNEUMOCOCCAL (2 - PCV) PNEUMOCOCCAL (2 - PCV) [facility] Start: 08-12-2015 Pneumococcal vaccination Pneumococcal Vaccine (2 of 2 - PCV) [facility] Start: 2010 Cervical cancer screen Cervical cancer screen [place], [place] Start: 2008 Urine microalbumin profile DTAP,TDAP,TD (1 - Tdap) [facility] Start: 2004 HIV screen HIV screen [place], [place] Start: 1994 COVID-19 VACCINE (#1) COVID-19 VACCINE (#1) [facility] Start: 1994 COVID-19 VACCINE (1) COVID-19 VACCINE (1) [facility] Start: 1990 Varicella vaccine (1 of 2 - 2-dose childhood series) Varicella vaccine (1 of 2 - 2-dose childhood series) [place], [place] Start: 06-25-1990 COVID-19 VACCINE (#1) COVID-19 VACCINE (#1) [facility] Start: 1989 HEPATITIS B (1 of 3 - 3-dose series) HEPATITIS B (1 of 3 - 3-dose series) [facility] Start: 1989 Hepatitis B Vaccine (1 of 3 - 3-dose series) Hepatitis B Vaccine (1 of 3 - 3-dose series) [facility] End: 06-12-2019 C. Trachomatis / N. Gonorrhoeae, DNA Probe C. Trachomatis / N. Gonorrhoeae, DNA Probe Microbiology Add-On One Time for 1 Occurrences starting 06/12/2019 until 06/12/2019 [place], [place] Immunizations Immunization Date Immunization Notes Care Provider Fa cility 06-14-2019 tetanus toxoid, redu yenny diphtheria toxoid, and acellular pertussis vaccine, adsorbed [place] 06-13-2019 influenza, injectabl e, quadrivalent, preservative free [place] 06-13-2019 influenza quadrivale nt split vaccine (FLUZONE;FLUARIX;FLULAV AL;AFLURIA) injection 0.5 mL [place] 06-13-2019 influenza virus vaccine, unspecified formulation Monse Bowman APRN.CNP Work Phone: [facility] 06-12-2019 diphtheria, tetanus toxoids and acellular pertussis vaccine, unspecified formulation [place], [place] 06-12-2019 measles, mumps and rubella virus vaccine [place] 01-29-2015 influenza, injectabl e, quadrivalent, contains preservative Pamela Flores MD Work Phone: [facility] 08-11-2014 pneumococcal polysaccharide vaccine, 23 valent Pamela Flores MD Work Phone: [facility] 02-09-2012 influenza virus vaccine, live, attenuated, for intranasal use Pamela Flores MD Work Phone: [facility] 03-08-2009 influenza virus vaccine, unspecified formulation Pamela Flores MD Work Phone: [facility] 03-08-2009 novel [id number], all formulations Pamela Flores MD Work Phone: [facility] 03-16-2008 human papilloma viru s vaccine, quadrivalent Pamela Flores MD Work Phone: [facility] 03-16-2008 influenza virus vaccine, unspecified formulation Pamela Flores MD Work Phone: [facility] 06-10-2007 human papilloma viru s vaccine, quadrivalent Pamela Flores MD Work Phone: [facility] 04-09-2007 human papilloma viru s vaccine, quadrivalent Pamela Flores MD Work Phone: [facility] Work Phone: 03-06-2007 influenza virus vaccine, unspecified formulation Pamela Flores MD Work Phone: [facility] Work Phone: NEGATED: Highlighted row has not occurred!06-14-2019 measles, mumps and rubella virus vaccine Gifty[employer]on Vieira [place] Payers Date Payer Category Payer Medicaid [id number] 2022 Medicaid [id number] 2017 Medicaid [facility] [id number] 2017-Present [phone] [address] [place] [address] Medicaid [id number] 2017 Medicaid [id number] Social History Date Type Detail Facility Start: 06-12-2019 End: 11-05-2022 Tobacco smoking status NHIS Current every day smoker [facility] History of tobacco use Cigarette Smoker M [place], [place] Start: 06-12-2019 End: 11-05-2022 Cigarettes smoked current (pack per day) - Reported [place], [place] Start: 06-12-2019 Alcohol intake Lifetime non-d eden (finding) [place] Start: 06-12-2019 History SDOH Alcohol Frequency 1 [place], [place] Start: 09-16-2018 [place], [place] Sex Assigned At Not on file [place] Start: 05-03-2014 End: 11-05-2022 Tobacco use and exposure Smokeless tobacco non-user [facility] Start: 07-26-2021 End: 05-04-2023 Alcohol intake Current drinker of alcohol (finding) [facility] Start: 09-29-2010 Tobacco Comment 5cigarettes per day [facility] Start: 1989 Sex Assigned At Female C [facility] Start: 07-16-2021 End: 01-14-2022 Exposure to SARS-CoV-2 (event) Not sure [facility] Work Phone: Start: 11-05-2022 Tobacco use panel [facility] National Score (1-10 0), lower number is lower risk 92 [facility] Start: 01-16-2020 Gender identity Identifies as female gender (finding) [facility] Start: 01-16-2020 Sexual orientation Choose not to dis close [facility] Start: 01-16-2020 Sexual orientation Heterosexual (fin ding) [facility] Clinical Notes 11-12-2014 to 06-13-2023 Telephone Encounter - Jana Presley RN - 06/11/2023 2:40 PM ESTTelephone Encounter - Monse Bowman APRN.CNP - 06/11/2023 2:33 PM ESTTelephone Encounter - Tamela Betts RN - 11/06/2022 2:30 PM EDT Note Date & Type Note Facility 06-13-2023 Note HNO ID: [id number] Author: PAMELA FLORES MD Service: ? Author Type: Physician Type: Progress Notes Filed: 06/17/2023 09:17 Note Text: Tuan Doll is a 32 year old female who presents for problem visit - vaginal odor. HPI: Noticing a vaginal odor. New female sexual partner. Desires STD testing. Has Paragard IUD that was inserted for emergency contraception. Has had irregular bleeding and pain since insertion and requests to have IUD removed. 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 Dysthymic disorder Depression (non-psychotic) Migraine without aura, without mention of intractable migraine without mention of status migrainosus PMH - PAST MEDICAL HISTORY OF ABCESSED TOOTH Pyelonephritis, unspecified 1997 hospitalized Seizure (HCC) Trauma Wheezing likely asthma PAST SURGICAL HISTORY Procedure Laterality Date DELIVERY ONLY COLPOSCOPY CERVIX UPPER/ADJACENT VAGINA 07/29/2006 Colposcopy COLPOSCOPY CERVIX UPPER/ADJACENT VAGINA 11/06/2007 CONIZATION CERVIX W/WO DANDC RPR ELTRD EXC 02/03/08,2009 LEEP INSERT INTRAUTERINE DEVICE 04/16/2007 Mirena INSERTION OF IUD 10/2022 paragard PAST SURGICAL HISTORY OF Bladder surgery at age 7 FAMILY HISTORY Problem Relation Age of Onset Alcohol/Drug Mother other (lupus) Mother other (cornea transplant) Mother Asthma Brother Arthritis Maternal Grandmother Cancer Maternal Grandmother pancreatic CA - age 72 Cancer Paternal Grandfather LUNG CANCER Colon Cancer Paternal Grandfather age 50's Cancer Maternal Uncle Social History Tobacco Use Smoking status: Every Day Packs/day: 0.50 Years: 12.00 Additional pack years: 0.00 Total pack years: 6.00 Types: Cigarettes Smokeless tobacco: Never Vaping Use Vaping Use: Some days Substance Use Topics Alcohol use: Yes Comment: only on occassion,NOT WHILE Drug use: Yes Types: Marijuana, Cocaine Comment: medical Current Outpatient Medications Medication Sig copper (PARAGARD) 380 square mm intrauterine device 1 Intra Uterine Device by INTRAUTERINE route as directed. metroNIDAZOLE (FLAGYL) 500 mg tablet Take 1 tablet by mouth two times a day for 7 days. No current facility-administered medications for this visit. Allergies As of Date: 06/13/2023 Allergen Noted Reaction NICOTINE 03/16/2008 PENICILLINS 09/07/2008 Itching PINEAPPLE 12/22/2004 Vomiting VICODIN [HYDROCODONE-ACETAMINOPHE*2008 Itching Fully Assessed 06/13/2023 REVIEW OF SYSTEMS Expanded ROS: N/A Allergies and current medication updated:Yes EXAM: BP 110/68 Wt 157 lb (71.2kg) GENERAL: pleasant, female in no apparent distress HEENT: Normocephalic and atraumatic NECK: full range of motion DERMATOLOGY: Normal and without lesions CHEST: Normal inspiratory effort ABDOMEN: soft, non-tender, and no masses PELVIC: external genitalia normal, normal Bartholin's glands, urethra, Malcom's glands, no vulvar lesions, no cervical lesions, good vaginal support, normal appearing perineal body and perianal region, retained tampon sitting in upper half of vagina, brown watery discharge noted and vaginal odor NEURO: exam grossly non-focal EXTREMITIES: normal ASSESSMENT AND PLAN: Encounter Diagnosis ICD-10-CM 1. Screen for STD (sexually transmitted disease) Z11.3 GONORRHEA/CHLAMYDIA NAAT SYPHILIS TOTAL W/REFLEX HIV 1 2 COMBO(AG/AB),WITH REFLEX TO DIFFERENTIATION HEPATITIS C ANTIBODY IA WITH CONFIRMATION HEP B SURF AG SCRN NORM/TRICHOMONAS NAAT BACTERIAL VAGINOSIS NAAT 2. Abnormal uterine bleeding (AUB) N93.9 3. IUD check up Z30.431 4. Pelvic pain in female R10.2 5. Vaginal odor N89.8 6. Retained tampon, initial encounter T19.2XXA W44.8XXA Patient presents with pain, DUB, and vaginal odor. Retained tampon noted and removed on exam. Check BV, yeast. STD screening ordered. Reviewed safe sex practices. Discussed pain and DUB could be from retained tampon. No evidence of PID. Patient requests IUD removal and understands she could become . DO Tuan German presents for removal of IUD due to irregular bleeding. UNIVERSAL PROTOCOL / SAFETY CHECKLIST Procedure to be Performed: IUD removal Sign In: A Moment of CARE was completed. Personnel directly involved with the procedure wore the appropriate PPE (Personal Protective Equipment). Patient/Surrogate Stated/Verified: PATIENT VERIFIED(optional for EMERGENT procedures): Patient (more content not included)... [facility] 06-11-2023 Miscellaneous Notes Linked to appointment and preaccess department emailed regarding prior auth. Jana Presley RN Order filed. Monse Bowman APRN.MONA Patient is scheduled with SW 06/13/23 for pain with intercourse and bleeding most days since IUD was inserted 10/2022. She is possibly wanting IUD removed. Can you file order in SW's absence? Then we can get authorization if provider does choose to proceed with that after talking to the patient. Jana Presley RN documented in this encounter [facility] 11-07-2022 Miscellaneous Notes Mychart message read by pt. Janae Lizama LPN' Attempted to contact pt via phone. Unable to leave message on either number listed. [facility] message with results and instructions. Will await further response from pt. Janae Lizama LPN Attempted to reach patient by phone. voicemailbox not set up-unable to leave message and the other one I am unable to leave a message. BV positive. To treat with Flagyl 500mg PO BID for 7 days. 1) No alcohol during treatment and for 24 hours after last dose. 2) No intercourse during treatment. 3) Probiotic by mouth once daily for 30 days or as needed. +yeast - Diflucan sent Monse Bowman APRN.MONA documented in this encounter [facility] 11-05-2022 Note HNO ID: [id number] Author: Pamela Flores MD Service: ? Author Type: Physician Type: Progress Notes Filed: 11/05/2022 2:57 PM Note Text: Rough Rib Grader offered: Patient declines. Tuan is a 31 year old who presents for an annual gynecologic exam without complaints. Diffuse abdominal pain for months. Diarrhea that comes and goes. Unprotected intercourse 2-3 days ago. Does not desire . Menses: regular monthly menstrual cycles Contraception: none HPV vaccine: Yes Last Pap: 06/02/2021 abnormal, ASCUS HPV: 05/29/2021 negative History of abnormal pap: Yes Last mammogram: never Sexually active: Yes. Male partner currently Last sexual contact: 2-3 days ago Time with current partner: on and off for a few years She is concerned regarding as she does not desire at this time OB History T4 L4 SAB2 IAB0 Ectopic0 Multiple0 Live Births4 Comment: vaginal delivery x 2, x 1 Gyro Compass Tester History LMP: 10/20/2022, Having periods Age at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 UPPER/ADJACENT VAGINA 11/06/2007 CONIZATION CERVIX W/WO D&C RPR ELTRD EXC 02/03/08,2009 LEEP INSERT INTRAUTERINE DEVICE 04/16/07 Mirena PAST SURGICAL HISTORY OF Bladder surgery at age 7 ALLERGIES Nicotine, Penicillins, Pineapple, and Vicodin [Hydrocodone-Acetaminophen] MEDICATIONS Etonogestrel-Ethinyl Estradiol (NUVARING) 0.12-0.015 mg/24 hr vaginal ring Use 1 Each vaginally as directed. INSERT ONE(1) RING VAGINALLY AND LEAVE IN PLACE FOR THREE WEEKS, THEN REMOVE FOR 1 WEEK. miSOPROStol (CYTOTEC) 200 mcg tablet Use 4 tablets vaginally as directed. place 4 tabs vaginally, repeat in 24- 48 hrs if no results from first dose clindamycin (CLEOCIN) 300 mg capsule Take 1 capsule by mouth four times daily. Lactobacillus acidophilus (FLORAJEN ACIDOPHILUS) 460 mg (20 billion cell) cap Take 1 capsule by mouth once daily. FAMILY HISTORY Problem Relation Age of Onset Alcohol/Drug Mother other (lupus) Mother other (cornea transplant) Mother Asthma Brother Arthritis Maternal Grandmother Cancer Maternal Grandmother pancreatic CA - age 72 Cancer Paternal Grandfather LUNG CANCER Colon Cancer Paternal Grandfather age 50's Cancer Maternal Uncle Social History Tobacco Use Smoking status: Current Every Day Smoker Packs/day: 0.50 Years: 12.00 Pack years: 6.00 Types: Cigarettes Smokeless tobacco: Never Used Vaping Use Vaping Use: Some days Substance Use Topics Alcohol use: Yes Comment: only on occassion,NOT WHILE Drug use: Yes Types: Marijuana, Cocaine Comment: not currently using Review of Systems Constitutional: Negative for activity change, appetite change, chills and fever. HENT: Negative for congestion, ear pain, sneezing and sore throat. Eyes: Negative for pain, discharge, redness and itching. Respiratory: Negative for cough, chest tightness and shortness of breath. Cardiovascular: Negative for chest pain, palpitations and leg swelling. Gastrointestinal: Negative for abdominal pain, bowel incontinence, constipation, diarrhea, nausea and vomiting. Endocrine: Negative for cold intolerance and heat intolerance. Genitourinary: Negative for difficulty urinating, flank pain and hematuria. Musculoskeletal: Positive for gait problem. Negative for arthralgias, back pain, joint swelling, myalgias, neck pain and neck stiffness. Points to pain on the top of the left root with radiation to ankle. Skin: Negative for color change, pallor, rash and wound. Allergic/Immunologic: Negative for environmental allergies, food allergies and immunocompromised state. Neurological: Negative for dizziness, tingling, tremors, seizures, loss of consciousness, syncope, speech difficulty, weakness, light-headedness, numbness and headaches. Psychiatric/Behavioral: Negative for agitation, behavioral problems and confusion. Objective BP 118/68 Pulse 90 Temp 36.4 C (97.6 F) Resp 18 Wt 69.7 kg (153 lb 9.6 oz) LMP 08/29/2021 SpO2 98% BMI 24.79 kg/m Physical Exam Vitals and nursing note reviewed. Constitutional: General: She is not in acute distress. Appearance: Normal appearance. She is normal weight. She is not ill-appearing, toxic-appearing or diaphoretic. HENT: Head: Normocephalic. Right Ear: Tympanic membrane, ear canal and external ear normal. There is no impacted cerumen. Left Ear: Tympanic membrane, ear canal and external ear normal. There is no impacted cerumen. Nose: Nose normal. No congestion or rhinorrhea. Mouth/Throat: Mouth: Mucous membranes are moist. Pharynx: No oropharyngeal exudate or posterior oropharyngeal erythema. Eyes: General: No scleral icterus. Right eye: No discharge. Left eye: No discharge. Extraocular Movements: Extraocular movements intact. Conjunctiva/sclera: Conjunctivae normal. Pupils: Pupils are equal, round, and reactive to light. Cardiovascular: Rate and Rhythm: Normal rate and regular rhythm. Pulses: Normal pulses. Heart sounds: Normal heart sounds. Pulmonary: Effort: Pulmonary effort is normal. No respiratory distress. Breath sounds: Normal breath sounds. No wheezing or rales. Abdominal: General: Abdomen is flat. Bowel sounds are normal. There is no distension. Palpations: Abdomen is soft. There is no mass. Tenderness: There is no abdominal tenderness. Hernia: No hernia is present. Musculoskeletal: General: Tenderness and signs of injury present. No swelling or deformity. Cervical back: Normal range of motion. No rigidity or tenderness. Right lower leg: No edema. Left lower leg: Edema present. Comments: Pain located in left dorsal foot and anterolateral ankle. Mild lateral swelling noted to just below malleolus. Pain Increases with ROM and weight bearing. No obvious injury noted. Skin intact. Denies tibial plateau pain on palpation. +neuro +sensation DP + 2 B/L Skin: General: Skin is warm and dry. Capillary Refill: Capillary refill takes less than 2 seconds. Coloration: Skin is not jaundiced or pale. Findings: No erythema or rash. Neurological: General: No focal deficit present. Mental Status: She is alert. Sensory: No sensory deficit. Motor: No weakness. Psychiatric: Mood and Affect: Mood normal. Behavior: Behavior normal. Thought Content: Thought content normal. Judgment: Judgment normal. Assessment and Plan ASSESSMENT/PLAN: 1. Fall, initial encounter - ICD9: E888.9, ICD10: W19.XXXA (primary diagnosis) Occurred yesterday Mechanical Pain in left ankle and foot No red flags. - XR FOOT GENERAL 3V AP/LAT/OBL LEFT - XR ANKLE GENERAL 3V AP/LAT/OBL LEFT 2. Acute left ankle pain - ICD9: 719.47, ICD10: M25.572 - XR ANKLE GENERAL 3V AP/LAT/OBL LEFT Xray negative for fracture or dislocation MICHELLE wrap and air cast applied. RICE therapy information given Education given about OTC pain medications 3. Foot pain, left - ICD9: 729.5, ICD10: M79.672 - XR FOOT GENERAL 3V AP/LAT/OBL LEFT Negative for fracture or dislocation MICHELLE wrap and air cast applied. RICE therapy information given Education given about OTC pain medications Ashley King TEACHING PROVIDER (Physician/PA/PETROLEUM GEOLOGIST) NOTE OF PERSONAL INVOLVEMENT IN CARE: I have personally seen and examined the patient and performed the medical decision-making components. I have reviewed the Advanced Practice Registered Nurse (PETROLEUM GEOLOGIST) Student's documentation and verified the findings in the note as written. Any additions or changes are noted in bold/italics. Signature: Gretta Looney Date: 10/03/2021 Time: 11:25 AM documented in this encounter [facility] 05-25-2022 Miscellaneous Notes Patient notified. Jana Presley RN 2nd attempt. Left message for patient to call office. Jana Presley RN Left message for patient to call office. Jana Presley RN Kari order filed. However, if using nuvaring properly since July does not need emergency contraception. Corie Miramontes MD SW patient calling to request a prescription for Kari. On the Nuvaring, but just started this new contraception in July. States the condom broke during intercourse on Saturday. Patient uses [facility] in [place]. Patient prefers the medication Kari, but agreeable to Plan B if provider chooses. Please advise. Izzy Spence RN documented in this encounter [facility] 08-30-2021 History of Presen t illness Narrative Tuan Doll is a 30 year old female who presents for problem visit - control follow up. HPI: Doing well with NuvaRing. Has no complaints. 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 Dysthymic disorder Depression (non-psychotic) Migraine without aura, without mention of intractable migraine without mention of status migrainosus PMH - PAST MEDICAL HISTORY OF ABCESSED TOOTH Pyelonephritis, unspecified 1997 hospitalized Seizure (HCC) Trauma Wheezing likely asthma PAST SURGICAL HISTORY Procedure Laterality Date DELIVERY ONLY COLPOSCOPY CERVIX UPPER/ADJACENT VAGINA 07/29/2006 Colposcopy COLPOSCOPY CERVIX UPPER/ADJACENT VAGINA 11/06/2007 CONIZATION CERVIX W/WO D&C RPR ELTRD EXC 02/03/08,2009 LEEP INSERT INTRAUTERINE DEVICE 04/16/07 Mirena PAST SURGICAL HISTORY OF Bladder surgery at age 7 FAMILY HISTORY Problem Relation Age of Onset Alcohol/Drug Mother other (lupus) Mother other (cornea transplant) Mother Asthma Brother Arthritis Maternal Grandmother Cancer Maternal Grandmother pancreatic CA - age 72 Cancer Paternal Grandfather LUNG CANCER Colon Cancer Paternal Grandfather age 50's Cancer Maternal Uncle Social History Tobacco Use Smoking status: Current Every Day Smoker Packs/day: 0.50 Years: 12.00 Pack years: 6.00 Types: Cigarettes Smokeless tobacco: Never Used Vaping Use Vaping Use: Some days Substance Use Topics Alcohol use: Yes Comment: only on occassion,NOT WHILE Drug use: Yes Types: Marijuana, Cocaine Comment: not currently using Current Outpatient Medications Medication Sig Etonogestrel-Ethinyl Estradiol (NUVARING) 0.12-0.015 mg/24 hr vaginal ring Use 1 Each vaginally as directed. INSERT ONE(1) RING VAGINALLY AND LEAVE IN PLACE FOR THREE WEEKS, THEN REMOVE FOR 1 WEEK. miSOPROStol (CYTOTEC) 200 mcg tablet Use 4 tablets vaginally as directed. place 4 tabs vaginally, repeat in 24- 48 hrs if no results from first dose (Patient not taking: Reported on 05/24/2021 ) clindamycin (CLEOCIN) 300 mg capsule Take 1 capsule by mouth four times daily. (Patient not taking: Reported on 05/24/2021 ) Lactobacillus acidophilus (FLORAJEN ACIDOPHILUS) 460 mg (20 billion cell) cap Take 1 capsule by mouth once daily. (Patient not taking: Reported on 05/24/2021 ) No current facility-administered medications for this visit. Allergies As of Date: 08/30/2021 Allergen Noted Reaction NICOTINE 03/16/2008 PENICILLINS 09/07/2008 Itching PINEAPPLE 12/22/2004 Vomiting VICODIN [HYDROCODONE-ACETAMINOPHE*2008 Itching Fully Assessed 08/30/2021 REVIEW OF SYSTEMS Expanded ROS: N/A Allergies and current medication updated:Yes EXAM: BP 102/68 Wt 161 lb 6.4 oz (73.2kg) LMP 08/28/2021 GENERAL: pleasant, female in no apparent distress CHEST: Normal inspiratory effort NEURO: exam grossly non-focal EXTREMITIES: normal ASSESSMENT AND PLAN: Encounter Diagnosis ICD-10-CM 1. Unprotected sexual intercourse Z72.51 HCG QUAL UR B/O 2. Uses control Z78.9 test negative today. Doing well on NuvaRing. RTO annual exams and PRN. Pamela Flores DO Medical Decision Making: Data: Unique test(s) ordered: 1 Risk: Low: Low risk from testing/treatment Medical Decision Making Level: 2 - Straightforward documented in this encounter [facility] 08-02-2021 History of Presen t illness Narrative CONTRACEPTION Tuan Doll is a 30 year old who presents today for contraception. Patient's last menstrual period was 07/14/2021.. HPI: Dysmenorrhea Yes Heavy menses Yes Irregular menses Yes Menstrual cycles are every 35 days. Bleeding will last 7 days. SUBJECTIVE Sexually active: Yes. New male partner - unprotected intercourse on 07/28/21 Smoking Yes 10 cigarettes a day Last PAP 06/02/2021 Method of control: Took Kari about 2 days ago. She took it 3 days after unprotected intercourse. Methods tried previously: oral contraceptives - could not remember to take it, IUD - pain, patch - she states she got on this, Nexplanon - reports it made her arm go numb, NuvaRing with no side effects Patient currently interested in: Nuvaring Interested in in the next 3 years? No Date of last test: Not applicable Date of last STD testing? 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 disorder Depression (non-psychotic) Migraine without aura, without mention of intractable migraine without mention of status migrainosus PMH - PAST MEDICAL HISTORY OF ABCESSED TOOTH Pyelonephritis, unspecified 1997 hospitalized Seizure (HCC) Trauma Wheezing likely asthma PAST SURGICAL HISTORY Procedure Laterality Date DELIVERY ONLY COLPOSCOPY CERVIX UPPER/ADJACENT VAGINA 07/29/2006 Colposcopy COLPOSCOPY CERVIX UPPER/ADJACENT VAGINA 11/06/2007 CONIZATION CERVIX W/WO D&C RPR ELTRD EXC 02/03/08 LEEP INSERT INTRAUTERINE DEVICE 04/16/07 Mirena PAST SURGICAL HISTORY OF Bladder surgery at age 7 FAMILY HISTORY Problem Relation Age of Onset Alcohol/Drug Mother other (lupus) Mother other (cornea transplant) Mother Asthma Brother Arthritis Maternal Grandmother Cancer Maternal Grandmother pancreatic CA - age 72 Cancer Paternal Grandfather LUNG CANCER Colon Cancer Paternal Grandfather age 50's Cancer Maternal Uncle SOCIAL HISTORY Social History Tobacco Use Smoking status: Current Every Day Smoker Packs/day: 0.50 Years: 12.00 Pack years: 6.00 Types: Cigarettes Smokeless tobacco: Never Used Vaping Use Vaping Use: Some days Substance Use Topics Alcohol use: Yes Comment: only on occassion,NOT WHILE Drug use: Yes Types: Marijuana, Cocaine Comment: not currently using PAST SURGICAL HISTORY Procedure Laterality Date DELIVERY ONLY COLPOSCOPY CERVIX UPPER/ADJACENT VAGINA 07/29/2006 Colposcopy COLPOSCOPY CERVIX UPPER/ADJACENT VAGINA 11/06/2007 CONIZATION CERVIX W/WO D&C RPR ELTRD EXC 02/03/08 LEEP INSERT INTRAUTERINE DEVICE 04/16/07 Mirena PAST SURGICAL HISTORY OF Bladder surgery at age 7 Current Outpatient Medications Medication Sig Etonogestrel-Ethinyl Estradiol (NUVARING) 0.12-0.015 mg/24 hr vaginal ring Use 1 Each vaginally as directed. INSERT ONE(1) RING VAGINALLY AND LEAVE IN PLACE FOR THREE WEEKS, THEN REMOVE FOR 1 WEEK. miSOPROStol (CYTOTEC) 200 mcg tablet Use 4 tablets vaginally as directed. place 4 tabs vaginally, repeat in 24- 48 hrs if no results from first dose (Patient not taking: Reported on 05/24/2021 ) clindamycin (CLEOCIN) 300 mg capsule Take 1 capsule by mouth four times daily. (Patient not taking: Reported on 05/24/2021 ) Lactobacillus acidophilus (FLORAJEN ACIDOPHILUS) 460 mg (20 billion cell) cap Take 1 capsule by mouth once daily. (Patient not taking: Reported on 05/24/2021 ) No current facility-administered medications for this visit. Allergies As of Date: 08/02/2021 Allergen Noted Reaction NICOTINE 03/16/2008 PENICILLINS 09/07/2008 Itching PINEAPPLE 12/22/2004 Vomiting VICODIN [HYDROCODONE-ACETAMINOPHE*2008 Itching Fully Assessed 08/02/2021 OBJECTIVE: General Appearance: Well appearing, alert, in no acute distress Skin: Color normal, No lesions noted Chest: No increased resp effort Psych: Mood appropriate ASSESSMENT/PLAN: control counseling All contraceptive options were discussed with the patient. R/B/A explained. All questions answered. Pt understands risks including but not limited to increased risk of breast cancer, blood clots and stroke. She desires to start nuvaring. Understands she cannot take estrogen containing control over age 34 given smoker and risk of stroke. Rx sent in. Reviewed proper use. Recommend condom use as ewll. Discussed there is a chance she could become given unprotected intercourse and reviewed efficacy of Kari. RTO 1 month for follow up and preg test at that time. Recommend establishing with PCP. Pamela Flores DO Medical Decision Making: Problems: Minimal: Self-limited or minor problem Low: Stable chronic illness Data: Unique source(s) for external note(s) reviewed: 1 Risk: Moderate: Drug management Medical Decision Making Level: 3 - Low documented in this encounter [facility] 07-30-2021 Instructions Gretta Looney APRN.[facility] - 07/30/2021 3:23 PM EDT [facility] [address] [place], [place] [address] Emergency Department Diagnosis: Assessment SAFER SEX: Your doctor wants you to have this information about the infections that can be transmitted from sexual contact and how to prevent them. The idea behind safer sex is that you can be sexually active and at the same time reduce the risk of giving or getting a sexually transmitted disease (STD). STD s are transmitted by sharing body fluids which harbor viruses or bacteria. Semen, urine, blood and vaginal mucous can all transmit infections during sex. Examples of sexually transmitted infections include chlamydia, gonorrhea, herpes, hepatitis, genital warts and AIDS. Sexual diseases often cause few or no symptoms until they are advanced, so a person can be infected and spread the infection without knowing it. You never become immune to sexual diseases. Some STD s respond to treatment very well, others, like AIDS and herpes, cannot be cured, but are treated to reduce their effects. Being careful cannot eliminate all risk of infection, but sex can be made much safer. Safe sexual practices include hugging, body massage, and gentle touching. Masturbation is safe as long as body fluids do not contact any skin that has sores or cuts. Dry kissing and oral sex on a man wearing a latex condom or on a woman wearing a female condom is also safe. Slightly less safe is intercourse while the man wears a latex condom and wet kissing. Alcohol and recreational drugs are often the reason given for not practicing safer sex. These substances affect not only your judgment, but also impair your immune system, making you more vulnerable to disease. Risky and dangerous sexual practices include vaginal or anal sex without a condom, oral sex on a man without a condom, oral sex on a woman without a female condom, using saliva to lubricate a condom, or any other sexual contact in which body fluids or blood from one partner contacts the other. You should use only latex condoms and water soluble lubricants like K-Y jelly. Vaseline or oils used to lubricate a condom will weaken the condom and increase the chance it will break. Use spermacide gel that contains at least 5% Nonoxynol-9 along with the condom; this reduces the risk of as well as transmitting the AIDS virus. Think very carefully before having sex with anyone who is high risk for STD and AIDS. These include IV drug users, people with multiple sexual partners, or those that have had a positive HIV blood test. documented in this encounter [facility] 04-10-2022 History of Presen t illness Narrative This note was created using [employer]. Subjective Tuan Doll is a 30 year old female. 30 year old female with PMH asthma, migraine, PTSD presents requesting emergency contraceptive. Acute onset of unprotected sex Saturday evening. LMP-July 14. She is scheduled to start control next week. I just need to do the responsible thing Endorses that she is not in a relationship with her sexual partner. The history is provided by the patient. No languages and literature instructor was used. Female Gu Problem This is a new problem. The current episode started 2 days ago. The onset was sudden. The problem occurs continuously. The problem has been unchanged. The patient is experiencing no pain. Nothing relieves the symptoms. Nothing aggravates the symptoms. Pertinent negatives include no chest pain, no anorexia, no chills, no fever, no abdominal pain, no constipation, no diarrhea, no nausea, no vomiting, no dysuria, no frequency, no hematuria, no pelvic pain, no urgency, no vaginal bleeding, no vaginal discharge, no vaginal pain, no headaches, no sore throat, no back pain, no flank pain, no joint pain, no cough, no shortness of breath, no rash and no dyspareunia. There has been no history of trauma. Urine output has been normal. She is currently sexually active. She has more than 2 sexual partners. Contraceptives used include nothing. She is not . She has not missed her period. She has had prior pregnancies. Her past medical history is significant for STD. Her past medical history does not include ectopic , ovarian cysts or ovarian torsion. There were no sick contacts. She has received no recent medical care. FAMILY HISTORY Problem Relation Age of Onset Alcohol/Drug Mother other (lupus) Mother other (cornea transplant) Mother Asthma Brother Arthritis Maternal Grandmother Cancer Maternal Grandmother pancreatic CA - age 72 Cancer Paternal Grandfather LUNG CANCER Colon Cancer Paternal Grandfather age 50's Cancer Maternal Uncle Social History Tobacco Use Smoking status: Current Every Day Smoker Packs/day: 0.50 Years: 12.00 Pack years: 6.00 Types: Cigarettes Smokeless tobacco: Never Used Vaping Use Vaping Use: Some days Substance Use Topics Alcohol use: Yes Comment: only on occassion,NOT WHILE Drug use: Yes Types: Marijuana, Cocaine Comment: not currently using Review of Systems Constitutional: Negative for chills and fever. HENT: Negative for sore throat. Respiratory: Negative for apnea, cough, chest tightness and shortness of breath. Cardiovascular: Negative for chest pain, palpitations and leg swelling. Gastrointestinal: Negative for abdominal pain, anorexia, constipation, diarrhea, nausea and vomiting. Genitourinary: Negative for dyspareunia, dysuria, flank pain, frequency, hematuria, pelvic pain, urgency, vaginal bleeding, vaginal discharge and vaginal pain. Musculoskeletal: Negative for back pain and joint pain. Skin: Negative for color change, pallor and rash. Allergic/Immunologic: Negative for environmental allergies, food allergies and immunocompromised state. Neurological: Negative for headaches. Hematological: Negative for adenopathy. Does not bruise/bleed easily. Psychiatric/Behavioral: Negative for agitation and behavioral problems. Objective BP 118/68 Pulse 65 Temp 37.1 C (98.7 F) Resp 21 Wt 76.1 kg (167 lb 12.8 oz) LMP 07/14/2021 SpO2 98% BMI 27.08 kg/m Physical Exam Vitals and nursing note reviewed. Constitutional: General: She is not in acute distress. Appearance: Normal appearance. She is normal weight. She is not ill-appearing, toxic-appearing or diaphoretic. HENT: Head: Normocephalic and atraumatic. Right Ear: Ear canal and external ear normal. Left Ear: Ear canal and external ear normal. Nose: Nose normal. No congestion or rhinorrhea. Mouth/Throat: Mouth: Mucous membranes are moist. Pharynx: No oropharyngeal exudate or posterior oropharyngeal erythema. Eyes: General: Right eye: No discharge. Left eye: No discharge. Extraocular Movements: Extraocular movements intact. Conjunctiva/sclera: Conjunctivae normal. Pupils: Pupils are equal, round, and reactive to light. Cardiovascular: Rate and Rhythm: Normal rate and regular rhythm. Pulses: Normal pulses. Heart sounds: Normal heart sounds. No murmur heard. No friction rub. Pulmonary: Effort: Pulmonary effort is normal. No respiratory distress. Breath sounds: Normal breath sounds. No stridor. No wheezing, rhonchi or rales. Chest: Chest wall: No tenderness. Abdominal: General: Abdomen is flat. There is no distension. Palpations: Abdomen is soft. There is no mass. Tenderness: There is no abdominal tenderness. There is no right CVA tenderness, left CVA tenderness, guarding or rebound. Hernia: No hernia is present. Musculoskeletal: General: No swelling, tenderness, deformity or signs of injury. Normal range of motion. Cervical back: Normal range of motion and neck supple. No rigidity. Right lower leg: No edema. Left lower leg: No edema. Lymphadenopathy: Cervical: No cervical adenopathy. Skin: General: Skin is warm and dry. Capillary Refill: Capillary refill takes less than 2 seconds. Coloration: Skin is not jaundiced or pale. Findings: No bruising, erythema, lesion or rash. Neurological: General: No focal deficit present. Mental Status: She is alert and oriented to person, place, and time. Cranial Nerves: No cranial nerve deficit. Sensory: No sensory deficit. Motor: No weakness. Coordination: Coordination normal. Gait: Gait normal. Psychiatric: Mood and Affect: Mood normal. Behavior: Behavior normal. Thought Content: Thought content normal. Judgment: Judgment normal. Assessment and Plan ASSESSMENT/PLAN: 1. Unprotected sex - ICD9: V69.2, ICD10: Z72.51 (primary diagnosis) Saturday evening into Saturday morning - HCG QUAL UR B/O-negative Declines concerns for STI just don't want to get 2. 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 HPI: Was treated for Chlamydia about 2 months ago. Completed treatment. Having vaginal discharge. Here for test of cure. Not currently sexually active. 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 Depression (non-psychotic) Migraine without aura, without mention of intractable migraine without mention of status migrainosus PMH - PAST MEDICAL HISTORY OF ABCESSED TOOTH Pyelonephritis, unspecified 1997 hospitalized Seizure (HCC) Trauma Wheezing likely asthma PAST SURGICAL HISTORY Procedure Laterality Date DELIVERY ONLY COLPOSCOPY CERVIX UPPER/ADJACENT VAGINA 07/29/2006 Colposcopy COLPOSCOPY CERVIX UPPER/ADJACENT VAGINA 11/06/2007 CONIZATION CERVIX W/WO D&C RPR ELTRD EXC 02/03/08,2009 LEEP INSERT INTRAUTERINE DEVICE 04/16/07 Mirena PAST SURGICAL HISTORY OF Bladder surgery at age 7 FAMILY HISTORY Problem Relation Age of Onset Alcohol/Drug Mother other (lupus) Mother other (cornea transplant) Mother Asthma Brother Arthritis Maternal Grandmother Cancer Maternal Grandmother pancreatic CA - age 72 Cancer Paternal Grandfather LUNG CANCER Colon Cancer Paternal Grandfather age 50's Cancer Maternal Uncle Social History Tobacco Use Smoking status: Current Every Day Smoker Packs/day: 0.50 Years: 12.00 Pack years: 6.00 Types: Cigarettes Smokeless tobacco: Never Used Vaping Use Vaping Use: Some days Substance Use Topics Alcohol use: Yes Comment: only on occassion,NOT WHILE Drug use: Yes Types: Marijuana, Cocaine Comment: not currently using Current Outpatient Medications Medication Sig miSOPROStol (CYTOTEC) 200 mcg tablet Use 4 tablets vaginally as directed. place 4 tabs vaginally, repeat in 24- 48 hrs if no results from first dose (Patient not taking: Reported on 05/24/2021 ) medroxyPROGESTERone (PROVERA) 10 mg tablet Take 1 tablet by mouth once daily. (Patient not taking: Reported on 05/24/2021 ) clindamycin (CLEOCIN) 300 mg capsule Take 1 capsule by mouth four times daily. (Patient not taking: Reported on 05/24/2021 ) Lactobacillus acidophilus (FLORAJEN ACIDOPHILUS) 460 mg (20 billion cell) cap Take 1 capsule by mouth once daily. (Patient not taking: Reported on 05/24/2021 ) Etonogestrel-Ethinyl Estradiol (NUVARING) 0.12-0.015 mg/24 hr vaginal ring Use 1 Each vaginally as directed. INSERT ONE(1) RING VAGINALLY AND LEAVE IN PLACE FOR THREE WEEKS, THEN REMOVE FOR 1 WEEK. No current facility-administered medications for this visit. Allergies As of Date: 07/26/2021 Allergen Noted Reaction NICOTINE 03/16/2008 PENICILLINS 09/07/2008 Itching PINEAPPLE 12/22/2004 Vomiting VICODIN [HYDROCODONE-ACETAMINOPHE*2008 Itching Fully Assessed 07/26/2021 REVIEW OF SYSTEMS Abdomen: No abdominal pain, nausea, vomiting, diarrhea, or constipation. Expanded ROS: No fevers or chills. Allergies and current medication updated:Yes EXAM: BP 118/72 Wt 164 lb 9.6 oz (74.7kg) LMP 07/14/2021 GENERAL: pleasant, female in no apparent distress HEENT: Normocephalic, atraumatic, mucus membranes moist and no lesions NECK: full range of motion DERMATOLOGY: Normal, without lesions, non-icteric and non-hirsute CHEST: Normal inspiratory effort ABDOMEN: soft, non-tender and no masses PELVIC: external genitalia normal, normal Bartholin's glands, urethra, Malcom's glands, no vulvar lesions, no cervical lesions, good vaginal support, physiologic discharge present, normal appearing perineal body and perianal region NEURO: exam grossly non-focal EXTREMITIES: normal ASSESSMENT AND PLAN: Encounter Diagnosis ICD-10-CM 1. Vaginal discharge N89.8 2. Chlamydial infection A74.9 GC/CHLAMYDIA DNA DET GC/CT today RTO annual exams and PRN Medical Decision Making: Problems: Low: Acute, uncomplicated illness or injury Risk: Low: Low risk from testing/treatment Medical Decision Making Level: 3 - Low documented in this encounter [facility] documented as of this encounter (statuses as of 07/26/2021) [facility] History of Past illness Narrative* Problem Noted Date Resolved Date Supervision of high risk in first trim [facility] 11/12/2014 12/07/2014 Previous section complicating 11/12/2014 01/10/2015 Overview: Had C/S in 2007, previous x 2. 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 05/28/2011 Overview: s/p LEEP Papanicolaou smear of cervix with atypical squamous cells of undetermined significance (ASC-US) 07/29/2006 05/22/2007 Other specified viral warts 07/02/200609/2011 Supervision of other normal 06/01/2006 01/29/2007 Pyelonephritis, unspecified 09/2011 Overview: hospitalized - age 7 Wheezing 05/28/2011 Overview: likely asthma documented as of this encounter (statuses as of 08/01/2021) [facility] History of Past illness Narrative* Problem Noted Date Resolved Date Supervision of high risk in first trim [facility] 11/12/2014 12/07/2014 Previous section complicating 11/12/2014 01/10/2015 Overview: Had C/S in 2007, previous x 2. 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 05/28/2011 Overview: s/p LEEP Papanicolaou smear of cervix with atypical squamous cells of undetermined significance (ASC-US) 07/29/2006 05/22/2007 Other specified viral warts 07/02/200609/2011 Supervision of other normal 06/01/2006 01/29/2007 Pyelonephritis, unspecified 09/2011 Overview: hospitalized - age 7 Wheezing 05/28/2011 Overview: likely asthma documented as of this encounter (statuses as of 08/02/2021) [facility] History of Past illness Narrative* Problem Noted Date Resolved Date Supervision of [facility] risk in [facility] 11/12/2014 12/07/2014 Previous section complicating 11/12/2014 01/10/2015 Overview: Had C/S in 2006, previous x 2. 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 05/28/2011 Overview: s/p LEEP Papanicolaou smear of cervix with atypical squamous cells of undetermined significance (ASC-US) 07/29/2006 05/22/2007 Other specified viral warts 07/02/200609/2011 Supervision of other normal 06/01/2006 01/29/2007 Pyelonephritis, unspecified 09/2011 Overview: hospitalized - age 7 Wheezing 05/28/2011 Overview: likely asthma documented as of this encounter (statuses as of 09/01/2021) [facility] History of Past illness Narrative* Problem Noted Date Resolved Date Supervision of high risk in first trim [facility] 11/12/2014 12/07/2014 Previous section complicating 11/12/2014 01/10/2015 Overview: Had C/S in 2006, previous x 2. 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 05/28/2011 Overview: s/p LEEP Papanicolaou smear of cervix with atypical squamous cells of undetermined significance (ASC-US) 07/29/2006 05/22/2007 Other specified viral warts 07/02/200609/2011 Supervision of other normal 06/01/2006 01/29/2007 Pyelonephritis, unspecified 09/2011 Overview: hospitalized - age 7 Wheezing 05/28/2011 Overview: likely asthma documented as of this encounter (statuses as of 09/13/2021) [facility] History of Past illness Narrative* Problem Noted Date Resolved Date Supervision of high risk in first trim [facility] 11/12/2014 12/07/2014 Previous section complicating 11/12/2014 01/10/2015 Overview: Had C/S in 2006, previous x 2. 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 05/28/2011 Overview: s/p LEEP Papanicolaou smear of cervix with atypical squamous cells of undetermined significance (ASC-US) 07/29/2006 05/22/2007 Other specified viral warts 07/02/200609/2011 Supervision of other normal 06/01/2006 01/29/2007 Pyelonephritis, unspecified 09/2011 Overview: hospitalized - age 7 Wheezing 05/28/2011 Overview: likely asthma documented as of this encounter (statuses as of 10/03/2021) [facility] History of Past illness Narrative* Problem Noted Date Resolved Date Supervision of high risk in first trim [facility] 11/12/2014 12/07/2014 Previous section complicating 11/12/2014 01/10/2015 Overview: Had C/S in 2006, previous x 2. 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 05/28/2011 Overview: s/p LEEP Papanicolaou smear of cervix with atypical squamous cells of undetermined significance (ASC-US) 07/29/2006 05/22/2007 Other specified viral warts 07/02/200609/2011 Supervision of other normal 06/01/2006 01/29/2007 Pyelonephritis, unspecified 09/2011 Overview: hospitalized - age 7 Wheezing 05/28/2011 Overview: likely asthma documented as of this encounter (statuses as of 01/11/2022) [facility] History of Past illness Narrative* Problem Noted Date Resolved Date Supervision of high risk in first trim [facility] 11/12/2014 12/07/2014 Previous section complicating 11/12/2014 01/10/2015 Overview: Had C/S in 2006, previous x 2. 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 05/28/2011 Overview: s/p LEEP Papanicolaou smear of cervix with atypical squamous cells of undetermined significance (ASC-US) 07/29/2006 05/22/2007 Other specified viral warts 07/02/200609/2011 Supervision of other normal 06/01/2006 01/29/2007 Pyelonephritis, unspecified 09/2011 Overview: hospitalized - age 7 Wheezing 05/28/2011 Overview: likely asthma documented as of this encounter (statuses as of 01/12/2022) [facility] History of Past illness Narrative* Problem Noted Date Resolved Date Supervision of high risk in first trim [facility] 11/12/2014 12/07/2014 Previous section complicating 11/12/2014 01/10/2015 Overview: Had C/S in 2006, previous x 2. 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 05/28/2011 Overview: s/p LEEP Papanicolaou smear of cervix with atypical squamous cells of undetermined significance (ASC-US) 07/29/2006 05/22/2007 Other specified viral warts 07/02/200609/2011 Supervision of other normal 06/01/2006 01/29/2007 Pyelonephritis, unspecified 09/2011 Overview: hospitalized - age 7 Wheezing 05/28/2011 Overview: likely asthma documented as of this encounter (statuses as of 01/12/2022) [facility] History of Past illness Narrative* Problem Noted Date Resolved Date Supervision of high risk in first trim [facility] 11/12/2014 12/07/2014 Previous section complicating 11/12/2014 01/10/2015 Overview: Had C/S in 2006, previous x 2. 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 05/28/2011 Overview: s/p LEEP Papanicolaou smear of cervix with atypical squamous cells of undetermined significance (ASC-US) 07/29/2006 05/22/2007 Other specified viral warts 07/02/200609/2011 Supervision of other normal 06/01/2006 01/29/2007 Pyelonephritis, unspecified 09/2011 Overview: hospitalized - age 7 Wheezing 05/28/2011 Overview: likely asthma documented as of this encounter (statuses as of 01/16/2022) [facility] History of Past illness Narrative* Problem Noted Date Resolved Date Supervision of high risk in first trim [facility] 11/12/2014 12/07/2014 Previous section complicating 11/12/2014 01/10/2015 Overview: Had C/S in 2006, previous x 2. 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 05/28/2011 Overview: s/p LEEP Papanicolaou smear of cervix with atypical squamous cells of undetermined significance (ASC-US) 07/29/2006 05/22/2007 Other specified viral warts 07/02/200609/2011 Supervision of other normal 06/01/2006 01/29/2007 Pyelonephritis, unspecified 09/2011 Overview: hospitalized - age 7 Wheezing 05/28/2011 Overview: likely asthma documented as of this encounter (statuses as of 02/03/2022) [facility] History of Past illness Narrative* Problem Noted Date Diagnosed Date Resolved Date Supervision of high risk pre gnancy in first trimester 11/12/2014 12/07/2014 Previous section co mplicating 11/12/2014 01/10/2015 Overview: Had C/S in 2007, previous x 2. 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 05/28/2011 Overview: s/p LEEP Papanicolaou smear of cervix with atypical squamous cells of undetermined significance (ASC-US) 07/29/2006 05/22/2007 Other specified viral warts 07/02/2006 05/28/2011 Supervision of other normal 06/01/2006 01/29/2007 Pyelonephritis, unspecified 05/28/2011 Overview: hospitalized - age 7 Wheezing 05/28/2011 Overview: likely asthma documented as of this encounter (statuses as of 11/06/2022) [facility] History of Past illness Narrative* Problem Noted Date Diagnosed Date Resolved Date Supervision of high risk pre gnancy in first trimester 11/12/2014 12/07/2014 Previous section co mplicating 11/12/2014 01/10/2015 Overview: Had C/S in 2006, previous x 2. 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 05/28/2011 Overview: s/p LEEP Papanicolaou smear of cervix with atypical squamous cells of undetermined significance (ASC-US) 07/29/2006 05/22/2007 Other specified viral warts 07/02/2006 05/28/2011 Supervision of other normal 06/01/2006 01/29/2007 Pyelonephritis, unspecified 05/28/2011 Overview: hospitalized - age 7 Wheezing 05/28/2011 Overview: likely asthma documented as of this encounter (statuses as of 11/07/2022) [facility] History of Past illness Narrative* Problem Noted Date Diagnosed Date Resolved Date Supervision of high risk pre gnancy in first trimester 11/12/2014 12/07/2014 Previous section co mplicating 11/12/2014 01/10/2015 Overview: Had C/S in 2006, previous x 2. 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 05/28/2011 Overview: s/p LEEP Papanicolaou smear of cervix with atypical squamous cells of undetermined significance (ASC-US) 07/29/2006 05/22/2007 Other specified viral warts 07/02/2006 05/28/2011 Supervision of other normal 06/01/2006 01/29/2007 Pyelonephritis, unspecified 05/28/2011 Overview: hospitalized - age 7 Wheezing 05/28/2011 Overview: likely asthma documented as of this encounter (statuses as of 06/11/2023) [facility] note* Diagnosis Vaginal discharge- Primary Leukorrhea, not specified as infective Chlamydial infection Unspecified chlamydial infection, in conditions classified elsewhere and of unspecified site [facility] Diagnosis Unprotected sex- Primary Problems related to high-risk sexual behavior Encounter for emergency contraception [facility] Diagnosis control counseling- Primary General counseling for initiation of other contraceptive measures Encounter for surveillance of vaginal ring hormonal contraceptive device Tobacco use disorder Unprotected sexual intercourse Problems related to high-risk sexual behavior [facility] Diagnosis Unprotected sexual intercourse- Primary Problems related to high-risk sexual behavior Uses control Unspecified contraceptive management [facility] Diagnosis Fall, initial encounter- Primary Acute left ankle pain Foot pain, left Pain in limb [facility] Diagnosis Pain in right foot- Primary Pain in limb Localized swelling of right foot Mass of right foot [facility] Diagnosis Pain Generalized pain [facility] Diagnosis Pain in right foot Pain in limb Localized swelling of right foot Mass of right foot [facility] Diagnosis Mass of right foot [facility] Diagnosis Encounter for gynecological examination (general) (routine) without abnormal findings- Primary Screening for cervical cancer Screening for malignant neoplasm of the cervix Screen for STD (sexually transmitted disease) Screening examination for venereal disease Encounter for IUD insertion Encounter for insertion of intrauterine contraceptive device Unprotected sexual intercourse Problems related to high-risk sexual behavior Vaginal discharge Leukorrhea, not specified as infective documented [facility] this encounter [facility]* Diagnosis Encounter for IUD removal- Primary Encounter for removal of intrauterine contraceptive device documented in this encounter [facility] for referral (narrative)* Diagnostic Procedure Only (Urgent) - Closed Specialty Diagnoses / Procedures Referred By Contrebecca t Referred To Contact XR IMAGING Diagnoses Fall, initial encounter Acute left ankle pain Procedures XR ANKLE GENERAL 3V AP/LAT/OBL LEFT RADEX ANKLE COMPLETE MINIMUM 3 VIEWS Gretta Looney APRN.HOUSE WORKER [address] [place] [address] Xr Imaging Referral ID Status Reason Start Date Expiration Date V isits Requested Visits Authorized [id number] Closed Auto-Generate d Referral 10/03/2021 11/02/2022 1 1 * Diagnostic Procedure Only (Urgent) - Closed Specialty Diagnoses / Procedures Referred By Contac t Referred To Contact XR IMAGING Diagnoses Fall, initial encounter Foot pain, left Procedures XR FOOT GENERAL 3V AP/LAT/OBL LEFT RADEX FOOT COMPLETE MINIMUM 3 VIEWS Gretta Looney APRN.HOUSE WORKER [address] [place] [address] Xr Imaging Referral ID Status Reason Start Date Expiration Date V isits Requested Visits Authorized [id number] Closed Auto-Generate d Referral 10/03/2021 11/02/2022 1 1 [facility] for referral (narrative)* Diagnostic Procedure Only (Routine) - Closed Specialty Diagnoses / Procedures Referred By Contac t Referred To Contact XR IMAGING Diagnoses Pain in right foot Localized swelling of right foot Mass of right foot Procedures XR FOOT GENERAL 3V AP/LAT/OBL RIGHT RADEX FOOT COMPLETE MINIMUM 3 VIEWS Gerardo Sanders [address] [place] [address] Xr Imaging Referral ID Status Reason Start Date Expiration Date V isits Requested Visits Authorized [id number] Closed Auto-Generate d Referral 01/11/2022 02/10/2023 1 1 [facility] for referral (narrative)* Diagnostic Procedure Only (Routine) - Closed Specialty Diagnoses / Procedures Referred By Contac t Referred To Contact XR IMAGING Diagnoses Pain Procedures XR ANKLE GENERAL 3V AP/LAT/OBL RIGHT RADEX ANKLE COMPLETE MINIMUM 3 VIEWS Gerardo Sanders [address] [place] [address] Xr Imaging Referral ID Status Reason Start Date Expiration Date V isits Requested Visits Authorized [id number] Closed Auto-Generate d Referral 01/02/2022 02/01/2023 1 1 [facility] for referral (narrative)* Diagnostic Procedure Only (Routine) - Closed Specialty Diagnoses / Procedures Referred By Laura t Referred To Contact XR IMAGING Diagnoses Pain in right foot Localized swelling of right foot Mass of right foot Procedures XR FOOT GENERAL 3V AP/LAT/OBL RIGHT RADEX FOOT COMPLETE MINIMUM 3 VIEWS Gerardo Sanders [address] [place] [address] Xr Imaging Referral ID Status Reason Start Date Expiration Date V isits Requested Visits Authorized [id number] Closed Auto-Generate d Referral 01/11/2022 02/10/2023 1 1 [facility] for referral (narrative)* Outpatient Procedure (Routine) - Pending Review Specialty Diagnoses / Procedures Referred By Laura t Referred To Contact [facility] Diagnoses Encounter for IUD insertion Procedures INSERT INTRAUTERINE DEVICE INTRAUT COPPER CONTRACEPTIVE INSERT INTRAUTERINE DEVICE Pamela Flores MD [address] [place] [address] [facility] [address] [place] [address] Referral ID Status Reason Start Date Expiration Date Visits Requested Visits Authorized [id number] Pending Review Auto-Generat ed Referral 11/05/2022 11/05/2023 1 1 T [facility] for referral (narrative)* Outpatient Procedure (Routine) - Pending Review Specialty Diagnoses / Procedures Referred By Contrebecca t Referred To Contact [facility] Diagnoses Encounter for IUD removal Procedures REMOVE INTRAUTERINE DEVICE REMOVE INTRAUTERINE DEVICE Monse Bowman APRN.HOUSE WORKER [address] [place] [address] [facility] [address] [place] [address] Referral ID Status Reason Start Date Expiration Date Visits Requested Visits Authorized [id number] Pending Review Auto-Generat ed Referral 06/11/2023 06/10/2024 1 1 [facility] for visit Narrative* Diagnostic Procedure Only (Routine) - Closed Specialty Diagnoses / Procedures Referred By Contac t Referred To Contact XR IMAGING Diagnoses Pain Procedures XR ANKLE GENERAL 3V AP/LAT/OBL RIGHT RADEX ANKLE COMPLETE MINIMUM 3 VIEWS Gerardo Sanders [address] [place] [address] Xr Imaging Referral ID Status Reason Start Date Expiration Date V isits Requested Visits Authorized [id number] Closed Auto-Generate d Referral 01/02/2022 02/01/2023 1 1 [facility] for visit Narrative* Diagnostic Procedure Only (Routine) - Closed Specialty Diagnoses / Procedures Referred By Contac t Referred To Contact XR IMAGING Diagnoses Pain in right foot Localized swelling of right foot Mass of right foot Procedures XR FOOT GENERAL 3V AP/LAT/OBL RIGHT RADEX FOOT COMPLETE MINIMUM 3 VIEWS Gerardo Sanders [address] [place] [address] Xr Imaging Referral ID Status Reason Start Date Expiration Date V isits Requested Visits Authorized [id number] Closed Auto-Generate d Referral 01/11/2022 02/10/2023 1 1 [facility] Summary Purpose Family History No Family History Records FoundNo Family History Records FoundNo Family History Records Found Advance Directives No Advanced Directives Records FoundDocuments on File Type Date Recorded Patient Manager Etl Expl anation Advance Directives and Living Will Power of Cmm Operator Latest Code Status on File Code Status Date Activated Date Inactivated Comments Full Code 06/12/2019 8:36 PM Full Code 06/12/2019 5:07 PM 06/12/2019 8:36 PM Documents on File Type Date Recorded Patient Manager Etl Expl anation Advance Directive(s) Documents on File Type Date Recorded Patient Manager Etl Expl anation Advance Directive(s) Hospital Course * Javier Forbes MD - 06/14/2019 8:17 AM EST Department of Obstetrics and Gynecology Delivery Discharge Summary Admission on 06/12/2019 4:51 PM Reason for admission: Active labor Intrapartum Course: Patient was admitted from triage in active labor and quickly progressed to complete and delivered uncomplicated 40w5d PC-01 Indications for Delivery: Was patient delivered between 37 - 39 weeks? yes: OKAY TO PROCEED WITH DELIVERY (danny all that apply) OBSTETRIC INDICATIONS: Active, early, or spontaneous labor, INDICATIONS: N/A: indications not applicable to this patient. See obstetrical or maternal, MATERNAL INDICATIONS: N/A: maternal indications not applicable for this patient. See or obstetrical Surgical Operations & Procedures: Date of delivery: 06/12/19 Delivery Type: spontaneous vaginal after Anesthesia: None Laceration(s): none Delivery Complications: none EBL: 100 cc Pertinent Findings & Procedures: Information for the patient's : Morteza Doll [[id number]] male Weight: 8 lb 2 oz (3.685 kg) Apgars: Information for the patient's : Morteza Doll Tuan [[id number]] One Minute : 5 Five Minute : 8 Course: Uncomplicated : Boy, circumcision completed Blood Type/Rh: O POS Antibody Screen: Antibody Screen Date Value Ref Range Status 06/12/2019 NEG NA Final Comment: Test Performed by [facility], [address] [place] [id number] Rubella: No results found for: RUBELLAIGG Contraception: no method : yes VTE Prophylaxis: Not Indicated Meds: Tuan Doll Home Medication Instructions RYANN:[id number] Printed on:06/14/19 6267 Medication Information acetaminophen (TYLENOL) 500 MG tablet Take 1 tablet by mouth 4 times daily as needed for Pain ibuprofen (ADVIL;MOTRIN) 600 MG tablet Take 1 tablet by mouth 4 times daily as needed for Pain levETIRAcetam (KEPPRA PO) Take by mouth Activity: Activity as tolerated Diet: Regular diet Follow up Care: Follow up appointment in 4 weeks with [facility] Condition on discharge: Stable Discharge to: Home Discharge date: 06/14/19 Discharge Dx: Successful vaginal after Instructions to Patient:: Pelvic Rest (no intercourse, tampons, douching, etc) x 6 weeks Specific discharge instruction printed Indication for care in labor or delivery [O75.9] Patient Active Problem List Diagnosis Vaginal after Tooth abscess Comments: Home care, Follow-up care and control were reviewed. Signs and symptoms of mastitis and Post Depression were reviewed. The patient is to notify her physician if any of these occur. Javier Forbes MD on 06/14/2019 at 8:32 AM documented in this encounter Discharge Instructions * Instructions* Javier Forbes MD - 06/14/2019 After Your Delivery (the Period): Your Care Instructions Congratulations on the of your baby. Like , the period can be a time of excitement, eula, and exhaustion. You may look at your wondrous little baby and feel happy. You may also be overwhelmed by your new sleep hours and new responsibilities. In these first weeks after delivery, try to take good care of yourself. It may take 4 to 6 weeks to feel like yourself again, and possibly longer if you had a . You will likely feel very tired for several weeks. Your dayswill be full of ups and downs, but lots of eula as well. FOLLOW-UP: Your follow-up care is a workman part of your treatment and safety. Follow-up with your OB doctor in 4 weeks or as specified by your physician. Be sure to make and go to all appointments, and call your doctor if you are having problems. It's also a good idea to know your test results and keep a list ofthe medicines you take. BLEEDING Vaginal bleeding will decrease in amount over the next few weeks. Bleeding may tow picker and then decrease again around 7-10 days . Use pads instead of tampons for the bloody flow that may last as long as 2 weeks. You will notice that as your activity increases, your flow may increase. Call your doctor if you are saturating one maxi pad in an hour & passing large clots for 3 hours or more. ACTIVITY NO SEXUAL activity for 6 weeks or until advised by your doctor; Nothing in vagina: intercourse, tampons, or douching. Showering is okay; NO tub baths, swimming, or hot tubs. Gradually increase your activity. Resume exercise regimen only after advice by your doctor. Avoid lifting anything heavier than your baby or a gallon of milk for six weeks. Avoid driving 1 week for vaginal delivery and 2 weeks for section, or longer if you are onprescription pain medicine unless otherwise instructed by your doctor. Rise slowly from a lying to sitting and then a standing position. Climb stairs carefully. Use caution when carrying your baby up and down the stairs. You may feel tired or have a lack of energy. You may continue your vitamin to replenish nutrients post delivery. Nap when baby naps to catch up on sleep. EMOTIONS You may feel engel, sad, teary, & overwhelmed for the first 2 weeks ; however, feelings of post depression may occur any time within the first year after delivery. Contact your OB provider if you feel you may be showing signs of depression, or have thoughts of harming yourself or your . If infant will not stop crying, contact another adult for help or place infant in their crib on their back and take a break. NEVER shake your . WOUND CARE For Vaginal Delivery: Shower daily, and cleanse your perineum (bottom) with mild soap from front to Back. Use the plasticsquirt bottle until bleeding stops each time you use the restroom instead of wiping with toilet paper. Ease soreness of hemorrhoids and the area between your vagina and rectum with ice compresses or witch tessa pads. If used, stitches will dissolve in 4-6 weeks on their own. You may use a sitz bath or soak in a clean tub with drain open and water running for comfort. Kegel exercises will help restore bladder control. To do these tighten your muscles as if you were stopping your urine flow. Hold for a few seconds and then relax. Do these throughout the day. For Section Delivery: Keep your incision clean and dry. If you had steri-strips you may remove these once they start falling off. If you have berta they need to be removed 3-10 days after delivery. If you have steri-strips, remove after 7 - 10 days. Do not wear clothing that irritates the incision line. If your incision in in a crease that is not dry, use a hair-dryer to dry the area 3 times a day. If you develop fever, shaking chills, redness, swelling, drainage or discharge from your wound, or if your wound looks like it's coming apart call your doctor immediately. BREAST CARE If you develop a warm, red, tender area on your breast or develop a fever contact your doctor. For moms: If you become engorged, feeding may be more difficult or painful for 1-2 days. You may find it helpful to hand express some milk so that the infant can latch on more easily or ease soreness with wet,warm washcloths. While , continue to take your vitamins as directed by your doctor. For non- moms: You may apply ice packs to your breasts over you bra for twenty minutes at a time for comfort. Cabbage leaves may be applied to breasts, replace when wilted. Avoid stimulation to your breasts, when showering allow the water to strike your back not your breasts. Do not express milk or your body will make more. Wear a good fitting bra until your milk dries, such as a sports bra. DIET & CONSTIPATION Eat a well balanced diet focusing on foods high in fiber and protein such as: whole grain cereals and breads, fruits and vegetables and legumes (eg, beans, lentils) Drink 8-10 glasses of fluids daily, especially water. To avoid constipation you may take a mild bwqc-nps-trkzigz stool softener (such as colace) as recommended by your doctor. SWELLING Try to keep your legs elevated when you are sitting or lying down. Stay hydrated and take walks. BABY Babies sleep safest on their back in a crib without bumpers, blankets or stuffed animals. Do not sleep with your baby in your bed or the couch. Do not expose baby to smoke, this can increase risks of asthma and sudden infant syndrome. Ifyou or someone around baby smokes have them change their shirt and wash any facial hair before holding baby. Do not smoke inside the house and change the ventilation filters in the house before bringing baby home. WHEN TO CALL THE DOCTOR Signs of infection, including fever and chills Increased bleeding: soaking more than one sanitary pad an hour Wounds that become red, swollen or drain pus Vaginal discharge that smells foul New pain, swelling, or tenderness in your legs Pain that you can't control with the medications you've been given Pain, burning, urgency or frequency of urination, or persistent bleeding in the urine Cough, shortness of breath, or chest pain Depression, suicidal thoughts, or feelings of harming your baby Breasts that are hot, red and accompanied by fever Any cracking or bleeding from the nipple or areola (the dark-colored area of the breast) You may have been given a magnet like this: If so, we encourage you to use it on your refrigerator as a reminder of when to call the doctor. In case of an emergency, call 911 immediately. documented in this encounter History of Present Illness * Simi Walden RN - 06/14/2019 1:30 PM EST According to labs from [facility] office result says Rubella immune if anything greater than 9. Pt made aware to follow up with physician about Rubella status. * Javier Forbes MD - 06/14/2019 11:49 AM EST Regarding consults. Neurology: discussed her history of seizures. Last seizure in February, had put up following with neurology outpatient due to and not wanting to be charged for missed appointment. States that her next step when she gets home is to schedule a new appointment. She is not concerned about herseizures, states that she is not driving and knows when they are coming. Psych: Social work was wanting psychiatric evaluation prior to discharge for history of PTSD and depression. Patient has a counselor that she follows with outpatient and does not want to see a counselor prior to discharge. Dentistry: discussed patient with them earlier this morning. No need for consult. Abscess had improved on clindamycin. No need for repeat antibiotics, patient can control pain with ibuprofen and tylenol. Patient is aware that she needs to follow up with dentist office for radiographs. Discussed with Dr. Carrillo * Simi Walden RN - 06/14/2019 11:[address] Forbes in to see patient at this time. * Simi Walden RN - 06/14/2019 11:[address] De La Rosa notified of detention worker note suggested Psych consult. Dr. De La Rosa states I will call Psych to see if someone will be rounding today and will put in consult if they will be rounding. Notified of neurology has not rounded on patient yet. Also notified Dentistry will not see patient per medical secretary receptionist Liliane . Dr. De La Rosa states she will be seen by Dentistry outpatient. Will keep Dr. De La Rosa updated. * Deonna Mares DTR - 06/14/2019 11:06 AM EST Nutrition rescreen completed. Patient assigned a level 1. * Lino Carrillo III, MD - 06/14/2019 6:54 AM EST I reviewed and agree with the care provided by the resident/CNM/MICHELLE during the visit including the patient's medical history, the resident's findings in the physical exam, patient's diagnosis and treatment plan. DAY # 2 Tuan Doll is a 28 y.o. female This patient was seen & examined today. Her was complicated by: Patient Active Problem List Diagnosis Vaginal after She is doing well complaining of tooth pain. Hx of abscess treated last week. Vital Signs: Vitals: 06/12/199 06/12/19202406/13/19 0810 06/13/191926 BP: 122/78 113/75 (!) 99/58 118/82 Pulse: 89 75 69 82 Resp: 16 18 18 Temp: 98.7 F (37.1 C) 98.1 F (36.7 C) 97.1 F (36.2 C) TempSrc: Temporal Temporal Temporal SpO2: 98% 96% 98% Weight: Height: Physical Exam: General: awake, alert, cooperative, no apparent distress, and appears stated age Abdomen: abdomen soft, non-distended, non-tender Fundus: non-tender, normal size, firm, below umbilicus Assessment and Plan: 1. Tuan Doll is a PPD # 2 s/p - Doing well, VSS - male infant, s/p circumcision 2. Hx Seizures - Reportedly 2/2 head trauma several years ago - Reports having 1 seizure at beginning of but nothing since - Previously on Keppra but unsure of dose and has not been taking - Neurologist has left her practice and she has not followed up - Awaiting neurology recommendations 3. Substance Abuse - Admits to marijuana use and reports that it is medical marijuana - UDS ordered on admission +THC 4. PTSD - No medications - Currently stable 5. Tooth Abscess - Pt reports finished clindamycin course for abscess 4 days ago - Awoke today with increasing tooth pain - Dentistry consulted 6. Breast feeding 7. Contraception: no method 8. VTE Prophylaxis: Not Indicated 9. Anticipate discharge home today * Magdalena Murillo RN - 06/13/2019 4:24 PM EST Patient denies concerns . Observed end of feeding session noting active suck and medium jaw excursions. Patient states she sometimes hears swallows. removed self from breast at endof feeding. Discussed signs of milk transfer. Discussed use of Medical Marijuana whille . Patient states she has been on it for 1 1/2 years. She decided to start taking it for her seizures instead of the 28 pills a day she was taking. She researched it a lot and believes it is the best choice while . Recommended she follow up with internet sales consultant to monitor infant while on medical marijuana. * Simi Walden RN - 06/13/2019 12:33 PM EST Resident Lakia Wong was notified of SW requesting psychiatry consult for patients history . Notified Pt does see a counselor. See detention worker note. No new orders received per Dr. Wong. Dr. Wong states psych will not see patient's on the weekend unless emergent. * Ernst Cueva MD - 06/13/2019 2:34 AM EST POST DAY # 1 Tuan Doll is a 28 y.o. female This patient was seen & examined today. Her was complicated by: Patient Active Problem List Diagnosis Vaginal after Today she is doing well without any chief complaint. Her lochia is light. She denies chest pain, shortness of breath, headache, lightheadedness and blurred vision. She is ambulating well. She is tolerating solids. Vital Signs: Vitals: 06/12/19191806/12/19193306/12/19194806/12/192024 BP: 112/78 117/72 122/78 113/75 Pulse: 90 94 89 75 Resp: 16 Temp: 98.7 F (37.1 C) TempSrc: Temporal SpO2: 98% Weight: Height: Physical Exam: General: no apparent distress, alert and cooperative Affect: appropriate Lungs: No increased work of breathing, good air exchange, clear to auscultation bilaterally, no crackles or wheezing Heart: regular rate and rhythm Abdomen: abdomen soft, non-distended, non-tender Fundus: non-tender, normal size, firm, below umbilicus Extremities: no calf tenderness, non edematous Lab: Lab Results Component Value Date HGB 14.7 06/12/2019 Lab Results Component Value Date HCT 44.2 06/12/2019 O POS Antibody Screen: Antibody Screen Date Value Ref Range Status 06/12/2019 NEG NA Final Comment: Test Performed by [facility], [address] [place] [id number] No results found for: RUBELLAIGG LABOR DELIVERY ??? SCD's ONLY (labor through ambulation) SCD's PLUS Prophylactic Anticoagulation until discharge SCD's PLUS Prophylactic Anticoagulation for 6 weeks SCD's PLUS Therapeutic Anticoagulation for 6 weeks Vaginal Delivery [] BMI ? 40 kg/m2 Delivery All patients Vaginal Delivery [] BMI ? 40 kg/m2 AND [] Antepartum hospitalization ? 72 hours within the past month Delivery 1 Major Risk Factor: [] BMI ? 35 kg/m2 [] Low Risk Thrombophilia [] PPH+RBCs, IR, or operation [] Infection+Antibiotics [] Antepartum hospitalization ? 72 hours within the past month [] PMH: Sickle Cell, SLE, Cardiac Dz, Active IBD, Active Cancer, Nephrotic Syndrome OR 2 Minor Risk Factors: [] Multiple gestation [] Age > 40 [] PPH ? 1,000cc [] (+)FMH of VTE [] Smoker [] Preeclampsia [] BMI ? 40 kg/m2 AND [] Low Risk Thrombophilia OR ANY OF THE FOLLOWING: [] High Risk Thrombophilia without prior VTE [] Low Risk Thrombophilia with (+)FMH of VTE [] Any single prior VTE ANY OF THE FOLLOWING: [] Already on LMWH/UFH [] Multiple prior VTE [] High Risk Thrombophilia with prior VTE Low Risk Thrombophilia: FVL (heterozygous), Prothrombin (heterozygous), Protein C, Protein S High Risk Thrombophilia: FVL (homozygous), Prothrombin (homozygous), FVL+Prothrombin (heterozygous), Antithrombin III, APLS Assessment/Plan: 1. Tuan Doll is a PPD # 1 s/p - Doing well, VSS - male infant, desires circumcision - Encourage ambulation 2. Hx Seizures - Reportedly 2/2 head trauma several years ago - Reports having 1 seizure at beginning of but nothing since - Previously on Keppra but unsure of dose and has not been taking - Neurologist has left her practice and she has not followed up 3. Substance Abuse - Admits to marijuana use and reports that it is medical marijuana - UDS ordered on admission +THC 4. PTSD - No medications - Currently stable - Monitor 5. Breast feeding 6. Contraception: no method 7. VTE Prophylaxis: Not Indicated 8. Continue current care I reviewed and agree with the care provided by the resident/CNM/MICHELLE during the visit including the patient's medical history, the resident's findings in the physical exam, patient's diagnosis and treatment plan. Provider's Name: Gifty MD Sobeida Carlos MD 06/13/2019, 6:39 AM * Vy Chiu MD - 06/12/2019 8:37 PM EST records reviewed. This will be updated to prior problem list from H&P: 1. Hx of brain injury, seizures - does not follow with neurology - previously on keppra, patient self discontinued during - reports last seizure one week ago - neurology consulted, consult called in 2. Depression - no meds 3. THC abuse - reports medical marjuania rx - UDS pending - SW consult 4. Hx of chlamydia this - will need PRICE - RPR, Hep B, HIV 5. Rubella non-immune - MMR PP 6. Smoker - encouraged cessation 7. Elevated 1hr GTT - passed 3 hr * Vy Chiu MD - 06/12/2019 5:10 PM EST Department of Obstetrics and Gynecology Labor and Delivery Triage Note CHIEF COMPLAINT: leaking fluid, contractions HISTORY OF PRESENT ILLNESS: The patient is a 28 y.o. 40w3d OB History No obstetric history on file. Patient presents with a chief complaint as above. Gush of fluid at 1400 today. Regular contractions. Denies DFM/VB. Estimated Due Date: Estimated Date of Delivery: None noted. PAST MEDICAL HISTORY: No past medical history on file. PAST SURGICAL HISTORY: No past surgical history on file. SOCIAL HISTORY: MEDICATIONS: Prior to Admission medications Medication Sig Start Date End Date Taking? Authorizing Provider famotidine (PEPCID) 10 MG tablet Take 10 mg by mouth 2 times daily Yes Historical Provider, CARE: Complicated by: Hx Seizure, Hx , Hx LEEP REVIEW OF SYSTEMS: Pertinent items are noted in HPI. APPEARANCE: Pain: yes PHYSICAL EXAM: Vital Signs: VS wnl-reviewed/Respirations normal effort Vitals: 06/12/19 1709 Weight: 188 lb (85.3 kg) Height: 5' 5 (1.651 m) Abdomen: soft, NT, ND, no rebound/guarding Uterus: gravid/non-tender LE Edema: trace Speculum Exam: pooled fluid appearing clear, Nitrizine test is positive, Ferning test is positive per Dr. Pacheco heart rate: Category I Cervix: 7/90/[address] Pacheco Contraction frequency: regular, every 3 minutes Membranes: Ruptured clear fluid GENERAL LABS: No results found for this or any previous visit (from the past 24 hour(s)). TRIAGE COURSE: Will admit for active labor IMPRESSION: Active Labor DISCUSSED WITH [facility] PROVIDER: OB chief DISPOSITION: Admit to L&D Associated attestation - Gifty Vieira MD - 06/12/2019 6:25 PM EST I reviewed and agree with the care provided by the resident/CNM/MICHELLE during the visit including the patient's medical history, the resident's findings in the physical exam, patient's diagnosis and treatment plan. documented in this encounter Assessments Diagnosis Indication for care in labor or delivery Unspecified indication for care or intervention related to labor and delivery, unspecified as to episode of care Vaginal after Previous delivery, delivered, with or without mention of antepartum condition Tooth abscess Periapical abscess without sinus Reason for Referral Specialty Diagnoses / Procedures Referred By Laura squires Referred To Contact MR IMAGING Diagnoses Mass of right foot Procedures MRI FOOT/TOES WO/W IVCON RT MRI LOWER EXTREM OTH/THN JT W/O & W/CONTR Gerardo Hodgson [address] [place] [address] Mr Imaging Referral ID Status Reason Start Date Expiration Date V isits Requested Visits Authorized [id number] Closed Auto-Generate d Referral 01/20/2022 03/21/2022 1 1 Medications Administered Section Inactive Administered Medications - up to 3 most recent administrations Medication Order MAR Action Action Date Dose Rate Site copper intrauterine device 380 square mm (PARAGARD) 1 Intra Uterine Device, INTRAUTERINE, ONCE (UP TO 30 DAYS AMB), 1 dose, On 11/05/22 at 1400 Given 11/05/2022 2:11 PM EDT 1 Intra Uterine Device Other Additional Source Comments INFORMATION SOURCE (unrecogn ized section and content) DATE CREATED AUTHOR AUTHOR'S ORGANIZ ATION 06/17/2019 [facility] DATE CREATED AUTHOR AUTHOR'S ORGANIZ ATION 06/18/2023 [facility] Reason for Visit (unrecogniz ed section and content) Reason Comments Acute Visit needs morning after pill x 3 days Reason Comments Contraception Reason Comments Follow Up from control Reason Comments Patient Question Reason Comments Fall (LT) foot, ankle inj ury pain rated 10 with mvmt, x1 day Reason Comments New Pain sprain sprain Reason Comments MRI Appointment Specialty Diagnoses / Procedures Referred By Laura t Referred To Contact MR IMAGING Diagnoses Mass of right foot Procedures MRI FOOT/TOES WO/W IVCON RT MRI LOWER EXTREM OTH/THN JT W/O & W/CONTR Gerardo Hodgson [address] [place] [address] Mr Imaging Referral ID Status Reason Start Date Expiration Date V isits Requested Visits Authorized [id number] Closed Auto-Generate d Referral 01/20/2022 03/21/2022 1 1 Reason Onset Date Comments Well Woman Insertion Of IUD 11/05/2022 Reason Comments Results Reason Comments Orders Source Comments (unrecognize d section and content) In the event this informatio n is protected by the Federal Confidentiality of Alcohol and Drug Abuse Patient Records regulations: The Federal rules restrict any use of the information to criminally investigate or prosecute any alcohol or drug abuse patient.[facility] the event this information is protected by the Federal Confidentiality of Alcohol and Drug Abuse Patient Records regulations: The Federal rules restrict any use of the information to criminally investigate or prosecute any alcohol or drug abuse patient.[facility] Center[facility] the event this information is protected by the Federal Confidentiality of Alcohol and Drug Abuse Patient Records regulations: The Federal rules restrict any use of the information to criminally investigate or prosecute any alcohol or drug abuse patient.[facility] Center[facility] the event this information is protected by the Federal Confidentiality of Alcohol and Drug Abuse Patient Records regulations: The Federal rules restrict any use of the information to criminally investigate or prosecute any alcohol or drug abuse patient.[facility] Center[facility] the event this information is protected by the Federal Confidentiality of Alcohol and Drug Abuse Patient Records regulations: The Federal rules restrict any use of the information to criminally investigate or prosecute any alcohol or drug abuse patient.[facility] Center[facility] the event this information is protected by the Federal Confidentiality of Alcohol and Drug Abuse Patient Records regulations: The Federal rules restrict any use of the information to criminally investigate or prosecute any alcohol or drug abuse patient.[facility] CenterIn the event this information is protected by the Federal Confidentiality of Alcohol and Drug Abuse Patient Records regulations: The Federal rules restrict any use of the information to criminally investigate or prosecute any alcohol or drug abuse patient.[facility] Center[facility] the event this information is protected by the Federal Confidentiality of Alcohol and Drug Abuse Patient Records regulations: The Federal rules restrict any use of the information to criminally investigate or prosecute any alcohol or drug abuse patient.[facility] Center[facility] the event this information is protected by the Federal Confidentiality of Alcohol and Drug Abuse Patient Records regulations: The Federal rules restrict any use of the information to criminally investigate or prosecute any alcohol or drug abuse patient.[facility] Center[facility] the event this information is protected by the Federal Confidentiality of Alcohol and Drug Abuse Patient Records regulations: The Federal rules restrict any use of the information to criminally investigate or prosecute any alcohol or drug abuse patient.[facility] Center[facility] the event this information is protected by the Federal Confidentiality of Alcohol and Drug Abuse Patient Records regulations: The Federal rules restrict any use of the information to criminally investigate or prosecute any alcohol or drug abuse patient.[facility] Center[facility] the event this information is protected by the Federal Confidentiality of Alcohol and Drug Abuse Patient Records regulations: The Federal rules restrict any use of the information to criminally investigate or prosecute any alcohol or drug abuse patient.[facility] Center[facility] the event this information is protected by the Federal Confidentiality of Alcohol and Drug Abuse Patient Records regulations: The Federal rules restrict any use of the information to criminally investigate or prosecute any alcohol or drug abuse patient.[facility] Center[facility] the event this information is protected by the Federal Confidentiality of Alcohol and Drug Abuse Patient Records regulations: The Federal rules restrict any use of the information to criminally investigate or prosecute any alcohol or drug abuse patient.[facility] Care Teams (unrecognized sec tion and content) Fisher Swordfish Relationship Specialty Start Date End Date Richard Walden MD [address] [facility] [address] [place] [address] Referring Family Medicine 12/29/21 Fisher Swordfish Relationship Specialty Start Date End Date Richard Walden MD [address] [place] [facility] [address] [place] [address] Referring Family Medicine 12/29/21 Fisher Swordfish Relationship Specialty Start Date End Date Richard Walden MD [address] [facility] [address] [place] [address] Referring Family Medicine 12/29/21 Fisher Swordfish Relationship Specialty Start Date End Date Richard Walden MD Referring Family Medicine 12/29/21 Fisher Swordfish Relationship Specialty Start Date End Date Richard Walden MD Referring Family Medicine 12/29/21 Fisher Swordfish Relationship Specialty Start Date End Date Richard Walden MD Referring Family Medicine 12/29/21 FOR RECORDS PERTAINING TO PATIENTS WHO ARE OR HAVE BEEN ENROLLED IN A CHEMICAL DEPENDENCY/SUBSTANCEABUSE PROGRAM, SOME INFORMATION MAY BE OMITTED. This clinical summary was aggregated from multiple sources. Caution should be exercised in using it in the provision of clinical care. This summary normalizes information from multiple sources, and as a consequence, information in this document may materially change the coding, format and clinical context of patient data. In addition, data may be omitted in some cases. CLINICAL DECISIONS SHOULD BE BASED ON THE PRIMARY CLINICAL RECORDS. [facility]. provides no warranty or guarantee of the accuracy or completeness of information in this document.
[2023-06-24 07:20] LABS: Absolute Lymphocyte Count 1.89 X10^3/uL (0.83-4.51); Absolute Neutrophil Count 4.5 X10^3/uL (2.0-7.7); Basophil# 0.02 X10^3/uL; Basophil% 0.3 % (0-1); Eosinophil# 0.11 X10^3/uL; Eosinophils% 1.5 % (0-5); Hematocrit 41.1 % (37-47); Hemoglobin 13.2 g/dL (12.0-15.0); Lymphocyte # 1.89 X10^3/ul (0.83-4.51); Lymphocyte % 26.2 % (19-41); Mean Corp Hgb Conc 32.1 g/dL (32-36); Mean Corpuscular Volume 93.4 fL (81-99); Mean Platelet Vol. 10.5 fl (6.2-12.0); Monocyte# 0.67 X10^3/uL; Monocyte% 9.3 % (0-10); NRBC Flagged by Analyzer 0 % (0-5); Neutrophil # 4.51 X10^3/uL (2.7-7.7); Neutrophil % 62.4 % (47-70); Platelet Count 306 K/mm3 (150-450); RBC Distribution Width CV 15.4 % (11.6-14.6); RBC Distribution Width SD 53.5 fl (35.1-43.9); White Blood Count 7.2 K/mm3 (4.4-11.0)
[2023-06-24 07:32] LABS: Anion Gap 3 (5-15); BUN 9 mg/dL (7-18); Calcium,Total 8.5 mg/dL (8.5-10.1); Chloride 112 mmol/L (98-107); Creatinine, Serum 0.82 mg/dL (0.55-1.02); EST Glomerular Filtration Rate 86 mL/min (>60); Est Glom Filt Rate - Afr Amer 104 mL/min (>60); Estimated Creatinine Clearance 97.11 ml/min; Glucose 125 mg/dL (74-106); Potassium 4.2 mmol/L (3.5-5.1); Sodium Level 140 mmol/L (136-145)
[2023-06-24 09:25] VITALS: BP 134/79; PULSE 84; RESP 16; O2SAT 97
[2023-06-24 09:31] VITALS: BP 129/73; PULSE 64; RESP 15; TEMP 36.4; O2SAT 98
== END 2023-06-24 09:33 | disposition home or self-care (01) ==
PROVIDERS: Emergency Provider Emergency Medicine; PCP Internal Medicine; Visit Provider Emergency Medicine
DX: G40.909 Epilepsy, unspecified, not intractable, without status epilepticus (principal); F12.90 Cannabis use, unspecified, uncomplicated; F17.210 Nicotine dependence, cigarettes, uncomplicated
CPT/HCPCS: 80048; 85025; 99284; A4216

== ENCOUNTER → 2024-02-05 | Outpatient (REF) | payer MEDICAID, SELFPAY ==
[2024-02-05 08:22] LABS: INR Fingerstick 2.5
== END | disposition home or self-care (01) ==
LOC: OLS.SW 05:00
PROVIDERS: PCP Internal Medicine; Visit Provider Internal Medicine
DX: Z79.01 Long term (current) use of anticoagulants (principal)
CPT/HCPCS: 36416; 85610

== ENCOUNTER → 2024-02-06 | Outpatient (REF) | payer MEDICAID, SELFPAY ==
[2024-02-06 09:02] LABS: Anion Gap 4 (5-15); BUN 24 mg/dL (7-18); BUN/Creat Ratio 12.6 RATIO (10-20); Calcium,Total 8.8 mg/dL (8.5-10.1); Chloride 114 mmol/L (98-107); Creatinine, Serum 1.91 mg/dL (0.55-1.02); EST Glomerular Filtration Rate 32 mL/min (>60); Est Glom Filt Rate - Afr Amer 39 mL/min (>60); Glucose 103 mg/dL (74-106); Potassium 4.6 mmol/L (3.5-5.1); Sodium Level 141 mmol/L (136-145)
== END | disposition home or self-care (01) ==
LOC: OLS.SW 05:00
PROVIDERS: PCP Internal Medicine; Visit Provider Family Medicine
DX: I38 Endocarditis, valve unspecified (principal); D64.9 Anemia, unspecified
CPT/HCPCS: 36415; 80048

== ENCOUNTER → 2024-02-10 05:00 | Outpatient (REF) | payer MEDICAID, SELFPAY ==
[2024-02-10 09:38] LABS: Absolute Lymphocyte Count 1.17 X10^3/uL (0.83-4.51); Absolute Neutrophil Count 4.8 X10^3/uL (2.0-7.7); Basophil# 0.08 X10^3/uL; Basophil% 0.8 % (0-1); Eosinophil# 2.23 X10^3/uL; Eosinophils% 23.1 % (0-5); Hematocrit 26.6 % (37-47); Hemoglobin 8.3 g/dL (12.0-15.0); Lymphocyte # 1.17 X10^3/ul (0.83-4.51); Lymphocyte % 12.1 % (19-41); Mean Corp Hgb Conc 31.2 g/dL (32-36); Mean Corpuscular Hgb 28.7 pg (27.0-32.0); Mean Platelet Vol. 9.9 fl (6.2-12.0); Monocyte# 1.01 X10^3/uL; Monocyte% 10.5 % (0-10); NRBC Flagged by Analyzer 0 % (0-5); Neutrophil # 4.77 X10^3/uL (2.7-7.7); Neutrophil % 49.5 % (47-70); POSITIVE DIFFERENTIAL YES; Platelet Count 376 K/mm3 (150-450); RBC Distribution Width CV 17.7 % (11.6-14.6); RBC Distribution Width SD 59.6 fl (35.1-43.9); Red Blood Count 2.89 M/mm3 (4.2-5.4); White Blood Count 9.7 K/mm3 (4.4-11.0)
[2024-02-10 09:39] LABS: Differential Indicated SCAN CRITERIA MET
[2024-02-10 10:49] LABS: ALB/GLOB Ratio 0.6 RATIO (0.9-2.4); AST(SGOT) 36 U/L (15-37); Alanine Aminotransfer ALT/SGPT 21 U/L (13-56); Albumin, Serum 2.6 g/dL (3.2-5.0); Alkaline Phosphatase 153 U/L (45-117); Anion Gap 7 (5-15); BUN 20 mg/dL (7-18); BUN/Creat Ratio 11.7 RATIO (10-20); Calcium,Total 9.2 mg/dL (8.5-10.1); Chloride 113 mmol/L (98-107); Creatinine, Serum 1.71 mg/dL (0.55-1.02); EST Glomerular Filtration Rate 36 mL/min (>60); Est Glom Filt Rate - Afr Amer 44 mL/min (>60); Globulin 4.6 g/dL (2.2-4.2); Glucose 91 mg/dL (74-106); Potassium 4.6 mmol/L (3.5-5.1); Protein, Total 7.2 g/dL (6.4-8.2); Sodium Level 141 mmol/L (136-145)
[2024-02-11 13:08] LABS: Pathologist Review Reviewed
== END ==
LOC: OLS.SW 05:00
PROVIDERS: PCP Internal Medicine; Visit Provider Family Medicine
DX: I50.9 Heart failure, unspecified (principal); M00.811 Arthritis due to other bacteria, right shoulder; G00.9 Bacterial meningitis, unspecified; I38 Endocarditis, valve unspecified
CPT/HCPCS: 36415; 80053; 85025

== ENCOUNTER → 2024-02-12 | Outpatient (REF) | payer MEDICAID, SELFPAY ==
[2024-02-12 08:49] LABS: INR Fingerstick 1.8; Prothrombin Time Fingerstick 18.9 SEC (11.7-14.9)
== END | disposition home or self-care (01) ==
LOC: OLS.SW 05:00
PROVIDERS: PCP Internal Medicine; Visit Provider Family Medicine
DX: Z79.01 Long term (current) use of anticoagulants (principal)
CPT/HCPCS: 36416; 85610

== ENCOUNTER → 2024-02-17 | Outpatient (REF) | payer MEDICAID, SELFPAY ==
[2024-02-17 07:59] LABS: Absolute Lymphocyte Count 1.33 X10^3/uL (0.83-4.51); Absolute Neutrophil Count 3.4 X10^3/uL (2.0-7.7); Basophil# 0.05 X10^3/uL; Basophil% 0.7 % (0-1); Eosinophil# 1.44 X10^3/uL; Eosinophils% 20.7 % (0-5); Lymphocyte # 1.33 X10^3/ul (0.83-4.51); Lymphocyte % 19.1 % (19-41); Mean Corp Hgb Conc 31.8 g/dL (32-36); Mean Corpuscular Hgb 29.7 pg (27.0-32.0); Mean Corpuscular Volume 93.2 fL (81-99); Mean Platelet Vol. 10.8 fl (6.2-12.0); Monocyte# 0.68 X10^3/uL; Monocyte% 9.8 % (0-10); NRBC Flagged by Analyzer 0 % (0-5); Neutrophil # 3.35 X10^3/uL (2.7-7.7); Platelet Count 215 K/mm3 (150-450); RBC Distribution Width CV 18.2 % (11.6-14.6); RBC Distribution Width SD 62.5 fl (35.1-43.9); Red Blood Count 2.36 M/mm3 (4.2-5.4)
[2024-02-17 08:23] LABS: ALB/GLOB Ratio 0.7 RATIO (0.9-2.4); AST(SGOT) 163 U/L (15-37); Alanine Aminotransfer ALT/SGPT 173 U/L (13-56); Albumin, Serum 2.6 g/dL (3.2-5.0); Alkaline Phosphatase 225 U/L (45-117); Anion Gap 7 (5-15); BUN 22 mg/dL (7-18); BUN/Creat Ratio 15.4 RATIO (10-20); Calcium,Total 8.2 mg/dL (8.5-10.1); Chloride 112 mmol/L (98-107); Creatinine, Serum 1.43 mg/dL (0.55-1.02); EST Glomerular Filtration Rate 45 mL/min (>60); Est Glom Filt Rate - Afr Amer 54 mL/min (>60); Globulin 3.9 g/dL (2.2-4.2); Glucose 91 mg/dL (74-106); Potassium 4.1 mmol/L (3.5-5.1); Protein, Total 6.5 g/dL (6.4-8.2); Sodium Level 143 mmol/L (136-145)
== END | disposition home or self-care (01) ==
LOC: OLS.SW 05:25
PROVIDERS: PCP Internal Medicine; Visit Provider Family Medicine
DX: D64.9 Anemia, unspecified (principal); G00.9 Bacterial meningitis, unspecified; I38 Endocarditis, valve unspecified
CPT/HCPCS: 36415; 80053; 85025

== ENCOUNTER → 2024-02-19 | Outpatient (REF) | payer MEDICAID, SELFPAY ==
[2024-02-19 08:50] LABS: International Normalized Ratio 1.8; Prothrombin Time (Protime)PT. 20.5 SECONDS (11.7-14.9)
== END | disposition home or self-care (01) ==
LOC: OLS.SW 05:00
PROVIDERS: PCP Internal Medicine; Visit Provider Family Medicine
DX: Z79.01 Long term (current) use of anticoagulants (principal)
CPT/HCPCS: 36415; 85610

== ENCOUNTER 2024-04-04 20:18 | Inpatient (IN) | payer MEDICAID, SELFPAY ==
[2024-04-04 20:20] VITALS: BP 125/82; PULSE 89; RESP 18; TEMP 36.4; O2SAT 98; BMI 26.2
[2024-04-04 20:25] VITALS: BP 125/82; PULSE 89; RESP 17; TEMP 36.4; O2SAT 98; BMI 26.2
--- NOTE | 2024-04-04 20:39 | EDS_ITS ---
<Statement entered by Gerard Fernandez DO - 04/04/24 21:51> Patient was seen and examined with physician digital sales assistant Savannah All components of the history and physical confirmed and agreed. History of present illness and physical exam: Patient is a 33-year-old female with a past medical history of mitral valve repair, seizure disorder, bipolar disorder, anxiety, depression, PTSD, hepatitis C, alcohol abuse, polysubstance abuse, IV drug use, MSSA infective endocarditis who presented to the emergency department with a chief complaint going through opiate withdrawal. Patient states that she was discharged on 2 mg Dilaudid which she had she had been taking every 8 hours since being discharged home. She states that her last dose was yesterday morning and has not had any since. She states that she was not weaned and this was discontinued abruptly. States that she has full body aches, nausea vomiting diarrhea and difficulty sleeping. Review of systems: Agree with above Physical exam: Agree with above MDM Patient is a 33-year-old female who presented to the Emergency Department chief complaint of opiate withdrawal. Patient will does wish to partake in detox. Patient will have medical clearance here and then be admitted to the hospital. Patient's CBC normal with a white blood count normal at 8, hemoglobin was 9.9, platelet count normal at 328. Patient sodium normal 140, potassium 3.4, creatinine normal at 0.93. Patient's urine test was negative and alcohol level less than 3. Patient's drug screen was reviewed positive for opiates, MDMA and cannabis Patient was given Ativan and Zofran here in the emergency department Case was discussed with hospitalist by physician digital sales assistant who accept patient for admission Dr. Padilla. Patient is agreeable to admission for detox all question concerns were answered bedside. Final impression: Opiate withdrawal Disposition: Patient will be admitted to the hospital for further evaluation management Supervising attending attestation: Gerard Fernandez D.O. [facility] History of Present Illness Chief Complaint: Substance Abuse Narrative Narrative: Patient presenting today with concerns for opioid withdrawal. She has a past medical history of seizure disorder, bipolar disorder, anxiety, depression, PTSD, hepatitis C, EtOH abuse, polysubstance abuse, IV drug use, and MSSA infective endocarditis status post mitral valve replacement. She was at [facility] from 12/26/2023-01/14/2024 and again from 01/15/2024 to 02/03/2024 due to infective endocarditis, sepsis, meningitis, and septic left shoulder joint. She was discharged home on 2 mg Dilaudid which she has been taking every 8 hours since being discharged home. She took her last dose yesterday morning and has not had any since. She reports that she was not weaned down from this medication and they have stopped prescribing it to her. She was told that she would be following up with the pain management clinic but has not heard from them yet to make an appointment. She reports nausea, vomiting, diarrhea, insomnia, sweats, and chills. She denies any other substance use. [facility] Medical History Smoker Biceps tendinitis of right shoulder Seizures Abnormal Pap smear of cervix Depression Home Medications ?Medication ?Instructions ?Recorded ?Last Taken ?Type Medical Marijuana 1 inhaler inhalation PRN PRN 08/24/18 03/16/19 08:00 History Anxiety hydromorphone 2 mg tablet 2 mg PO Q8H PRN PRN severe pain 04/04/24 Unknown His tory Allergy/AdvReac Type Severity Reaction Status Date / Time hydrocodone bitartrate (From Allergy Rash Verified 04/04/24 20:24 Vicodin) Penicillins Allergy Rash Verified 04/04/24 20:24 Family History Grandmother Cancer pancreatic Grandfather Colon cancer Mother Lupus Surgical History History of surgical procedure H/O dilation and curettage H/O LEEP delivery delivered Social History household members: none number of children: 3 current occupational status: unemployed Smoking Status: Current every day smoker tobacco type: cigarettes Electronic Cigarette Use: not used second hand exposure: Yes alcohol intake: current alcohol intake frequency: a few times a week substance use type: former substance user Date of last use: 2022 and marijuana caffeine: Yes what type of physical activity do you participate in: none seatbelt use: always do you feel safe at home: No additional social history: - Patient works at [employer] ROS ROS ED Constitutional Constitutional ED: Reports chills and sweats; Denies fever(s) Cardiovascular Cardiovascular: Denies chest pain Respiratory/Chest Respiratory/Chest: Denies dyspnea Gastrointestinal Gastrointestinal: Reports diarrhea, nausea and vomiting; Denies abdominal pain Genitourinary Genitourinary ED: Denies dysuria, hematuria or urinary urgency Musculoskeletal Musculoskeletal: Denies arthralgias or myalgias Integumentary Denies rash Neurologic Neurologic: Denies weakness EXAM Physical Exam Const Vital Signs: 04/04/24 20:20 04/04/24 20:25 Temperature 97.6 F L 97.6 F L Temperature Source Oral Oral Pulse Rate 89 89 Respiratory Rate 18 17 Blood Pressure 125/82 H 125/82 H Blood Pressure Mean 96 96 Pulse Ox 98 98 Oxygen Delivery Method Room Air Room Air Positive well nourished, well developed and no apparent distress General Appearance ED: well developed HEENT Reports normocephalic and head/scalp atraumatic Mouth ED: Yes moist mucous membranes normal Eyes PERRL and EOMs intact bilaterally Neck full ROM and supple Chest Wall inspection of chest normal Resp normal respiratory effort and clear to auscultation bilaterally Cardio regular rate and regular rhythm GI soft to palpation, non-tender, non-distended and no masses Back/Spine normal ROM and normal to inspection Extremity normal to inspection and full ROM Neuro oriented x3, CN's II-XII intact bilaterally, moves all extremities, no focal motor deficits and no sensory deficits noted Sensorium / Orientation: awake and alert Psych mental status grossly normal and thought process normal Skin no rashes or lesions noted and no wounds MDM MDM MDM Narrative Medical decision making narrative: Patient presenting today with concerns that she is withdrawing from opioids. She has been taking 2 mg Dilaudid every 8 hours since January after having endocarditis, meningitis, septic shoulder joint. She is now out of her medications and last took Dilaudid yesterday morning. She has been having withdrawal symptoms. Initially she did not want to detox but is now requesting to detox from opioids. She was given Ativan and Zofran here. I will speak with the hospitalist and she will be admitted in stable condition. Lab Data Attestation: I reviewed the patient's lab results. Labs: Laboratory Results - last 24 hr 04/04/24 04/04/24 20:00 21:05 WBC 8.0 RBC 3.49 L Hgb 9.9 L Hct 30.4 L MCV 87.1 MCH 28.4 MCHC 32.6 RDW Std Deviation 46.1 H RDW Coeff of Kelly 14.5 Plt Count 328 MPV 9.7 Immature Gran % (Auto) 0.600 Neut % (Auto) 64.2 Lymph % (Auto) 15.9 L Cass % (Auto) 9.0 Eos % (Auto) 10.1 H Baso % (Auto) 0.2 Absolute Neuts (auto) 5.2 Absolute Lymphs (auto) 1.28 Nucleated RBC % 0 Sodium 140 Potassium 3.4 L Chloride 110 H Carbon Dioxide 24.0 Anion Gap 6 BUN 8 Creatinine 0.93 Estim Creat Clear Calc 84.50 Est GFR (MDRD) Af Amer 89 Est GFR (MDRD) Non-Af 74 BUN/Creatinine Ratio 8.6 L Glucose 104 Calcium 9.3 Urine Test Negative Ur Drug Screen Comment Ethyl Alcohol < 3.0 Discharge Plan Triage Chief Complaint: Substance Abuse ED Midlevel Provider: Micaela Richards ED Provider: Gerard Fernandez Dx/Rx/DC Orders Clinical Impression: Desire for detoxification, Opioid dependence, Opioid withdrawal Prescriptions: No Action Medical Marijuana 1 inhaler inhalation PRN PRN (Reason: Anxiety) hydromorphone 2 mg tablet 2 mg PO Q8H PRN PRN (Reason: severe pain) Primary Care Provider: Trisha Wiley [facility] Referrals: Joan Santiago MD [Med Staff - Active Staff] - Print Language: Panamanian Disposition Disposition: Acute Care Hospital [facility]
[2024-04-04 21:10] LABS: Absolute Lymphocyte Count 1.28 X10^3/uL (0.83-4.51); Absolute Neutrophil Count 5.2 X10^3/uL (2.0-7.7); Basophil# 0.02 X10^3/uL; Basophil% 0.2 % (0-1); Eosinophil# 0.81 X10^3/uL; Eosinophils% 10.1 % (0-5); Hematocrit 30.4 % (37-47); Hemoglobin 9.9 g/dL (12.0-15.0); Lymphocyte # 1.28 X10^3/ul (0.83-4.51); Lymphocyte % 15.9 % (19-41); Mean Corp Hgb Conc 32.6 g/dL (32-36); Mean Corpuscular Hgb 28.4 pg (27.0-32.0); Mean Corpuscular Volume 87.1 fL (81-99); Mean Platelet Vol. 9.7 fl (6.2-12.0); Monocyte# 0.72 X10^3/uL; NRBC Flagged by Analyzer 0 % (0-5); Neutrophil # 5.15 X10^3/uL (2.7-7.7); Neutrophil % 64.2 % (47-70); Platelet Count 328 K/mm3 (150-450); RBC Distribution Width CV 14.5 % (11.6-14.6); RBC Distribution Width SD 46.1 fl (35.1-43.9); Red Blood Count 3.49 M/mm3 (4.2-5.4)
[2024-04-04] MEDS: Ondansetron ODT 4 MG Tablet PO (21:14)
[2024-04-04] MEDS: LORazepam 1 MG Tablet PO (21:14)
[2024-04-04 21:18] LABS: Internal QC Validated? YES +Cl - CLEAR BKGD; Pregnancy, Urine Negative Negative
[2024-04-04 21:25] LABS: Anion Gap 6 (5-15); BUN 8 mg/dL (7-18); BUN/Creat Ratio 8.6 RATIO (10-20); Calcium,Total 9.3 mg/dL (8.5-10.1); Chloride 110 mmol/L (98-107); Creatinine, Serum 0.93 mg/dL (0.55-1.02); EST Glomerular Filtration Rate 74 mL/min (>60); Est Glom Filt Rate - Afr Amer 89 mL/min (>60); Glucose 104 mg/dL (74-106); Potassium 3.4 mmol/L (3.5-5.1); Sodium Level 140 mmol/L (136-145)
[2024-04-04 21:26] LABS: Alcohol, Blood (Medical)-Serum < 3.0 mg/dL
[2024-04-04 21:38] LABS: Amphetamine Urine VISTA NEGATIVE (<1000 ng/mL); Barbiturate Urine VISTA NEGATIVE (< 200 ng/mL); Benzodiazepine Urine VISTA NEGATIVE (< 200 ng/mL); Cocaine Urine VISTA NEGATIVE (< 300 ng/mL); Ecstacy Urine VISTA POSITIVE (< 500 ng/mL); Methadone Urine VISTA NEGATIVE (< 300 ng/mL); PCP Urine VISTA NEGATIVE (< 25 ng/mL); THC Urine VISTA POSITIVE (< 50 ng/mL); Vista UDS pH Range 7
--- NOTE | 2024-04-04 21:39 | PCM.HP.STD ---
HPI - General General Date of Admission: 04/04/24 Date of Service: 04/04/24 Chief Complaint: Acute Opiate Withdrawal HPI Narrative The patient is a 33 y/o F w/ PMHx: Seizure disorder, Anxiety and Depression/Bipolar disorder/PTSD, Tobacco use, Polysubstance abuse (IVDA w/ associated Hepatitis C), Hx MSSA Infective endocarditis s/p MVR 12/26/23-01/14/24 and 01/15/24-02/03/24 with additionally septic shoulder, meningitis, sepsis reporting that she was discharged to home following on oral dilaudid 2 mg po q 8 hours with last dose the day prior to current presentation now presenting to the [facility] ED on 04/04/24 with history of acute onset opiate withdrawal with last dose yesterday morning with no pain reported and supposedly plan for following up with pain management but she reports not hearing from them but from reports has not made any efforts to reach out with associated nausea, emesis, diarrhea, insomnia, sweats and chills prompting ED evaluation. Workup in the ED included T97.6, rate 89, BP 125/82, respiratory rate 18, 98% on room air, CBC with WBC 8.0, he will 9.9, MCV 87.1, platelet 328 without marked shift, BMP with potassium 3.4, chloride 110 otherwise not marked appearing, urine testing negative, UDS pending upon requested evaluation of patient, ethyl alcohol level less than 3. Discussed with ED upon admission and INR will also be obtained. [facility] Medical History Infective endocarditis of mitral valve Hepatitis C IV drug user Cannabis use disorder Tobacco use PTSD (post-traumatic stress disorder) Bipolar disorder Anxiety and depression Seizures Abnormal Pap smear of cervix Home Medications ?Medication ?Instructions ?Recorded ?Last Taken ?Type Medical Marijuana 1 inhaler inhalation PRN PRN 08/24/18 03/16/19 08:00 History Anxiety brivaracetam 50 mg tablet 50 mg PO BID seizure 04/04/24 Unknown History (Briviact) furosemide 20 mg tablet 20 mg PO DAILY water pill 04/04/24 Unknown History gabapentin 100 mg capsule 100 mg PO TID pain 04/04/24 Unknown History hydromorphone 2 mg tablet 2 mg PO Q8H PRN PRN severe pain 04/04/24 Unknown History hydroxyzine pamoate 25 mg capsule 25 mg PO BID PRN PRN anxiety 04/04/24 Unknown History methocarbamol 500 mg tablet 500 mg PO Q6H pain 04/04/24 Unknown History mirtazapine 30 mg tablet 30 mg PO QHS sleep 04/04/24 Unknown History multivitamin (One Daily 1 tab PO QHS supplement 04/04/24 Unknown History Multivitamin tablet) pantoprazole 40 mg tablet,delayed 40 mg PO DAILY gerd 04/04/24 Unknown History release quetiapine 50 mg tablet,extended 50 mg PO QHS mood 04/04/24 Unknown History release 24 hr trazodone 150 mg tablet 150 mg PO QHS mood 04/04/24 Unknown History warfarin 1 mg tablet mg PO 04/04/24 Unknown History Allergy/AdvReac Type Severity Reaction Status Date / Time hydrocodone bitartrate (From Allergy Rash Verified 04/04/24 20:24 Vicodin) Penicillins Allergy Rash Verified 04/04/24 20:24 Family History Grandmother Cancer pancreatic Grandfather Colon cancer Mother Lupus unable to obtain (Patient does not know her paternal family history.) Surgical History (Updated 04/04/24 @ 22:[address] Leydi Padilla MD) History of shoulder surgery History of bladder surgery H/O mitral valve replacement with mechanical valve H/O dilation and curettage H/O LEEP delivery delivered Social History (Updated 04/04/24 @ 22:[address] Leydi Padilla MD) household members: other details: Lives with friend (reports does not have substance abuse ongoing) number of children: 3 current occupational status: unemployed Smoking Status: Current every day smoker tobacco type: cigarettes Smoking packs per day: 0.5 Smoking cigarettes per day: 10.0 Electronic Cigarette Use: not used second hand exposure: Yes alcohol intake: current alcohol intake frequency: a few times a month substance use type: former substance user Date of last use: November 2023, IVDA with cocaine. and marijuana caffeine: Yes what type of physical activity do you participate in: none seatbelt use: always do you feel safe at home: No additional social history: - Patient works at [employer] ROS ROS Narrative Admission Review of Systems: CONSTITUTIONAL: No weight loss, fever, + chills, weakness or fatigue. HEENT: + Rhinorrhea. Eyes: No visual loss, blurred vision, double vision or yellow sclerae. Ears, Nose, Throat: No hearing loss, sneezing, sore throat. SKIN: No rash or itching, lesions, wounds except + well-healed incisions following recent surgical intervention of shoulder as well as valve replacement with endocarditis history, occasional staged ecchymoses. CARDIOVASCULAR: No chest pain, chest pressure or chest discomfort, palpitations, edema, orthopnea, syncopal events. RESPIRATORY: No shortness of breath, cough or sputum, wheezing, hemoptysis. GASTROINTESTINAL: + Anorexia, nausea, abdominal cramping, diarrhea, emesis. No abdominal pain, melena, BRBPR. GENITOURINARY: No dysuria, frequency, urgency or retention. NEUROLOGICAL: No headache, dizziness, syncope, paralysis, ataxia, numbness or tingling in the extremities, focal weakness, change in bowel or bladder control, seizure. MUSCULOSKELETAL: + muscle, back pain, joint pain or stiffness. HEMATOLOGIC: + Anemia, easy bleeding/bruising. LYMPHATICS: No enlarged nodes. No history of splenectomy. PSYCHIATRIC: + History of anxiety and depression/bipolar disorder/PTSD. ENDOCRINOLOGIC: + Reports of sweating, cold or heat intolerance. No polyuria or polydipsia. ALLERGIES: No history of asthma, hives, eczema or rhinitis. Vital Signs Vital Signs Vital Signs: 04/04/24 20:20 04/04/24 20:25 Temperature 97.6 F L 97.6 F L Temperature Source Oral Oral Pulse Rate 89 89 Respiratory Rate 18 17 Blood Pressure 125/82 H 125/82 H Blood Pressure Mean 96 96 Pulse Ox 98 98 Oxygen Delivery Method Room Air Room Air Weight Weight: 157 lb 10.088 oz Body Mass Index (BMI) 26.2 Physical Exam Narrative Physical Examination: General: Awake, alert, oriented x 3 and cooperative, laying in the ED bed, fatigued. Skin: Normal color, normal turgor, no icterus, no cyanosis except occasional stage ecchymoses, abrasion, well-healed incisions from shoulder surgery and valve replacement. HEENT: AT/NC, EOMI, PERRLA, dry MM, no carotid bruits or JVD noted. Lungs: Mildly diminished, greater bases, appropriate effort, no rales, ronchi or wheezing. Heart: Regular rate and rhythm; no gallop, rub audible, + audible click status post MV replacement. Abdomen: Soft, mild generalized discomfort with no rebound or guarding, ND, mildly hyperactive BS, no appreciated HSM. Extremities: No cyanosis, clubbing, or edema. Neurological: Patient awake, alert, oriented as noted, cognitive function intact; pupils equally reactive to light and accommodation, cranial nerves grossly normal, moving all 4 extremities, no focal deficits, strength moderately globally [place]illa secondary to acute presentation complaints. Psychiatric: Affect appears fatigued, no acute evidence of depressive or anxiety feelings but does have underlying history. Results Lab / Micro Data 04/04/24 20:00 04/04/24 20:00 Labs: Laboratory Results - last 24 hr 04/04/24 20:00: WBC 8.0, RBC 3.49 L, Hgb 9.9 L, Hct 30.4 L, MCV 87.1, MCH 28.4, MCHC 32.6, RDW Std Deviation 46.1 H, RDW Coeff of Kelly 14.5, Plt Count 328, MPV 9.7, Immature Gran % (Auto) 0.600, Neut % (Auto) 64.2, Lymph % (Auto) 15.9 L, [place] % (Auto) 9.0, Eos % (Auto) 10.1 H, Baso % (Auto) 0.2, Absolute Neuts (auto) 5.2, Absolute Lymphs (auto) 1.28, Nucleated RBC % 0, Sodium 140, Potassium 3.4 L, Chloride 110 H, Carbon Dioxide 24.0, Anion Gap 6, BUN 8, Creatinine 0.93, Estim Creat Clear Calc 84.50, Est GFR (MDRD) Af Amer 89, Est GFR (MDRD) Non-Af 74, BUN/Creatinine Ratio 8.6 L, Glucose 104, Calcium 9.3, Ethyl Alcohol < 3.0 04/04/24 21:05: Urine Test Negative, Urine Opiates Screen POSITIVE H, Urine Methadone Screen NEGATIVE, Ur Barbiturates Screen NEGATIVE, Ur Phencyclidine Scrn NEGATIVE, Ur Amphetamines Screen NEGATIVE, MDMA (Ecstasy) Screen POSITIVE H, U Benzodiazepines Scrn NEGATIVE, Urine Cocaine Screen NEGATIVE, U Cannabinoids Screen POSITIVE H, Ur Drug Screen Comment Assessment & Plan Assessment/Plan (1) Opiate withdrawal: PLAN: Plan The patient is a 33 y/o F w/ PMHx: Seizure disorder, Anxiety and Depression/Bipolar disorder/PTSD, Tobacco use, Polysubstance abuse (IVDA w/ associated Hepatitis C), Hx MSSA Infective endocarditis s/p MVR 12/26/23-01/14/24 and 01/15/24-02/03/24 with additionally septic shoulder, meningitis, sepsis reporting that she was discharged to home following on oral dilaudid 2 mg po q 8 hours with last dose the day prior to current presentation now presenting to the [facility] ED on 04/04/24 with history of acute onset opiate withdrawal with last dose yesterday morning. #1. Acute Opiate Withdrawal: Will admit to [facility], routine labs obtained in the ED aside from hepatic profile which will be added and INR also per discussion with ED, will initiate and continue on protocol with tapering course of Subutex, as needed tylenol, bowel regimen, gabapentin, Bentyl, Vistaril, methocarbamol, clonidine, PRN nightly trazodone for insomnia, IV fluids, IV antiemetics. Once patient clinically improved and completion of taper nearing will plan consultation with case management for transition to next level of rehabilitation care. #2. Recent Hx MSSA Infective endocarditis as well as septic shoulder: Patient s/p MVR 12/26/23-01/14/24 and 01/15/24-02/03/24 with additionally septic shoulder, meningitis, sepsis, currently on coumadin, INR pending upon evaluation, will continue to trend. Encourage continued outpatient follow-up with orthopedic surgery as well as cardiothoracic surgery/cardiology as previously arranged from recent acute inpatient stay. Will continue additionally low-dose Lasix started during recent acute inpatient stay following mitral valve replacement. #3. Polysubstance Abuse, IVDA Hx, History of Hepatitis C, Chronic: Will request records from recent admission as likely she was already recently assessed for HIV/hepatitis/RPR co-infection; however, if not then would obtain, encourage follow-up with GI/ID/PCP and will continue antiviral regimen. #4. Tobacco Abuse: Encouraged cessation, inpatient consultation per RT, NR if desired. #5. Hypokalemia: Admission K+ 3.4, magnesium level also requested, supplementation given, repeat level in AM. #6. Chronic normocytic anemia: Admission hemoglobin 9.9, MCV 87.1, more recent baseline appears 7-8, most recent prior to this 02/17/2024 hemoglobin 7.0, #7. Seizure disorder: Most recent internal medicine note/PCP note from 09/26/2023 with history of frequent seizures lasting approximately 5 minutes with postictal phases with at that time request for neurology follow-up with additionally her note MRI and EEG ordered and discussion of initiation of medication however patient declined at that time, strongly encourage continued outpatient follow-up. #8. Anxiety and Depression/Bipolar disorder/Possible borderline Personality disorder/PTSD: We will continue Seroquel and trazodone as well as mirtazapine regimen. Per record patient with significant history with also self-harm per prior notes with plan released back from 09/2023 for IOP with psychiatry at [facility], encouraged continued outpatient follow-up and assessment. Likely greatly contributing to her polysubstance abuse history, 180/case management/social work consulted. #9. Tobacco Abuse: Encouraged cessation, inpatient consultation per RT, NR if desired. #10. DVT prophylaxis: Will continue coumadin with INR trending. Charges/Coding Visit Charges Inpatient E&M: 42722 Init Hosp L3
[2024-04-04 21:43] VITALS: BP 123/78; PULSE 79; RESP 18; TEMP 36.6; O2SAT 97
[2024-04-04 22:09] LABS: AST(SGOT) 63 U/L (15-37); Alanine Aminotransfer ALT/SGPT 76 U/L (13-56); Albumin, Serum 3.3 g/dL (3.2-5.0); Alkaline Phosphatase 201 U/L (45-117); Bilirubin, Direct 0.18 mg/dL (0.00-0.30); Globulin 4.6 g/dL (2.2-4.2); Magnesium 1.9 mg/dL (1.6-2.6); Protein, Total 7.9 g/dL (6.4-8.2)
[2024-04-04 22:18] VITALS: BMI 25.4
[2024-04-04 22:24] VITALS: BP 107/61; PULSE 81; RESP 16; TEMP 36.6; O2SAT 98
[2024-04-04 22:39] LABS: International Normalized Ratio 2.1; Prothrombin Time (Protime)PT. 23.5 SECONDS (11.7-14.9)
[2024-04-04] MEDS: Potassium Chloride Oral Tablet 20 MEQ 40 MEQ PO (22:40)
[2024-04-04] MEDS: QUEtiapine 25 MG Tablet 50 MG PO (22:40)
[2024-04-04] MEDS: traZODone 100 MG Tablet 150 MG PO (22:41)
[2024-04-04] MEDS: Mirtazapine 30 MG Tablet PO (22:41)
[2024-04-04] MEDS: Gabapentin 100 MG Capsule PO (22:46)
[2024-04-05 05:13] VITALS: BP 100/63; PULSE 74; RESP 15; TEMP 36.6; O2SAT 99
[2024-04-05] MEDS: Acetaminophen 325 MG Tablet 650 MG PO (05:21)
[2024-04-05] MEDS: Methocarbamol 750 MG Tablet PO ×3 (05:21→21:53)
[2024-04-05] MEDS: Gabapentin 100 MG Capsule PO ×3 (05:21→21:45)
[2024-04-05 06:43] LABS: International Normalized Ratio 2.1; Prothrombin Time (Protime)PT. 23.2 SECONDS (11.7-14.9)
[2024-04-05 08:52] VITALS: O2SAT 97
[2024-04-05] MEDS: Furosemide 20 MG Tablet PO (10:46)
[2024-04-05] MEDS: Pantoprazole Sodium 40 MG Tablet PO (10:46)
[2024-04-05 10:53] VITALS: BP 104/66; PULSE 81; RESP 16; TEMP 36.7; O2SAT 99
--- NOTE | 2024-04-05 11:06 | PN.HOSP_ITS ---
Reason for Visit Reason for Visit: Diagnoses Opioid use, unspecified with withdrawal (04/04/24) Subjective Subjective Saw patient at bedside this morning. Patient was sitting up in bed and in no acute distress. She felt fatigued and generally achy this morning. She took several as needed medications from the opiate withdrawal order set overnight and this morning and feels like they have been mild to moderately helpful for her. She does not want to take Subutex while she is here. No other acute concerns at this time. Objective Data Objective Data Vital Signs: Vital Signs Temp Pulse Resp BP Pulse Ox O2 Del Method 98.0 F 81 16 104/66 99 Room Air 04/05/24 10:53 04/05/24 10:53 04/05/24 10:53 04/05/24 10:53 04/05/24 10:53 04/05/24 10:54 Oxygen Delivery Method Room Air Weight: 69.2 kg Body Mass Index (BMI) 25.4 Intake & Output: Intake and Output for Last 24 Hours 04/03/24 04/04/24 04/05/24 23:59 23:59 23:59 Intake Total 500 / 500 Balance 500 / 500 Lab / Micro Data 04/04/24 20:00 04/04/24 20:00 Labs: Laboratory Results - last 24 hr 04/04/24 20:00: WBC 8.0, RBC 3.49 L, Hgb 9.9 L, Hct 30.4 L, MCV 87.1, MCH 28.4, MCHC 32.6, RDW Std Deviation 46.1 H, RDW Coeff of Kelly 14.5, Plt Count 328, MPV 9.7, Immature Gran % (Auto) 0.600, Neut % (Auto) 64.2, Lymph % (Auto) 15.9 L, [place] % (Auto) 9.0, Eos % (Auto) 10.1 H, Baso % (Auto) 0.2, Absolute Neuts (auto) 5.2, Absolute Lymphs (auto) 1.28, Nucleated RBC % 0, Sodium 140, Potassium 3.4 L , Chloride 110 H, Carbon Dioxide 24.0, Anion Gap 6, BUN 8, Creatinine 0.93, Estim Creat Clear Calc 84.50, Est GFR (MDRD) Af Amer 89, Est GFR (MDRD) Non-Af 74, BUN/Creatinine Ratio 8.6 L, Glucose 104, Calcium 9.3, Magnesium 1.9, Total Bilirubin 0.60, Direct Bilirubin 0.18, AST 63 H, ALT 76 H, Alkaline Phosphatase 201 H, Total Protein 7.9, Albumin 3.3, Globulin 4.6 H, Ethyl Alcohol < 3.0 04/04/24 21:05: Urine Test Negative, Urine Opiates Screen POSITIVE H, Urine Methadone Screen NEGATIVE, Ur Barbiturates Screen NEGATIVE, Ur Phencyclidine Scrn NEGATIVE, Ur Amphetamines Screen NEGATIVE, MDMA (Ecstasy) Screen POSITIVE H, U Benzodiazepines Scrn NEGATIVE, Urine Cocaine Screen NEGATIVE, U Cannabinoids Screen POSITIVE H, Ur Drug Screen Comment 04/04/24 22:20: PT 23.5 H, INR 2.1 04/05/24 06:08: PT 23.2 H, INR 2.1 Physical Exam Const alert, oriented x3, no apparent distress and average body habitus Constitutional Narrative: Younger female, appears older than stated age, fatigued appearing, otherwise sitting up comfortably in bed and in no acute distress. General Appearance: cooperative and comfortable HEENT normocephalic, head/scalp atraumatic, hearing grossly normal bilaterally, nasal mucous membranes and turbinates normal and moist oral mucous membranes Eyes PERRL, EOMs intact bilaterally and conjunctivae normal Neck full ROM Chest inspection of chest normal Resp normal respiratory effort, normal air movement, no use of accessory muscles and clear to auscultation bilaterally Cardio regular rate, regular rhythm, no murmurs and peripheral pulses 2+ throughout GI normal to inspection, nondistended, normoactive bowel sounds, soft to palpation, non-tender and non-distended Back/Spine normal ROM Extremity normal to inspection, full ROM and no pedal edema Skin no rashes or lesions noted Psych mental status grossly normal Assessment & Plan Assessment/Plan (1) Opiate withdrawal: (2) Desire for detoxification: PLAN: Plan Patient is a 33-year-old female who presented [facility] ED on 04/04/2024 for opiate withdrawal. 1. Opiate withdrawal with desire for detoxification ? Addiction medicine following. Was taking p.o. Dilaudid 2 mg every 8 hours after recent hospitalization as noted below and had withdrawal symptoms after discontinuation. Continue as needed medications per opiate withdrawal order set. Patient refused Subutex taper. Planning for home on discharge with outpatient services as needed. 2. Recent history of infective endocarditis s/p mitral valve replacement on Coumadin, recent history of septic shoulder ? Recent hospitalizations at [facility] from 12/25-01/13 and 01/14-02/02 complicated by MSSA infective endocarditis s/p mitral valve replacement, septic shoulder and sepsis. Completed antibiotic course. Currently on warfarin with INR goal 2.5- 3.5. Per [facility] records, saw Coumadin clinic on 04/02 and home dosing is 5 mg on / and 7.5 mg every other day. INR 2.1 on admit here. Will give 2 days of 10 mg doses and then restart home regimen on Saturday. Monitor daily INR. 3. Seizure disorder ? Diagnosed with seizures about 10 years ago. Was on Keppra and Neurontin at one point but was lost to follow-up with neurology. She apparently had a seizure during recent hospitalization at [facility], was discharged on brivaracetam. This is not on formulary and unfortunately patient is unable to have someone bring it in. Will treat with p.o. Keppra 1000 mg twice daily while here. 4. History of IV drug abuse, polysubstance abuse, chronic hepatitis C ? Addiction medicine following as above. Mildly elevated LFTs on admit, stable from previous, no need to monitor further. Chronic medical conditions: ? Chronic normocytic anemia: Hemoglobin 9.9 on admit, appears to be near baseline. ? Anxiety/depression/bipolar disorder/PTSD: Continue home Seroquel, mirtazapine and trazodone at night. ? GERD: Continue home PPI. ? Tobacco abuse: Nicotine patch in place per patient request. DVT prophylaxis: Not indicated, on warfarin CODE STATUS: Full code, verified Expected disposition: Home, 2 to 3 days Total clinical time spent by myself addressing the patient's medical issues, reviewing all the data, and collaborating with patient's care team: 35 minutes. Charges/Coding Visit Charges Inpatient E&M: 17745 Subs Hosp L2
--- NOTE | 2024-04-05 12:16 | NURSING ---
Pt states she did not know off hand the number of the friend she is living with, lizzette open and phone number is obtained from personal phone. Axel is his name telephone number [phone]. Phone call placed and Axel is unable to bring the seizure med in he is sick and not well. He is asking if any of the volunteer person can collect meds. He is notified that its the weekend and volunteers are not here today. Axel later called back stating he will try to get the medicine here.
[2024-04-05] MEDS: levETIRAcetam 1,000 MG Tablet 1000 MG PO ×2 (13:31→21:44)
[2024-04-05] MEDS: hydrOXYzine PAM 25 MG Capsule 50 MG PO (13:34)
[2024-04-05 15:03] VITALS: BP 106/73; PULSE 79; RESP 16; TEMP 36.5; O2SAT 99
--- NOTE | 2024-04-05 15:52 | ADDICTION ---
Pt was met with to complete all RAMP assessments, ASAM, AUDIT, DUDIT, DC Plan, MSE, and referral for tx. Pt denies any problems with substance use and states she was only using her Rx Dilaudid 2mg every eight hours as prescribed, but then ran out yesterday and her surgeon would not prescribe anymore. Pt reports a hx of some drug use, but nothing problematic, despite collateral evidence to the contrary. Pt appears to relying on denial and admits she is involved with [employer] and all four of her children have been removed from her custody based on false allegation from her 17 year old son. Pt was recommended for residential tx but pt declined, but agreed to continue considering a residential placement in the future. Pt states she is actively seeing a therapist at [facility] and a psychiatrist at [facility], and she will follow up with them this week. Pt states she is discharging to her home w/her roommate on [facility]. Pt was provided psychoeducation on relapse risk, community resources, and tx. She was provided a packet of information on addiction, mental health, and a variety of tx services available in [facility].
[2024-04-05 21:40] VITALS: BP 120/79; PULSE 83; RESP 16; TEMP 36.6; O2SAT 99
[2024-04-05] MEDS: Mirtazapine 30 MG Tablet PO (21:47)
[2024-04-05] MEDS: QUEtiapine 25 MG Tablet 50 MG PO (21:47)
[2024-04-05] MEDS: traZODone 100 MG Tablet 150 MG PO (21:49)
[2024-04-05 22:47] VITALS: PULSE 90; RESP 16; O2SAT 97
[2024-04-05] MEDS: Albuterol 2.5 MG/3 ML VIAL.NEB. INHALATION (22:47)
[2024-04-06 05:18] VITALS: BP 108/57; PULSE 87; RESP 15; TEMP 36.6; O2SAT 98
[2024-04-06] MEDS: Gabapentin 100 MG Capsule PO (05:26)
[2024-04-06] MEDS: Acetaminophen 325 MG Tablet 650 MG PO (05:26)
[2024-04-06] MEDS: Methocarbamol 750 MG Tablet PO (05:26)
[2024-04-06] MEDS: hydrOXYzine PAM 25 MG Capsule 50 MG PO (05:26)
[2024-04-06 07:01] LABS: International Normalized Ratio 2.4; Prothrombin Time (Protime)PT. 25.9 SECONDS (11.7-14.9)
[2024-04-06 10:08] VITALS: BP 118/72; PULSE 90; RESP 18; TEMP 36.4; O2SAT 96
[2024-04-06] MEDS: Pantoprazole Sodium 40 MG Tablet PO (10:10)
[2024-04-06] MEDS: levETIRAcetam 1,000 MG Tablet 1000 MG PO (10:10)
--- NOTE | 2024-04-06 10:25 | DS.PCM_ITS ---
Providers Date of Admission: 04/04/24 Date of Discharge: 04/06/24 Primary Care Physician: MAREK Rinaldi, DO Reason For Visit: ACUTE OPIOID WITHDRAWAL Diagnosis Discharge Diagnosis (1) Opiate withdrawal: Status: Acute Code(s): F11.93 - Opioid use, unspecified with withdrawal (2) Desire for detoxification: Status: Acute Medications at Discharge Home Medications Medical Marijuana 1 inhaler inhalation PRN PRN Anxiety 08/24/18 brivaracetam 50 mg tablet (Briviact) 50 mg PO BID seizure 04/04/24 furosemide 20 mg tablet 20 mg PO DAILY water pill 04/04/24 gabapentin 100 mg capsule 100 mg PO TID pain 04/04/24 hydroxyzine pamoate 25 mg capsule 25 mg PO BID PRN PRN anxiety 04/04/24 methocarbamol 500 mg tablet 500 mg PO Q6H pain 04/04/24 mirtazapine 30 mg tablet 30 mg PO QHS sleep 04/04/24 multivitamin (One Daily Multivitamin tablet) 1 tab PO QHS supplement 04/04/24 pantoprazole 40 mg tablet,delayed release 40 mg PO DAILY gerd 04/04/24 quetiapine 50 mg tablet,extended release 24 hr 50 mg PO QHS mood 04/04/24 trazodone 150 mg tablet 150 mg PO QHS mood 04/04/24 warfarin 1 mg tablet mg PO DAILY blood thinner 04/04/24 Hospital Course Operations None Procedures None Summary of Care Provided Minutes Spent on Discharge: 35 Hospital Course: Patient is a 33-year-old female who presented [facility] ED on 04/04/2024 for opiate withdrawal. Hospital course as noted below. Patient discharged home in stable condition on 04/06. 1. Opiate withdrawal with desire for detoxification ? Addiction medicine followed. Was taking p.o. Dilaudid 2 mg every 8 hours after recent hospitalization as noted below and had withdrawal symptoms after discontinuation. Patient refused Subutex taper while here as she did not want to take any further opiates. Her withdrawal symptoms were well-controlled on the other as needed medications per the opiate withdrawal order set. Patient is on several of those as needed medications at home and felt comfortable being discharged on morning of hospital day 3. Addiction medicine recommended residential treatment for patient but she declined noting that she has follow-up appointments with therapy and psychiatry this week. Discharged home in stable condition on 04/06. 2. Recent history of infective endocarditis s/p mitral valve replacement on Coumadin, recent history of septic shoulder ? Recent hospitalizations at [facility] from 12/25-01/13 and 01/14-02/02 complicated by MSSA infective endocarditis s/p mitral valve replacement, septic shoulder and sepsis. Completed antibiotic course. Currently on warfarin with INR goal 2.5- 3.5. Per [facility] records, saw Coumadin clinic on 04/02 and home dosing is 5 mg on / and 7.5 mg every other day. INR 2.1 on admit here. Gave dose of 10 mg on 04/05 with repeat INR 2.4 on 04/06. Recommended that patient resume regular home dosing on discharge. 3. Seizure disorder ? Diagnosed with seizures about 10 years ago. Was on Keppra and Neurontin at one point but was lost to follow-up with neurology. She apparently had a seizure during recent hospitalization at [facility], was discharged on brivaracetam. This is not on formulary and unfortunately patient is unable to have someone bring it in. Treated p.o. Keppra 1000 mg twice daily while here. Okay to resume home brivaracetam on discharge. 4. History of IV drug abuse, polysubstance abuse, chronic hepatitis C ? Addiction medicine followed as above. Mildly elevated LFTs on admit, stable from previous, no need to monitor further. Chronic medical conditions: ? Chronic normocytic anemia: Hemoglobin 9.9 on admit, appears to be near baseline. ? Anxiety/depression/bipolar disorder/PTSD: Continue home Seroquel, mirtazapine and trazodone at night. ? GERD: Continue home PPI. ? Tobacco abuse: Treated with nicotine patch while inpatient. Encouraged cessation on discharge. Total clinical time spent by myself addressing the patient's medical issues, reviewing all the data, and collaborating with patient's care team: 35 minutes. Physical Exam Const alert, oriented x3, no apparent distress and average body habitus Constitutional Narrative: Younger female, appears older than stated age, fatigued appearing, otherwise sitting up comfortably in bed and in no acute distress. Stable. General Appearance: cooperative and comfortable HEENT normocephalic, head/scalp atraumatic, hearing grossly normal bilaterally, nasal mucous membranes and turbinates normal and moist oral mucous membranes Eyes PERRL, EOMs intact bilaterally and conjunctivae normal Neck full ROM Chest inspection of chest normal Resp normal respiratory effort, normal air movement, no use of accessory muscles and clear to auscultation bilaterally Cardio regular rate, regular rhythm, no murmurs and peripheral pulses 2+ throughout GI normal to inspection, nondistended, normoactive bowel sounds, soft to palpation, non-tender and non-distended Back/Spine normal ROM Extremity normal to inspection, full ROM and no pedal edema Skin no rashes or lesions noted Psych mental status grossly normal Weight / BMI Weight Weight: 69.2 kg Body Mass Index (BMI) 25.4 ABG / Lab / Microbiology Data 04/04/24 20:00 04/04/24 20:00 Laboratory: Laboratory Results - last 24 hr 04/06/24 06:05: PT 25.9 H, INR 2.4 D/C Instructions DC O2, CPAP, BIPAP Needs Additional Home O2 Discharge instructions: No DC home with Oxygen: No Meaningful Use Info Meaningful Use Meaningful Use Diagnoses (Choose all that apply): None applicable Ischemic Stroke Statin Dosing Therapy Reference: STATIN DOSE THERAPY REFERENCE: * Patients > 75 years receive moderate or high dose statin therapy. * Patients 75 years or YOUNGER should receive HIGH intensity statin dose unless contraindicated. You will be required to document reason for non-treatment if statin daily dose does not meet guidelines. HIGH DOSE STATIN THERAPY DAILY Atorvastatin > than or = to 40 mg Rosuvastatin > than or = to 20 mg Amlodipine + Atorvastatin > than or = to 2.5/40 mg Ezetimibe + Simvastatin 10/80 mg Simvastatin 80mg Discharge Plan Admission Admit Date/Time: 04/04/24 21:43 Primary Reason for Your Visit: opiate detox Attending Provider: Lino Guaman Primary Care Provider: Trisha Wiley [facility] Consulting Providers: Leydi Padilla Discharge Orders/Prescriptions Prescriptions: Continued Medical Marijuana 1 inhaler inhalation PRN PRN (Reason: Anxiety) methocarbamol 500 mg tablet 500 mg PO Q6H furosemide 20 mg tablet 20 mg PO DAILY gabapentin 100 mg capsule 100 mg PO TID hydroxyzine pamoate 25 mg capsule 25 mg PO BID PRN PRN (Reason: anxiety) Briviact 50 mg tablet 50 mg PO BID multivitamin [One Daily Multivitamin] Tablet 1 tab PO QHS pantoprazole 40 mg tablet,delayed release (DR/EC) 40 mg PO DAILY mirtazapine 30 mg tablet 30 mg PO QHS trazodone 150 mg tablet 150 mg PO QHS warfarin 1 mg tablet PO DAILY Rx Instructions: on Saturday, Saturday, Saturday take 5mg, Saturday and Saturday take 7.5 quetiapine 50 mg tablet extended release 24 hr 50 mg PO QHS Discontinued hydromorphone 2 mg tablet 2 mg PO Q8H PRN PRN (Reason: severe pain) Patient Comments: ran out of pills yesterday Referrals / Follow Up: Joan Santiago MD [Med Staff - Active Staff] - Trisha Wiley DO [Primary Care Provider] - Disposition Disposition (needs filled in before D/C Order can be placed): Home, Self Care Charges/Coding Visit Charges Inpatient E&M: 25908 Disch Hosp >30min
--- NOTE | 2024-04-06 10:25 | PCM.DC ---
Discharge Instructions Diet Discharge Diet: No restrictions DC O2, CPAP, BIPAP needs Additional Home O2 Discharge instructions: No Dressing / Incision Discharge Activity: No Restrictions Follow Up Care Test Results: Test results from this visit will be discussed in further detail at your follow-up appointment, if applicable. Discharge Plan Admission Admit Date/Time: 04/04/24 21:43 Primary Reason for Your Visit: opiate detox Attending Provider: Lino Guaman Primary Care Provider: Trisha Wiley Consulting Providers: Leydi Padilla Discharge Orders/Prescriptions Prescriptions: Continued Medical Marijuana 1 inhaler inhalation PRN PRN (Reason: Anxiety) methocarbamol 500 mg tablet 500 mg PO Q6H furosemide 20 mg tablet 20 mg PO DAILY gabapentin 100 mg capsule 100 mg PO TID hydroxyzine pamoate 25 mg capsule 25 mg PO BID PRN PRN (Reason: anxiety) Briviact 50 mg tablet 50 mg PO BID multivitamin [One Daily Multivitamin] Tablet 1 tab PO QHS pantoprazole 40 mg tablet,delayed release (DR/EC) 40 mg PO DAILY mirtazapine 30 mg tablet 30 mg PO QHS trazodone 150 mg tablet 150 mg PO QHS warfarin 1 mg tablet PO DAILY Rx Instructions: on Saturday, Saturday, Saturday take 5mg, Saturday and Saturday take 7.5 quetiapine 50 mg tablet extended release 24 hr 50 mg PO QHS Discontinued hydromorphone 2 mg tablet 2 mg PO Q8H PRN PRN (Reason: severe pain) Patient Comments: ran out of pills yesterday Referrals / Follow Up: Joan Santiago MD [Med Staff - Active Staff] - Trisha Wiley, [Primary Care Provider] - Disposition Disposition (needs filled in before D/C Order can be placed): Home, Self Care
--- NOTE | 2024-04-06 11:18 | PHA.DC.MR.R ---
Pharmacy [place] Med Reconciliation Pharmacy Service has performed discharge medication reconciliation for this patient. The patient's discharge medication list was reviewed for discrepancies and discrepancies were resolved. Medications at Discharge Home Medications Medical Marijuana 1 inhaler inhalation PRN PRN Anxiety 08/24/18 brivaracetam 50 mg tablet (Briviact) 50 mg PO BID seizure 04/04/24 furosemide 20 mg tablet 20 mg PO DAILY water pill 04/04/24 gabapentin 100 mg capsule 100 mg PO TID pain 04/04/24 hydroxyzine pamoate 25 mg capsule 25 mg PO BID PRN PRN anxiety 04/04/24 methocarbamol 500 mg tablet 500 mg PO Q6H pain 04/04/24 mirtazapine 30 mg tablet 30 mg PO QHS sleep 04/04/24 multivitamin (One Daily Multivitamin tablet) 1 tab PO QHS supplement 04/04/24 pantoprazole 40 mg tablet,delayed release 40 mg PO DAILY gerd 04/04/24 quetiapine 50 mg tablet,extended release 24 hr 50 mg PO QHS mood 04/04/24 trazodone 150 mg tablet 150 mg PO QHS mood 04/04/24 warfarin 1 mg tablet mg PO DAILY blood thinner 04/04/24
== END 2024-04-06 11:16 | disposition home or self-care (01) | DRG 773 ==
LOC: ED 21:43 → MS3 21:47
PROVIDERS: Physician Assistant; Admitting Provider Family Medicine; Emergency Provider Emergency Medicine; PCP Family Medicine; Visit Provider Hospitalist
DX: F11.13 Opioid abuse with withdrawal (principal); F31.9 Bipolar disorder, unspecified; B18.2 Chronic viral hepatitis C; G40.909 Epilepsy, unspecified, not intractable, without status epilepticus; D64.9 Anemia, unspecified; F17.210 Nicotine dependence, cigarettes, uncomplicated; E87.6 Hypokalemia; K21.9 Gastro-esophageal reflux disease without esophagitis; F41.9 Anxiety disorder, unspecified; F43.10 Post-traumatic stress disorder, unspecified; Z79.899 Other long term (current) drug therapy
CPT/HCPCS: 36415; 80048; 80076; 80307; 81025; 82077; 83735; 85025; 85610; 94640; 99285